=== PATIENT | male | born 1955 | race Caucasian/White ===

== ENCOUNTER → 2016-12-04 | Outpatient (REF) | payer MEDICARE, OTHER ==
[~2016-12-04] MED LIST: ABIL5TAB5 PO; ABILIFY PO; ALBU17IN INH; ALPR0.25 PO; CARV12.5 PO; CARV6.25 PO; CHLO1.4S2 MT; CIAL5TAB PO; CLEO300C2 PO; CLIN1CAP5 PO; DOXY10CA PO; FLUC10TA PO; FLUTICASONE NASAL; GABA300C3 PO; GABAPOW41 PO; HUMA100I SC; IBUP800T23 PO; IBUPPOW25 PO; INSUH10VL SC; INSULADS SC; INSULANT SQ; LISI25TA PO; LISI5TAB PO; METF1000 PO; METF500T PO; OMEP20CA3 PO; OMEP40CA2 PO; PRED20TAB PO; PROZ20CA11 PO; PROZAC PO; SILV50CR TOP; TRAM50TA2 PO; ULTR50TA PO; ZITH250T PO; ZYVO100T PO
== END ==
LOC: M LAB REF 14:37
PROVIDERS: ATTEND Podiatrist
DX: E11.51 Type 2 diabetes mellitus with diabetic peripheral angiopathy without gangrene (principal); E11.621 Type 2 diabetes mellitus with foot ulcer; L97.522 Non-pressure chronic ulcer of other part of left foot with fat layer exposed

== ENCOUNTER → 2017-01-16 | Outpatient (REF) | payer MEDICARE, OTHER ==
[~2017-01-16] MED LIST changes: +GABA-282 PO; -GABA300C3 PO; +LISI2.5T76 PO; -LISI25TA PO
== END ==
LOC: M LAB REF 11:13
PROVIDERS: ATTEND Podiatrist
DX: E11.51 Type 2 diabetes mellitus with diabetic peripheral angiopathy without gangrene (principal); E11.621 Type 2 diabetes mellitus with foot ulcer; L97.522 Non-pressure chronic ulcer of other part of left foot with fat layer exposed

== ENCOUNTER → 2017-06-28 | Outpatient (REF) | payer MEDICARE, OTHER ==
[~2017-06-28] MED LIST changes: +ABIL1TAB11 PO; -ABIL5TAB5 PO; +ASPI1TAB PO; +CLIN150C14 PO; -CLIN1CAP5 PO; +FLON1SPR; +IBUP1TAB7 PO; -IBUP800T23 PO; +MAGN250T14 PO; +METF10004 PO; -METF500T PO; +METF500T13 PO; +VITA1CAP40 PO
== END ==
LOC: M LAB REF 18:38
PROVIDERS: ATTEND Podiatrist
DX: L97.522 Non-pressure chronic ulcer of other part of left foot with fat layer exposed (principal)

== ENCOUNTER → 2017-07-18 | Outpatient (REF) | payer MEDICARE, OTHER | LOC: M LAB REF 11:38 | PROVIDERS: ATTEND Podiatrist | DX: E11.51 Type 2 diabetes mellitus with diabetic peripheral angiopathy without gangrene (principal); E11.621 Type 2 diabetes mellitus with foot ulcer ==

== ENCOUNTER → 2017-08-21 | Outpatient (CLI) | payer MEDICARE, BC, OTHER ==
[2017-08-21 10:36] LABS: BASO # 0.1 10^3/uL (0.0-0.2); BASO % 0.8 % (0.0-1.0); EOS # 0.2 10^3/uL (0.0-0.50); EOS % 2.2 % (0.0-3.0); IMMATURE GRANULOCYTE % 0.9 % (0-0); LYMPH # 1.7 10^3/uL (1.5-4.5); LYMPH % 19.4 % (24.0-44.0); MEAN CORPUSCULAR HEMOGLOBIN 31.4 pg (27.0-33.0); MEAN CORPUSCULAR HGB CONC 33.7 g/dl (32.0-36.5); MEAN CORPUSCULAR VOLUME 93.3 fl (80.0-96.0); MONO % 11.3 % (0.0-5.0); NEUTROPHILS # 5.7 10^3/uL (1.8-7.7); NEUTROPHILS % 65.4 % (36.0-66.0); PLATELET COUNT, AUTOMATED 187 10^3/uL (150-450); WHITE BLOOD COUNT 8.8 10^3/uL (4.0-10.0)
[2017-08-21 10:53] LABS: ALBUMIN 3.7 GM/DL (3.2-5.2); ALBUMIN/GLOBULIN RATIO 1.03 (1.00-1.93); BILIRUBIN,TOTAL 1.1 MG/DL (0.2-1.0); CALCIUM LEVEL 8.8 MG/DL (8.8-10.2); CREATININE FOR GFR 1.52 MG/DL (0.70-1.30); GLOMERULAR FILTRATION RATE 49.9 (>49); TOTAL PROTEIN 7.3 GM/DL (6.4-8.2)
--- NOTE | 2017-08-21 11:26 | REP ---
PA and lateral chest: Comparisons 01/25/2016. Lung hankins are clear. Cardiac size is normal. The yoseph, mediastinum, and bony thorax are unremarkable. The previous left upper lobe and left lower lobe infiltrates have resolved. Impression: Negative PA and lateral chest. Signed by Hector Kim MD 08/21/2017 11:17 A
--- NOTE | 2017-08-22 20:40 | ECGEPIP ---
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
== END ==
LOC: M RAD 09:19
PROVIDERS: ATTEND Podiatrist
DX: Z01.818 Encounter for other preprocedural examination (principal); M79.9 Soft tissue disorder, unspecified; I44.1 Atrioventricular block, second degree

== ENCOUNTER 2017-09-05 08:45 | Day surgery (SDC) | payer MEDICARE, BC, OTHER ==
[~2017-09-05] VITALS: Ht 171.4 cm; Wt 102.4 kg
[~2017-09-05 08:45] MED LIST changes: -ASPI1TAB PO
[2017-09-05] MEDS ORDERED: VANCOMYCIN HCL 1,000 MG, VIAL MATE ADAPTER 1 EACH in D5W 250 ML IV ONE (09:00)
[2017-09-05] MEDS ORDERED: LR 1,000 ML IV ONE (09:00)
[2017-09-05] MEDS ORDERED: HumaLOG INSULIN (NovoLOG) PER UNIT As Ordered ONE (09:30)
[2017-09-05] MEDS ORDERED: ASPI1TAB PO (09:47)
[2017-09-05] MEDS ORDERED: BUPIVACAINE HCL 0.5% 30 ML VIAL As Ordered ONE (09:50)
[2017-09-05] MEDS ORDERED: BACITRACIN PWD 50,000 UNITS VIAL As Ordered ONE (09:50)
[2017-09-05] MEDS ORDERED: LIDOCAINE 2% MDV 20 ML VIAL As Ordered ONE (09:50)
[2017-09-05] MEDS ORDERED: dexameTHASONE 4 MG/ML 1ML VIAL (J1100) As Ordered ONE (09:50)
[2017-09-05] MEDS ORDERED: NEOSPORIN GU IRRIG 20 ML VIAL As Ordered ONE (09:51)
[2017-09-05] MEDS ORDERED: LEVEMIR (INSULIN DETEMIR) 1 UNITS/0.01ML SC ONE (10:00)
[2017-09-05] MEDS ORDERED: HumaLOG INSULIN (NovoLOG) PER UNIT SC ONE (10:00)
[2017-09-05] MEDS ORDERED: LIDOCAINE 2% INJ 100 MG/5 ML SDV (FOR ANES.) As Ordered ONE (11:25)
[2017-09-05] MEDS ORDERED: fentaNYL 100 MCG/2 ML INJECTION (J3010) As Ordered ONE (11:25)
[2017-09-05] MEDS ORDERED: MIDAZOLAM INJ 2 MG/2 ML VIAL (J2250) As Ordered ONE (11:25)
[2017-09-05] MEDS ORDERED: PROPOFOL 500 MG/50 ML VIAL As Ordered ONE (11:25)
[2017-09-05] MEDS ORDERED: ONDANSETRON 4MG/2ML VIAL (J2405) As Ordered ONE (11:26)
[2017-09-05 13:00] VITALS: BP 140/66
--- NOTE | 2017-09-06 17:24 | RO ---
DATE OF PROCEDURE: 09/05/2017 PREPROCEDURE DIAGNOSIS: Soft tissue mass plantar surface left foot. POSTPROCEDURE DIAGNOSIS: Soft tissue mass plantar surface left foot. PROCEDURE: Excision of soft tissue mass plantar surface left foot. SURGEON: Dr. Sumeet Dhaliwal DPM PSYCHIATRIC NURSE: None. ANESTHESIA: Local MAC. IRRIGATION: Dilute bacitracin, neomycin and polymyxin B solution. DESCRIPTION OF PROCEDURE: On 09/05/2017, this 62-year-old white male was taken from his hospital room to the operating room and placed on the operating table in the supine position. Following the induction of intravenous (IV) sedation and local and regional anesthesia, left lower extremity was prepped and draped in the usual aseptic manner. Attention was directed to the plantar surface of the left foot and the following procedure was performed: EXCISION OF SOFT TISSUE MASS PLANTAR SURFACE LEFT FOOT: Attention was directed to the patient's left foot where two semi-elliptical incisions were placed around the soft tissue mass on the plantar surface of the left foot, encompassing an ulceration on the plantar surface. This was carried down through the subcutaneous tissues and a well-capsulated mass was noted and appearance of an adventitious bursa. This was dissected from the surrounding soft tissue, preserving the subcutaneous fat. Soft tissue mass was excised. The flexor tendon was visible and not affected. The wound was flushed with copious amounts of dilute bacitracin, neomycin and polymyxin B solution. The soft tissue mass measured approximately 3 cm x 1 cm. After the wound was fully irrigated with dilute bacitracin, neomycin and polymyxin B solution, closure was obtained subcutaneously with #4-0 Monocryl in a simple interrupted type fashion. Skin incision was coapted and maintained with #3-0 nylon in a simple interrupted and horizontal mattress type fashion. Attention was directed towards bandaging where a sterile compressive bandage was applied consisting of Adaptic, 4 x 4's, 4 x 4 splints, Maurice, Kerlix and Coban. Ankle pneumatic tourniquet was rapidly deflated and instantaneous capillary filling time was noted in digits 1-5 of the patient's left foot. Patient having apparently tolerated the surgical procedure well was taken from the operating room to the recovery room, vital signs stable, patient afebrile, further monitoring by the anesthesia department. All surgical specimens removed during the operative procedure were sent to Pathology for gross and microscopic examination. Postoperative instructions given upon discharge.
== END 2017-09-05 13:35 | disposition home or self-care (01) ==
LOC: M SDC 08:45
PROVIDERS: ATTEND Podiatrist
DX: D48.1 Neoplasm of uncertain behavior of connective and other soft tissue (principal); E11.51 Type 2 diabetes mellitus with diabetic peripheral angiopathy without gangrene; E11.621 Type 2 diabetes mellitus with foot ulcer; B35.1 Tinea unguium; L97.522 Non-pressure chronic ulcer of other part of left foot with fat layer exposed; R94.31 Abnormal electrocardiogram [ECG] [EKG]; I10 Essential (primary) hypertension; E78.00 Pure hypercholesterolemia, unspecified; K21.9 Gastro-esophageal reflux disease without esophagitis; M12.9 Arthropathy, unspecified; F32.9 Major depressive disorder, single episode, unspecified; Z88.0 Allergy status to penicillin; Z88.5 Allergy status to narcotic agent; Z79.899 Other long term (current) drug therapy; Z79.84 Long term (current) use of oral hypoglycemic drugs; Z79.4 Long term (current) use of insulin; Z72.0 Tobacco use
CPT/HCPCS: 28039; 88307; 96374; 97116; G8978; G8979; G8980; J2250; J2405; J3010; J3370

== ENCOUNTER → 2017-09-18 | Outpatient (REF) | payer MEDICARE, OTHER ==
[~2017-09-18] MED LIST changes: +ASPI1TAB PO
== END ==
LOC: M LAB REF 14:40
PROVIDERS: ATTEND Podiatrist
DX: L97.522 Non-pressure chronic ulcer of other part of left foot with fat layer exposed (principal)

== ENCOUNTER 2017-10-13 18:22 | Emergency (ER) | payer MEDICARE, OTHER ==
[~2017-10-13] VITALS: Ht 170.2 cm; Wt 93.2 kg
[2017-10-13 19:07] LABS: BASO # 0.1 10^3/uL (0.0-0.2); BASO % 0.6 % (0.0-1.0); EOS # 0.2 10^3/uL (0.0-0.50); EOS % 2.1 % (0.0-3.0); IMMATURE GRANULOCYTE % 1.1 % (0-0); LYMPH # 1.2 10^3/uL (1.5-4.5); LYMPH % 13.2 % (24.0-44.0); MEAN CORPUSCULAR HEMOGLOBIN 31.5 pg (27.0-33.0); MEAN CORPUSCULAR HGB CONC 33.4 g/dl (32.0-36.5); MEAN CORPUSCULAR VOLUME 94.3 fl (80.0-96.0); MONO # 0.9 10^3/uL (0.0-0.8); MONO % 9.2 % (0.0-5.0); NEUTROPHILS # 6.9 10^3/uL (1.8-7.7); NEUTROPHILS % 73.8 % (36.0-66.0); PLATELET COUNT, AUTOMATED 171 10^3/uL (150-450); RED CELL DISTRIBUTION WIDTH 13.7 % (11.5-14.5); WHITE BLOOD COUNT 9.4 10^3/uL (4.0-10.0)
--- NOTE | 2017-10-13 19:30 | REPUSA ---
CT of the head Clinical history: Head injury. Technique: Multiple axial CT images were obtained through the head without administration of contrast . Findings: The ventricles and sulci are symmetric bilaterally. There is no evidence of acute hemorrhag e or infarct. There is no midline shift, mass effect, or extra-axial fluid collection. The osseous st ructures are unremarkable. The visualized paranasal sinuses and mastoid air cells are clear. Impression: Negative study.
--- NOTE | 2017-10-13 19:30 | REPUSA ---
CT of the cervical spine Clinical history: Pain. Technique: Multiple axial CT images were obtained through the cervical spine without administration o f contrast. Coronal and sagittal 3-D reconstructed images were also obtained. Comparison: None. Findings: The cervical vertebral bodies are in satisfactory positioning and alignment. No fractures or dislocat ions are demonstrated. The odontoid process is intact. Intervertebral disc spaces are well-maintained . There is no evidence of facet subluxation. The neural foramen appear grossly patent. The cervical c ranial junction is intact. There are moderate disc bulge is noted at C3/C4, C4/C5, C5/C6 and C6/C7. T he surrounding soft tissues are within normal limits. Impression: 1. No acute fracture or traumatic injury. 2. Multilevel disc bulging at C3/C4, C4/C5, C5/C6 and C6/C7. No evidence of central canal stenosis.
[2017-10-13 19:50] LABS: CALCIUM LEVEL 8.5 MG/DL (8.8-10.2); CREATININE FOR GFR 2.13 MG/DL (0.70-1.30); GLOMERULAR FILTRATION RATE 33.7 (>49); POTASSIUM SERUM 4.9 MEQ/L (3.5-5.1)
[2017-10-13 20:33] VITALS: BP 119/60
== END 2017-10-13 21:12 | disposition home or self-care (01) ==
LOC: EDBD 18:22 → M ED 18:22
DX: R55 Syncope and collapse (principal); E11.649 Type 2 diabetes mellitus with hypoglycemia without coma; N17.9 Acute kidney failure, unspecified; M50.30 Other cervical disc degeneration, unspecified cervical region; N18.3 Chronic kidney disease, stage 3 (moderate); F41.9 Anxiety disorder, unspecified; F33.9 Major depressive disorder, recurrent, unspecified; G62.9 Polyneuropathy, unspecified; Z79.899 Other long term (current) drug therapy; Z79.4 Long term (current) use of insulin; F17.210 Nicotine dependence, cigarettes, uncomplicated

== ENCOUNTER → 2017-10-18 | Outpatient (REF) | payer MEDICARE, OTHER ==
[~2017-10-18] MED LIST changes: +DOXY100C PO; +IBUPOTC PO
== END ==
LOC: M LAB REF 13:02
PROVIDERS: ATTEND Podiatrist
DX: L03.116 Cellulitis of left lower limb (principal)

== ENCOUNTER 2017-10-24 12:47 | Inpatient (IN) | payer MEDICARE, BC, OTHER ==
[2017-10-24 15:02] LABS: HEMATOCRIT 36.5 % (42.0-52.0); HEMOGLOBIN 12.5 g/dl (14.0-18.0); MEAN CORPUSCULAR HEMOGLOBIN 30.9 pg (27.0-33.0); MEAN CORPUSCULAR HGB CONC 34.2 g/dl (32.0-36.5); MEAN CORPUSCULAR VOLUME 90.3 fl (80.0-96.0); PLATELET COUNT, AUTOMATED 256 10^3/uL (150-450); RED BLOOD COUNT 4.04 10^6/uL (4.30-6.10); RED CELL DISTRIBUTION WIDTH 13.4 % (11.5-14.5); WHITE BLOOD COUNT 10.7 10^3/uL (4.0-10.0)
[2017-10-24 15:27] LABS: ANION GAP 9 MEQ/L (8-16); BLOOD UREA NITROGEN 24 MG/DL (7-18); CALCIUM LEVEL 9.4 MG/DL (8.8-10.2); CARBON DIOXIDE LEVEL 28 MEQ/L (21-32); CHLORIDE LEVEL 97 MEQ/L (98-107); CREATININE FOR GFR 2.07 MG/DL (0.70-1.30); GLOMERULAR FILTRATION RATE 34.8 (>49); GLUCOSE, FASTING 334 MG/DL (80-110); POTASSIUM SERUM 4.9 MEQ/L (3.5-5.1); SODIUM LEVEL 134 MEQ/L (136-145)
[2017-10-24] MEDS ORDERED: PERCOCET 5MG/325MG TAB PO ×3 (16:00→19:15)
[2017-10-24] MEDS ORDERED: DEXTROSE 50% 50 ML SYRINGE IV (16:00)
[2017-10-24] MEDS ORDERED: ONDANSETRON 4MG/2ML VIAL (J2405) IV ×2 (16:00→19:15)
[2017-10-24] MEDS ORDERED: GLUCAGON FOR INJ 1 MG VIAL (J1610) SC (16:00)
[2017-10-24] MEDS ORDERED: GLUCOSE 4 GM CHEW TABLET PO (16:00)
[2017-10-24 16:20] LABS: C REACTIVE PROTEIN QUANTITATIV 8.02 MG/DL (0.00-0.30)
[2017-10-24] MEDS ORDERED: LIDOCAINE 2% INJ 100 MG/5 ML SDV (FOR ANES.) As Ordered (17:00)
[2017-10-24] MEDS ORDERED: PROPOFOL 200 MG/20 ML VIAL As Ordered ×2 (17:00→18:13)
[2017-10-24] MEDS ORDERED: MIDAZOLAM INJ 2 MG/2 ML VIAL (J2250) As Ordered (17:00)
[2017-10-24] MEDS: VANCOMYCIN HCL 1,000 MG, VIAL MATE ADAPTER 1 EACH in D5W 250 ML IV (17:00)
[2017-10-24] MEDS ORDERED: fentaNYL 100 MCG/2 ML INJECTION (J3010) As Ordered (17:01)
[2017-10-24 17:26] LABS: BEDSIDE GLUCOSE 339 MG/DL (80-115)
[2017-10-24] MEDS ORDERED: HumaLOG INSULIN (NovoLOG) PER UNIT As Ordered (17:28)
[2017-10-24] MEDS: HumaLOG INSULIN (NovoLOG) PER UNIT SC (17:36)
[2017-10-24] MEDS: BUPIVACAINE HCL 0.5% 30 ML VIAL As Ordered (17:52)
[2017-10-24] MEDS ORDERED: ePHEDrine SULFATE 25 MG/5 ML(5MG/ML) SYRINGE As Ordered ×2 (17:52→18:16)
[2017-10-24] MEDS: LIDOCAINE 2% MDV 20 ML VIAL As Ordered (17:52)
[2017-10-24] MEDS ORDERED: PHENYLephrine HCL 500 MCG/5 ML (100MCG/ML) SYRINGE (J2370) As Ordered ×2 (18:00→18:33)
[2017-10-24] MEDS: VANCOMYCIN 1000 MG/20 ML VIAL (J3370) As Ordered ×2 (18:23→18:26)
[2017-10-24] MEDS: NEOSPORIN GU IRRIG 20 ML VIAL As Ordered (18:24)
[2017-10-24] MEDS: BACITRACIN PWD 50,000 UNITS VIAL As Ordered ×2 (18:24→18:30)
[2017-10-24] MEDS: LR 1,000 ML IV (19:00)
[2017-10-24] MEDS ORDERED: fentaNYL 100 MCG/2 ML INJECTION (J3010) IV (19:15)
[2017-10-24] MEDS ORDERED: HYDROmorphone HCL 1 MG/ML SYRINGE (J1170) IV (19:15)
[2017-10-24 19:33] LABS: BEDSIDE GLUCOSE 260 MG/DL (80-115)
[2017-10-24 20:57] LABS: BEDSIDE GLUCOSE 207 MG/DL (80-115)
[2017-10-24] MEDS: CARVedilol 6.25 MG TAB PO (21:00)
[2017-10-24] MEDS: DILUENT IV (22:53)
[2017-10-24] MEDS: CEFTAZIDIME IV (22:53)
[2017-10-24] MEDS: NS 1,000 ML IV (22:54)
[2017-10-24] MEDS: GABAPENTIN 300 MG CAP PO (22:54)
[2017-10-24] MEDS: LEVEMIR (INSULIN DETEMIR) 1 UNITS/0.01ML SC (22:54)
[2017-10-25] MEDS ORDERED: INFLUENZA QUADRIVALENT PF VACCINE 0.5ML SYRINGE (90686) IM (00:30)
[2017-10-25 07:03] LABS: HEMATOCRIT 29.1 % (42.0-52.0); MEAN CORPUSCULAR HEMOGLOBIN 30.8 pg (27.0-33.0); MEAN CORPUSCULAR HGB CONC 34.4 g/dl (32.0-36.5); MEAN CORPUSCULAR VOLUME 89.5 fl (80.0-96.0); PLATELET COUNT, AUTOMATED 208 10^3/uL (150-450); RED BLOOD COUNT 3.25 10^6/uL (4.30-6.10); RED CELL DISTRIBUTION WIDTH 13.2 % (11.5-14.5); WHITE BLOOD COUNT 9.2 10^3/uL (4.0-10.0)
[2017-10-25 07:17] LABS: ANION GAP 8 MEQ/L (8-16); BLOOD UREA NITROGEN 30 MG/DL (7-18); C REACTIVE PROTEIN QUANTITATIV 5.11 MG/DL (0.00-0.30); CALCIUM LEVEL 8.3 MG/DL (8.8-10.2); CARBON DIOXIDE LEVEL 26 MEQ/L (21-32); CHLORIDE LEVEL 99 MEQ/L (98-107); CREATININE FOR GFR 2.03 MG/DL (0.70-1.30); GLOMERULAR FILTRATION RATE 35.6 (>49); GLUCOSE, FASTING 348 MG/DL (80-110); MAGNESIUM LEVEL 1.5 MG/DL (1.8-2.4); POTASSIUM SERUM 4.8 MEQ/L (3.5-5.1); SODIUM LEVEL 133 MEQ/L (136-145)
[2017-10-25] MEDS: VANCOMYCIN HCL 1,000 MG, VIAL MATE ADAPTER 1 EACH in D5W 250 ML IV ×2 (08:44→20:38)
[2017-10-25] MEDS: HumaLOG INSULIN (NovoLOG) PER UNIT SC ×4 (08:44→20:37)
[2017-10-25] MEDS: FLUoxetine 20 MG CAP PO (09:51)
[2017-10-25] MEDS: MAGNESIUM OXIDE 400 MG TAB (MAG-OX) PO ×2 (09:51→20:38)
[2017-10-25] MEDS: GABAPENTIN 300 MG CAP PO ×3 (09:51→20:39)
[2017-10-25] MEDS: CARVedilol 6.25 MG TAB PO ×2 (09:51→20:39)
[2017-10-25] MEDS: OMEPRAZOLE 20 MG CAP PO (09:51)
[2017-10-25] MEDS: DILUENT IV ×2 (09:52→20:40)
[2017-10-25] MEDS: CEFTAZIDIME IV ×2 (09:52→20:40)
[2017-10-25] MEDS: LEVEMIR (INSULIN DETEMIR) 1 UNITS/0.01ML SC ×2 (09:52→20:40)
[2017-10-25] MEDS: FLUTICASONE PROP 0.05% NASAL SPRAY 16 GM (FLONASE) (09:52)
[2017-10-25 12:20] LABS: BEDSIDE GLUCOSE 328 MG/DL (80-115)
[2017-10-25 17:18] LABS: BEDSIDE GLUCOSE 244 MG/DL (80-115)
[2017-10-25] MEDS: HEPARIN SOD (PORCINE) 5000 UNITS/ML VIAL SQ (20:40)
[2017-10-25 21:03] LABS: BEDSIDE GLUCOSE 189 MG/DL (80-115)
[2017-10-25] MEDS: traMADol 50 MG TAB PO (23:21)
[2017-10-26] MEDS: HEPARIN SOD (PORCINE) 5000 UNITS/ML VIAL SQ ×3 (05:35→21:06)
[2017-10-26 07:27] LABS: HEMATOCRIT 28.8 % (42.0-52.0); MEAN CORPUSCULAR HGB CONC 34.7 g/dl (32.0-36.5); MEAN CORPUSCULAR VOLUME 89.2 fl (80.0-96.0); PLATELET COUNT, AUTOMATED 218 10^3/uL (150-450); RED BLOOD COUNT 3.23 10^6/uL (4.30-6.10); RED CELL DISTRIBUTION WIDTH 13.3 % (11.5-14.5)
[2017-10-26 07:43] LABS: ANION GAP 6 MEQ/L (8-16); BLOOD UREA NITROGEN 19 MG/DL (7-18); CALCIUM LEVEL 8.8 MG/DL (8.8-10.2); CARBON DIOXIDE LEVEL 30 MEQ/L (21-32); CHLORIDE LEVEL 101 MEQ/L (98-107); CREATININE FOR GFR 1.11 MG/DL (0.70-1.30); GLOMERULAR FILTRATION RATE > 60.0 (>49); GLUCOSE, FASTING 80 MG/DL (80-110); MAGNESIUM LEVEL 1.6 MG/DL (1.8-2.4); POTASSIUM SERUM 3.7 MEQ/L (3.5-5.1); SODIUM LEVEL 137 MEQ/L (136-145); VANCOMYCIN LEVEL TROUGH 22.2 UG/ML (10.0-20.0)
[2017-10-26] MEDS: VANCOMYCIN HCL 1,000 MG, VIAL MATE ADAPTER 1 EACH in D5W 250 ML IV (08:20)
[2017-10-26] MEDS: ACETAMINOPHEN TAB 650MG DOSE (2X325MG) PO (08:21)
[2017-10-26] MEDS: MAGNESIUM OXIDE 400 MG TAB (MAG-OX) PO ×2 (08:22→21:05)
[2017-10-26] MEDS: FLUoxetine 20 MG CAP PO (08:22)
[2017-10-26] MEDS: GABAPENTIN 300 MG CAP PO ×3 (08:22→21:04)
[2017-10-26] MEDS: CARVedilol 6.25 MG TAB PO ×2 (08:23→21:05)
[2017-10-26] MEDS: OMEPRAZOLE 20 MG CAP PO (08:23)
[2017-10-26] MEDS: FLUTICASONE PROP 0.05% NASAL SPRAY 16 GM (FLONASE) (08:24)
[2017-10-26] MEDS: LEVEMIR (INSULIN DETEMIR) 1 UNITS/0.01ML SC ×2 (09:00→21:23)
[2017-10-26 09:01] LABS: BEDSIDE GLUCOSE 117 MG/DL (80-115)
[2017-10-26] MEDS: HumaLOG INSULIN (NovoLOG) PER UNIT SC ×4 (09:12→21:00)
[2017-10-26] MEDS: CEFTAZIDIME IV ×2 (09:51→21:06)
[2017-10-26] MEDS: DILUENT IV ×2 (09:51→21:06)
[2017-10-26 13:01] LABS: BEDSIDE GLUCOSE 220 MG/DL (80-115)
[2017-10-26 17:10] LABS: BEDSIDE GLUCOSE 239 MG/DL (80-115)
[2017-10-26] MEDS: traMADol 50 MG TAB PO (21:05)
[2017-10-26 21:33] LABS: BEDSIDE GLUCOSE 328 MG/DL (80-115)
[2017-10-26 23:29] LABS: BEDSIDE GLUCOSE 275 MG/DL (80-115)
[2017-10-27 02:19] LABS: BEDSIDE GLUCOSE 226 MG/DL (80-115)
[2017-10-27] MEDS: HEPARIN SOD (PORCINE) 5000 UNITS/ML VIAL SQ (04:58)
[2017-10-27 06:38] LABS: HEMATOCRIT 28.7 % (42.0-52.0); HEMOGLOBIN 9.9 g/dl (14.0-18.0); MEAN CORPUSCULAR HEMOGLOBIN 31.3 pg (27.0-33.0); MEAN CORPUSCULAR HGB CONC 34.5 g/dl (32.0-36.5); MEAN CORPUSCULAR VOLUME 90.8 fl (80.0-96.0); PLATELET COUNT, AUTOMATED 177 10^3/uL (150-450); RED BLOOD COUNT 3.16 10^6/uL (4.30-6.10); RED CELL DISTRIBUTION WIDTH 13.4 % (11.5-14.5); WHITE BLOOD COUNT 5.8 10^3/uL (4.0-10.0)
[2017-10-27 07:03] LABS: ANION GAP 7 MEQ/L (8-16); BLOOD UREA NITROGEN 14 MG/DL (7-18); C REACTIVE PROTEIN QUANTITATIV 4.98 MG/DL (0.00-0.30); CALCIUM LEVEL 8.4 MG/DL (8.8-10.2); CARBON DIOXIDE LEVEL 28 MEQ/L (21-32); CHLORIDE LEVEL 104 MEQ/L (98-107); CREATININE FOR GFR 1.05 MG/DL (0.70-1.30); GLOMERULAR FILTRATION RATE > 60.0 (>49); GLUCOSE, FASTING 179 MG/DL (80-110); MAGNESIUM LEVEL 1.8 MG/DL (1.8-2.4); POTASSIUM SERUM 4.1 MEQ/L (3.5-5.1); SODIUM LEVEL 139 MEQ/L (136-145)
[2017-10-27] MEDS: VANCOMYCIN HCL 1,000 MG, VIAL MATE ADAPTER 1 EACH in D5W 250 ML IV ×2 (08:20→20:57)
[2017-10-27] MEDS: FLUoxetine 20 MG CAP PO (08:20)
[2017-10-27] MEDS: OMEPRAZOLE 20 MG CAP PO (08:20)
[2017-10-27] MEDS: GABAPENTIN 300 MG CAP PO ×3 (08:21→20:57)
[2017-10-27] MEDS: FLUTICASONE PROP 0.05% NASAL SPRAY 16 GM (FLONASE) (08:21)
[2017-10-27] MEDS: CARVedilol 6.25 MG TAB PO ×2 (08:25→20:59)
[2017-10-27] MEDS: CEFTAZIDIME IV (10:04)
[2017-10-27] MEDS: DILUENT IV (10:04)
[2017-10-27] MEDS: HumaLOG INSULIN (NovoLOG) PER UNIT SC ×4 (12:00→21:00)
[2017-10-27 12:36] LABS: BEDSIDE GLUCOSE 290 MG/DL (80-115)
[2017-10-27] MEDS: LIDOCAINE 2% MDV 20 ML VIAL As Ordered (15:01)
[2017-10-27] MEDS: BUPIVACAINE HCL 0.5% 10 ML VIAL As Ordered (15:01)
[2017-10-27] MEDS ORDERED: fentaNYL 100 MCG/2 ML INJECTION (J3010) As Ordered (15:16)
[2017-10-27] MEDS ORDERED: MIDAZOLAM INJ 2 MG/2 ML VIAL (J2250) As Ordered (15:16)
[2017-10-27] MEDS ORDERED: LIDOCAINE 2% INJ 100 MG/5 ML SDV (FOR ANES.) As Ordered (15:16)
[2017-10-27] MEDS ORDERED: ONDANSETRON 4MG/2ML VIAL (J2405) As Ordered (15:16)
[2017-10-27] MEDS: VANCOMYCIN HCL 500 MG/10 ML VIAL (J3370) As Ordered (15:18)
[2017-10-27] MEDS ORDERED: fentaNYL 100 MCG/2 ML INJECTION (J3010) IV (16:00)
[2017-10-27] MEDS ORDERED: NORCO, ANEXSIA 5/325MG TABLET (HYDROcodone/ACETAMINOPHEN) PO (16:00)
[2017-10-27] MEDS ORDERED: ONDANSETRON 4MG/2ML VIAL (J2405) IV (16:00)
[2017-10-27] MEDS ORDERED: HumaLOG INSULIN (NovoLOG) PER UNIT As Ordered (16:03)
[2017-10-27 16:04] LABS: BEDSIDE GLUCOSE 291 MG/DL (80-115)
[2017-10-27] MEDS: LR 1,000 ML IV (16:15)
[2017-10-27 17:52] LABS: BEDSIDE GLUCOSE 222 MG/DL (80-115)
[2017-10-27] MEDS ORDERED: SLF 3 ML SYR IV (18:30)
[2017-10-27] MEDS: SLF 3 ML SYR IV (21:01)
[2017-10-27] MEDS: LEVEMIR (INSULIN DETEMIR) 1 UNITS/0.01ML SC (21:01)
[2017-10-27] MEDS: traMADol 50 MG TAB PO (21:11)
[2017-10-27 21:13] LABS: BEDSIDE GLUCOSE 278 MG/DL (80-115)
[2017-10-28] MEDS: SLF 3 ML SYR IV ×3 (06:00→20:42)
[2017-10-28 07:01] LABS: HEMATOCRIT 27.7 % (42.0-52.0); HEMOGLOBIN 9.3 g/dl (14.0-18.0); MEAN CORPUSCULAR HEMOGLOBIN 30.8 pg (27.0-33.0); MEAN CORPUSCULAR HGB CONC 33.6 g/dl (32.0-36.5); MEAN CORPUSCULAR VOLUME 91.7 fl (80.0-96.0); PLATELET COUNT, AUTOMATED 192 10^3/uL (150-450); RED BLOOD COUNT 3.02 10^6/uL (4.30-6.10); RED CELL DISTRIBUTION WIDTH 13.4 % (11.5-14.5); WHITE BLOOD COUNT 6.1 10^3/uL (4.0-10.0)
[2017-10-28 07:23] LABS: VANCOMYCIN LEVEL TROUGH 22.6 UG/ML (10.0-20.0)
[2017-10-28 07:24] LABS: ANION GAP 7 MEQ/L (8-16); BLOOD UREA NITROGEN 14 MG/DL (7-18); C REACTIVE PROTEIN QUANTITATIV 2.85 MG/DL (0.00-0.30); CALCIUM LEVEL 8.5 MG/DL (8.8-10.2); CARBON DIOXIDE LEVEL 30 MEQ/L (21-32); CHLORIDE LEVEL 102 MEQ/L (98-107); GLOMERULAR FILTRATION RATE > 60.0 (>49); GLUCOSE, FASTING 181 MG/DL (80-110); MAGNESIUM LEVEL 1.8 MG/DL (1.8-2.4); POTASSIUM SERUM 4.4 MEQ/L (3.5-5.1); SODIUM LEVEL 139 MEQ/L (136-145)
[2017-10-28] MEDS: VANCOMYCIN HCL 1,000 MG, VIAL MATE ADAPTER 1 EACH in D5W 250 ML IV ×3 (07:55→23:44)
[2017-10-28] MEDS: HumaLOG INSULIN (NovoLOG) PER UNIT SC ×4 (07:55→20:41)
[2017-10-28] MEDS: LEVEMIR (INSULIN DETEMIR) 1 UNITS/0.01ML SC ×2 (08:03→20:42)
[2017-10-28] MEDS: INFLUENZA QUADRIVALENT PF VACCINE 0.5ML SYRINGE (90686) IM (08:04)
[2017-10-28] MEDS: FLUTICASONE PROP 0.05% NASAL SPRAY 16 GM (FLONASE) (08:05)
[2017-10-28] MEDS: OMEPRAZOLE 20 MG CAP PO (08:06)
[2017-10-28] MEDS: GABAPENTIN 300 MG CAP PO ×3 (08:06→20:42)
[2017-10-28] MEDS: CARVedilol 6.25 MG TAB PO ×2 (08:07→20:42)
[2017-10-28] MEDS: FLUoxetine 20 MG CAP PO (08:09)
[2017-10-28 11:45] LABS: BEDSIDE GLUCOSE 208 MG/DL (80-115)
[2017-10-28] MEDS: traMADol 50 MG TAB PO (14:56)
[2017-10-28 16:55] LABS: BEDSIDE GLUCOSE 184 MG/DL (80-115)
[2017-10-28 20:43] LABS: BEDSIDE GLUCOSE 197 MG/DL (80-115)
[2017-10-28] MEDS: ALPRAZolam 0.25 MG TAB PO (23:49)
[2017-10-29] MEDS: SLF 3 ML SYR IV (05:31)
[2017-10-29 07:14] LABS: HEMATOCRIT 29.5 % (42.0-52.0); HEMOGLOBIN 9.9 g/dl (14.0-18.0); MEAN CORPUSCULAR HGB CONC 33.6 g/dl (32.0-36.5); MEAN CORPUSCULAR VOLUME 92.5 fl (80.0-96.0); PLATELET COUNT, AUTOMATED 196 10^3/uL (150-450); RED BLOOD COUNT 3.19 10^6/uL (4.30-6.10); RED CELL DISTRIBUTION WIDTH 13.2 % (11.5-14.5); WHITE BLOOD COUNT 5.8 10^3/uL (4.0-10.0)
[2017-10-29] MEDS: HumaLOG INSULIN (NovoLOG) PER UNIT SC (07:30)
[2017-10-29 07:37] LABS: ANION GAP 6 MEQ/L (8-16); BLOOD UREA NITROGEN 14 MG/DL (7-18); C REACTIVE PROTEIN QUANTITATIV 1.86 MG/DL (0.00-0.30); CARBON DIOXIDE LEVEL 29 MEQ/L (21-32); CHLORIDE LEVEL 105 MEQ/L (98-107); GLOMERULAR FILTRATION RATE > 60.0 (>49); GLUCOSE, FASTING 96 MG/DL (80-110); MAGNESIUM LEVEL 1.5 MG/DL (1.8-2.4); POTASSIUM SERUM 4.2 MEQ/L (3.5-5.1); SODIUM LEVEL 140 MEQ/L (136-145)
[2017-10-29] MEDS: FLUTICASONE PROP 0.05% NASAL SPRAY 16 GM (FLONASE) (08:36)
[2017-10-29] MEDS: OMEPRAZOLE 20 MG CAP PO (08:36)
[2017-10-29] MEDS: GABAPENTIN 300 MG CAP PO (08:36)
[2017-10-29] MEDS: FLUoxetine 20 MG CAP PO (08:37)
[2017-10-29] MEDS: MAGNESIUM OXIDE 400 MG TAB (MAG-OX) PO (08:37)
[2017-10-29] MEDS: CARVedilol 6.25 MG TAB PO (08:38)
[2017-10-29] MEDS: LEVEMIR (INSULIN DETEMIR) 1 UNITS/0.01ML SC (08:38)
[2017-10-29] MEDS: ACETAMINOPHEN TAB 650MG DOSE (2X325MG) PO (10:50)
[2017-10-29] MEDS: traMADol 50 MG TAB PO (10:53)
== END 2017-10-29 12:30 | disposition home or self-care (01) | DRG 617 ==
LOC: M PED 10-25 14:00 → M ED 12:47 → M ED INP 15:54 → M PED 20:22
PROC: 0Y6Q0Z2 Detachment at Left 1st Toe, Mid, Open Approach (ICD-10-PCS; principal; 2017-10-24 13:13)
PROC: 0QBP0ZZ Excision of Left Metatarsal, Open Approach (ICD-10-PCS; 2017-10-24 17:40)
DX: E11.621 Type 2 diabetes mellitus with foot ulcer (principal); M86.9 Osteomyelitis, unspecified; I12.9 Hypertensive chronic kidney disease with stage 1 through stage 4 chronic kidney disease, or unspecified chronic kidney disease; E11.40 Type 2 diabetes mellitus with diabetic neuropathy, unspecified; K21.9 Gastro-esophageal reflux disease without esophagitis; L97.529 Non-pressure chronic ulcer of other part of left foot with unspecified severity; N18.9 Chronic kidney disease, unspecified; F17.210 Nicotine dependence, cigarettes, uncomplicated; Z79.82 Long term (current) use of aspirin; Z79.4 Long term (current) use of insulin; Z79.899 Other long term (current) drug therapy; Z88.0 Allergy status to penicillin; Z88.8 Allergy status to other drugs, medicaments and biological substances; Z90.49 Acquired absence of other specified parts of digestive tract

== ENCOUNTER → 2017-11-15 | Outpatient (CLI) | payer MEDICARE, BC, OTHER ==
[2017-11-15 14:50] LABS: ANION GAP 7 MEQ/L (8-16); BLOOD UREA NITROGEN 20 MG/DL (7-18); CARBON DIOXIDE LEVEL 23 MEQ/L (21-32); CHLORIDE LEVEL 104 MEQ/L (98-107); CREATININE FOR GFR 1.51 MG/DL (0.70-1.30); GLOMERULAR FILTRATION RATE 50.1 (>49); GLUCOSE, FASTING 348 MG/DL (80-110); POTASSIUM SERUM 4.9 MEQ/L (3.5-5.1); SODIUM LEVEL 134 MEQ/L (136-145)
== END ==
LOC: M LAB 14:10
DX: E87.5 Hyperkalemia (principal)
CPT/HCPCS: 80048

== ENCOUNTER → 2017-12-24 | Outpatient (REF) | payer MEDICARE, BC, OTHER | LOC: M LAB REF 17:29 | DX: L03.032 Cellulitis of left toe (principal) | CPT/HCPCS: 87186 ==

== ENCOUNTER 2017-12-31 10:56 | Inpatient (IN) | payer MEDICARE, BC, OTHER ==
[2017-12-31] MEDS: UNRESOLVED CLARIFICATION ENTRY XX (00:01)
[~2017-12-31 10:56] MED LIST changes: -ABIL1TAB11 PO; -ABILIFY PO; -ALBU17IN INH; -ALPR0.25 PO; -ASPI1TAB PO; -CARV12.5 PO; -CARV6.25 PO; -CHLO1.4S2 MT; -CIAL5TAB PO; -CLEO300C2 PO; -CLIN150C14 PO; -DOXY100C PO; -DOXY10CA PO; -FLON1SPR; -FLUC10TA PO; -FLUTICASONE NASAL; -GABA-282 PO; -GABAPOW41 PO; -HUMA100I SC; -IBUP1TAB7 PO; -IBUPOTC PO; -IBUPPOW25 PO; -INSUH10VL SC; -INSULADS SC; -INSULANT SQ; -LISI2.5T76 PO; -LISI5TAB PO; -MAGN250T14 PO; -METF1000 PO; -METF10004 PO; -METF500T13 PO; -OMEP20CA3 PO; -OMEP40CA2 PO; +ONDANSETRON 4MG/2ML VIAL (J2405) IV; -PRED20TAB PO; -PROZ20CA11 PO; -PROZAC PO; -SILV50CR TOP; -TRAM50TA2 PO; -ULTR50TA PO; -VITA1CAP40 PO; -ZITH250T PO; -ZYVO100T PO
[2017-12-31] MEDS: NS 1,000 ML IV (11:00)
[2017-12-31 11:29] LABS: BASO # 0.1 10^3/uL (0.0-0.2); BASO % 0.5 % (0.0-1.0); EOS # 0.2 10^3/uL (0.0-0.50); EOS % 1.4 % (0.0-3.0); HEMOGLOBIN 11.4 g/dl (14.0-18.0); LYMPH # 1.6 10^3/uL (1.5-4.5); LYMPH % 11.9 % (24.0-44.0); MEAN CORPUSCULAR HEMOGLOBIN 29.6 pg (27.0-33.0); MEAN CORPUSCULAR HGB CONC 32.6 g/dl (32.0-36.5); MEAN CORPUSCULAR VOLUME 90.9 fl (80.0-96.0); MONO # 1.2 10^3/uL (0.0-0.8); MONO % 8.9 % (0.0-5.0); NEUTROPHILS # 10.1 10^3/uL (1.8-7.7); NEUTROPHILS % 76.3 % (36.0-66.0); PLATELET COUNT, AUTOMATED 222 10^3/uL (150-450); RED BLOOD COUNT 3.85 10^6/uL (4.30-6.10); RED CELL DISTRIBUTION WIDTH 14.1 % (11.5-14.5); WHITE BLOOD COUNT 13.2 10^3/uL (4.0-10.0)
[2017-12-31 11:42] LABS: INR 1.15; PROTHROMBIN TIME 14.9 SECONDS (12.4-14.5)
[2017-12-31 12:27] LABS: ALBUMIN 3.6 GM/DL (3.2-5.2); ALBUMIN/GLOBULIN RATIO 0.84 (1.00-1.93); ALKALINE PHOSPHATASE 161 U/L (45-117); ALT/SGPT 22 U/L (12-78); ANION GAP 7 MEQ/L (8-16); AST/SGOT 25 U/L (7-37); BILIRUBIN,TOTAL 0.8 MG/DL (0.2-1.0); BLOOD UREA NITROGEN 18 MG/DL (7-18); CALCIUM LEVEL 8.9 MG/DL (8.8-10.2); CARBON DIOXIDE LEVEL 27 MEQ/L (21-32); CHLORIDE LEVEL 103 MEQ/L (98-107); CREATININE FOR GFR 1.34 MG/DL (0.70-1.30); FREE THYROXINE INDEX 3.3 % (1.4-3.8); GLOMERULAR FILTRATION RATE 57.5 (>49); GLUCOSE, FASTING 122 MG/DL (70-100); MAGNESIUM LEVEL 1.8 MG/DL (1.8-2.4); POTASSIUM SERUM 4.3 MEQ/L (3.5-5.1); SODIUM LEVEL 137 MEQ/L (136-145); T UPTAKE 36 % (33-40); THYROXINE (T4) 9.2 UG/DL (4.5-12.0); TOTAL PROTEIN 7.9 GM/DL (6.4-8.2)
[2017-12-31] MEDS: VANCOMYCIN HCL 1,000 MG, VIAL MATE ADAPTER 1 EACH in D5W 250 ML IV (13:10)
[2017-12-31] MEDS ORDERED: ALPRAZolam 0.25 MG TAB PO (14:00)
[2017-12-31] MEDS: AZTREONAM 1 GM in D5W MINI-BAG PLUS 50 ML IV ×2 (14:15→21:30)
[2017-12-31] MEDS ORDERED: ALBUTEROL 90 MCG/ACT 8GM HFA INHALER INH (14:15)
[2017-12-31] MEDS ORDERED: GLUCOSE 4 GM CHEW TABLET PO (14:30)
[2017-12-31] MEDS ORDERED: GLUCAGON FOR INJ 1 MG VIAL (J1610) SC (14:30)
[2017-12-31] MEDS ORDERED: DEXTROSE 50% 50 ML SYRINGE IV (14:30)
[2017-12-31] MEDS: GABAPENTIN 300 MG CAP PO ×2 (14:54→20:32)
[2017-12-31] MEDS: VANCOMYCIN HCL 500 MG in D5W MINI-BAG PLUS 100 ML IV (14:54)
[2017-12-31] MEDS: HumaLOG INSULIN (NovoLOG) PER UNIT SC ×2 (16:40→20:06)
[2017-12-31 16:48] LABS: BEDSIDE GLUCOSE 202 MG/DL (80-115)
[2017-12-31] MEDS ORDERED: PROPOFOL 200 MG/20 ML VIAL As Ordered (17:17)
[2017-12-31] MEDS ORDERED: LIDOCAINE 2% INJ 100 MG/5 ML SDV (FOR ANES.) As Ordered (17:17)
[2017-12-31] MEDS ORDERED: MIDAZOLAM INJ 2 MG/2 ML VIAL (J2250) As Ordered (17:18)
[2017-12-31] MEDS ORDERED: fentaNYL 100 MCG/2 ML INJECTION (J3010) As Ordered (17:18)
[2017-12-31] MEDS: BUPIVACAINE HCL 0.5% 10 ML VIAL As Ordered (18:08)
[2017-12-31] MEDS ORDERED: ONDANSETRON 4MG/2ML VIAL (J2405) As Ordered (18:17)
[2017-12-31] MEDS: VANCOMYCIN 1000 MG/20 ML VIAL (J3370) As Ordered (18:18)
[2017-12-31] MEDS: LIDOCAINE 2% MDV 20 ML VIAL As Ordered (18:19)
[2017-12-31 18:48] LABS: BEDSIDE GLUCOSE 196 MG/DL (80-115)
[2017-12-31] MEDS ORDERED: ONDANSETRON 4MG/2ML VIAL (J2405) IV (19:00)
[2017-12-31] MEDS ORDERED: HYDROmorphone HCL 1 MG/ML SYRINGE (J1170) IV (19:00)
[2017-12-31] MEDS ORDERED: fentaNYL 100 MCG/2 ML INJECTION (J3010) IV (19:00)
[2017-12-31] MEDS ORDERED: PERCOCET 5MG/325MG TAB PO (19:00)
[2017-12-31] MEDS: LR 1,000 ML IV (20:06)
[2017-12-31 20:10] LABS: BEDSIDE GLUCOSE 188 MG/DL (80-115)
[2017-12-31] MEDS: LEVEMIR (INSULIN DETEMIR) 1 UNITS/0.01ML SC (20:33)
[2017-12-31] MEDS: CARVedilol 6.25 MG TAB PO (20:33)
[2018-01-01] MEDS: VANCOMYCIN HCL 1,000 MG, VIAL MATE ADAPTER 1 EACH in D5W 250 ML IV ×2 (01:29→13:31)
[2018-01-01] MEDS: NS 1,000 ML IV (03:11)
[2018-01-01] MEDS: AZTREONAM 1 GM in D5W MINI-BAG PLUS 50 ML IV ×3 (05:05→21:34)
[2018-01-01 06:54] LABS: HEMATOCRIT 30.4 % (42.0-52.0); HEMOGLOBIN 9.8 g/dl (14.0-18.0); MEAN CORPUSCULAR HGB CONC 32.2 g/dl (32.0-36.5); MEAN CORPUSCULAR VOLUME 89.9 fl (80.0-96.0); PLATELET COUNT, AUTOMATED 154 10^3/uL (150-450); RED BLOOD COUNT 3.38 10^6/uL (4.30-6.10); WHITE BLOOD COUNT 7.3 10^3/uL (4.0-10.0)
[2018-01-01 07:12] LABS: ANION GAP 5 MEQ/L (8-16); BLOOD UREA NITROGEN 15 MG/DL (7-18); CALCIUM LEVEL 8.3 MG/DL (8.8-10.2); CARBON DIOXIDE LEVEL 25 MEQ/L (21-32); CHLORIDE LEVEL 109 MEQ/L (98-107); CREATININE FOR GFR 1.07 MG/DL (0.70-1.30); GLOMERULAR FILTRATION RATE > 60.0 (>49); GLUCOSE, FASTING 191 MG/DL (70-100); POTASSIUM SERUM 4.5 MEQ/L (3.5-5.1); SODIUM LEVEL 139 MEQ/L (136-145)
[2018-01-01] MEDS: FLUTICASONE PROP 0.05% NASAL SPRAY 16 GM (FLONASE) (08:45)
[2018-01-01] MEDS: FLUoxetine 20 MG CAP PO (08:45)
[2018-01-01] MEDS: LISINOPRIL *2.5 MG* TAB PO (08:45)
[2018-01-01] MEDS: CARVedilol 6.25 MG TAB PO ×2 (08:45→21:33)
[2018-01-01] MEDS: OMEPRAZOLE 20 MG CAP PO (08:45)
[2018-01-01] MEDS: GABAPENTIN 300 MG CAP PO ×3 (08:45→21:34)
[2018-01-01] MEDS: ASPIRIN 81 MG ENTERIC TAB PO (08:45)
[2018-01-01] MEDS: ENOXAPARIN 40 MG/0.4 ML SYRINGE (J1650) SC ×2 (08:46→08:48)
[2018-01-01] MEDS: LEVEMIR (INSULIN DETEMIR) 1 UNITS/0.01ML SC ×2 (08:46→21:34)
[2018-01-01] MEDS: HumaLOG INSULIN (NovoLOG) PER UNIT SC ×4 (08:46→21:00)
[2018-01-01 11:58] LABS: BEDSIDE GLUCOSE 149 MG/DL (80-115)
[2018-01-01] MEDS ORDERED: PILL CUTTER/CRUSHER XX (15:45)
[2018-01-01] MEDS: traMADol 50 MG TAB PO (15:51)
[2018-01-01 16:46] LABS: BEDSIDE GLUCOSE 205 MG/DL (80-115)
[2018-01-01 20:57] LABS: BEDSIDE GLUCOSE 188 MG/DL (80-115)
[2018-01-02] MEDS: VANCOMYCIN HCL 1,000 MG, VIAL MATE ADAPTER 1 EACH in D5W 250 ML IV ×2 (02:15→13:56)
[2018-01-02] MEDS: AZTREONAM 1 GM in D5W MINI-BAG PLUS 50 ML IV ×3 (04:25→21:19)
[2018-01-02 05:54] LABS: HEMATOCRIT 28.4 % (42.0-52.0); HEMOGLOBIN 9.1 g/dl (14.0-18.0); MEAN CORPUSCULAR HEMOGLOBIN 29.2 pg (27.0-33.0); PLATELET COUNT, AUTOMATED 163 10^3/uL (150-450); RED BLOOD COUNT 3.12 10^6/uL (4.30-6.10); RED CELL DISTRIBUTION WIDTH 13.7 % (11.5-14.5); WHITE BLOOD COUNT 6.3 10^3/uL (4.0-10.0)
[2018-01-02 06:13] LABS: ANION GAP 6 MEQ/L (8-16); BLOOD UREA NITROGEN 16 MG/DL (7-18); CALCIUM LEVEL 8.1 MG/DL (8.8-10.2); CARBON DIOXIDE LEVEL 24 MEQ/L (21-32); CHLORIDE LEVEL 110 MEQ/L (98-107); CREATININE FOR GFR 1.09 MG/DL (0.70-1.30); GLOMERULAR FILTRATION RATE > 60.0 (>49); GLUCOSE, FASTING 173 MG/DL (70-100); POTASSIUM SERUM 4.2 MEQ/L (3.5-5.1); SODIUM LEVEL 140 MEQ/L (136-145)
[2018-01-02] MEDS: NS 1,000 ML IV ×2 (08:27→12:03)
[2018-01-02] MEDS: HumaLOG INSULIN (NovoLOG) PER UNIT SC ×4 (08:28→21:00)
[2018-01-02] MEDS: LEVEMIR (INSULIN DETEMIR) 1 UNITS/0.01ML SC ×2 (08:28→21:20)
[2018-01-02] MEDS: ENOXAPARIN 40 MG/0.4 ML SYRINGE (J1650) SC (08:28)
[2018-01-02] MEDS: GENTAMICIN SULFATE 0.1% OINT 15 GM TOP ×2 (08:29→12:25)
[2018-01-02] MEDS: OMEPRAZOLE 20 MG CAP PO (08:30)
[2018-01-02] MEDS: ASPIRIN 81 MG ENTERIC TAB PO (08:30)
[2018-01-02] MEDS: LISINOPRIL *2.5 MG* TAB PO (08:30)
[2018-01-02] MEDS: FLUoxetine 20 MG CAP PO (08:30)
[2018-01-02] MEDS: GABAPENTIN 300 MG CAP PO ×3 (08:30→21:19)
[2018-01-02] MEDS: CARVedilol 6.25 MG TAB PO ×2 (08:30→21:19)
[2018-01-02] MEDS: traMADol 50 MG TAB PO (08:31)
[2018-01-02] MEDS: FLUTICASONE PROP 0.05% NASAL SPRAY 16 GM (FLONASE) (08:31)
[2018-01-02] MEDS: NICOTINE 14 MG/24 HR TRANSDERMAL TD (15:02)
[2018-01-02 19:59] LABS: BEDSIDE GLUCOSE 228 MG/DL (80-115)
[2018-01-02 19:59] LABS: BEDSIDE GLUCOSE 96 MG/DL (80-115)
[2018-01-02 19:59] LABS: BEDSIDE GLUCOSE 233 MG/DL (80-115)
[2018-01-02 21:13] LABS: BEDSIDE GLUCOSE 190 MG/DL (80-115)
[2018-01-03] MEDS: NS 1,000 ML IV ×2 (02:35→09:15)
[2018-01-03] MEDS: VANCOMYCIN HCL 1,000 MG, VIAL MATE ADAPTER 1 EACH in D5W 250 ML IV ×2 (02:35→14:46)
[2018-01-03] MEDS: AZTREONAM 1 GM in D5W MINI-BAG PLUS 50 ML IV ×3 (05:46→20:16)
[2018-01-03 06:28] LABS: ANION GAP 6 MEQ/L (8-16); BLOOD UREA NITROGEN 14 MG/DL (7-18); CALCIUM LEVEL 8.5 MG/DL (8.8-10.2); CARBON DIOXIDE LEVEL 25 MEQ/L (21-32); CHLORIDE LEVEL 109 MEQ/L (98-107); CREATININE FOR GFR 0.99 MG/DL (0.70-1.30); GLOMERULAR FILTRATION RATE > 60.0 (>49); GLUCOSE, FASTING 206 MG/DL (70-100); POTASSIUM SERUM 4.3 MEQ/L (3.5-5.1); SODIUM LEVEL 140 MEQ/L (136-145)
[2018-01-03 06:56] LABS: HEMATOCRIT 28.7 % (42.0-52.0); HEMOGLOBIN 9.2 g/dl (14.0-18.0); MEAN CORPUSCULAR HEMOGLOBIN 28.8 pg (27.0-33.0); MEAN CORPUSCULAR HGB CONC 32.1 g/dl (32.0-36.5); MEAN CORPUSCULAR VOLUME 89.7 fl (80.0-96.0); PLATELET COUNT, AUTOMATED 169 10^3/uL (150-450); RED CELL DISTRIBUTION WIDTH 13.8 % (11.5-14.5); WHITE BLOOD COUNT 5.4 10^3/uL (4.0-10.0)
[2018-01-03] MEDS: FLUoxetine 20 MG CAP PO (08:28)
[2018-01-03] MEDS: ASPIRIN 81 MG ENTERIC TAB PO (08:28)
[2018-01-03] MEDS: LISINOPRIL *2.5 MG* TAB PO (08:28)
[2018-01-03] MEDS: OMEPRAZOLE 20 MG CAP PO (08:28)
[2018-01-03] MEDS: GABAPENTIN 300 MG CAP PO ×3 (08:28→20:16)
[2018-01-03] MEDS: HumaLOG INSULIN (NovoLOG) PER UNIT SC ×4 (08:29→20:16)
[2018-01-03] MEDS: LEVEMIR (INSULIN DETEMIR) 1 UNITS/0.01ML SC ×2 (08:29→20:16)
[2018-01-03] MEDS: ENOXAPARIN 40 MG/0.4 ML SYRINGE (J1650) SC (08:29)
[2018-01-03] MEDS: CARVedilol 6.25 MG TAB PO ×2 (08:29→20:16)
[2018-01-03] MEDS: FLUTICASONE PROP 0.05% NASAL SPRAY 16 GM (FLONASE) (08:30)
[2018-01-03] MEDS: GENTAMICIN SULFATE 0.1% OINT 15 GM TOP (08:30)
[2018-01-03 12:04] LABS: BEDSIDE GLUCOSE 207 MG/DL (80-115)
[2018-01-03] MEDS: traMADol 50 MG TAB PO ×2 (12:13→20:15)
[2018-01-03 17:08] LABS: BEDSIDE GLUCOSE 320 MG/DL (80-115)
[2018-01-03 20:16] LABS: BEDSIDE GLUCOSE 217 MG/DL (80-115)
[2018-01-04] MEDS: VANCOMYCIN HCL 1,000 MG, VIAL MATE ADAPTER 1 EACH in D5W 250 ML IV (01:41)
[2018-01-04] MEDS: AZTREONAM 1 GM in D5W MINI-BAG PLUS 50 ML IV (05:41)
[2018-01-04 06:24] LABS: HEMATOCRIT 28.7 % (42.0-52.0); HEMOGLOBIN 9.3 g/dl (14.0-18.0); MEAN CORPUSCULAR HEMOGLOBIN 28.6 pg (27.0-33.0); MEAN CORPUSCULAR HGB CONC 32.4 g/dl (32.0-36.5); MEAN CORPUSCULAR VOLUME 88.3 fl (80.0-96.0); PLATELET COUNT, AUTOMATED 163 10^3/uL (150-450); RED BLOOD COUNT 3.25 10^6/uL (4.30-6.10); RED CELL DISTRIBUTION WIDTH 13.6 % (11.5-14.5); WHITE BLOOD COUNT 5.6 10^3/uL (4.0-10.0)
[2018-01-04 06:45] LABS: ANION GAP 9 MEQ/L (8-16); BLOOD UREA NITROGEN 16 MG/DL (7-18); CALCIUM LEVEL 8.6 MG/DL (8.8-10.2); CARBON DIOXIDE LEVEL 23 MEQ/L (21-32); CHLORIDE LEVEL 107 MEQ/L (98-107); GLOMERULAR FILTRATION RATE > 60.0 (>49); GLUCOSE, FASTING 254 MG/DL (70-100); POTASSIUM SERUM 4.2 MEQ/L (3.5-5.1); SODIUM LEVEL 139 MEQ/L (136-145)
[2018-01-04] MEDS: HumaLOG INSULIN (NovoLOG) PER UNIT SC ×2 (08:30→12:00)
[2018-01-04] MEDS: LISINOPRIL *2.5 MG* TAB PO (08:31)
[2018-01-04] MEDS: LEVEMIR (INSULIN DETEMIR) 1 UNITS/0.01ML SC (08:31)
[2018-01-04] MEDS: ASPIRIN 81 MG ENTERIC TAB PO (08:31)
[2018-01-04] MEDS: FLUoxetine 20 MG CAP PO (08:32)
[2018-01-04] MEDS: CARVedilol 6.25 MG TAB PO (08:32)
[2018-01-04] MEDS: FLUTICASONE PROP 0.05% NASAL SPRAY 16 GM (FLONASE) (08:32)
[2018-01-04] MEDS: OMEPRAZOLE 20 MG CAP PO (08:32)
[2018-01-04] MEDS: GABAPENTIN 300 MG CAP PO ×2 (08:32→16:54)
[2018-01-04] MEDS: ENOXAPARIN 40 MG/0.4 ML SYRINGE (J1650) SC (08:36)
[2018-01-04] MEDS: GENTAMICIN SULFATE 0.1% OINT 15 GM TOP (10:20)
[2018-01-04 12:14] LABS: BEDSIDE GLUCOSE 177 MG/DL (80-115)
[2018-01-04] MEDS: traMADol 50 MG TAB PO (12:28)
[2018-01-04] MEDS: dexameTHASONE 4 MG/ML 1ML VIAL (J1100) As Ordered (13:07)
[2018-01-04] MEDS ORDERED: LIDOCAINE 2% INJ 100 MG/5 ML SDV (FOR ANES.) As Ordered (14:50)
[2018-01-04] MEDS ORDERED: fentaNYL 100 MCG/2 ML INJECTION (J3010) As Ordered (14:50)
[2018-01-04] MEDS ORDERED: ONDANSETRON 4MG/2ML VIAL (J2405) As Ordered (14:50)
[2018-01-04] MEDS ORDERED: MIDAZOLAM INJ 2 MG/2 ML VIAL (J2250) As Ordered (14:50)
[2018-01-04] MEDS: LIDOCAINE 2% MDV 20 ML VIAL As Ordered (14:54)
[2018-01-04] MEDS: VANCOMYCIN HCL 500 MG/10 ML VIAL (J3370) As Ordered (14:54)
[2018-01-04] MEDS: VANCOMYCIN 1000 MG/20 ML VIAL (J3370) As Ordered (14:54)
[2018-01-04] MEDS: BUPIVACAINE HCL 0.5% 30 ML VIAL As Ordered (14:55)
[2018-01-04 15:27] LABS: BEDSIDE GLUCOSE 153 MG/DL (80-115)
[2018-01-04] MEDS ORDERED: fentaNYL 100 MCG/2 ML INJECTION (J3010) IV (15:30)
[2018-01-04] MEDS ORDERED: PERCOCET 5MG/325MG TAB PO (15:30)
[2018-01-04] MEDS ORDERED: LR 1,000 ML IV (15:30)
[2018-01-04] MEDS ORDERED: ONDANSETRON 4MG/2ML VIAL (J2405) IV (15:30)
== END 2018-01-04 17:15 | disposition home or self-care (01) | DRG 617 ==
LOC: M MS4PR 10:56 → M MSPAV 01-01 18:38
PROC: 0Y6U0Z0 Detachment at Left 3rd Toe, Complete, Open Approach (ICD-10-PCS; principal; 2017-12-31 12:20)
DX: E11.69 Type 2 diabetes mellitus with other specified complication (principal); M86.172 Other acute osteomyelitis, left ankle and foot; E11.40 Type 2 diabetes mellitus with diabetic neuropathy, unspecified; I12.9 Hypertensive chronic kidney disease with stage 1 through stage 4 chronic kidney disease, or unspecified chronic kidney disease; F41.9 Anxiety disorder, unspecified; E11.621 Type 2 diabetes mellitus with foot ulcer; F32.9 Major depressive disorder, single episode, unspecified; L97.524 Non-pressure chronic ulcer of other part of left foot with necrosis of bone; D64.9 Anemia, unspecified; K21.9 Gastro-esophageal reflux disease without esophagitis; E11.22 Type 2 diabetes mellitus with diabetic chronic kidney disease; N18.9 Chronic kidney disease, unspecified; Z79.82 Long term (current) use of aspirin; Z79.4 Long term (current) use of insulin; Z79.899 Other long term (current) drug therapy; Z88.0 Allergy status to penicillin; Z88.8 Allergy status to other drugs, medicaments and biological substances

== ENCOUNTER 2019-04-28 17:43 | Emergency (ER) | payer MEDICARE, BC, OTHER ==
[~2019-04-28] VITALS: Ht 170.2 cm; Wt 95.8 kg
[~2019-04-28 17:43] MED LIST changes: +ABIL1TAB11 PO; +ABILIFY PO; +ALBU17IN INH; +ALPR0.25 PO; +ASPI81TA26 PO; +CARV12.5 PO; +CARV6.25 PO; +CHLO1.4S2 MT; +CIAL5TAB PO; +CLEO300C2 PO; +CLIN150C14 PO; +DOXY100C PO; +DOXY10CA PO; +FLON1SPR; +FLUC10TA PO; +FLUTICASONE NASAL; +GABA-843 PO; +GABAPOW41 PO; +GENT0.1C2 TOP; +HUMA100I SC; +IBUP1TAB7 PO; +IBUPOTC PO; +IBUPPOW25 PO; +INSUH10VL SC; +INSULADS SC; +INSULANT SQ; +LISI2.5T76 PO; +LISI5TAB PO; +MAGN250T14 PO; +METF1000 PO; +METF10004 PO; +METF500T13 PO; +OMEP20CA4 PO; +OMEP40CA2 PO; -ONDANSETRON 4MG/2ML VIAL (J2405) IV; +PRED20TAB PO; +PROZ20CA11 PO; +PROZAC PO; +SILV50CR TOP; +THER1CRE16 TOP; +TORS10TA3 PO; +TRAM50TA2 PO; +ULTR50TA PO; +VITA50005 PO; +ZITH250T PO; +ZYVO1TAB PO
[2019-04-28 18:25] LABS: BASO # 0.1 10^3/uL (0.0-0.2); BASO % 0.5 % (0.0-1.0); EOS # 0.1 10^3/uL (0.0-0.50); EOS % 0.5 % (0.0-3.0); HEMATOCRIT 37.8 % (42.0-52.0); LYMPH # 1.5 10^3/uL (1.5-4.5); LYMPH % 11.8 % (24.0-44.0); MEAN CORPUSCULAR HEMOGLOBIN 31.2 pg (27.0-33.0); MEAN CORPUSCULAR HGB CONC 34.4 g/dl (32.0-36.5); MEAN CORPUSCULAR VOLUME 90.6 fl (80.0-96.0); MONO # 1.1 10^3/uL (0.0-0.8); MONO % 8.4 % (0.0-5.0); NEUTROPHILS # 10.2 10^3/uL (1.8-7.7); NEUTROPHILS % 77.9 % (36.0-66.0); PLATELET COUNT, AUTOMATED 121 10^3/uL (150-450); RED BLOOD COUNT 4.17 10^6/uL (4.30-6.10); WHITE BLOOD COUNT 13.1 10^3/uL (4.0-10.0)
--- NOTE | 2019-04-28 18:36 | REP ---
Clinical: Acute chest pain . Comparison: 12/31/2017. Findings: The mediastinum and cardiac silhouette are stable and within normal limits for portable technique. The lung hankins demonstrate chronic interstitial changes without acute consolidation, effusion, or pneumothorax. Skeletal structures are intact. Impression: No acute cardiopulmonary process appreciated. Electronically Signed by Lc Simmons MD 04/28/2019 06:27 P
[2019-04-28 18:51] LABS: BLOOD UREA NITROGEN 22 MG/DL (7-18); CALCIUM LEVEL 8.9 MG/DL (8.8-10.2); CARBON DIOXIDE LEVEL 27 MEQ/L (21-32); CHLORIDE LEVEL 104 MEQ/L (98-107); CPK CREATINE PHOSPHOKINASE 378 U/L (39-308); CREATININE FOR GFR 1.48 MG/DL (0.70-1.30); GLOMERULAR FILTRATION RATE 51.1 (>49); GLUCOSE, FASTING 144 MG/DL (70-100); MB/CK RELATIVE INDEX 1.32 (< OR =4); POTASSIUM SERUM 4.4 MEQ/L (3.5-5.1); SODIUM LEVEL 136 MEQ/L (136-145); TROPONIN I < 0.02 NG/ML (< 0.10)
--- NOTE | 2019-04-28 21:22 | REPVR ---
EXAM: CT Chest Without Contrast EXAM DATE/TIME: 04/28/2019 7:32 PM CLINICAL HISTORY: 63 years old, male; Fever; Additional info: Elevated temperature, wbc TECHNIQUE: Imaging protocol: Axial computed tomography images of the chest without intravenous contrast. Coronal and sagittal reformatted images were created and reviewed. 3D rendering: MIP reconstructed images were created and reviewed. Radiation optimization: All CT scans at this facility use at least one of these dose optimization techniques: automated exposure control; mA and/or kV adjustment per patient size (includes targeted exams where dose is matched to clinical indication); or iterative reconstruction. COMPARISON: CT Chest without contrast 03/23/2016 9:28 AM FINDINGS: Lungs: No confluent infiltrate within the lungs. No lung mass. Mild paraseptal emphysematous changes are identified. The lateral right lung base, there is a stable 2 mm nodule. An additional 2 mm stable nodule is visualized in the right lower lobe on series 202 image 56. On series 202 image 28 within the left upper lobe, there is a 3-4 mm nodule which has mildly increased in size. Pleural space: No pneumothorax. No pleural effusion. Heart: There is coronary artery calcification. No cardiomegaly. Aorta: No aortic aneurysm. Mild atherosclerosis. Lymph nodes: Small mediastinal lymph nodes are visualized, without significant lymphadenopathy. Nonspecific stable axillary lymph nodes are visualized bilaterally. Bones/joints: Hypertrophic degenerative changes are noted within the spine. Mild increased kyphosis of the thoracic spine. Several old left rib fractures are visualized. Soft tissues: Retroareolar density is visualized bilaterally, which is stable and suggestive of gynecomastia. Liver: A calcified nodule is visualized within the right hepatic lobe posteriorly, which is stable. This measures 8 mm. There is slight nodularity of hepatic contour, and cirrhosis is suggested. Gallbladder and bile ducts: Surgical clips are identified within the gallbladder fossa, compatible with cholecystectomy. Upper abdomen: Venous varicosities are identified within the upper abdomen. Evaluation of the abdomen is limited on this study. IMPRESSION: 1. No confluent infiltrate within the lungs. 2. Mild paraseptal emphysematous changes are identified. 3. Within the left upper lobe, there is a 3-4 mm lung nodule which has mildly increased in size. A few additional stable tiny nodules are visualized. A follow-up chest CT is recommended in 6 months. 4. There is slight nodularity of hepatic contour, and cirrhosis is suggested. 5. Venous varicosities are identified within the upper abdomen. Evaluation of the abdomen is limited on this study. 6. Additional findings described above. Electronically signed by: Sam Comer On 04/28/2019 21:21:57 PM
[2019-04-28] MEDS ORDERED: ACETAMINOPHEN TAB 650MG DOSE (2X325MG) PO ONE (21:45)
[2019-04-28 22:05] LABS: CK-MB VALUE MASS 4.8 NG/ML (<3.6); CPK CREATINE PHOSPHOKINASE 372 U/L (39-308); MB/CK RELATIVE INDEX 1.29 (< OR =4); TROPONIN I < 0.02 NG/ML (< 0.10)
[2019-04-28] MEDS ORDERED: NS 1,000 ML IV ONE (22:15)
[2019-04-28] MEDS ORDERED: AZITHROMYCIN 250 MG TAB PO ONE (22:15)
--- NOTE | 2019-04-28 22:16 | ECGEPIP ---
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
--- NOTE | 2019-04-28 22:27 | ECGEPIP ---
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
[2019-04-28] MEDS ORDERED: CEFDINIR 300 MG CAP (OMNICEF) PO ONE (23:15)
[2019-04-28] MEDS ORDERED: AZIT-12 PO (23:20)
[2019-04-28] MEDS ORDERED: CEFD300CAP PO (23:20)
[2019-04-29 00:30] VITALS: BP 130/55
--- NOTE | 2019-04-30 13:20 | ED PDOC ---
Post-Departure Follow-Up dr smith faxed formal report of ct chest for fu Effie Solano MD Apr 30, 2019 13:20
== END 2019-04-29 00:44 | disposition home or self-care (01) ==
LOC: M ED 17:43
DX: R07.89 Other chest pain (principal); R91.8 Other nonspecific abnormal finding of lung field; N39.0 Urinary tract infection, site not specified; I45.10 Unspecified right bundle-branch block; J44.9 Chronic obstructive pulmonary disease, unspecified; K21.9 Gastro-esophageal reflux disease without esophagitis; F17.210 Nicotine dependence, cigarettes, uncomplicated; Z79.4 Long term (current) use of insulin; Z79.51 Long term (current) use of inhaled steroids; Z79.82 Long term (current) use of aspirin; Z88.0 Allergy status to penicillin; Z88.5 Allergy status to narcotic agent

== ENCOUNTER 2019-12-11 09:42 | Inpatient (IN) | payer MEDICARE, BC, OTHER ==
[~2019-12-11] VITALS: Ht 170.2 cm; Wt 91.0 kg
[~2019-12-11 09:42] MED LIST changes: +AZIT-12 PO; +CEFD300CAP PO; +OMEP1CAP73 PO; -OMEP20CA4 PO
[2019-12-11] MEDS: HumaLOG INSULIN (NovoLOG) PER UNIT SC SCH ×2 (12:00→17:52)
[2019-12-11 12:13] LABS: HEMATOCRIT 43.2 % (42.0-52.0); HEMOGLOBIN 13.9 g/dl (13.5-17.5); MEAN CORPUSCULAR HEMOGLOBIN 30.3 pg (27.0-33.0); MEAN CORPUSCULAR HGB CONC 32.2 g/dl (32.0-36.5); MEAN CORPUSCULAR VOLUME 94.3 fl (80.0-96.0); PLATELET COUNT, AUTOMATED 207 10^3/uL (150-450); RED BLOOD COUNT 4.58 10^6/uL (4.30-6.10)
[2019-12-11 12:23] LABS: INR 1.2; PROTHROMBIN TIME 14.9 SECONDS (11.8-14.0)
[2019-12-11] MEDS ORDERED: VENTAER INH (12:53)
[2019-12-11] MEDS ORDERED: LANTINJ4 SC (12:53)
[2019-12-11] MEDS ORDERED: DEXTROSE 50% 50 ML SYRINGE IV STA (12:53)
[2019-12-11 12:56] LABS: ALBUMIN 3.3 GM/DL (3.2-5.2); ALT/SGPT 41 U/L (12-78); BILIRUBIN,TOTAL 0.9 MG/DL (0.2-1.0); BLOOD UREA NITROGEN 21 MG/DL (7-18); CALCIUM LEVEL 9.4 MG/DL (8.8-10.2); CARBON DIOXIDE LEVEL 29 MEQ/L (21-32); CHLORIDE LEVEL 101 MEQ/L (98-107); CREATININE FOR GFR 1.23 MG/DL (0.70-1.30); GLOMERULAR FILTRATION RATE > 60.0 (>49); GLUCOSE, FASTING 62 MG/DL (70-100); POTASSIUM SERUM 4.1 MEQ/L (3.5-5.1); SODIUM LEVEL 137 MEQ/L (136-145); TOTAL PROTEIN 7.6 GM/DL (6.4-8.2)
[2019-12-11] MEDS ORDERED: ALBUTEROL 90 MCG/ACT 8GM HFA INHALER INH PRN (13:45)
[2019-12-11] MEDS ORDERED: DEXTROSE 50% 50 ML SYRINGE IV PRN (13:45)
[2019-12-11] MEDS ORDERED: GLUCAGON FOR INJ 1 MG VIAL (J1610) SC PRN (13:45)
[2019-12-11] MEDS ORDERED: GLUCOSE 4 GM CHEW TABLET PO PRN (13:45)
[2019-12-11 14:00] VITALS: BP 168/81
[2019-12-11] MEDS ORDERED: CLINDAMYCIN 600 MG in IV 1 EA IV SCH (14:00)
[2019-12-11] MEDS ORDERED: ceFAZolin SOD 1 GM in D5W MINI-BAG PLUS 50 ML IV SCH (14:00)
--- NOTE | 2019-12-11 14:00 | HPEPDOC ---
General Date of Admission Dec 11, 2019 at 11:14 Date of Service: Dec 11, 2019 Chief Complaint The patient is a 64-year-old male admitted with a reason for visit of Left Foot Osteomyeltis. Source: Patient Exam Limitations: No limitations Timing/Duration: Other (unknown) Severity: Other (, not applicable) Associated Symptoms: Other (deficit swelling) History of Present Illness This is 64 years old white male with past medical history of hypertension, diabetes mellitus, diabetic nephropathy, anxiety, depression, GERD, chronic kidney disease was referred from Dr. Dhaliwal's office for direct admission secondary to left foot cellulitis/osteomyelitis, and patient is scheduled good or for possible debridement/amputation. Patient offers no other complaint except left foot pain and swelling. No shortness of breath, no chest pain, nausea, vomiting, diarrhea Home Medications Scheduled Aripiprazole (Abilify) 5 Mg Tab, 5 MG PO DAILY, (Reported) Aspirin (Aspirin EC) 81 Mg Tab, 81 MG PO DAILY, (Reported) Carvedilol (Carvedilol) 6.25 Mg Tab, 6.25 MG PO DAILY, (Reported) NO RECORD OF THIS MEDICATION AT PHARMACY, HAS NOT BEEN REFILLED BY PATIENT MD SINCE 2018 Fluoxetine HCl (Prozac) 20 Mg Cap, 60 MG PO DAILY, (Reported) Fluticasone Propionate (Flonase Allergy Relief) 50 Mcg/Act Spr, 2 SPRAY NA DAILY, (Reported) Gabapentin (Gabapentin) 300 Mg Cap, 600 MG PO TID, (Reported) Insulin Glargine,Hum.rec.anlog (Lantus Solostar) 100 Unit/1 Ml Insuln.pen, 60 UNITS SC BID, (Reported) Insulin Human Lispro (Novolog) 100 U/Ml Inj, 1 DOSE SC AC, (Reported) PER SLIDING SCALE Omeprazole (Omeprazole) 20 Mg Cap, 20 MG PO DAILY, (Reported) Torsemide (Torsemide) 10 Mg Tab, 10 MG PO Q2D, (Reported) Scheduled PRN Albuterol Sulfate (Ventolin Hfa) 18 Gm Hfa.aer.ad, 2 PUFF INH Q6H PRN for SHORTNESS OF BREATH, (Reported) Alprazolam (Alprazolam) 0.25 Mg Tab, 0.25 MG PO TID PRN for ANXIETY, (Reported) Ibuprofen (Ibuprofen) 200 Mg Tab, 400 MG PO Q6H PRN for PAIN, (Reported) Tramadol HCl (Tramadol HCl) 50 Mg Tab, 50 MG PO BID PRN for PAIN, (Reported) Allergies Coded Allergies: Penicillins (Verified Allergy, Mild, rash, 04/28/19) meperidine (Verified Adverse Reaction, Mild, trouble waking up, 04/28/19) Past Medical History Medical History Hypertension, diabetes mellitus, diabetic neuropathy, anxiety, depression, GERD Surgical History , Multiple left foot surgeries Social History * Smoker: current smoker Alcohol: Denies Drugs: denies A-FIB/CHADSVASC A-FIB History Current/History of A-Fib/PAF?: No Review of Systems Constitutional: Denies: Chills, Fever, Malaise, Night Sweats, Weakness, Fatigue, Weight Loss, Lethargy, Other Eyes: Denies: Pain, Vision change, Conjunctivae inflammation, Eyelid inflammation, Redness, Other Pulmonary: Denies: Dyspnea, Cough, Pleuritic Chest Pain, Other Symptoms Cardiovascular: Denies: Chest Pain, Palpitations, Orthopnea, Paroxysmal Noc. Dyspnea, Edema, Lt Headedness, Other Symptoms Gastrointestinal: Denies: Nausea, Vomiting, Abdominal Pain, Diarrhea, Constipation, Melena, Hematochezia, Other Symptoms Genitourinary: Denies: Dysuria, Frequency, Incontinence, Hematuria, Retention, Other Symptoms Hematologic: Denies: Bruising, Bleeding Excessively, Petecchia, Purpura, Enla rged Lymph Nodes, Other Hematologic Endocrine: Denies: Polydipsia, Polyphagia, Polyuria, Heat Intolerance, Cold Intolerance, Other Endocrine Sx Musculoskeletal: Reports: Foot Pain, Other Symptoms (left foot pain and swelling) Neurological: Denies: Weakness, Numbness, Incoordination, Change in speech, Confusion, Seizures, Other Symptoms Psych: Denies: Mood Normal, Anxiety, Depression, Memory Issues, Thoughts of Self Harm, Anger, Thoughts of Harming Other, Other Psych Physical Examination General Exam: Positive: Alert, Cooperative Eye Exam: Positive: PERRLA, Conjunctiva & lids normal ENT Exam: Positive: Atraumatic, Mucous membr. moist/pink Neck Exam: Positive: Supple Chest Exam: Positive: Clear to auscultation, Normal air movement Heart Exam: Positive: Rate Normal, Normal S1, Normal S2 Abdomen Exam: Positive: Normal bowel sounds, Soft Extremity Exam: Positive: Other (dressing at the left foot) Skin Exam: Positive: Nl turgor and temperature Neuro Exam: Positive: Strength at 5/5 X4 ext, Cranial Nerves 3-12 NL Psych Exam: Positive: Mood NL, Oriented x 3 Vital Signs as per nursing records Laboratory Data Labs 24H Laboratory Tests 2 12/11/19 11:54: Prothrombin Time 14.9H, Prothromb Time International Ratio 1.20, Anion Gap 7L, Glomerular Filtration Rate > 60.0, Calcium Level 9.4, Total Bilirubin 0.9, Aspartate Amino Transf (AST/SGOT) 38H, Alanine Aminotransferase (ALT/SGPT) 41, Alkaline Phosphatase 205H, Total Protein 7.6, Albumin 3.3, Albumin/Globulin Ratio 0.77L 12/11/19 11:55: Nucleated Red Blood Cells % (auto) 0.0 12/11/19 12:50: Bedside Glucose (Misc Panel) 50L CBC/BMP Laboratory Tests 12/11/19 11:54 12/11/19 11:55 Problems (1) Foot osteomyelitis, left Status: Acute Problem Text: Left foot cellulitis/osteomyelitis Level work has been ordered including CBC, CMP, The up EKG was done and is normal sinus rhythm, no acute ST-T changes Keep patient nothing by mouth for possible surgery tonight IV fluids normal. D5 normal saline at 70 mL per hour start Azactam and vancomycin IV as patient is allergic to penicillin Further, as per podiatry DVT prophylaxis with bilateral SCDs Diet nothing by mouth Activity as tolerated (2) Hypoglycemia Status: Acute Problem Text: Elvi, was found to have a blood sugar of 60 on admission to the floor , Most likely secondary to his regular insulin dosage Patient was given D50 1 amp IV and will restart D5 normal saline at 70 mL per hour Fingerstick blood sugar every 6 hours with coverage Hold basal insulins (3) CKD (chronic kidney disease), stage III Status: Chronic Problem Text: Stable, CMP pending (4) Hypertension Status: Chronic (5) GERD (gastroesophageal reflux disease) Status: Chronic Problem Text: Continue home meds (6) Depression Status: Chronic Problem Text: Continue home meds (7) Anxiety Status: Chronic Problem Text: Continue home meds (8) Diabetes mellitus Status: Chronic Problem Text: Fingerstick blood sugar every 6 hours with coverage hold basal insulin Plan / VTE VTE Prophylaxis Ordered?: Yes GALEN MATTHEWS MD Dec 11, 2019 14:00
--- NOTE | 2019-12-11 14:15 | PHACANCOPD ---
PHARMACY VANCOMYCIN DOSING Pt Demographics Demographics Patient Age:64 , Weight:91.000 , Gender: male Adjusted Body Weight Date: 12/11/19, Adjusted Body Weight: [76] Kg Events Past 24 Hours Events Past 24 Hours: NO: Dialysis, Diuretic Therapy, Change in CrCl, Fever, Elevation in WBC, Pending Diagnostics, Pending Procedures, Other Vancomycin Vancomycin indication: LEFT FOOT CELLULITIS Vancomycin Target Ranges: 15-20 mcg/ml Vancomycin Load Y/N: Yes Load Dose Date Time Vancomycin Load Dose: 2g Date:12/11/19 Time: 1600 Vancomycin Dose Date: 12/11/19. Current Vancomycin Dose: [1g iv q12h] Intermittent Dosing?: No Labs Labs Item Value Date Time White Blood Count 10.0 10^3/uL 12/11/19 1155 Creatinine 1.23 MG/DL 12/11/19 1154 Creatinine Clearance Date:12/11/19. Creatinine Clearance: [65ml/min adj.]. Assessment and Plan Maintaining Current Dose?: Yes Reason for dose change: No Dose Change Pharmacist Note Pharmacist Note Date: 12/11/19. Pharmacist note:Pt is a 64 year old male being treated for left foot cellulitis goal trough 15-20mcg/ml. He was last treated with vancomycin here at [facility] in december 2017. To achieve goal the pt will receive a 2g loading dose starting 12/11/19 @ 16:00. Maintenance therapy will consist of 1g IV every 12 hours starting 12/12/19 @ 04:00. A trough is scheduled for @15:00 to monitor for accumulation. We will continue to monitor and adjust the dose as needed. [facility] Dec 11, 2019 14:15
[2019-12-11] MEDS: D5W/0.9% SODIUM CHLORIDE 1,000 ML IV SCH (14:33)
--- NOTE | 2019-12-11 14:37 | ECGEPIP ---
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
[2019-12-11] MEDS: TORSEMIDE 10 MG TABLET PO SCH (14:38)
[2019-12-11] MEDS: FLUTICASONE PROP 0.05% NASAL SPRAY 16 GM (FLONASE) SCH (14:38)
[2019-12-11] MEDS: FLUoxetine 20 MG CAP PO SCH (14:38)
[2019-12-11] MEDS: OMEPRAZOLE 20 MG CAP PO SCH (14:38)
[2019-12-11] MEDS: AZTREONAM 1 GM in D5W MINI-BAG PLUS 50 ML IV SCH (15:29)
[2019-12-11] MEDS: GABAPENTIN 300 MG CAP PO SCH ×2 (15:29→21:10)
[2019-12-11] MEDS: VANCOMYCIN HCL 1,000 MG, VIAL MATE ADAPTER 1 EACH in D5W 250 ML IV SCH (16:39)
[2019-12-11] MEDS ORDERED: VANCOMYCIN HCL 1,000 MG, VIAL MATE ADAPTER 1 EACH in D5W 250 ML IV ONE (17:00)
[2019-12-11 22:00] VITALS: BP 133/73
[2019-12-12] MEDS: HumaLOG INSULIN (NovoLOG) PER UNIT SC SCH ×5 (00:03→20:05)
[2019-12-12] MEDS: AZTREONAM 1 GM in D5W MINI-BAG PLUS 50 ML IV SCH ×4 (00:03→23:20)
[2019-12-12] MEDS: VANCOMYCIN HCL 1,000 MG, VIAL MATE ADAPTER 1 EACH in D5W 250 ML IV SCH ×2 (04:38→16:39)
[2019-12-12] MEDS: D5W/0.9% SODIUM CHLORIDE 1,000 ML IV SCH (04:39)
[2019-12-12 05:45] VITALS: BP 126/72
[2019-12-12] MEDS: NS 1,000 ML IV SCH ×2 (05:59→20:03)
[2019-12-12] MEDS: OMEPRAZOLE 20 MG CAP PO SCH (09:10)
[2019-12-12] MEDS: FLUTICASONE PROP 0.05% NASAL SPRAY 16 GM (FLONASE) SCH (09:10)
[2019-12-12] MEDS: GABAPENTIN 300 MG CAP PO SCH ×3 (09:10→19:53)
[2019-12-12] MEDS: FLUoxetine 20 MG CAP PO SCH (09:10)
[2019-12-12] MEDS ORDERED: TOBRAMYCIN SULF 1.2 GM VIAL As Ordered ONE ×2 (10:33→11:09)
[2019-12-12] MEDS ORDERED: LIDOCAINE 2% MDV 20 ML VIAL As Ordered ONE (10:33)
[2019-12-12] MEDS ORDERED: GENTAMICIN SULF INJ 80MG/2ML VIAL (J1580) As Ordered ONE (10:33)
[2019-12-12] MEDS ORDERED: BUPIVACAINE HCL 0.5% 30 ML VIAL As Ordered ONE (10:33)
[2019-12-12] MEDS ORDERED: HumaLOG INSULIN (NovoLOG) PER UNIT As Ordered ONE (10:54)
[2019-12-12] MEDS ORDERED: propofoL 200 MG/20 ML VIAL As Ordered ONE ×3 (11:11→12:12)
[2019-12-12] MEDS ORDERED: MIDAZOLAM INJ 2 MG/2 ML VIAL (J2250) As Ordered ONE (11:11)
[2019-12-12] MEDS ORDERED: fentaNYL 100 MCG/2 ML INJECTION (J3010) As Ordered ONE (11:11)
--- NOTE | 2019-12-12 11:36 | IPNPDOC ---
Subjective Date Seen The patient was seen on 12/12/19. Subjective Chief Complaint/HPI Patient is scheduled for debridement and I&D possible amputation by podiatry today, she does not offer any new complaints at the present time. is at the bedside General: Denies: ROS Unobtainable, Chills, Night Sweats, Fatigue, Malaise, Normal Appetite, Other Symptoms Constitutional: Denies: Chills, Fever, Malaise, Night Sweats, Weakness, Fatigue, Weight Loss, Lethargy, Other Skin: Denies: Rash, Lesions, Jaundice, Bruising, Itching, Dry, Breakdown, Nail Changes, Other Pulmonary: Denies: Dyspnea, Cough, Pleuritic Chest Pain, Other Symptoms Cardiovascular: Denies: Chest Pain, Palpitations, Orthopnea, Paroxysmal Noc. Dyspnea, Edema, Lt Headedness, Other Symptoms Gastrointestinal: Denies: Nausea, Vomiting, Abdominal Pain, Diarrhea, Constipation, Melena, Hematochezia, Other Symptoms Hematologic: Denies: Bruising, Bleeding Excessively, Petecchia, Purpura, Enlarged Lymph Nodes, Other Hematologic Musculoskeletal: Reports: Foot Pain Neurological: Denies: Weakness, Numbness, Incoordination, Change in speech, Confusion, Seizures, Other Symptoms Objective Physical Examination ENT Exam: Positive: Atraumatic, Mucous membr. moist/pink Neck Exam: Positive: Supple Chest Exam: Positive: Clear to auscultation, Normal air movement Heart Exam: Positive: Rate Normal, Normal S1, Normal S2 Abdomen Exam: Positive: Normal bowel sounds, Soft Extremity Exam: Positive: Other (dressing at the left foot) Skin Exam: Positive: Nl turgor and temperature Neuro Exam: Positive: Strength at 5/5 X4 ext, Cranial Nerves 3-12 NL Assessment /Plan Problems (1) Foot osteomyelitis, left Status: Acute Problem Text: Left foot cellulitis/osteomyelitis Level work has been ordered including CBC, CMP, The up EKG was done and is normal sinus rhythm, no acute ST-T changes Keep patient nothing by mouth for possible surgery tonight IV fluids normal. D5 normal saline at 70 mL per hour Patient was started on IV Azactam and vancomycin Patient is a scheduled for possible incision and drainage/debridement or amputation by podiatry Further recommendation as per podiatry (2) CKD (chronic kidney disease), stage III Status: Chronic Problem Text: Renal functions are stable Attending home meds (3) Hypertension Status: Chronic Problem Text: Continue home meds (4) GERD (gastroesophageal reflux disease) Status: Chronic Problem Text: Continue home meds (5) Depression Status: Chronic Problem Text: Continue home meds (6) Anxiety Status: Chronic Problem Text: Continue home meds (7) Diabetes mellitus Status: Chronic Problem Text: Fingerstick blood sugar every before meals and at bedtime with coverage Hold all other antidiabetic meds till patient is taking food orally of the surgery (8) Hypoglycemia Status: Resolved Plan/VTE VTE Prophylaxis Ordered?: Yes VS, I&O, 24H, Fishbone Vital Signs/I&O Vital Signs Date Time Temp Pulse Resp B/P (MAP) Pulse Ox O2 Delivery O2 Flow Rate FiO2 12/12/19 05:45 97.7 75 16 126/72 (90) 95 Room Air I&O- Last 24 Hours up to 6 AM 12/12/19 05:59 Intake Total 750 ml Output Total 0 ml Balance 750 ml Laboratory Data 24H LABS Laboratory Tests 2 12/11/19 11:54: Prothrombin Time 14.9H, Prothromb Time International Ratio 1.20, Anion Gap 7L, Glomerular Filtration Rate > 60.0, Calcium Level 9.4, Total Bilirubin 0.9, Aspartate Amino Transf (AST/SGOT) 38H, Alanine Aminotransferase (ALT/SGPT) 41, Alkaline Phosphatase 205H, Total Protein 7.6, Albumin 3.3, Albumin/Globulin Ratio 0.77L 12/11/19 11:55: Nucleated Red Blood Cells % (auto) 0.0 12/11/19 12:50: Bedside Glucose (Misc Panel) 50L 12/11/19 17:26: Bedside Glucose (Misc Panel) 144H 12/11/19 23:58: Bedside Glucose (Misc Panel) 348H 12/12/19 05:40: Bedside Glucose (Misc Panel) 368H CBC/BMP Laboratory Tests 12/11/19 11:54 12/11/19 11:55 GALEN MATTHEWS MD Dec 12, 2019 11:36
[2019-12-12] MEDS ORDERED: HumaLOG INSULIN (NovoLOG) PER UNIT SC ONE (12:00)
[2019-12-12] MEDS ORDERED: fentaNYL 100 MCG/2 ML INJECTION (J3010) IV PRN (13:15)
[2019-12-12] MEDS ORDERED: ONDANSETRON 4MG/2ML VIAL (J2405) IV PRN (13:15)
[2019-12-12] MEDS ORDERED: METOCLOPRAMIDE INJ 10MG/2ML VIAL (J2765) IV PRN (13:15)
[2019-12-12] MEDS ORDERED: LR 1,000 ML IV SCH (13:15)
[2019-12-12] MEDS ORDERED: PERCOCET 5MG/325MG TAB PO PRN (13:15)
--- NOTE | 2019-12-12 13:54 | REP ---
Left foot: Three views obtained portably. History: Postop evaluation. Comparison left foot radiographs are from December 31, 2017. Findings: A previous amputation to the proximal first metatarsal was visible on the December 31, 2017 prior study. Today's radiographs demonstrate transmetatarsal amputation of the remaining four digits with antibiotic infused pellets in the adjacent soft tissues along with a surgical drain. Old post-traumatic deformity of the distal fibula is seen as before. Impression: Transmetatarsal amputation. Electronically Signed by Ken Lowery MD 12/12/2019 02:18 P
[2019-12-12] MEDS ORDERED: HumaLOG INSULIN (NovoLOG) PER UNIT SC SCH (17:30)
[2019-12-12 18:00] VITALS: BP 174/74
[2019-12-12] MEDS: traMADol 50 MG TAB PO PRN (19:54)
[2019-12-12 21:55] VITALS: BP 153/66
[2019-12-13] MEDS: VANCOMYCIN HCL 1,000 MG, VIAL MATE ADAPTER 1 EACH in D5W 250 ML IV SCH ×2 (04:33→16:25)
[2019-12-13 05:47] VITALS: BP 133/54
[2019-12-13] MEDS: AZTREONAM 1 GM in D5W MINI-BAG PLUS 50 ML IV SCH ×3 (06:20→23:08)
[2019-12-13 07:14] LABS: BASO # 0.1 10^3/uL (0.0-0.2); BASO % 0.6 % (0.0-1.0); EOS # 0.2 10^3/uL (0.0-0.5); EOS % 2.1 % (0.0-3.0); HEMATOCRIT 29.7 % (42.0-52.0); LYMPH # 1.5 10^3/uL (1.5-5.0); LYMPH % 17.2 % (24.0-44.0); MEAN CORPUSCULAR HEMOGLOBIN 31.2 pg (27.0-33.0); MEAN CORPUSCULAR HGB CONC 33.3 g/dl (32.0-36.5); MEAN CORPUSCULAR VOLUME 93.7 fl (80.0-96.0); MONO # 0.8 10^3/uL (0.0-0.8); MONO % 9.8 % (0.0-5.0); NEUTROPHILS # 5.9 10^3/uL (1.5-8.5); NEUTROPHILS % 68.6 % (36.0-66.0); PLATELET COUNT, AUTOMATED 151 10^3/uL (150-450); RED BLOOD COUNT 3.17 10^6/uL (4.30-6.10); WHITE BLOOD COUNT 8.6 10^3/uL (4.0-10.0)
[2019-12-13 07:22] LABS: HEMOGLOBIN 9.9 g/dl (13.5-17.5)
[2019-12-13 08:04] LABS: ALBUMIN 2.3 GM/DL (3.2-5.2); ALT/SGPT 24 U/L (12-78); BILIRUBIN,TOTAL 0.7 MG/DL (0.2-1.0); BLOOD UREA NITROGEN 15 MG/DL (7-18); CALCIUM LEVEL 8.1 MG/DL (8.8-10.2); CARBON DIOXIDE LEVEL 26 MEQ/L (21-32); CHLORIDE LEVEL 101 MEQ/L (98-107); CREATININE FOR GFR 1.08 MG/DL (0.70-1.30); GLOMERULAR FILTRATION RATE > 60.0 (>49); GLUCOSE, FASTING 370 MG/DL (70-100); POTASSIUM SERUM 4.7 MEQ/L (3.5-5.1); SODIUM LEVEL 132 MEQ/L (136-145); TOTAL PROTEIN 6.1 GM/DL (6.4-8.2)
[2019-12-13] MEDS: FLUTICASONE PROP 0.05% NASAL SPRAY 16 GM (FLONASE) SCH (08:50)
[2019-12-13] MEDS: OMEPRAZOLE 20 MG CAP PO SCH (08:50)
[2019-12-13] MEDS: FLUoxetine 20 MG CAP PO SCH (08:51)
[2019-12-13] MEDS: traMADol 50 MG TAB PO PRN ×2 (08:51→21:06)
[2019-12-13] MEDS: TORSEMIDE 10 MG TABLET PO SCH (08:51)
[2019-12-13] MEDS: HumaLOG INSULIN (NovoLOG) PER UNIT SC SCH ×4 (08:52→21:05)
[2019-12-13] MEDS: GABAPENTIN 300 MG CAP PO SCH ×3 (08:52→21:05)
--- NOTE | 2019-12-13 11:14 | IPNPDOC ---
Subjective Date Seen The patient was seen on 12/13/19. Subjective Chief Complaint/HPI Patient is status post surgery on his left foot by Dr. Dhaliwal offers no new complaints General: Denies: ROS Unobtainable, Chills, Night Sweats, Fatigue, Malaise, Normal Appetite, Other Symptoms Constitutional: Denies: Chills, Fever, Malaise, Night Sweats, Weakness, Fatigue, Weight Loss, Lethargy, Other Pulmonary: Denies: Dyspnea, Cough, Pleuritic Chest Pain, Other Symptoms Cardiovascular: Denies: Chest Pain, Palpitations, Orthopnea, Paroxysmal Noc. D yspnea, Edema, Lt Headedness, Other Symptoms Gastrointestinal: Denies: Nausea, Vomiting, Abdominal Pain, Diarrhea, Constipation, Melena, Hematochezia, Other Symptoms Musculoskeletal: Denies: Neck Pain, Back Pain, Shoulder Pain, Arm Pain, Hand Pain, Leg Pain, Foot Pain, Joint Pain, Muscle Pain, Spasms Objective Physical Examination ENT Exam: Positive: Atraumatic, Mucous membr. moist/pink Neck Exam: Positive: Supple Chest Exam: Positive: Clear to auscultation, Normal air movement Heart Exam: Positive: Rate Normal, Normal S1, Normal S2 Abdomen Exam: Positive: Normal bowel sounds, Soft Extremity Exam: Positive: Other (dressing and left foot) Skin Exam: Positive: Nl turgor and temperature Neuro Exam: Positive: Strength at 5/5 X4 ext, Cranial Nerves 3-12 NL Assessment /Plan Problems (1) Foot osteomyelitis, left Status: Acute Problem Text: Left foot cellulitis/osteomyelitis Level work has been ordered including CBC, CMP, The up EKG was done and is normal sinus rhythm, no acute ST-T changes Patient had a podiatry surgery done yesterday. The official Doppler is pending Patient was started on IV Azactam and vancomycin Patient is status post surgical procedures on his left foot yesterday foot is dressed and cleaned Further recommendation as per podiatry (2) CKD (chronic kidney disease), stage III Status: Chronic Problem Text: Renal functions are stable Attending home meds (3) Hypertension Status: Chronic Problem Text: Continue home meds (4) GERD (gastroesophageal reflux disease) Status: Chronic Problem Text: Continue home meds (5) Depression Status: Chronic Problem Text: Continue home meds (6) Anxiety Status: Chronic Problem Text: Continue home meds (7) Diabetes mellitus Status: Chronic Problem Text: Fingerstick blood sugar every before meals and at bedtime with coverage Hold all other antidiabetic meds till patient is taking food orally of the surgery (8) Hypoglycemia Status: Resolved Plan/VTE VTE Prophylaxis Ordered?: Yes VS, I&O, 24H, Fishbone Vital Signs/I&O Vital Signs Date Time Temp Pulse Resp B/P (MAP) Pulse Ox O2 Delivery O2 Flow Rate FiO2 12/13/19 09:21 22 12/13/19 05:47 98.5 78 133/54 (80) 94 Room Air I&O- Last 24 Hours up to 6 AM 12/13/19 06:00 Intake Total 3890 ml Output Total 300 ml Balance 3590 ml Laboratory Data 24H LABS Laboratory Tests 2 12/12/19 15:15: Vancomycin Level Trough 13.4 12/12/19 17:29: Bedside Glucose (Misc Panel) 357H 12/12/19 19:42: Bedside Glucose (Misc Panel) 334H 12/13/19 06:54: Immature Granulocyte % (Auto) 1.7, Neutrophils (%) (Auto) 68.6H, Lymphocytes (%) (Auto) 17.2L, Monocytes (%) (Auto) 9.8H, Eosinophils (%) (Auto) 2.1, Basophils (%) (Auto) 0.6, Neutrophils # (Auto) 5.9, Lymphocytes # (Auto) 1.5, Monocytes # (Auto) 0.8, Eosinophils # (Auto) 0.2, Basophils # (Auto) 0.1, Nucleated Red Blood Cells % (auto) 0.0, Anion Gap 5L, Glomerular Filtration Rate > 60.0, Calcium Level 8.1L, Total Bilirubin 0.7, Aspartate Amino Transf (AST/SGOT) 18, Alanine Aminotransferase (ALT/SGPT) 24, Alkaline Phosphatase 129H, Total Protein 6.1L, Albumin 2.3#L, Albumin/Globulin Ratio 0.61L CBC/BMP Laboratory Tests 12/13/19 06:54 Microbiology Microbiology 12/12/19 Gram Stain - Final, Resulted 12/12/19 Wound Culture, Resulted Pending 12/12/19 Anaerobic Culture, Resulted Pending GALEN MATTHEWS MD Dec 13, 2019 11:14
[2019-12-13 14:00] VITALS: BP 144/70
[2019-12-13] MEDS: ACETAMINOPHEN TAB 650MG DOSE (2X325MG) PO PRN (17:15)
[2019-12-13 20:24] VITALS: BP 129/60
[2019-12-13] MEDS: ALPRAZolam 0.25 MG TAB PO PRN (21:05)
[2019-12-14] MEDS: VANCOMYCIN HCL 1,000 MG, VIAL MATE ADAPTER 1 EACH in D5W 250 ML IV SCH (04:05)
[2019-12-14 05:12] VITALS: BP 158/85
[2019-12-14] MEDS: AZTREONAM 1 GM in D5W MINI-BAG PLUS 50 ML IV SCH (06:56)
[2019-12-14] MEDS: HumaLOG INSULIN (NovoLOG) PER UNIT SC SCH ×4 (07:59→21:12)
[2019-12-14] MEDS: FLUoxetine 20 MG CAP PO SCH (08:00)
[2019-12-14] MEDS: OMEPRAZOLE 20 MG CAP PO SCH (08:00)
[2019-12-14] MEDS: GABAPENTIN 300 MG CAP PO SCH ×3 (08:00→21:11)
[2019-12-14] MEDS: FLUTICASONE PROP 0.05% NASAL SPRAY 16 GM (FLONASE) SCH (08:00)
--- NOTE | 2019-12-14 11:03 | IPNPDOC ---
Subjective Date Seen The patient was seen on 12/14/19. Subjective Chief Complaint/HPI Patient comfortable in no distress. He is waiting for podiatry to come clear him for discharge General: Denies: ROS Unobtainable, Chills, Night Sweats, Fatigue, Malaise, Normal Appetite, Other Symptoms Skin: Denies: Rash, Lesions, Jaundice, Bruising, Itching, Dry, Breakdown, Nail Changes, Other Pulmonary: Denies: Dyspnea, Cough, Pleuritic Chest Pain, Other Symptoms Cardiovascular: Denies: Chest Pain, Palpitations, Orthopnea, Paroxysmal Noc. Dyspnea, Edema, Lt Headedness, Other Symptoms Gastrointestinal: Denies: Nausea, Vomiting, Abdominal Pain, Diarrhea, Constipation, Melena, Hematochezia, Other Symptoms Musculoskeletal: Denies: Neck Pain, Back Pain, Shoulder Pain, Arm Pain, Hand Pain, Leg Pain, Foot Pain, Joint Pain, Muscle Pain, Spasms, Other Symptoms Neurological: Denies: Weakness, Numbness, Incoordination, Change in speech, Con fusion, Seizures, Other Symptoms Objective Physical Examination ENT Exam: Positive: Atraumatic, Mucous membr. moist/pink Neck Exam: Positive: Supple Chest Exam: Positive: Clear to auscultation, Normal air movement Heart Exam: Positive: Rate Normal, Normal S1, Normal S2 Abdomen Exam: Positive: Normal bowel sounds, Soft Extremity Exam: Positive: Other (dressing and left foot) Skin Exam: Positive: Nl turgor and temperature Neuro Exam: Positive: Strength at 5/5 X4 ext, Cranial Nerves 3-12 NL Assessment /Plan Problems (1) Foot osteomyelitis, left Status: Acute Problem Text: Left foot cellulitis/osteomyelitis Level work is essentially within normal limits The up EKG was done and is normal sinus rhythm, no acute ST-T changes Patient had a podiatry surgery done, official postoperative report is pending MRSA screen is negative Would cultures show MSSA sensitive to multiple antibiotics DC Vanco and Azactam and started Bactrim double strength 1 tablet by mouth twice a day Patient is status post surgical procedures on his left foot yesterday foot is dressed and cleaned Further recommendation as per podiatry including discharge (2) CKD (chronic kidney disease), stage III Status: Chronic Problem Text: Renal functions are stable Continue home meds (3) Hypertension Status: Chronic Problem Text: Continue home meds (4) GERD (gastroesophageal reflux disease) Status: Chronic Problem Text: Continue home meds (5) Depression Status: Chronic Problem Text: Continue home meds (6) Anxiety Status: Chronic Problem Text: Continue home meds (7) Diabetes mellitus Status: Chronic Problem Text: Fingerstick blood sugar every before meals and at bedtime with coverage Hold all other antidiabetic meds till patient is taking food orally of the surgery (8) Hypoglycemia Status: Resolved Plan/VTE VTE Prophylaxis Ordered?: Yes VS, I&O, 24H, Fishbone Vital Signs/I&O Vital Signs Date Time Temp Pulse Resp B/P (MAP) Pulse Ox O2 Delivery O2 Flow Rate FiO2 12/14/19 05:12 97.8 70 17 158/85 (109) 99 Room Air I&O- Last 24 Hours up to 6 AM 12/14/19 06:00 Intake Total 2710 ml Output Total 10 ml Balance 2700 ml Laboratory Data 24H LABS Laboratory Tests 2 12/13/19 12:12: Bedside Glucose (Misc Panel) 270H 12/13/19 16:53: Bedside Glucose (Misc Panel) 269H 12/13/19 20:22: Bedside Glucose (Misc Panel) 273H 12/14/19 07:39: Bedside Glucose (Misc Panel) 363H Microbiology Microbiology 12/12/19 Gram Stain - Final, Resulted 12/12/19 Wound Culture - Preliminary, Resulted Staphylococcus Aureus 12/12/19 Anaerobic Culture, Resulted Pending GALEN MATTHEWS MD Dec 14, 2019 11:03
[2019-12-14] MEDS: BACTRIM 160MG/800MG DS TAB PO SCH ×2 (12:24→21:11)
[2019-12-14 14:00] VITALS: BP 155/76
[2019-12-14] MEDS: traMADol 50 MG TAB PO PRN (15:20)
[2019-12-14] MEDS: ACETAMINOPHEN TAB 650MG DOSE (2X325MG) PO PRN (18:37)
[2019-12-14 21:07] VITALS: BP 146/69
[2019-12-14] MEDS: ALPRAZolam 0.25 MG TAB PO PRN (21:12)
[2019-12-15 05:45] VITALS: BP 145/67
[2019-12-15] MEDS: TORSEMIDE 10 MG TABLET PO SCH (08:26)
[2019-12-15] MEDS: BACTRIM 160MG/800MG DS TAB PO SCH (08:26)
[2019-12-15] MEDS: OMEPRAZOLE 20 MG CAP PO SCH (08:26)
[2019-12-15] MEDS: GABAPENTIN 300 MG CAP PO SCH (08:26)
[2019-12-15] MEDS: FLUoxetine 20 MG CAP PO SCH (08:26)
[2019-12-15] MEDS: FLUTICASONE PROP 0.05% NASAL SPRAY 16 GM (FLONASE) SCH (08:27)
[2019-12-15] MEDS: HumaLOG INSULIN (NovoLOG) PER UNIT SC SCH ×2 (08:27→11:56)
--- NOTE | 2019-12-15 09:26 | RO ---
DATE OF SURGERY: 12/12/2019 PREPROCEDURE DIAGNOSIS: Osteomyelitis with stage 4 ulcerations, left foot. POSTPROCEDURE DIAGNOSIS: Osteomyelitis with stage 4 ulcerations, left foot. PROCEDURE: Transmetatarsal amputation left foot SURGEON: Sumeet Dhaliwal DPM PACKAGING ENGINEER: None. ANESTHESIA: Local monitored anesthesia care (MAC). HEMOSTASIS: Thigh pneumatic tourniquet for approximately 10 minutes. ESTIMATED BLOOD LOSS: 250 mL. DRAINS UTILIZED: TLS drain. IMPLANT UTILIZED: 5 mm tobramycin impregnated beads, 12 in number. IRRIGATION: Dilute gentamicin solution, 3 liters, low pressure pulse lavage. DESCRIPTION OF PROCEDURE: On 12/12/2019, this 64-year-old white male was taken from his hospital room to the operating room and placed on the operating room table in a supine position. Following the induction of IV sedation, local and regional anesthesia, the left lower extremity was prepped and draped in the usual aseptic manner. Attention was directed to the dorsal surface of the foot where two elliptical incisions were placed over the dorsal aspect of the foot and the plantar aspect of the foot inferior to the ulcer sites. Incision was made straight to bone. All bleeders as encountered were electrocoagulated. Hemostasis was brought up for approximately 10 minutes to clamp and tie bleeders utilizing #2-0 Monocryl. The tourniquet was then released and the remaining bleeders were electrocoagulated. The wound was flushed with 3 liters of dilute vancomycin solution with the low pressure pulse lavage system. Twelve 5 mm tobramycin beads were then placed in the wound with a TLS drain and the wound was closed with #2- 0 nylon suture in a simple interrupted fashion. A sterile compressive dressing was applied to the patient's left foot. The patient, having apparently tolerated the surgical procedure, was taken from the OR to the recovery room for further monitoring by the anesthesia department. The patient's antibiotics will be tailored according to his culture and sensitivity. BLANCA
[2019-12-15] MEDS ORDERED: SULF1TAB93 PO (09:46)
[2019-12-15] MEDS: traMADol 50 MG TAB PO PRN (10:43)
--- NOTE | 2019-12-15 11:34 | DS.PDOC ---
Discharge Summary General Date of Admission Dec 11, 2019 at 11:14 Date of Discharge 12/15/19 Discharge Summary PROCEDURES PERFORMED DURING STAY: None. ADMITTING DIAGNOSES: 1. Left foot cellulitis/osteomyelitis. DISCHARGE DIAGNOSES: 1. Left foot cellulitis. COMPLICATIONS/CHIEF COMPLAINT: Left Foot Osteomyeltis. HISTORY OF PRESENT ILLNESS: This is 64 years old white male with past medical history of hypertension, diabetes mellitus, diabetic nephropathy, anxiety, depression, GERD, chronic kidney disease was referred from Dr. Dhaliwal's off [facility] for direct admission secondary to left foot cellulitis/osteomyelitis, and patient is scheduled good or for possible debridement/amputation. Patient offers no other complaint except left foot pain and swelling. No shortness of breath, no chest pain, nausea, vomiting, diarrhea. HOSPITAL COURSE: 64 years old male was admitted with possible osteomyelitis/cellulitis of left foot, he wasn't direct admission by All his lab workup was essentially within normal limits The up EKG was done and is normal sinus rhythm, no acute ST-T changes Patient osteomyelitis was ruled out and was treated for cellulitis of left foot MRSA screen is negative. On admission Would cultures show MSSA sensitive to multiple antibiotics Patient initially was started on is active and the vancomycin, which was later changed to Bactrim double strength by mouth twice a day, as would cultures showed MSSA infection . She was taken the OR by podiatry had I&D performed and dressing done on left foot Today. Patient will be discharged home once the dressing. A change by podiatry on by mouth antibiotics and follow with podiatry in one week Further recommendation as per podiatry on discharge . DISCHARGE MEDICATIONS: Please see below. ALLERGIES: Please see below. PHYSICAL EXAMINATION ON DISCHARGE: VITAL SIGNS: Please see below. GENERAL: Within normal limits HEENT: PERRLA. Extraocular muscles intact NECK: Supple CARDIOVASCULAR EXAMINATION: S1, S2, regular RESPIRATORY EXAMINATION: Clear to A&P ABDOMINAL EXAMINATION: Benign EXTREMITIES: Dressing and left foot SKIN: Normal NEUROLOGICAL EXAMINATION: . No focal motor sensory deficit PSYCHIATRIC EXAMINATION: Normal LABORATORY DATA: Please see below. IMAGING: Not applicable PROGNOSIS: Good ACTIVITY: As tolerated. DIET: As tolerated DISCHARGE PLAN: Charge. Home DISPOSITION: . Home DISCHARGE INSTRUCTIONS: 1. As per discharge instructions. ITEMS TO FOLLOWUP ON ON OUTPATIENT: 1. Follow with podiatry in one week. DISCHARGE CONDITION: Stable. TIME SPENT ON DISCHARGE: 38 minutes. Vital Signs/I&Os Vital Signs Date Time Temp Pulse Resp B/P (MAP) Pulse Ox O2 Delivery O2 Flow Rate FiO2 12/15/19 11:31 18 12/15/19 05:45 97.4 72 145/67 (93) 96 Room Air I&O- Last 24 Hours up to 6 AM 12/15/19 06:00 Intake Total 2160 ml Output Total 4 ml Balance 2156 ml Laboratory Data Labs 24H Laboratory Tests 2 12/14/19 11:44: Bedside Glucose (Misc Panel) 299H 12/14/19 16:21: Bedside Glucose (Misc Panel) 271H 12/14/19 21:05: Bedside Glucose (Misc Panel) 259H 12/15/19 05:42: Bedside Glucose (Misc Panel) 348H FSBS Laboratory Tests Test 12/14/19 11:44 12/14/19 16:21 12/14/19 21:05 12/15/19 05:42 Range/Units Bedside Glucose (Misc Panel) 299 271 259 348 80-115 MG/DL Microbiology Microbiology 12/12/19 Gram Stain - Final, Resulted 12/12/19 Wound Culture - Preliminary, Resulted Staphylococcus Aureus 12/12/19 Anaerobic Culture, Resulted Pending Discharge Medications Scheduled Aripiprazole (Abilify) 5 Mg Tab, 5 MG PO DAILY, (Reported) Aspirin (Aspirin EC) 81 Mg Tab, 81 MG PO DAILY, (Reported) Carvedilol (Carvedilol) 6.25 Mg Tab, 6.25 MG PO DAILY, (Reported) NO RECORD OF THIS MEDICATION AT PHARMACY, HAS NOT BEEN REFILLED BY PATIENT MD SINCE 2018 Fluoxetine HCl (Prozac) 20 Mg Cap, 60 MG PO DAILY, (Reported) Fluticasone Propionate (Flonase Allergy Relief) 50 Mcg/Act Spr, 2 SPRAY NA DAILY, (Reported) Gabapentin (Gabapentin) 300 Mg Cap, 600 MG PO TID, (Reported) Insulin Glargine,Hum.rec.anlog (Lantus Solostar) 100 Unit/1 Ml Insuln.pen, 60 UNITS SC BID, (Reported) Insulin Human Lispro (Novolog) 100 U/Ml Inj, 1 DOSE SC AC, (Reported) PER SLIDING SCALE Omeprazole (Omeprazole) 20 Mg Cap, 20 MG PO DAILY, (Reported) Sulfamethoxazole/Trimethoprim (Sulfamethoxazole-Tmp Ds Tablet) 1 Each Tablet, 1 TAB PO BID Torsemide (Torsemide) 10 Mg Tab, 10 MG PO Q2D, (Reported) Scheduled PRN Albuterol Sulfate (Ventolin Hfa) 18 Gm Hfa.aer.ad, 2 PUFF INH Q6H PRN for SHORTNESS OF BREATH, (Reported) Alprazolam (Alprazolam) 0.25 Mg Tab, 0.25 MG PO TID PRN for ANXIETY, (Reported) Ibuprofen (Ibuprofen) 200 Mg Tab, 400 MG PO Q6H PRN for PAIN, (Reported) Tramadol HCl (Tramadol HCl) 50 Mg Tab, 50 MG PO BID PRN for PAIN, (Reported) Allergies Coded Allergies: Penicillins (Verified Allergy, Mild, rash, 04/28/19) meperidine (Verified Adverse Reaction, Mild, trouble waking up, 04/28/19) GALEN MATTHEWS MD Dec 15, 2019 11:34
--- NOTE | 2019-12-15 20:22 | IPN ---
DATE: 12/15/2019 Time: Approximately 12 noon. CHIEF COMPLAINT: Patient seen at bedside for evaluation status post transmetatarsal amputation of the left foot. Minimal drainage is noted in the TLS drain. The bandage was removed today. The drain was removed. No surrounding edema or erythema around the surgical site. The transmetatarsal amputation site on the left foot is well coapted and maintained. A dry sterile dressing was applied to the patient's left foot. Culture was reviewed revealing growth of Staphylococcus (staph) aureus that is sensitive to clindamycin. The patient is allergic to PENICILLIN. He does tolerate clindamycin. Recommend patient on discharge start clindamycin 300 mg one by mouth every 6 hours, recommend 10 days of therapy. The patient will be seen in my office on for followup exam. His questions were answered.
== END 2019-12-15 13:25 | disposition home or self-care (01) | DRG 617 ==
LOC: M MS5PR 11:14
PROVIDERS: ADMIT Family Medicine; ATTEND Internal Medicine
PROC: 0Y6N0Z0 Detachment at Left Foot, Complete, Open Approach (ICD-10-PCS; principal; 2019-12-12 10:45)
DX: E11.69 Type 2 diabetes mellitus with other specified complication (principal); M86.172 Other acute osteomyelitis, left ankle and foot; I12.9 Hypertensive chronic kidney disease with stage 1 through stage 4 chronic kidney disease, or unspecified chronic kidney disease; E11.22 Type 2 diabetes mellitus with diabetic chronic kidney disease; E11.40 Type 2 diabetes mellitus with diabetic neuropathy, unspecified; N18.3 Chronic kidney disease, stage 3 (moderate); E11.621 Type 2 diabetes mellitus with foot ulcer; L97.524 Non-pressure chronic ulcer of other part of left foot with necrosis of bone; E11.649 Type 2 diabetes mellitus with hypoglycemia without coma; F17.200 Nicotine dependence, unspecified, uncomplicated; F41.9 Anxiety disorder, unspecified; F32.9 Major depressive disorder, single episode, unspecified; K21.9 Gastro-esophageal reflux disease without esophagitis; Z79.4 Long term (current) use of insulin; Z79.82 Long term (current) use of aspirin; Z79.899 Other long term (current) drug therapy; Z88.0 Allergy status to penicillin; Z88.8 Allergy status to other drugs, medicaments and biological substances

== ENCOUNTER 2019-12-29 14:49 | Emergency (ER) | payer MEDICARE, BC, OTHER ==
[~2019-12-29] VITALS: Ht 170.2 cm; Wt 90.9 kg
[~2019-12-29 14:49] MED LIST changes: +LANTINJ4 SC; +SULF1TAB93 PO; +VENTAER INH
[2019-12-29] MEDS ORDERED: NS 1,000 ML IV SCH (15:20)
[2019-12-29] MEDS ORDERED: ONDANSETRON 4MG/2ML VIAL (J2405) IV ONE (15:30)
[2019-12-29 16:13] LABS: BASO # 0.1 10^3/uL (0.0-0.2); BASO % 0.9 % (0.0-1.0); EOS # 0.2 10^3/uL (0.0-0.5); HEMATOCRIT 38.2 % (42.0-52.0); HEMOGLOBIN 12.8 g/dl (13.5-17.5); LYMPH # 2.5 10^3/uL (1.5-5.0); LYMPH % 21.4 % (24.0-44.0); MEAN CORPUSCULAR HGB CONC 33.5 g/dl (32.0-36.5); MEAN CORPUSCULAR VOLUME 89.5 fl (80.0-96.0); MONO # 1.3 10^3/uL (0.0-0.8); MONO % 11.1 % (0.0-5.0); NEUTROPHILS # 7.3 10^3/uL (1.5-8.5); NEUTROPHILS % 62.5 % (36.0-66.0); PLATELET COUNT, AUTOMATED 259 10^3/uL (150-450); RED BLOOD COUNT 4.27 10^6/uL (4.30-6.10); WHITE BLOOD COUNT 11.7 10^3/uL (4.0-10.0)
[2019-12-29 16:17] LABS: INR 1.16; PROTHROMBIN TIME 14.5 SECONDS (11.8-14.0)
[2019-12-29 16:18] LABS: PARTIAL THROMBOPLASTIN TIME 28.6 SECONDS (25.0-38.4)
[2019-12-29 16:31] LABS: ALBUMIN 3.1 GM/DL (3.2-5.2); ALT/SGPT 27 U/L (12-78); BILIRUBIN,DIRECT 0.3 MG/DL (0.0-0.2); BILIRUBIN,TOTAL 0.5 MG/DL (0.2-1.0); BLOOD UREA NITROGEN 30 MG/DL (7-18); CALCIUM LEVEL 9.3 MG/DL (8.8-10.2); CARBON DIOXIDE LEVEL 25 MEQ/L (21-32); CHLORIDE LEVEL 100 MEQ/L (98-107); CK-MB VALUE MASS 3.9 NG/ML (<3.6); CPK CREATINE PHOSPHOKINASE 225 U/L (39-308); CREATININE FOR GFR 1.48 MG/DL (0.70-1.30); GLOMERULAR FILTRATION RATE 50.9 (>49); GLUCOSE, FASTING 219 MG/DL (70-100); LIPASE 78 U/L (73-393); MB/CK RELATIVE INDEX 1.73 (< OR =4); POTASSIUM SERUM 3.8 MEQ/L (3.5-5.1); SODIUM LEVEL 134 MEQ/L (136-145); TOTAL PROTEIN 7.8 GM/DL (6.4-8.2); TROPONIN I < 0.02 NG/ML (< 0.10)
[2019-12-29 18:40] VITALS: BP 171/81
--- NOTE | 2020-01-01 06:05 | ECGEPIP ---
[facility] - ED Test Date: 2019-12-29 Pat Name: ANA ALEMAN Department: Room: - Gender: Male Ultrasound Spec: shaneka : 1955 Requested By: TRICE Suero Order Number: [id number] Reading MD: Luke Gomez Measurements Intervals [place] Rate: 92 P: 9 NM: 164 QRS: -36 QRSD: 134 T: 18 QT: 373 QTc: 464 Interpretive Statements SINUS RHYTHM MARKED LEFT AXIS DEVIATION RIGHT BUNDLE BRANCH BLOCK MINIMAL VOLTAGE CRITERIA FOR LVH, CONSIDER NORMAL VARIANT SIMILAR TO 12/11/19 Electronically Signed on 01-01-2020 6:05:37 EST by Luke Gomez
== END 2019-12-29 18:44 | disposition home or self-care (01) ==
LOC: M ED 14:49 → EDBD 14:49 → M ED 18:44
DX: I10 Essential (primary) hypertension (principal); T81.30XA Disruption of wound, unspecified, initial encounter; X58.XXXA Exposure to other specified factors, initial encounter; Y92.89 Other specified places as the place of occurrence of the external cause; I45.10 Unspecified right bundle-branch block; E11.42 Type 2 diabetes mellitus with diabetic polyneuropathy; F33.9 Major depressive disorder, recurrent, unspecified; F41.9 Anxiety disorder, unspecified; K21.9 Gastro-esophageal reflux disease without esophagitis; Z79.899 Other long term (current) drug therapy; Z79.82 Long term (current) use of aspirin; Z79.4 Long term (current) use of insulin; Z88.0 Allergy status to penicillin; Z88.8 Allergy status to other drugs, medicaments and biological substances
CPT/HCPCS: 80048; 80076; 82550; 82553; 83690; 84484; 85025; 85610; 85730; 93005; 93041; 96361; 96374; 99285; J2405

== ENCOUNTER 2020-01-12 12:46 | Day surgery (SDC) | payer MEDICARE, BC, OTHER ==
[~2020-01-12] VITALS: Ht 170.2 cm; Wt 87.1 kg
[~2020-01-12 12:46] MED LIST changes: +LR 1,000 ML IV ONE
[2020-01-12] MEDS ORDERED: propofoL 200 MG/20 ML VIAL As Ordered ONE ×2 (14:46→15:21)
[2020-01-12] MEDS ORDERED: LIDOCAINE 2% INJ 100 MG/5 ML SDV (FOR ANES.) As Ordered ONE (14:46)
[2020-01-12] MEDS ORDERED: PHENYLephrine HCL 500 MCG/5 ML (100MCG/ML) SYRINGE (J2370) As Ordered ONE (14:56)
[2020-01-12] MEDS ORDERED: METOPROLOL 5 MG/5 ML VIAL As Ordered ONE (15:04)
--- NOTE | 2020-01-12 15:32 | ROOR ---
Patient Name: Donald Fay Procedure Date: 01/12/2020 2:45 PM Date of : 1955 Age: 64 Room: [facility] Gender: Male Note Status: Finalized Procedure: Upper GI endoscopy Indications: Dysphagia, Weight loss Providers: Be Evans MD Referring MD: HOSSEIN HORTON DO Requesting Provider: Medicines: Monitored Anesthesia Care Complications: No immediate complications. Procedure: Pre-Anesthesia Assessment: - Prior to the procedure, a History and Physical was performed, and patient medications and allergies were reviewed. The patient is competent. The risks and benefits of the procedure and the sedation options and risks were discussed with the patient. All questions were answered and informed consent was obtained. Patient identification and proposed procedure were verified by the physician, the nurse and the anesthesiologist in the procedure room. Mental Status Examination: normal. Airway Examination: normal oropharyngeal airway and neck mobility. Respiratory Examination: clear to auscultation. CV Examination: normal. Prophylactic Antibiotics: The patient does not require prophylactic antibiotics. Prior Anticoagulants: The patient has taken no previous anticoagulant or antiplatelet agents. ASA Grade Assessment: II - A patient with mild systemic disease. After reviewing the risks and benefits, the patient was deemed in satisfactory condition to undergo the procedure. The anesthesia plan was to use monitored anesthesia care (MAC). Immediately prior to administration of medications, the patient was re-assessed for adequacy to receive sedatives. The heart rate, respiratory rate, oxygen saturations, blood pressure, adequacy of pulmonary ventilation, and response to care were monitored throughout the procedure. The physical status of the patient was re-assessed after the procedure. The Endoscope was introduced through the mouth, and advanced to the second part of duodenum. The upper GI endoscopy was accomplished without difficulty. The patient tolerated the procedure well. Findings: LA Grade C (one or more mucosal breaks continuous between tops of 2 or more mucosal folds, less than 75% circumference) esophagitis with no bleeding was found in the distal esophagus. Biopsies were taken with a cold forceps for histology. Verification of patient identification for the specimen was done by the physician and nurse using the patient's name, date and medical record number. Estimated blood loss was minimal. Scattered moderate inflammation characterized by erosions, friability and granularity was found in the gastric body. Biopsies were taken with a cold forceps for Helicobacter pylori testing. The duodenal bulb and second portion of the duodenum were normal. Biopsies for histology were taken with a cold forceps for evaluation of celiac disease. Impression: - LA Grade C reflux esophagitis. Rule out Cm's esophagus. Biopsied. - Gastritis. Biopsied. - Normal duodenal bulb and second portion of the duodenum. Biopsied. Recommendation: - Patient has a contact number available for emergencies. The signs and symptoms of potential delayed complications were discussed with the patient. Return to normal activities tomorrow. Written discharge instructions were provided to the patient. - High fiber diet. - Continue present medications. - Use Protonix (pantoprazole) 40 mg PO twice daily - to be taken in morning (1/2 hour before breakfast) and at bedtime ( atleast 3 hours after last meal) for 3 months. - Follow an antireflux regimen for 3 months. - Await pathology results. - Repeat upper endoscopy in 3 months to check healing and to evaluate the response to therapy. - Telephone GI clinic for pathology results in 2 weeks. - Return to primary care physician. - Return to GI clinic in [facility] (address [address], [facility] [address] [address]) in 4 -- 6 weeks. Please call GI clinic @ [phone] for apppointment date and time. Be Evans MD Be Evans MD 01/12/2020 3:31:42 PM Electronically signed by Be Evans MD Number of Addenda: 0 Note Initiated On: 01/12/2020 2:45 PM Estimated Blood Loss: Estimated blood loss was minimal.
--- NOTE | 2020-01-12 15:37 | ROOR ---
Patient Name: Donald Fay Procedure Date: 01/12/2020 2:45 PM Date of : 1955 Age: 64 Room: [facility] Gender: Male Note Status: Finalized Procedure: Colonoscopy Indications: Screening for colorectal malignant neoplasm Providers: Be Evans MD Referring MD: HOSSEIN HORTON DO Requesting Provider: Medicines: Monitored Anesthesia Care Complications: No immediate complications. Procedure: Pre-Anesthesia Assessment: - Prior to the procedure, a History and Physical was performed, and patient medications and allergies were reviewed. The patient is competent. The risks and benefits of the procedure and the sedation options and risks were discussed with the patient. All questions were answered and informed consent was obtained. Patient identification and proposed procedure were verified by the physician, the nurse and the anesthesiologist in the procedure room. Mental Status Examination: alert and oriented. Airway Examination: normal oropharyngeal airway and neck mobility. Respiratory Examination: clear to auscultation. CV Examination: normal. Prophylactic Antibiotics: The patient does not require prophylactic antibiotics. Prior Anticoagulants: The patient has taken no previous anticoagulant or antiplatelet agents. ASA Grade Assessment: II - A patient with mild systemic disease. After reviewing the risks and benefits, the patient was deemed in satisfactory condition to undergo the procedure. The anesthesia plan was to use monitored anesthesia care (MAC). Immediately prior to administration of medications, the patient was re-assessed for adequacy to receive sedatives. The heart rate, respiratory rate, oxygen saturations, blood pressure, adequacy of pulmonary ventilation, and response to care were monitored throughout the procedure. The physical status of the patient was re-assessed after the procedure. The Colonoscope was introduced through the anus and advanced to the terminal ileum, with identification of the appendiceal orifice and IC valve. The colonoscopy was performed without difficulty. The patient tolerated the procedure well. The quality of the bowel preparation was good. The terminal ileum, ileocecal valve, appendiceal orifice, and rectum were photographed. Scope insertion time was 3 minutes. Scope withdrawal time was 9 minutes. The total duration of the procedure was 12 minutes. Findings: The perianal and digital rectal examinations were normal. The terminal ileum appeared normal. A 10 mm polyp was found in the sigmoid colon. The polyp was sessile. The polyp was removed with a cold snare. Resection and retrieval were complete. For hemostasis, one hemostatic clip was successfully placed. There was no bleeding at the end of the procedure. Verification of patient identification for the specimen was done by the physician and nurse using the patient's name, date and medical record number. Estimated blood loss was minimal. Multiple small and large-mouthed diverticula were found from sigmoid to descending colon. There was narrowing of the colon in association with the diverticular opening. There was evidence of diverticular spasm. There was no evidence of diverticular bleeding. Non-bleeding external and internal hemorrhoids were found during retroflexion. The hemorrhoids were medium-sized. Impression: - The examined portion of the ileum was normal. - One 10 mm polyp in the sigmoid colon, removed with a cold snare. Resected and retrieved. Clip was placed. - Severe diverticulosis from sigmoid to descending colon. There was narrowing of the colon in association with the diverticular opening. There was evidence of diverticular spasm. There was no evidence of diverticular bleeding. - Non-bleeding external and internal hemorrhoids. Recommendation: - Patient has a contact number available for emergencies. The signs and symptoms of potential delayed complications were discussed with the patient. Return to normal activities tomorrow. Written discharge instructions were provided to the patient. - High fiber diet. - Continue present medications. - Colace capsule(s) orally 100 mg BID for 3 months. - Senokot-S 2 tablets PO q HS for 3 months. - Await pathology results. - Repeat colonoscopy in 3 - 5 years for surveillance based on pathology results. - Telephone GI clinic for pathology results in 2 weeks. - Return to GI clinic in [facility] (address [address], [address], [place], [facility]) in 4 -- 6 weeks. Please call GI clinic @ [phone] for apppointment date and time. - Return to primary care physician. Be Evans MD Be Evans MD 01/12/2020 3:37:03 PM Electronically signed by Be Evans MD Number of Addenda: 0 Note Initiated On: 01/12/2020 2:45 PM Estimated Blood Loss: Estimated blood loss was minimal.
[2020-01-12 15:46] VITALS: BP 140/63
== END 2020-01-12 15:47 | disposition home or self-care (01) ==
LOC: M SDC 12:46
PROVIDERS: ATTEND Internal Medicine Gastroenterology
DX: Z12.11 Encounter for screening for malignant neoplasm of colon (principal); K64.8 Other hemorrhoids; D12.5 Benign neoplasm of sigmoid colon; K57.30 Diverticulosis of large intestine without perforation or abscess without bleeding; K21.0 Gastro-esophageal reflux disease with esophagitis; K29.70 Gastritis, unspecified, without bleeding; R13.10 Dysphagia, unspecified; R63.4 Abnormal weight loss; Z88.0 Allergy status to penicillin; Z88.8 Allergy status to other drugs, medicaments and biological substances
CPT/HCPCS: 43239; 45385; 88305; J2370

== ENCOUNTER → 2020-03-15 | Outpatient (CLI) | payer MEDICARE, BC, OTHER ==
[~2020-03-15] MED LIST changes: -LR 1,000 ML IV ONE
[2020-03-15 14:58] LABS: BASO % 0.6 % (0.0-1.0); EOS # 0.2 10^3/uL (0.0-0.5); EOS % 2.8 % (0.0-3.0); HEMATOCRIT 34.4 % (42.0-52.0); HEMOGLOBIN 11.1 g/dl (13.5-17.5); LYMPH # 1.4 10^3/uL (1.5-5.0); LYMPH % 21.6 % (24.0-44.0); MEAN CORPUSCULAR HEMOGLOBIN 29.8 pg (27.0-33.0); MEAN CORPUSCULAR HGB CONC 32.3 g/dl (32.0-36.5); MEAN CORPUSCULAR VOLUME 92.2 fl (80.0-96.0); MONO # 0.7 10^3/uL (0.0-0.8); NEUTROPHILS # 4.1 10^3/uL (1.5-8.5); NEUTROPHILS % 63.8 % (36.0-66.0); PLATELET COUNT, AUTOMATED 166 10^3/uL (150-450); RED BLOOD COUNT 3.73 10^6/uL (4.30-6.10); WHITE BLOOD COUNT 6.5 10^3/uL (4.0-10.0)
[2020-03-15 15:12] LABS: ALBUMIN 3.1 GM/DL (3.2-5.2); ALT/SGPT 31 U/L (12-78); BILIRUBIN,TOTAL 0.5 MG/DL (0.2-1.0); BLOOD UREA NITROGEN 30 MG/DL (7-18); CALCIUM LEVEL 8.4 MG/DL (8.8-10.2); CARBON DIOXIDE LEVEL 22 MEQ/L (21-32); CHLORIDE LEVEL 108 MEQ/L (98-107); GLOMERULAR FILTRATION RATE 46.6 (>49); GLUCOSE, FASTING 141 MG/DL (70-100); POTASSIUM SERUM 4.8 MEQ/L (3.5-5.1); RHEUMATOID FACTOR QUANT < 10.0 IU/ML (<15.0); SODIUM LEVEL 139 MEQ/L (136-145); TOTAL PROTEIN 7.2 GM/DL (6.4-8.2)
[2020-03-15 15:13] LABS: VITAMIN B12 LEVEL 389 PG/ML
[2020-03-15 15:14] LABS: FOLATE 10.9 NG/ML
[2020-03-15 15:24] LABS: HEMOGLOBIN A1c 8.1 %
[2020-03-15 16:20] LABS: ERYTHROCYTE SEDIMENTATION RATE 67 mm/hr (0-20)
[2020-03-16 11:46] LABS: ALBUMIN 3.74 GM/DL (3.29-5.55); ALBUMIN % 51.9 % (55.8-66.1); ALPHA-1-GLOBULIN % 4.4 % (2.9-4.9); BETA-1-GLOBULINS % 7.5 % (4.7-7.2); BETA-2-GLOBULINS % 6.3 % (3.2-6.5); GAMMA GLOBULIN % 18.9 % (11.1-18.8)
[2020-03-16 11:47] LABS: ALPHA-1-GLOBULINS 0.32 GM/DL (0.17-0.41); ALPHA-2-GLOBULINS 0.79 GM/DL (0.42-0.99); BETA-1-GLOBULINS 0.54 GM/DL (0.28-0.60); BETA-2-GLOBULINS 0.45 GM/DL (0.19-0.55); GAMMA GLOBULINS 1.36 GM/DL (0.65-1.58)
[2020-03-21 00:06] LABS: ANCA-ATYPICAL <1:20 titer (Neg:<1:20); ANTI DS-DNA AB Negative (Negative); ANTINUCLEAR ANTIBODIES DIRECT Negative (Negative); CYTOPLASMIC NEUTROP AB ANCA-C <1:20 titer (Neg:<1:20); PERINUCLEAR AB ANCA-P <1:20 titer (Neg:<1:20); SJOGREN'S ANTI SS-A <0.2 AI (0.0-0.9); SJOGREN'S ANTI SS-B <0.2 AI (0.0-0.9); VITAMIN B1 LEVEL WHOLE BLOOD 103.9 nmol/L (66.5-200.0); VITAMIN B6,PYRIDOXAL PHOSPHATE 7.5 ug/L (5.3-46.7); VITAMIN E(ALPHA TOCOPHEROL) 10.5 mg/L (9.0-29.0); VITAMIN E(GAMMA TOCOPHEROL) 3.5 mg/L (0.5-4.9)
== END ==
LOC: M LAB 13:46
PROVIDERS: ATTEND Psychiatry & Neurology Neurology
DX: G62.9 Polyneuropathy, unspecified (principal)

== ENCOUNTER → 2020-07-30 | Outpatient (CLI) | payer MEDICARE ==
--- NOTE | 2020-08-02 09:14 | ECWPNPC ---
PATIENT NAME: ANA ALEMAN : 1955 GENDER: MALE VISIT DATE: 07/30/2020 DISCHARGE DATE: 07/30/20925 VISIT LOCKED DATE TIME: PHYSICIAN: GIOVANI MARION RESOURCE: GIOVANI MARION REASON FOR APPOINTMENT 1. CERVICAL SPONDYLOSIS HISTORY OF PRESENT ILLNESS DEPRESSION SCREENING: PHQ-2 (2015 EDITION) LITTLE INTEREST OR PLEASURE IN DOING THINGS?NOT AT ALL FEELING DOWN, DEPRESSED, OR HOPELESS?NOT AT ALL TOTAL SCORE0 64-YEAR-OLD MALE IN FOR INITIAL PAIN CONSULT. HE RATES HIS PAIN CURRENTLY AT A 2 OUT OF 10 AND DESCRIBES IT ACHING, INTERMITTENT, STABBING, AND THROBBING. PATIENT ADMITS TO BACK INJECTIONS IN THE PAST. HE IS CURRENTLY TAKING TRAMADOL WHICH SHE FEELS IS HELPFUL IN REDUCING HIS PAIN SYMPTOMS AND DENIES MED SIDE EFFECTS FROM THIS MEDICATION. GENERAL: - - -. FALL RISK SCREENING: SCREENING :NO FALLS REPORTED IN THE LAST YEAR PAIN SCREENING: PATIENT HAS A COMPLAINT OF ACUTE OR CHRONIC PAIN :YES LOCATION OF PAIN:NECK, LEFT SHOULDER, RIGHT SHOULDER INTENSITY OF PAIN (SCALE OF 1 TO 10):2 WHAT DOES YOUR PAIN FEEL LIKE:ACHING, INTERMITTENT, STABBING, THROBBING DURATION:ALL DAY, INTERMITTENT, AWAKENS FROM SLEEP PAIN IS INCREASED BY:ACTIVITIES PAIN IS DECREASED BY:USE OF PAIN MEDICATIONS IBUPROFIN AND TRAMADOL HELPS TO REDUCE PAIN NURSING NOTE: - - -. PAIN CENTER INTAKE QUESTIONS: DO YOU HAVE A HISTORY OF MRSA? :NO DO YOU TAKE A BLOOD THINNERS? :NO DO YOU HAVE ANY BLEEDING DISORDERS? :NO ANY NEW NUMBNESS OR WEAKNESS IN YOUR LEGS OR ARMS? :YES BILATERAL ARMS ANY PACEMAKER,DEFIBRILLATOR, OR DORSAL COLUMN STIMULATOR? :NO DO YOU HAVE ANY RASHES OR OPEN SORES? :YES ULCER - LEFT FOOT ARE YOU ALLERGIC TO IV DYE? :NO ARE YOU DIABETIC? :YES ANY NEW PROBLEMS WITH YOUR MEDICATIONS? :NO HAVE YOU RECEIVED A VACCINE IN THE PAST 30 DAYS? :NO DO YOU PLAN TO RECEIVE A VACCINE IN THE NEXT 21 DAYS? :YES FLU SHOT DO YOU NEED ANY PRESCRIPTION? :NO DO YOU TAKE ANY IMMUNOSUPPRESSIVE MEDICATIONS? :NO CURRENT MEDICATIONS TAKING ASPIR-81 TAKING PROZAC 20 MG CAPSULE 1 CAPSULE ORALLY ONCE A DAY TAKING TRAMADOL HCL 50 MG TABLET 1 TABLET NEEDED ORALLY ONCE A DAY TAKING GABAPENTIN 300 MG CAPSULE 1 CAPSULE ORALLY TID TAKING LISINOPRIL 5 MG TABLET 1 TABLET ORALLY ONCE A DAY TAKING OMEPRAZOLE 20 MG CAPSULE DELAYED RELEASE 1 CAPSULE 30 MINUTES BEFORE MORNING MEAL ORALLY ONCE A DAY TAKING ABILIFY 5 MG TABLET 1 TABLET ORALLY ONCE A DAY TAKING CARVEDILOL 12.5 MG TABLET 1 TABLET WITH FOOD ORALLY TWICE A DAY NOT-TAKING TIZANIDINE HCL 4 MG TABLET 1 TABLET NEEDED ORALLY THREE TIMES A DAY MEDICATION LIST REVIEWED AND RECONCILED WITH THE PATIENT PAST MEDICAL HISTORY MEDICAL HISTORY VERIFIED. ALLERGIES PENICILLIN (FOR ALLERGIES USE ONLY) DEMEROL SURGICAL HISTORY TRANSMETATARSAL REMOVAL LEFT FOOT 10/2019 GALLBLADDER REMOVAL FAMILY HISTORY NO FAMILY HISTORY DOCUMENTED. SOCIAL HISTORY GENERAL: TOBACCO USE ARE YOU A:CURRENT SMOKER HOW MANY CIGARETTES A DAY DO YOU SMOKE?11-20 PATIENT COUNSELED ON THE DANGERS OF TOBACCO USE AND URGED TO QUIT:07/30/2020 SMOKING CESSATION INFORMATION GIVEN07/30/2020 ALCOHOL SCREENING DID YOU HAVE A DRINK CONTAINING ALCOHOL IN THE PAST YEAR?NO POINTS0 INTERPRETATIONNEGATIVE RECREATIONAL DRUG USE DRUG USE?NO DOMESTIC VIOLENCE DO YOU FEEL SAFE IN YOUR ENVIRONMENT?YES PAIN CLINIC PFS, CLERGY, PUBLIC HEALTH REFERRALS HAS THE PATIENT BEEN EDUCATED REGARDING HIS/HER PLAN OF CARE?YES HAS THE PATIENT BEEN EDUCATED REGARDING PAIN, THE RISK FOR PAIN, THE IMPORTANCE OF EFFECTIVE PAIN MANAGEMENT, AND THE PAIN ASSESSMENT PROCESS?YES ADVANCE DIRECTIVE ADVANCE DIRECTIVE DISCUSSED WITH PATIENT:YES LETITIA ALEMAN HOSPITALIZATION/MAJOR DIAGNOSTIC PROCEDURE NO HOSPITALIZATION HISTORY. REVIEW OF SYSTEMS CONSTITUTIONAL: ANY RECENT FEVER NO . CHILLS NO . WEIGHT CHANGE OF UNKNOWN REASONS NO . MUSCULOSKELETAL: ANY UNUSUAL JOINT PAIN OR SWELLING NOT MENTIONED NO . SYSTEMIC LUPUS NO . ANY NEUROMUSCULAR DISORDER NOT MENTIONED NO . LYME DISEASE NO . GASTROENTEROLOGY: ANY NEW CHANGE IN BOWEL CONTROL? NO . HISTORY OF LIVER DISORDER NOT MENTIONED NO . HISTORY OF UNUSUAL ABDOMINAL PAIN OR CRAMPING NOT MENTIONED NO . NO CONSTIPATION. GENITOURINARY: ANY NEW CHANGE IN BLADDER CONTROL? NO . ANY RENAL/KIDNEY CONDITON NOT MENTIONED NO . NEUROLOGY: HISTORY OF TBI NOT MENTIONED NO . OTHER NEW NUMBNESS OR PAIN PATTERNS NOT MENTIONED NO . NEW ONSET DIZZINESS OR NEUROLOGICAL CHANGES NOT MENTIONED NO . HISTORY OF SEVERE HEADACHES NOT MENTIONED NO . HISTORY OF STROKE OR NEUROLOGICAL DISORDER NOT MENTIONED NO . CARDIOLOGY: HEART SURGERY NO . CONGESTIVE HEART FAILURE/FLUID OVERLOAD NOT MENTIONED NO . HISTORY OF CHEST PAIN,IRREGULAR HEART BEAT NOT MENTIONED NO . RESPIRATORY: SHORTNESS OF BREATH ON EXERTION, WHEEZES, UNUSUAL COUGH NOT MENTIONED NO . ENDOCRINOLOGY: ADRENAL GLAND OR THYROID DISORDERS NOT MENTIONED NO . UNUSUAL URINATION, DIZZINESS OR LETHARGY NOT MENTIONED NO . VITAL SIGNS WT 225.0 LBS, HT 60 IN, BMI 43.94 INDEX, BP 166/72 MM HG, HR 96 /MIN, RR 18 /MIN, TEMP 97.1 F, OXYGEN SAT % 97%, NA INITIALS AW 0830, REVIEWED BY: DM. EXAMINATION GENERAL EXAMINATION: GENERALNO ACUTE DISTRESS, WELL NOURISHED AND HYDRATED. PSYCHAPPROPRIATE MOOD AND AFFECT . HEENT:POINT TENDER ALONG CERVICAL SPINE, SURROUNDING SKIN SHOWS NO ERYTHEMA, ECCHYMOSIS, INCREASED WARMTH, AND/OR SKIN ERUPTIONS NOTED. NEGATIVE SPURLING'S TEST. PATIENT DENIES INCREASED PAIN IN THE CERVICAL SPINE WHEN ASKED TO LIFT ARMS AGAINST RESISTANCE. PATIENT DOES ENDORSE INCREASED PAIN WITH FACET LOADING. . LUNGS:CLEAR TO AUSCULTATION BILATERALLY, NO WHEEZES, RHONCHI, RALES. HEART:NO MURMURS, REGULAR RATE AND RHYTHM. ASSESSMENTS SPONDYLOSIS WITHOUT MYELOPATHY OR RADICULOPATHY, CERVICAL REGION - M47.812 (PRIMARY) TREATMENT SPONDYLOSIS WITHOUT MYELOPATHY OR RADICULOPATHY, CERVICAL REGION NOTES: BILATERAL THERAPEUTIC CERVICAL FACET BLOCK C4-C5 C5-C6. CLINICAL NOTES: 64-YEAR-OLD MALE IN FOR INITIAL PAIN CONSULT. GIVEN PRESENTING SYMPTOMS AND RESULTS OF PHYSICAL EXAMINATION RECOMMENDED BILATERAL THERAPEUTIC CERVICAL FACET BLOCK C4-C5 C5-C6 WITH POSTPROCEDURAL FOLLOW-UP. PATIENT HAS EXPRESSED UNDERSTANDING OF AND WAS IN AGREEMENT WITH TREATMENT PLAN. GIVEN TIME TO ASK QUESTIONS AND EXPRESS CONCERNS. PREVENTIVE MEDICINE PAIN CLINIC TEACHING: THE PATIENT HAS BEEN EDUCATED REGARDING PAIN, THE RISK FOR PAIN, THE IMPORTANCE OF EFFECTIVE PAIN MANAGEMENT, AND THE PAIN ASSESSMENT PROCESS. : REVIEWED PRE-PROCEDURE INSTRUCTIONS FOR BILATERAL THERAPEUTIC CERVICAL FACET BLOCK C4-C5 C5-C6. PT ACKNOWLEDGES [facility] FOR PLAN OF CARE. HIRAM GABRIEL [facility] PROCEDURE CODES FA211 ESTABILISHED PATIENT [facility] F[facility] CHARGE DISPOSITION & COMMUNICATION FOLLOW UP POSTPROCEDURE (REASON: BILATERAL CERVICAL THERAPEUTIC FACET BLOCK C4-C5 C5-C6) ELECTRONICALLY SIGNED BY ROBIN BOWIE ON 08/02/2020 AT 09:06 AM EDT DISCLAIMER : THIS IS A VISIT SUMMARY EXTRACTED FROM THE [employer] CHART. IT IS NOT A COPY OF THE [employer] PROGRESS NOTE. BLANCA
== END ==
LOC: M PAIN 08:30
PROVIDERS: ATTEND Family Medicine
DX: M47.812 Spondylosis without myelopathy or radiculopathy, cervical region (principal); E11.9 Type 2 diabetes mellitus without complications; F17.210 Nicotine dependence, cigarettes, uncomplicated; Z88.0 Allergy status to penicillin; Z88.5 Allergy status to narcotic agent; E66.01 Morbid (severe) obesity due to excess calories; Z68.41 Body mass index [BMI] 40.0-44.9, adult; Z79.82 Long term (current) use of aspirin; Z79.899 Other long term (current) drug therapy

== ENCOUNTER → 2021-05-12 | Outpatient (CLI) | payer MEDICARE, BC, OTHER ==
[~2021-05-12] MED LIST changes: +BACTDSTA PO; -CLIN150C14 PO; +CLIN150C15 PO; +GABA-282 PO; -GABA-843 PO; -SULF1TAB93 PO
--- NOTE | 2021-05-12 15:14 | REP ---
INDICATION: ABNORMAL ELECTROCARDIOGRAM ECG EKG. COMPARISON: Comparison chest radiograph April 28, 2019. TECHNIQUE: Two views.. FINDINGS: The lungs are well inflated and free of infiltrate. The pleural angles are sharp. The heart size is normal. Pulmonary vasculature is not increased. No significant bony abnormality is seen. There are mild degenerative changes in the thoracic spine. There are surgical clips in the upper abdomen. IMPRESSION: No active disease.. <Electronically signed by Chicho Lowery > 05/12/21 [id number]
--- NOTE | 2021-05-12 15:56 | REP ---
INDICATION: ABNORMAL ELECTROCARDIOGRAM ECG EKG. Thoracic spine area pain. COMPARISON: Comparison is made with radiographs of the chest from August 21, 2017.. TECHNIQUE: Four views of the thoracic spine are obtained in the AP and lateral projection. A swimmer's lateral views included. FINDINGS: Thoracic vertebral body heights are preserved alignment is normal. There is a mild to moderate degenerative discogenic spurring at multiple mid and lower thoracic levels. To a lesser extent, there is discogenic spurring in the upper thoracic spine. Disc spaces are maintained. Pedicles and posterior elements are intact. No paravertebral soft tissue mass is appreciated. Swimmer's lateral view shows discogenic spurring at the cervicothoracic junction. There appears to be advanced degenerative disc narrowing with sclerosis and osteophyte formation at L1-2 in the upper lumbar spine. IMPRESSION: Degenerative disc disease most pronounced at what appears to be the L1-2 level. No bony destructive lesion. <Electronically signed by Chicho Lowery > 05/12/21 [id number]
== END ==
LOC: M RAD 14:02
PROVIDERS: ATTEND Physician Assistant
DX: R94.31 Abnormal electrocardiogram [ECG] [EKG] (principal); M51.36 Other intervertebral disc degeneration, lumbar region

== ENCOUNTER → 2021-08-16 | Outpatient (CLI) | payer MEDICARE, BC, OTHER ==
[~2021-08-16] MED LIST changes: -CLIN150C15 PO; +CLIN150C17 PO; -DOXY100C PO; +DOXY100C3 PO
[2021-08-16 15:12] LABS: INR 0.99; PROTHROMBIN TIME 13.5 SECONDS (12.7-14.5)
[2021-08-16 15:13] LABS: PARTIAL THROMBOPLASTIN TIME 32.1 SECONDS (25.9-37.0)
[2021-08-16 15:14] LABS: ALT/SGPT 58 U/L (12-78); BILIRUBIN,DIRECT 0.2 MG/DL (0.0-0.2); BILIRUBIN,TOTAL 0.5 MG/DL (0.2-1.0); FERRITIN 58 NG/ML (26-388); IRON (FE) 73 UG/DL (65-175); PERCENT SATURATION 22.5 % (19.7-50.0); TOTAL IRON BINDING CAPACITY 325 UG/DL (250-450); TOTAL PROTEIN 6.9 GM/DL (6.4-8.2)
[2021-08-16 15:15] LABS: HEPATITIS B SURFACE ANTIBODY NEGATIVE (POSITIVE)
[2021-08-16 15:25] LABS: HEPATITIS B SURFACE ANTIGEN NEGATIVE (NEGATIVE)
[2021-08-16 15:53] LABS: HEPATITIS C VIRUS ABY INDEX < 0.0 INDEX (<0.8)
[2021-08-17 14:20] LABS: BLOOD UREA NITROGEN 22 MG/DL (7-18)
[2021-08-17 16:38] LABS: HEPATITIS A IgG TOTAL Positive (Negative); LIVER-KIDNEY MICROSOMAL ABY <20.1 Units (0.0-20.0); TISSUE TRANSGLUTAMINASE IgA <2 U/mL (0-3)
[2021-08-18 11:12] LABS: ALBUMIN 3.61 GM/DL (3.29-5.55); ALBUMIN % 52.3 % (55.8-66.1); ALPHA-1-GLOBULIN % 5.3 % (2.9-4.9); ALPHA-1-GLOBULINS 0.37 GM/DL (0.17-0.41); ALPHA-2-GLOBULINS % 11.7 % (7.1-11.8); BETA-1-GLOBULINS % 7.5 % (4.7-7.2); BETA-2-GLOBULINS % 7.3 % (3.2-6.5); GAMMA GLOBULIN % 15.9 % (11.1-18.8)
[2021-08-18 11:13] LABS: ALPHA-2-GLOBULINS 0.81 GM/DL (0.42-0.99); BETA-1-GLOBULINS 0.52 GM/DL (0.28-0.60)
== END ==
LOC: M LAB 13:48
PROVIDERS: ATTEND Internal Medicine Gastroenterology
DX: R94.5 Abnormal results of liver function studies (principal); R63.4 Abnormal weight loss; R74.8 Abnormal levels of other serum enzymes; R19.7 Diarrhea, unspecified; R14.0 Abdominal distension (gaseous); R11.2 Nausea with vomiting, unspecified; Z79.82 Long term (current) use of aspirin; Z79.899 Other long term (current) drug therapy

== ENCOUNTER → 2021-08-19 | Outpatient (CLI) | payer MEDICARE, BC, OTHER ==
[~2021-08-19] MED LIST changes: +ISOVUE-370 76% 100ML VIAL ONE
--- NOTE | 2021-08-19 11:30 | REP ---
INDICATION: ABNORMAL LEVELS OF OTHER SERUM ENZYMES. COMPARISON: 07/27/2015 the latest prior noncontrast enhanced exam TECHNIQUE: Standard helical technique after the intravenous administration of 100 cc Isovue 370 FINDINGS: There is no significant change in appearance of the lung bases. The spleen is full sized but unchanged. A slight nodular hepatic surface has developed since the last exam. There are no enhancing hepatic lesions. There are spleno renal varices. There is pancreatic atrophy which has increased slightly from the prior exam. There are no enhancing renal lesions, however, there does appear to be a cortical irregularity involving the superior pole of the right kidney representing a change from the prior exam. There is a 5 mm sized simple cyst in the right kidney. The adrenal glands are within normal limits. The abdominal aorta and para-aortic regions are within normal limits. There is no significant change in appearance of the bowel loops or the mesenteries. There is no evidence of free fluid or free air. Evaluation of the osseous structures shows advanced spinal degenerative changes increased from the prior exam. Significant discogenic changes have developed at the L1-2 level and there is endplate sclerosis along with air density in the disc space consistent with vacuum phenomena from degenerative disc disease. Air densities are also seen in the L4-5 and L5-S1 disc spaces representing a change from the prior exam and again consistent with vacuum phenomena from degenerative disc disease. IMPRESSION: 1. Findings suggestive of cirrhosis as described above. 2. Likely old right renal scarring but with no prior contrast enhanced examinations for comparison. Consider follow-up. 3. Osseous changes as described above. Consider follow-up with MRI. 4. Other findings as described above. <Electronically signed by Catarino Mina > 08/19/21 [id number]
== END ==
LOC: M PLAIMG 08:44
PROVIDERS: ATTEND Internal Medicine Gastroenterology
DX: R94.5 Abnormal results of liver function studies (principal); R63.4 Abnormal weight loss
CPT/HCPCS: 74160; Q9967

== ENCOUNTER → 2021-08-24 | Outpatient (CLI) | payer MEDICARE, BC, OTHER ==
[~2021-08-24] MED LIST changes: -ISOVUE-370 76% 100ML VIAL ONE
--- NOTE | 2021-08-24 15:07 | REP ---
INDICATION: SYNCOPE AND COLLAPSE COMPARISON: None. TECHNIQUE: Real-time ultrasound evaluation and duplex Doppler interrogation of the extracranial carotid vasculature is performed. FINDINGS: There is mild plaquing and narrowing in both carotid bulbs extending into the internal and external carotid arteries. Luminal narrowing is less than 50%. There is no evidence of hemodynamically significant stenosis of either internal carotid artery. Normal flow velocities are seen. There is normal direction of flow in the right vertebral artery, the left vertebral artery is not visualized. RIGHT LEFT Peak systolic velocity ICA 63.5 cm/s 69.4 cm/s End diastolic velocity ICA for 17.7 cm/s 21.6 cm/s Peak systolic velocity CCA 97.8 cm/s 80.7cm/s Peak systolic velocity ECA 177.2 cm/s 114.9 cm/s ICA/CCA ratio 0.65 0.86 IMPRESSION: Bilateral luminal narrowing of the internal carotid arteries less than 50%. No evidence of hemodynamically significant stenosis. <Electronically signed by Hector Valle > 08/24/21 [id number]
== END ==
LOC: M RAD 14:03
PROVIDERS: ATTEND Physician Assistant
DX: R55 Syncope and collapse (principal)

== ENCOUNTER 2021-09-21 11:09 | Inpatient (IN) | payer MEDICARE, BC, OTHER ==
[~2021-09-21] VITALS: Ht 170.2 cm; Wt 87.4 kg
[~2021-09-21 11:09] MED LIST changes: -FLON1SPR; +FLON1SPR NARES
--- OUTSIDE RECORDS SUMMARY | 2021-09-21 11:15 | CCD | Continuity of Care Document ---
Author Author Cardiac PETDonald Organization Unknown Address [address] [place] [address], [place] [address] Phone [phone] Care Team Providers Care Drier Tender Naphthalene Name Role Phone Wisam Veloz DO AUTM [phone] Sumeet Dhaliwal DPM AUTM [phone] Cardiac Imaging In - Cardiac PET AUTM [phone] Problems Active Problems Provider Date Syncope and collapse MARILYN Isabel Onset: Chronic obstructive lung disease Sumeet Warner MD Onset: 07/27/2021 Body mass index 30+ - obesity Sumeet Warner MD Onset: Pulmonary hypertension Sumeet Warner MD Onset: 07/27/2021 Essential hypertension Sumeet Warner MD Onset: 07/27/2021 Electrocardiogram abnormal Sumeet Warner MD Onset: 2020 Trifascicular block Sumeet Warner MD Onset: 07/27/2021 Paroxysmal tachycardia Sumeet Warner MD Onset: 07/27/2021 Social History Type Date Description Comments Sex Unknown ETOH Use Does not consume 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, 1998 Tobacco Use Start: Unknown Patient is a current smoker, smo kes every day up to 1/2 ppd, prior up to 1 ppd since mid 20s Recreational Drug Use Sporadically uses Marijuan a Smoking Status Reviewed: 07/27/21 Patient is a current smoker, smokes every day up to 1/2 ppd, prior up to 1 ppd since mid 20s Exercise Type/Frequency Walks daily Exercise Limitations Joint Pain knees, ankl es Exercise Limitations Back Pain Exercise Limitations Fatigue Allergies and adverse reactions Active Allergies Criticality Reaction | Severity Comments Date Penicillin V Unable to assess criticality 07/20/2021 Statins Unable to assess criticality 07/20/2021 NSAIDS Unable to assess criticality Renal DM 07/20/2021 Lisinopril Unable to assess criticality sev ere lightheadedness and dizziness, passing out 08/14/2021 Medications Active Medications SIG Qnty Indications Ordering Provide r Date Blood Pressure Monitor Deluxe/Automati c Device measure bp 1 time daily 1units I10 Krystin Mendoza 08/15/2021 Atorvastatin Calcium 40mg Tablets 1 by mouth Mondays and only 15tabs R94.31 Sumeet Warner MD 07/27/2021 Chlorthalidone 25mg Tablets 1/2 by mouth every day 15tabs I10 Sumeet Warner MD 07/27/2021 Ibuprofen 200 200mg Tablets 1-2 by mouth as needed Unknown 07/26/2021 Aripiprazole 5mg Tablets take one tablet by mouth every day 30tabs [facility] Wisam, DO 07/31/2019 Fluticasone Propionate 50mcg/Act Suspension spray 2 sprays in each nostril [facility], 08/03/2017 Gabapentin 300mg Capsules Take 2 Caps By Mouth Every A.M. 2 Caps AT Noon & 2 Caps In P.M. Max Daily Dose = 6 540cap Magdiel Wisam, 01/06/2017 Fluoxetine HCL 20mg Capsules Take Three Capsules By Mouth Every Day [facility]am 50mg Tablets 1 tab by mouth three times a day as needed for pain 90tabs M54.5 [facility] Wisam, 02/08/[address] Take One Capsule By Mouth Every Day [facility] Wisam, DO Lantus Solostar 100U nit/ML Solution Pen-Inject inject 80 units under the skin every 12 [facility], 07/16/2014 Dulera 100-5mcg/Act Aerosol 2 puff twice a day 13units [facility] Wisam, 04/10/2013 Ventolin HFA 108(90Base) mcg/Act A erosol 2 puffs by mouth every 4 to 6 hours as needed for shortness of breath or wheezing 8.5units Wisam Veloz DO 02/27/2013 Xanax 0.25mg Tablets 1 by mouth three times a day as needed for anxiety 90tabs Wisam Veloz, DO 01/23/2013 History Medications Lisinopril 10mg Tablets Take One Tablet By Mouth Every Day 30tabs I10 Sumeet Warner MD 07/27/2021 - 08/14/2021 Ondansetron HCL 4mg Tablets take one tablet by mouth every 4-6 hours as needed for nausea 12tabs Wisam Veloz, DO 04/06/2021 - 07/26/2021 Covid-19 vaccine, Unspecified Inj ection Unknown Covid-19 vaccine, Unspecified Inj ection Unknown Immunizations Description No Information Available Vital Signs Date Vital Result Comment 08/15/2021 7:51am Weight 211.00 lb Home Weight 213lb yesterday Height 67 inches 5'7" BMI (Body Mass Index) 33.0 kg/m2 BP Systolic Sitting 132 mmHg Ra, large cuff BP Diastolic Sitting 70 mmHg Ra, large cuff 07/27/2021 1:23pm Weight 205.00 lb Home Weight 200lb Height 67 inches 5'7" BMI (Body Mass Index) 32.1 kg/m2 Heart Rate 72 /min regular Respiratory Rate 16 /min BP Systolic Sitting 150 mmHg Medium cuff, Ra; 150 /76 LA BP Diastolic Sitting 80 mmHg Medium cuff, Ra; 15 0/76 LA BP Systolic Lying Down 148 mmHg Ra BP Diastolic Lying Down 78 mmHg Ra O2 % BldC Oximetry 90 % O2 Saturation Level with Exercise 95 % Results Test Acquired Date Facility Test Result H/L Range Note Laboratory test finding 06/16/2021 N2N/[facility] Hemoglobin A1c 7.5 % High 4.50-6.20 CBC 05/11/2021 N2N/[facility] t WBC 6.1 10E3/uL 4.1-10.9 1 RBC 4.25 10E6/uL 4.20-6.30 HGB 14.0 g/dL 12.0-18.0 HCT 39.5 % 37.0-51.0 MCV 92.9 fL 80.0-97.0 MCH 32.9 pg High 26.0-32.0 MCHC 35.4 g/dL 31.0-36.0 PLT 147 10E3/uL 140-440 RDW-CV 13.9 % 11.5-14.5 Lym% 17.4 % 10.0-58.5 Neut% 72.1 % 37.0-92.0 MXD% 10.5 % 0.1-24.0 Lym# 1.1 10E3/uL 0.6-4.1 Neut# 4.4 % 2.0-7.8 MXD# 0.6 10E3/uL 0.0-1.8 MPV 10.8 fL 9.0-13.0 CMP 05/11/2021 N2N/[facility] Impor t Glu 260 mg/dL High 70-110 BUN 25 mg/dL High 8-23 Creat 1.2 mg/dL 0.7-1.2 BUN/Creatinine Ratio 21.0 Calc Na 132 mmol/L Low 136-145 K 4.6 mmol/L 3.5-5.1 CL 95.0 mmol/L Low 98.0-107.0 Co2 22.7 mmol/L 22.0-29.0 CA 9.4 mg/dL 8.6-10.2 TP 6.8 g/dL 6.6-8.7 Alb 4.0 g/dL 3.5-5.2 A/G Ratio 1.4 Calc Globulin 2.8 Calc Alp 142.8 U/L High 40-129 Alt (SGPT) 34 U/L 0-41 Ast (Sgot) 50 U/L High 0-40 Tbili 0.51 mg/dL 0.0-1.2 Osmolality-Calculated 277.0 Calc Anion Gap 18 mmol/L eGFR 73 # 2 eGFR Non-Afr. Kenyan 63 # 3 Laboratory test finding 05/11/2021 [facility] T4, Free 1.21 ng/dL 0.75-1.54 TSH 2.155 ulU/mL 0.60-4.8 Laboratory test finding 05/11/2021 N2N/[facility] Mononucleosis Test, Qual Negative 4 Magnesium 1.6 mg/dL 1.6-2.3 1 NORMAL RANGES Age WBC RBC HGB HCT MCV PLT Adult M 4.1-10.9 4.20-6.30 12.0-18.0 37.0-51.0 80-97 140-440 Adult F 4.1-10.9 4.04-5.48 12.0-18.0 37.0-51.0 80-97 140-440 0 -1 Yr 5.0-20.0 3.9-5.9 15-18 MV: 44 MV: 91 MV: 277 2-9 Yr. 6.0-17.0 3.8-5.4 11-13 MV: 37 MV: 78 MV: 300 10 Yrs. 5.0-13.0 3.8-5.4 12-15 MV: 39 MV: 80 MV: 250 NOTE: * FOR ADULT BLACK MALES AND FEMALES, NORMAL WBC IS 2.9-7.7 K/ML * FOR ADULT BLACK MALES AND FEMALES, NORMAL RBC,HGB, AND HCT IS 5% LESS SOURCE FOR DATA: [employer] 1800 OPERATION MANUAL( AUTOMATED BLOOD COUNTS AND DIFF.) APPENDIX B-3 CHRONIC KIDNEY DISEASE STAGING PER NKF: MALE GFR INTERPRETATION: 20-49 YRS: >60 mL/min Normal 50-59 YRS: >56 mL/min Normal 60-69 YRS: >49 mL/min Normal 70-79 YRS: >42 mL/min Normal 80 and above >35 mL/min Normal FEMALE GRF INTERPRETATION: 20-39 YRS: >60 mL/min Normal 40-49 YRS: >58 mL/min Normal 50-59 YRS: >51 mL/min Normal 60-69 YRS: >45 mL/min Normal 70-79 YRS: >39 mL/min Normal 80 and above >32 mL/min Normal 2 CKD-EPI 3 CKD-EPI 4 The sensitivity of Heterophi le antibody testing is 80-90%. Mj Cordero IgM testing offers higher sensitivity. Procedures Date Code Description Status 09/08/2021 72502 Multi Event Recorder Interpretat ion Completed 09/08/2021 12870 Multi Event Recorder Hookup Comp leted 08/25/2021 46447 Treadmill/Pharmacological Monito ring Completed 08/15/2021 38084 Office/Outpatient Established Mo d MDM 30-39 Min Completed 07/27/2021 82349 Office/Outpatient New High MDM 6 0-74 Minutes Completed 07/27/2021 57774 ECG 12-Lead Completed Medical Devices Description No Information Available Encounters Type Date Location Provider Dx Diagnosis Office Visit 08/15/2021 8:00a Main Office MARILYN Isabel I10 Essential (primary) hypertension R55 Syncope and collapse Office Visit 07/27/2021 1:00p Main Office Sumeet Warner MD I47.9 Paroxysmal tachycardia, unspecified I45.3 Trifascicular block R94.31 Abnormal electrocardiogram [ ECG] [EKG] I10 Essential (primary) hyperten екатерина I27.20 Pulmonary hypertension, unsp ecified J44.9 Chronic obstructive pulmonar y disease, unspecified Z68.32 Body mass index [BMI] 32.0-3 2.9, adult Assessments Date Code Description Provider 09/08/2021 I47.9 Paroxysmal tachycardia, unspecif ied Holter/Event/Telemetry 09/08/2021 I45.89 Other specified conduction disor ders Holter/Event/Telemetry 09/08/2021 I44.0 Atrioventricular block, first de gree Holter/Event/Telemetry 09/08/2021 I44.4 Left anterior fascicular block H olter/Event/Telemetry 09/08/2021 I45.10 Unspecified right bundle-branch block Holter/Event/Telemetry 08/25/2021 R94.31 Abnormal electrocardiogram [ECG] [EKG] Stress Nuclear/Reg Treadmill 08/25/2021 R06.00 Dyspnea, unspecified Stress Nucl ear/Reg Treadmill 08/15/2021 I10 Essential (primary) hypertension MARILYN Isabel 08/15/2021 R55 Syncope and collapse MARILYN Jin 07/27/2021 I47.9 Paroxysmal tachycardia, unspecif ied Sumeet Warner MD 07/27/2021 I45.3 Trifascicular block Sumeet casarez MD 07/27/2021 R94.31 Abnormal electrocardiogram [ECG] [EKG] Sumeet Warner MD 07/27/2021 I10 Essential (primary) hypertension Sumeet Warner MD 07/27/2021 I27.20 Pulmonary hypertension, unspecif ied Sumeet Warner MD 07/27/2021 J44.9 Chronic obstructive pulmonary di sease, unspecified Sumeet Warner MD 07/27/2021 Z68.32 Body mass index [BMI] 32.0-32.9, adult Sumeet Warner MD Plan of Treatment Future Appointment(s):* 11/15/2021 1:00 pm - MARILYN Isabel at Main Office * 10/19/2021 11:00 am - ECHO at Main Office 08/15/2021 - MARILYN Isabel* I10 Essential (primary) hypertension* New Medication:* Blood Pressure Monitor Deluxe/Automatic - measure bp 1 time daily * Recommendations:* Continue lisinopril 2.5mg for renal protection - take for 1 week to ensure there are no side effects If you feel well, please continue chlorthalidone 12.5mg Sunday, Sunday, and Fridays Home blood pressure cuff has been called into patient's pharmacy, if it is not covered please stop in to the pharmacy 2-3 times a week and check blood pressure * R55 Syncope and collapse* Recommendations:* Carotid ultrasound ordered for further evaluation Proceed with event monitor and echocardiogram as scheduled Advised patient to seek medical attention with the onset of any additional episodes of syncope Please restart blood pressure medications as per assessment #1 * All * Follow up:* FU in Oct (after cardiac testing) Functional Status Functional Condition Comment Date Status Independent with all ADL's Activ e Mental Status Description No Information Available Referrals Description No Information Available
--- OUTSIDE RECORDS SUMMARY | 2021-09-21 11:15 | CCD | Continuity of Care Document ---
Author Author Cardiac PETDonald Organization Unknown Address [address] [place] [address], [place] [address] Phone [phone] Care Team Providers Care Lapel Baster Name Role Phone Wisam Veloz DO AUTM [phone] Sumeet Dhaliwal DPM AUTM [phone] Cardiac Imaging In - Cardiac PET AUTM [phone] Problems Active Problems Provider Date Syncope and collapse MARILYN Isabel Onset: Chronic obstructive lung disease Sumeet Warner MD Onset: 07/27/2021 Body mass index 30+ - obesity uSmeet Warner MD Onset: Pulmonary hypertension Sumeet Warner [...] one tablet by mouth every day 30tabs [facility] Wisam, DO 07/31/2019 Fluticasone Propionate 50mcg/Act Suspension spray 2 sprays in each nostril [facility], 08/03/2017 Gabapentin 300mg Capsules Take 2 Caps By Mouth Every A.M. 2 Caps AT Noon & 2 Caps In P.M. Max Daily Dose = 6 540cap Magdiel Wisam, 01/06/2017 Fluoxetine HCL 20mg Capsules Take Three Capsules By Mouth Every Day [facility] Ultram 50mg Tablets 1 tab by mouth three times a day as needed for pain 90tabs M54.5 [facility] Wisam, 02/08/[address] Take One Capsule By Mouth Every Day [facility] Wisam, DO Lantus Solostar 100U nit/ML Solution Pen-Inject inject 80 units under the skin every 12 hours [facility], 07/16/2014 Dulera 100-5mcg/Act Aerosol 2 puff twice a day 13units [facility] Wisam, 04/10/2013 Ventolin HFA 108(90Base) mcg/Act A [...] mmol/L eGFR 73 # 2 eGFR Non-Afr. Mexican 63 # 3 Laboratory test finding 05/11/2021 [...] HCT IS 5% LESS SOURCE FOR DATA: [facility] 1800 OPERATION MANUAL( AUTOMATED BLOOD COUNTS AND [...] sensitivity. Procedures Date Code Description Status 09/08/2021 10360 Multi Event Recorder Interpretat ion Completed 09/08/2021 47300 Multi Event Recorder Hookup Comp leted 09/05/2021 31173 TM Interpretation & Report Only Completed 09/05/2021 35466 Myocardial Imaging (PET) Multipl e Studies Completed 08/25/2021 23444 Treadmill/Pharmacological Monito ring Completed 08/15/2021 48006 Office/Outpatient Established Mo d MDM 30-39 Min Completed 07/27/2021 33130 Office/Outpatient New High MDM 6 0-74 Minutes Completed 07/27/2021 88482 ECG 12-Lead Completed Medical Devices Description No [...] 09/08/2021 I45.10 Unspecified right bundle-branch block Holter/Event/Telemetry 09/05/2021 R94.31 Abnormal electrocardiogram [ECG] [EKG] Cardiac PET 09/05/2021 R06.00 Dyspnea, unspecified Cardiac PET 08/25/2021 R94.31 Abnormal electrocardiogram [ECG] [EKG] Stress Nuclear/Reg Treadmill 08/25/2021 R06.00 Dyspnea, unspecified Stress Nucl ear/Reg Treadmill 08/15/2021 I10 Essential (primary) hypertension MARILYN Isbael 08/15/2021 R55 Syncope and collapse MARILYN Jin [...]
--- OUTSIDE RECORDS SUMMARY | 2021-09-21 11:15 | CCD | Continuity of Care Document ---
Author Author Donald FRASER Organization Unknown Address [address] [place] [address], [facility] [place] [address] Phone [phone] Care Team Providers Care Occupational Therapy Manager Name Role Phone Wisam Veloz DO AUTM [phone] IsraSumeet DPM AUTM [phone] Problems Active Problems Provider Date Syncope and [...] one tablet by mouth every day [facility] Fluticasone Propionate 50mcg/Act Suspension spray 2 sprays in each nostril once daily 48units Daniel Velozh, 08/03/2017 Gabapentin 300mg Capsules Take 2 Caps By Mouth Every A.M. 2 Caps AT Noon & 2 Caps In P.M. Max Daily Dose = 6 540cap Daniel Velozh, 01/06/2017 Fluoxetine HCL 20mg Capsules Take Three Capsules By Mouth Every Day [facility] Velozh, Ultram 50mg Tablets 1 tab by mouth three times a day as needed for pain 90tabs M54.5 Daniel Velozh 02/08/[address] Take One Capsule By Mouth Every Day [facility] Daniel Velozh, Lantus Solostar 100U nit/ML Solution Pen-Inject inject 80 units under the skin every 12 [facility] Velozh 07/16/2014 Dulera 100-5mcg/Act Aerosol 2 puff twice a day [facility] Veloz[facility], 04/10/2013 Ventolin HFA 108(90Base) mcg/Act A erosol 2 puffs by mouth every 4 to 6 hours as needed for shortness of breath or wheezing [facility] Velozh 02/27/2013 Xanax 0.25mg Tablets 1 by mouth three times a day as needed for anxiety 90tabs Wisam Veloz, 01/23/2013 History Medications Lisinopril 10mg Tablets Take One Tablet By Mouth Every Day 30tabs I10 Sumeet Warner MD 07/27/2021 - 08/14/2021 Ondansetron HCL 4mg Tablets take one tablet by mouth every 4-6 hours as needed for nausea 12tabs Wisam Veloz, 04/06/2021 - 07/26/2021 Covid-19 vaccine, Unspecified Inj [...] mmol/L eGFR 73 # 2 eGFR Non-Afr. Estonian 63 # 3 Laboratory test finding 05/11/2021 N2N/Direct [facility] T4, Free 1.21 ng/dL 0.75-1.54 TSH 2.155 ulU/mL 0.60-4.8 Laboratory test finding 05/11/2021 N2N/Direct [facility] Mononucleosis Test, Qual Negative 4 Magnesium 1.6 mg/dL 1.6-2.3 Lipid Profile/Cardiac Risk Pro 03/10/2021 [facility] Triglycerides 519 Cholesterol 201 HDL 33 LDL Cholesterol -- Chol/HDL Ratio -- 1 NORMAL RANGES Age WBC RBC HGB [...] HCT IS 5% LESS SOURCE FOR DATA: [employer] 1800 OPERATION MANUAL( AUTOMATED BLOOD COUNTS AND [...] higher sensitivity. Procedures Date Code Description Status 08/15/2021 41318 Office/Outpatient Established Mo d MDM 30-39 Min Completed 07/27/2021 94626 Office/Outpatient New High MDM 6 0-74 Minutes Completed 07/27/2021 56833 ECG 12-Lead Completed Medical Devices Description No [...] 2.9, adult Assessments Date Code Description Provider 08/15/2021 I10 Essential (primary) hypertension MARILYN Isabel [...] - MARILYN Isabel at Main Office * 09/08/2021 9:30 am - Holter/Event/Telemetry at Main Office * 10/19/2021 11:00 am - ECHO at Main Office * 08/25/2021 10:00 am - Stress Nuclear/Reg Treadmill at Main Office 08/15/2021 - MARILYN Isabel* [...] blood pressure * R55 Syncope and collapse* New Xrays:* US Duplex Doppler Carotid Arteries Bilateral, Ordered: 08/15/21 * Recommendations:* Carotid ultrasound ordered for further evaluation [...]
--- OUTSIDE RECORDS SUMMARY | 2021-09-21 11:15 | CCD | Continuity of Care Document ---
Author Author Donald WARNER MD Organization Unknown Address [facility] [address] Phone [phone] Care Team Providers Care Manager Client Name Role Phone Wisam Veloz DO AUTM [phone] IsraSumeet DPM AUTM [phone] Problems Active Problems Provider Date Chronic obstructive lung disease Sumeet Warner MD [...] Exercise Limitations Back Pain Exercise Limitations Fatigue Allergies, Adverse Reactions, Alerts Active Allergies Criticality Reaction | Severity Comments Date Penicillin V Unable to assess criticality 07/20/2021 Statins Unable to assess criticality 07/20/2021 NSAIDS Unable to assess criticality Renal DM 07/20/2021 Medications Active Medications SIG Qnty Indications Ordering Provide r Date Atorvastatin Calcium 40mg Tablets 1 by mouth Mondays and only 15tabs R94.31 Sumeet Warner MD 07/27/2021 Lisinopril 10mg Tablets Take One Tablet By Mouth Every Day 30tabs I10 Sumeet Warner MD 07/27/2021 Chlorthalidone 25mg Tablets 1/2 by mouth every day 15tabs I10 Sumeet Warner MD 07/27/2021 Ibuprofen 200 200mg Tablets 1-2 by mouth as needed Unknown 07/26/2021 Aripiprazole 5mg Tablets take one tablet by mouth every day [facility] 07/31/2019 Fluticasone Propionate 50mcg/Act Suspension spray 2 sprays in each nostril once daily [facility] 08/03/2017 Gabapentin 300mg Capsules Take 2 Caps By Mouth Every A.M. 2 Caps AT Noon & 2 Caps In P.M. Max Daily Dose = 6 540[facility] 01/06/2017 Fluoxetine HCL 20mg Capsules Take Three Capsules By Mouth Every Day 90[facility] Ultram 50mg Tablets 1 tab by mouth three times a day as needed for pain 90tabs M54.5 [facility] 02/08/[address] Take One Capsule By Mouth Every Day 90[facility] Lantus Solostar 100U nit/ML Solution Pen-Inject inject 80 units under the skin every 12 hours [facility] 07/16/2014 Dulera 100-5mcg/Act Aerosol 2 puff twice a day 13[facility] 04/10/2013 Ventolin HFA 108(90Base) mcg/Act A erosol 2 puffs by mouth every 4 to 6 hours as needed for shortness of breath or wheezing 8.5un[facility] 02/27/2013 Xanax 0.25mg Tablets 1 by mouth three times a day as needed for anxiety 90tabs [facility] 01/23/2013 History Medications Ondansetron HCL 4mg Tablets take one tablet by mouth every 4-6 hours as needed for nausea 12tabs Wisam Veloz, DO 04/06/2021 - 07/26/2021 Insulin Aspart Flexpen 100Unit/ML Solution Pen-Inject Inject 30Units Under Skin After Breakfast Lunch And Dinner 4 5units E13.9 Wisam Veloz, DO 02/13/2021 - 07/26/2021 Covid-19 vaccine, Unspecified Inj ection Unknown Covid-19 vaccine, Unspecified Inj ection Unknown Immunizations Description No Information Available Vital Signs Date Vital Result Comment 07/27/2021 1:23pm Weight 205.00 lb Home Weight [...] mmol/L eGFR 73 # 2 eGFR Non-Afr. Yemeni 63 # 3 Laboratory test finding 05/11/2021 [...] HCT IS 5% LESS SOURCE FOR DATA: [employer] 1800 OPERATION MANUAL( AUTOMATED BLOOD COUNTS AND [...] higher sensitivity. Procedures Date Code Description Status 07/27/2021 15209 Office/Outpatient New High MDM 6 0-74 Minutes Completed 07/27/2021 85963 ECG 12-Lead Completed Medical Devices Description No Information Available Encounters Type Date Location Provider Dx Diagnosis Office Visit 07/27/2021 1:00p Main Office Sumeet Warner MD I47.9 Paroxysmal tachycardia, unspecified I45.3 Trifascicular block R94.31 Abnormal electrocardiogram [ ECG] [EKG] I10 Essential (primary) hyperten екатерина I27.20 Pulmonary hypertension, unsp ecified J44.9 Chronic obstructive pulmonar y disease, unspecified Z68.32 Body mass index [BMI] 32.0-3 2.9, adult Assessments Date Code Description Provider 07/27/2021 I47.9 Paroxysmal tachycardia, unspecif ied Sumeet [...] Warner MD Plan of Treatment Future Appointment(s):* 08/15/2021 8:00 am - MARILYN Isabel at Main Office * 10/19/2021 11:00 am - ECHO at Main Office * 08/25/2021 10:00 am - Stress Nuclear/Reg Treadmill at Main Office 07/27/2021 - Sumeet Warner MD* I47.9 Paroxysmal tachycardia, unspecified* New Orders:* Event Monitor, Ordered: 07/27/21 * Recommendations:* With his weight problem and chronic hypertension, I suspect he does have LV diastolic dysfunction and left atrial enlargement that would predispose to atrial tachyarrhythmias. His history is certainly suggestive. Have requested a 30 day event monitor and encouraged continued avoiding of caffeinated beverages, alcohol, nicotine, wkiw-qkx-wobxyod decongestants etc. * I45.3 Trifascicular block* Recommendations:* Has had long-standing conduction tissue disease likely related to his weight problem, hypertension and possibly sleep disturbance. Current evidence of extensive cardiac nerve involvement. He certainly is at increased risk for high-grade AV block and need for permanent pacemaker implant. His event monitor will help us assess for intermittent high-grade AV block or significant bradyarrhythmia. We will also request a treadmill stress test to assess the functional integrity of antegrade AV conduction. In light of the marked first-degree AV block, have discontinued his carvedilol at this time. * R94.31 Abnormal electrocardiogram [ECG] [EKG]* New Medication:* Atorvastatin Calcium 40 mg - 1 by mouth Mondays and only * New Orders:* Treadmill, Scheduled: 08/25/21 * Recommendations:* Remote cardiac catheterization showed no significant obstructive coronary artery disease. However, he has a host of coronary risk factors and would recommend a follow-up evaluation of his coronary prognosis. In the absence of primary ST/T wave abnormalities, we will try a regular treadmill study (which will also allow us to assess his electrical system as mentioned above). Had been on carvedilol which we have discontinued. We will be adjusting his lisinopril dosage. In light of his multiple coronary risk factors, his 10 year risk for heart attack or stroke is 43%. Based on the [place] [employer]/[place] [employer] cardi[employer] guidelines 2013, at least medium strength statin therapy would be advised. In light of his prior difficulties have recommended a trial of atorvastatin 40 mg Mondays and only to start with. We have not started aspirin antiplatelet therapy in light of his GI problems. * I10 Essential (primary) hypertension* New Medication:* Lisinopril 10 mg - Take One Tablet By Mouth Every Day * Chlorthalidone 25 mg - 1/2 by mouth every day * New Labs:* Renal Profile, Scheduled: 08/04/21 * NT Probnp QN Ser/Plas, Scheduled: 08/04/21 * Recommendations:* Some effort dyspnea but no other symptoms or signs of congestion. Lower leg swelling is likely related to his medication and venous insufficiency with his weight problem. Current neck veins were not elevated. Suboptimal blood pressure control. Have emphasized the importance of salt and caloric restriction along with regular aerobic exercise i.e. walking at his own pace for at least 30 minutes daily. Should avoid cooking with salt, adding salt to food at the table, or eating foods that taste salty. His lisinopril dosage has been increased to 10 mg daily and we have also introduced low-dose chlorthalidone 25 mg tablets one half tablet daily. Follow-up chemistry will be obtained after 1 week. With this medication change have requested he obtain a series of resting sitting blood pressures for us over the course of the next 2 weeks. * I27.20 Pulmonary hypertension, unspecified* New Xrays:* US Echocardiogram Transthoracic W Doppler And Color Flow, Scheduled: 10/19/21 * Recommendations:* Accentuated pulmonary closure sound and is prominent right precordial R waves on his EKGs are in keeping with pulmonary hypertension. Likely related to his weight problem and probable sleep disturbance. An echocardiogram/Doppler study has been requested to objectively define right heart chamber sizes, pulmonary arterial and central venous pressures. If this is verified we would strongly advise a home sleep study to prevent worsening pulmonary hypertension and heart failure as well as risk for rhythm disturbances such as atrial fibrillation. * J44.9 Chronic obstructive pulmonary disease, unspecified* Recommendations:* In light of his chronic bronchitis, worsening effort dyspnea, and coronary risk factors, we have emphasized crucial importance of smoking cessation. With his hypertension and coronary risk factors as well as concern for rhythm abnormalities would recommend against the use of nicotine substitutes. Chantix is also unfortunately relatively contraindicated here. * Z68.32 Body mass index [BMI] 32.0-32.9, adult* Recommendations:* A problem of some chronicity, obviously contributing to an excessive cardiac workload and likely structural and functional cardiac abnormalities. Likely also playing a role with respect to his diabetes, hypertension, sleep disturbance and orthopedic problems. Especially with his diabetes mellitus, he should be following a low carbohydrate diet (avoiding bread, potatoes, pasta, rice, fruit, candy, desserts, and beer etc.). Combined with regular exercise, these have been shown to be more effective in leading to weight loss. * All * Comments:* I will ensure that the aforementioned test findings are reported to you along with any further recommendations. Thank you for allowing me to participate in the care of your patient. Best regards. * Follow up:* Blood work in 1 week and clinic visit BP check in 2 weeks. Functional Status Functional Condition Comment Date Status Independent with all ADL's Activ e Mental Status Description No Information Available Referrals Description No Information Available
--- OUTSIDE RECORDS SUMMARY | 2021-09-21 11:15 | CCD | Continuity of Care Document ---
Author Author Donald WARNER MD Organization Unknown Address [place] [address] Phone [phone] Care Team Providers Care Bottoming Room Supervisor Name Role Phone Wisam Veloz DO AUTM [phone] IsraSumeet DPM AUTM [phone] Problems Active Problems Provider Date Chronic obstructive [...] one tablet by mouth every day 30tabs [facility] 07/31/2019 Fluticasone Propionate 50mcg/Act Suspension spray 2 sprays in each nostril once daily [facility] 08/03/2017 Gabapentin 300mg Capsules Take 2 Caps By Mouth Every A.M. 2 Caps AT Noon & 2 Caps In P.M. Max Daily Dose = 6 540[facility] 01/06/2017 Fluoxetine HCL 20mg Capsules Take Three Capsules By Mouth Every Day 90[facility] Ultram 50mg Tablets 1 tab by mouth three times a day as needed for pain 90tabs M54.5 [facility] 02/08/[address] Take One Capsule By Mouth Every Day 90[facility] Lantus Solostar 100U nit/ML Solution Pen-Inject inject 80 units under the skin every 12 hours 45un[facility] 07/16/2014 Dulera 100-5mcg/Act Aerosol 2 puff twice a day 13un[facility]Am[facility]am[facility] 04/10/2013 Ventolin HFA 108(90Base) mcg/Act A erosol 2 puffs by mouth every 4 to 6 hours as needed for shortness of breath or wheezing 8.5un[facility]osaAmolWisam[facility] 02/27/2013 Xanax 0.25mg Tablets 1 by mouth three times a day as needed for anxiety 90tabs [facility] 01/23/2013 History Medications Ondansetron HCL 4mg [...] mmol/L eGFR 73 # 2 eGFR Non-Afr. Nepalese 63 # 3 Laboratory test finding 05/11/2021 [...] HCT IS 5% LESS SOURCE FOR DATA: [place] DYN 1800 OPERATION MANUAL( AUTOMATED BLOOD COUNTS [...] sensitivity. Procedures Date Code Description Status 07/27/2021 52401 Office/Outpatient New High MDM 6 0-74 Minutes Completed 07/27/2021 72931 ECG 12-Lead Completed Medical Devices Description No [...] continued avoiding of caffeinated beverages, alcohol, nicotine, ymty-nxv-hkryubj decongestants etc. * I45.3 Trifascicular block* Recommendations:* [...] or stroke is 43%. Based on the [place] [employer]/[place] [employer] guidelines 2013, at least [...]
--- OUTSIDE RECORDS SUMMARY | 2021-09-21 11:15 | CCD | Continuity of Care Document ---
Author Author Donald FRASER Organization Unknown Address [address] [place] [address], [facility] [place] [address] Phone [phone] Care Team Providers Care Training Professional Name Role Phone Wisam Veloz DO AUTM [phone] IsraSumeet DPM AUTM [phone] Problems Active Problems Provider Date Syncope and [...] tablet by mouth every day 30tabs [facility] 07/31/2019 Fluticasone Propionate 50mcg/Act Suspension spray 2 sprays in each nostril once daily 48units Daniel Velozh, 08/03/2017 Gabapentin 300mg Capsules Take 2 Caps By Mouth Every A.M. 2 Caps AT Noon & 2 Caps In P.M. Max Daily Dose = 6 540cap Daniel Velozh, 01/06/2017 Fluoxetine HCL 20mg Capsules Take Three Capsules By Mouth Every Day 90[facility] Daniel Velozh, Ultram 50mg Tablets 1 tab by mouth three times a day as needed for pain 90tabs M54.5 Daniel Velozh 02/08/[address] Take One Capsule By Mouth Every Day 90[facility] Daniel Velozh, Lantus Solostar 100U nit/ML Solution Pen-Inject inject 80 units under the skin every 12 hours [facility] Daniel Velozh 07/16/2014 Dulera 100-5mcg/Act Aerosol 2 puff twice a day 13[facility] Daniel Velozh, 04/10/2013 Ventolin HFA 108(90Base) mcg/Act A erosol 2 puffs by mouth every 4 to 6 hours as needed for shortness of breath or wheezing 8.5[facility] Daniel Velozh 02/27/2013 Xanax 0.25mg Tablets 1 [...] 5'7" BMI (Body Mass Index) 33.0 kg/m2 07/27/2021 1:23pm Weight 205.00 lb Home Weight [...] mmol/L eGFR 73 # 2 eGFR Non-Afr. Hungarian 63 # 3 Laboratory test finding 05/11/2021 [...] HCT IS 5% LESS SOURCE FOR DATA: [employer] 1800 OPERATION MANUAL( AUTOMATED BLOOD COUNTS AND [...] sensitivity. Procedures Date Code Description Status 08/15/2021 43512 Office/Outpatient Established Mo d MDM 30-39 Min Completed 07/27/2021 43589 Office/Outpatient New High MDM 6 0-74 Minutes Completed 07/27/2021 22038 ECG 12-Lead Completed Medical Devices Description No [...] All * Follow up:* FU in Oct Functional Status Functional Condition Comment Date Status Independent with all ADL's Activ e Mental Status Description No Information Available Referrals Description No Information Available
--- OUTSIDE RECORDS SUMMARY | 2021-09-21 11:15 | CCD | Continuity of Care Document ---
Author Author Holter/Event/TelemetryDonald Organization Unknown Address [address] [place] [address], [place] [address] Phone [phone] Care Team Providers Care Dental Hygiene Teacher Name Role Phone Wisam Veloz DO AUTM [phone] IsraSumeet DPM AUTM [phone] Cardiac Imaging In - Cardiac PET AUTM Problems Active Problems Provider Date Syncope and [...] one tablet by mouth every day 30tabs Wisam Veloz 07/31/2019 Fluticasone Propionate 50mcg/Act Suspension spray 2 sprays in each nostril once daily 48units Wisam Veloz 08/03/2017 Gabapentin 300mg Capsules Take 2 Caps By Mouth Every A.M. 2 Caps AT Noon & 2 Caps In P.M. Max Daily Dose = 6 540[facility] Daniel Velozh, 01/06/2017 Fluoxetine HCL 20mg Capsules Take Three Capsules By Mouth Every Day 90[facility] Daniel Velozh, Ultram 50mg Tablets 1 tab by mouth three times a day as needed for pain 90tabs M54.5 Daniel Velozh 02/08/[address] Take One Capsule By Mouth Every Day 90[facility] Magdiel Wisam, DO Lantus Solostar 100U nit/ML Solution Pen-Inject inject 80 units under the skin every 12 hours 45units Wisam Veloz, 07/16/2014 Dulera 100-5mcg/Act Aerosol 2 puff twice a day 13units Wisam Veloz, 04/10/2013 Ventolin HFA 108(90Base) mcg/Act A erosol 2 puffs by mouth every 4 to 6 hours as needed for shortness of breath or wheezing 8.5units Wisam Veloz, 02/27/2013 Xanax 0.25mg Tablets 1 by mouth three times a day as needed for anxiety 90tabs Wisam Velzo, DO 01/23/2013 History Medications Lisinopril 10mg Tablets [...] mmol/L eGFR 73 # 2 eGFR Non-Afr. Kyrgyz 63 # 3 Laboratory test finding 05/11/2021 [...] HCT IS 5% LESS SOURCE FOR DATA: [employer] 1800 OPERATION MANUAL( AUTOMATED BLOOD COUNTS AND [...] sensitivity. Procedures Date Code Description Status 09/08/2021 93583 Multi Event Recorder Interpretat ion Completed 09/08/2021 71874 Multi Event Recorder Hookup Comp leted 08/25/2021 92723 Treadmill/Pharmacological Monito ring Completed 08/15/2021 33470 Office/Outpatient Established Mo d MDM 30-39 Min Completed 07/27/2021 11327 Office/Outpatient New High MDM 6 0-74 Minutes Completed 07/27/2021 23514 ECG 12-Lead Completed Medical Devices Description No [...]
--- OUTSIDE RECORDS SUMMARY | 2021-09-21 11:16 | CCD | Continuity of Care Document ---
Author Organization Unknown Address Unknown Phone Unavailable Care Team Providers Care Bread Packer Name Role Phone Wisam Veloz DO AUTM [phone] Sumeet Dhaliwal MUKUNDM AUTM [phone] Problems Active Problems Provider Date Chronic obstructive [...] one tablet by mouth every day 30tabs [facility] 07/31/2019 Fluticasone Propionate 50mcg/Act Suspension spray 2 sprays in each nostril once daily [facility] Hospital[facility], 08/03/2017 Gabapentin 300mg Capsules Take 2 Caps By Mouth Every A.M. 2 Caps AT Noon & 2 Caps In P.M. Max Daily Dose = 6 540[facility], 01/06/2017 Fluoxetine HCL 20mg Capsules Take Three Capsules By Mouth Every Day 90[facility], Ultram 50mg Tablets 1 tab by mouth three times a day as needed for pain 90tabs M54.5 [facility] 02/08/[address] Take One Capsule By Mouth Every Day 90[facility], Lantus Solostar 100U nit/ML Solution Pen-Inject inject 80 units under the skin every 12 hours 45un[facility] HospitalAmolWisam, 07/16/2014 Dulera 100-5mcg/Act Aerosol 2 puff twice a day 13un[facility] HospitalAmolWisam, 04/10/2013 Ventolin HFA 108(90Base) mcg/Act A erosol 2 puffs by mouth every 4 to 6 hours as needed for shortness of breath or wheezing 8.5un[facility] HospitalAmolWis[facility], 02/27/2013 Xanax 0.25mg Tablets 1 by mouth three times a day as needed for anxiety 90tabs [facility], 01/23/2013 History Medications Ondansetron HCL 4mg Tablets take one tablet by mouth every 4-6 hours as needed for nausea 12tabs [facility], 04/06/2021 - 07/26/2021 Insulin Aspart Flexpen 100Unit/ML Solution Pen-Inject Inject 30Units Under Skin After Breakfast Lunch And Dinner 4 5units E13.9 Wisam Veloz DO 02/13/2021 - 07/26/2021 Covid-19 vaccine, Unspecified [...] mmol/L eGFR 73 # 2 eGFR Non-Afr. Bahraini 63 # 3 Laboratory test finding 05/11/2021 [...] HCT IS 5% LESS SOURCE FOR DATA: [employer] 1800 OPERATION MANUAL( AUTOMATED BLOOD COUNTS AND [...] sensitivity. Procedures Date Code Description Status 07/27/2021 55095 Office/Outpatient New High [facility] 6 0-74 Minutes Completed Medical Devices Description No Information Available Encounters Description No Information Available Assessments Date Code Description Provider 07/27/2021 I47.9 [...] adult Sumeet Warner MD Plan of Treatment 07/27/2021 - Sumeet Warner MD* I47.9 Paroxysmal tachycardia, unspecified* New Orders:* Event Monitor, Ordered: 07/27/21 * Recommendations:* With his weight problem and chronic hypertension, I suspect he does have LV diastolic dysfunction and left atrial enlargement that would predispose to atrial tachyarrhythmias. His history is certainly suggestive. Have requested a 30 day event monitor and encouraged continued avoiding of caffeinated beverages, alcohol, nicotine, nkaf-uph-yxybyxp decongestants etc. * I45.3 Trifascicular block* Recommendations:* [...] Mondays and only * New Orders:* Treadmill, Ordered: 07/27/21 * Recommendations:* Remote cardiac catheterization showed no [...] or stroke is 43%. Based on the [place] [employer]/[place] [employer] cardi[employer] guidelines 2013, at least [...] Echocardiogram Transthoracic W Doppler And Color Flow, Ordered: 07/27/21 * Recommendations:* Accentuated pulmonary closure sound and [...] fibrillation. * J44.9 Chronic obstructive pulmonary disease, unspecified * Z68.32 Body mass index [BMI] 32.0-32.9, adult * All * Comments:* I will ensure that the aforementioned test findings are reported to you along with any further recommendations. Thank you for allowing me to participate in the care of your patient. Best regards. Functional Status Functional Condition Comment Date Status Independent with all ADL's Activ e Mental Status Description No Information Available Referrals Description No Information Available
--- OUTSIDE RECORDS SUMMARY | 2021-09-21 11:18 | CCD ---
Author Author [facility] Organization [facility] Address Unknown Phone Unavailable Care Team Providers Care Rapier Insertion Loom Fixer Name Role Phone Kylie WHITT MD Unavailable Unavailable Kylie WHITT MD Unavailable Unavailable Kylie WHITT MD Unavailable Unavailable Kylie WHITT MD Unavailable Unavailable Kylie WHITT MD Unavailable Unavailable Kylie WHITT MD Unavailable Unavailable Kylie WHITT MD Unavailable Unavailable Kylie WHITT MD Unavailable Unavailable Kylie WHITT MD Unavailable Unavailable Kylie WHITT MD Unavailable Unavailable Kylie WHITT MD Unavailable Unavailable Kylie WHITT MD Unavailable Unavailable Kylie WHITT MD Unavailable Unavailable Kylie WHITT MD Unavailable Unavailable Kylie WHITT MD Unavailable Unavailable Kylie WHITT MD Unavailable Unavailable Kylie WHITT MD Unavailable Unavailable Kylie WHITT MD Unavailable Unavailable Kylie WHITT MD Unavailable Unavailable Kylie WHITT MD Unavailable Unavailable Kylie WHITT MD Unavailable Unavailable Kylie WHITT MD Unavailable Unavailable Kylie WHITT MD Unavailable Unavailable Kylie WHITT MD Unavailable Unavailable Kylie WHITT MD Unavailable Unavailable WHITTKylie Hernandez MD Unavailable Unavailable WHITTKylie Hernandez MD Unavailable Unavailable WHITTKylie MD Unavailable Unavailable WHITTKylie Hernandez MD Unavailable Unavailable WHITTKylie Hernandez MD Unavailable Unavailable WHITTKylie Hernandez MD Unavailable Unavailable WHITTKylie Hernandez MD Unavailable Unavailable WHITTKylie Hernandez MD Unavailable Unavailable WHITTKylie Hernandez MD Unavailable Unavailable WHITTKylie Hernandez MD Unavailable Unavailable WHITTKylie Hernandez MD Unavailable Unavailable WHITTKylie Hernandez MD Unavailable Unavailable WHITTKylie Hernandez MD Unavailable Unavailable WHITTKylie Hernandez MD Unavailable Unavailable WHITTKylie Hernandez MD Unavailable Unavailable WHITTKylie Hernandez MD Unavailable Unavailable WHITTKylie Hernandez MD Unavailable Unavailable WHITTKylie MD Unavailable Unavailable WHITTKylie Hernandez MD Unavailable Unavailable WHITTKylie Hernandez MD Unavailable Unavailable WHITT, E HARMONY WONG Unavailable Unavailable WHITTKylie Hernandez MD Unavailable Unavailable WHITTKylie Hernandez MD Unavailable Unavailable WHITTKylie Hernandez MD Unavailable Unavailable WHITTKylie Hernandez MD Unavailable Unavailable WHITTKylie Hernandez MD Unavailable Unavailable WHITTKylie Hernandez MD Unavailable Unavailable WHITTKylie Hernandez MD Unavailable Unavailable WHITTKylie Hernandez MD Unavailable Unavailable Juanito Macias Unavailable Unavailable Fish, J Wisam Unavailable Unavailable Fish, J Wisam Unavailable Unavailable Fish, J Wisam Unavailable Unavailable Fish, J Wisam Unavailable Unavailable Fish, J Wisam Unavailable Unavailable Fish, J Wisam Unavailable Unavailable Fish, J Wisam Unavailable Unavailable Fish, J Wisam Unavailable Unavailable Fish, J Wisam Unavailable Unavailable Fish, J Wisam Unavailable Unavailable Fish, J Wisam Unavailable Unavailable Fish, J Wisam Unavailable Unavailable Fish, J Wisam Unavailable Unavailable Fish, J Wisam Unavailable Unavailable Fish, J Wisam Unavailable Unavailable Fish, J Wisam Unavailable Unavailable Fish, J Wisam Unavailable Unavailable Fish, J Wisam Unavailable Unavailable Fish, J Wisam Unavailable Unavailable Fish, J Wisam Unavailable Unavailable Fish, J Wisam Unavailable Unavailable Fish, J Wisam Unavailable Unavailable Fish, J Wisam Unavailable Unavailable Fish, J Wisam Unavailable Unavailable Fish, J Wisam Unavailable Unavailable Fish, J Wisam Unavailable Unavailable Fish, J Wisam Unavailable Unavailable Fish, J Wisam Unavailable Unavailable Fish, J Wisam Unavailable Unavailable Fish, J Wisam Unavailable Unavailable Fish, J Wisam Unavailable Unavailable Fish, J Wisam Unavailable Unavailable Fish, J Wisam Unavailable Unavailable Fish, J Wisam Unavailable Unavailable Fish, J Wisam Unavailable Unavailable Fish, J Wisam Unavailable Unavailable Fish, J Wisam Unavailable Unavailable Fish, J Wisam Unavailable Unavailable Fish, J Wisam Unavailable Unavailable Fish, J Wisam Unavailable Unavailable Fish, J Wisam Unavailable Unavailable Fish, J Wisam Unavailable Unavailable Fish, J Wisam Unavailable Unavailable Fish, J Wisam Unavailable Unavailable Fish, J Wisam Unavailable Unavailable Fish, J Wisam Unavailable Unavailable Fish, J Wisam Unavailable Unavailable Fish, J Wisam Unavailable Unavailable Fish, J Wisam Unavailable Unavailable Fish, J Wisam Unavailable Unavailable Fish, J Wisam Unavailable Unavailable Fish, J Wisam Unavailable Unavailable Fish, J Wisam Unavailable Unavailable Fish, J Wisam Unavailable Unavailable Fish, J Wisam Unavailable Unavailable Fish, J Wisam Unavailable Unavailable Fish, J Wisam Unavailable Unavailable Fish, J Wsiam Unavailable Unavailable Fish, J Wisam Unavailable Unavailable Fish, J Wisam Unavailable Unavailable Fish, J Wisam Unavailable Unavailable Fish, J Wisam Unavailable Unavailable Fish, J Wisam Unavailable Unavailable Fish, J Wisam Unavailable Unavailable Fish, J Wisam Unavailable Unavailable Fish, J Wisam Unavailable Unavailable Fish, J Wisam Unavailable Unavailable Fish, J Wisam Unavailable Unavailable Fish, J Wisam Unavailable Unavailable Fish, J Wisam Unavailable Unavailable Fish, J Wisam Unavailable Unavailable Fish, J Wisam Unavailable Unavailable Fish, J Wisam Unavailable Unavailable Fish, J Wisam Unavailable Unavailable Fish, J Wisam Unavailable Unavailable Fish, J Wisam Unavailable Unavailable Fish, J Wisam Unavailable Unavailable Fish, J Wisam Unavailable Unavailable Fish, J Wisam Unavailable Unavailable Fish, J Wisam Unavailable Unavailable Fish, J Wisam Unavailable Unavailable Fish, J Wisam Unavailable Unavailable Fish, J Wisam Unavailable Unavailable Fish, J Wisam Unavailable Unavailable Fish, J Wisam Unavailable Unavailable BRIA, L ERNESTO PA Unavailable Unavailable BRIA, L ERNESTO PA Unavailable Unavailable BRIA, L ERNESTO PA Unavailable Unavailable BRIA, L ERNESTO PA Unavailable Unavailable BRIA, L ERNESTO PA Unavailable Unavailable BRIA, L ERNESTO PA Unavailable Unavailable BRIA, L ERNESTO PA Unavailable Unavailable BRIA, L ERNESTO PA Unavailable Unavailable BRIA, L ERNESTO PA Unavailable Unavailable BRIA, L ERNESTO PA Unavailable Unavailable BRIA, L ERNESTO PA Unavailable Unavailable BRIA, L ERNESTO PA Unavailable Unavailable BRIA, L ERNESTO PA Unavailable Unavailable BRIA, L ERNESTO PA Unavailable Unavailable BRIA, L ERNESTO PA Unavailable Unavailable BRIA, L ERNESTO PA Unavailable Unavailable Jorge Luis, D Mian PA Unavailable Unavailable Jorge Luis, D Mian PA Unavailable Unavailable Jorge Luis, D Mian PA Unavailable Unavailable Jorge Luis, D Mian PA Unavailable Unavailable Jorge Luis, D Mian PA Unavailable Unavailable Jorge Luis, D Mian PA Unavailable Unavailable Jorge Luis, D Mian PA Unavailable Unavailable Jorge Luis, D Mian PA Unavailable Unavailable Jorge Luis, D Mian PA Unavailable Unavailable Jorge Luis, D Mian PA Unavailable Unavailable Jorge Luis, D Mian PA Unavailable Unavailable Jorge Luis, D Mian PA Unavailable Unavailable Jorge Luis, D Mian PA Unavailable Unavailable Jorge Luis, D Mian PA Unavailable Unavailable Jorge Luis, D Mian PA Unavailable Unavailable Jorge Luis, D Mian PA Unavailable Unavailable Jorge Luis, D Mian PA Unavailable Unavailable Jorge Luis, D Mian PA Unavailable Unavailable Jorge Luis, D Mian PA Unavailable Unavailable Jorge Luis, D Mian PA Unavailable Unavailable Jorge Luis, D Mian PA Unavailable Unavailable Jorge Luis, D Mian PA Unavailable Unavailable Jorge Luis, D Mian PA Unavailable Unavailable Jorge Luis, D Mian PA Unavailable Unavailable Jorge Luis, D Mian PA Unavailable Unavailable Jorge Luis, D Mian PA Unavailable Unavailable Jorge Luis, D Mian PA Unavailable Unavailable Jorge Luis, D Mian PA Unavailable Unavailable Jorge Luis, D Mian PA Unavailable Unavailable Jorge Luis, D Mian PA Unavailable Unavailable Jorge Luis, D Mian PA Unavailable Unavailable Jorge Luis, D Mian PA Unavailable Unavailable Jorge Luis, D Mian PA Unavailable Unavailable Jorge Luis, D Mian PA Unavailable Unavailable Jorge Luis, D Mian PA Unavailable Unavailable Jorge Luis, D Mian PA Unavailable Unavailable Jorge Luis, D Mian PA Unavailable Unavailable Jorge Luis, D Mian PA Unavailable Unavailable Jorge Luis, D Mian PA Unavailable Unavailable Jorge Luis, D Mian PA Unavailable Unavailable Jorge Luis, D Mian PA Unavailable Unavailable Jorge Luis, D Mian PA Unavailable Unavailable Jorge Luis, D Mian PA Unavailable Unavailable Jorge Luis, D Mian PA Unavailable Unavailable Jorge Luis, D Mian PA Unavailable Unavailable Jorge Luis, D Mian PA Unavailable Unavailable Jorge Luis, D Mian PA Unavailable Unavailable Jorge Luis, D Mian PA Unavailable Unavailable Jorge Luis, D Mian PA Unavailable Unavailable Jorge Luis, D Mian PA Unavailable Unavailable Jorge Luis, D Mian PA Unavailable Unavailable Jorge Luis, D Mian PA Unavailable Unavailable Jorge Luis, D Mian PA Unavailable Unavailable Jorge Luis, D Mian PA Unavailable Unavailable Jorge Luis, D Mian PA Unavailable Unavailable Jorge Luis, D Mian PA Unavailable Unavailable Jorge Luis, D Mian PA Unavailable Unavailable Jorge Luis, D Mian PA Unavailable Unavailable Jorge Luis, D Mian PA Unavailable Unavailable Jorge Luis, D Mian PA Unavailable Unavailable Jorge Luis, D Mian PA Unavailable Unavailable Jorge Luis, D Mian PA Unavailable Unavailable Jorge Luis, D Mian PA Unavailable Unavailable Jorge Luis, D Mian PA Unavailable Unavailable Jorge Luis, D Mian PA Unavailable Unavailable Jorge Luis, D Mian PA Unavailable Unavailable Jorge Luis, D Mian PA Unavailable Unavailable Jorge Luis, D Mian PA Unavailable Unavailable Kee MACIAS MD Unavailable Unavailable Kee MACIAS MD Unavailable Unavailable Kee MACIAS MD Unavailable Unavailable Kee MACIAS MD Unavailable Unavailable Kee MACIAS MD Unavailable Unavailable Kee MACIAS MD Unavailable Unavailable Kee MACIAS MD Unavailable Unavailable Kee MACIAS MD Unavailable Unavailable Kee MACIAS MD Unavailable Unavailable Kee MACIAS MD Unavailable Unavailable Kee MACIAS MD Unavailable Unavailable Kee MACIAS MD Unavailable Unavailable Kee MACIAS MD Unavailable Unavailable Kee MACIAS MD Unavailable Unavailable Kee MACIAS MD Unavailable Unavailable Kee MACIAS MD Unavailable Unavailable Kee MACIAS MD Unavailable Unavailable Kee MACIAS MD Unavailable Unavailable Kee MACIAS MD Unavailable Unavailable Kee MACIAS MD Unavailable Unavailable Kee MACIAS MD Unavailable Unavailable Kee MACIAS MD Unavailable Unavailable Kee MACIAS MD Unavailable Unavailable Kee MACIAS MD Unavailable Unavailable Kee MACIAS MD Unavailable Unavailable Kee MACIAS MD Unavailable Unavailable Kee MACIAS MD Unavailable Unavailable Kee MACIAS MD Unavailable Unavailable Kee MACIAS MD Unavailable Unavailable Kee MACIAS MD Unavailable Unavailable Kee MACIAS MD Unavailable Unavailable Kee MACIAS MD Unavailable Unavailable Kee MACIAS MD Unavailable Unavailable Kee MACIAS MD Unavailable Unavailable Kee MACIAS MD Unavailable Unavailable Kee MACIAS MD Unavailable Unavailable Kee MACIAS MD Unavailable Unavailable Kee MACIAS MD Unavailable Unavailable Kee MACIAS MD Unavailable Unavailable Kee MACIAS MD Unavailable Unavailable Kee MACIAS MD Unavailable Unavailable Kee MACIAS MD Unavailable Unavailable eKe MACIAS MD Unavailable Unavailable Kee MACIAS MD Unavailable Unavailable Kee MACIAS MD Unavailable Unavailable Kee MACIAS MD Unavailable Unavailable Kee MACIAS MD Unavailable Unavailable Kee MACIAS MD Unavailable Unavailable Kee MACIAS MD Unavailable Unavailable Kee MACIAS MD Unavailable Unavailable Kee MACIAS MD Unavailable Unavailable Kee MACIAS MD Unavailable Unavailable Kee MACIAS MD Unavailable Unavailable Kee MACIAS MD Unavailable Unavailable Kee MACIAS MD Unavailable Unavailable Kee MACIAS MD Unavailable Unavailable Kee MACIAS MD Unavailable Unavailable Kee MACIAS MD Unavailable Unavailable Kee MACIAS MD Unavailable Unavailable Kee MACIAS MD Unavailable Unavailable Kee MACIAS MD Unavailable Unavailable Kee MACIAS MD Unavailable Unavailable Kee MACIAS MD Unavailable Unavailable Kee MACIAS MD Unavailable Unavailable Kee MACIAS MD Unavailable Unavailable Kee MACIAS MD Unavailable Unavailable Kee MACIAS MD Unavailable Unavailable Kee MCAIAS MD Unavailable Unavailable Kee MACIAS MD Unavailable Unavailable Kee MACIAS MD Unavailable Unavailable Kee MACIAS MD Unavailable Unavailable Kee MACIAS MD Unavailable Unavailable Kee MACIAS MD Unavailable Unavailable Kee MACIAS MD Unavailable Unavailable Kee MACIAS MD Unavailable Unavailable Kee MACIAS MD Unavailable Unavailable Kee MACIAS MD Unavailable Unavailable Kee MACIAS MD Unavailable Unavailable Kee MACIAS MD Unavailable Unavailable Kee MACIAS MD Unavailable Unavailable Kee MACIAS MD Unavailable Unavailable Kee MACIAS MD Unavailable Unavailable Kee MACIAS MD Unavailable Unavailable Kee MACIAS MD Unavailable Unavailable Kee MACIAS MD Unavailable Unavailable Kee MACIAS MD Unavailable Unavailable Kee MACIAS MD Unavailable Unavailable Kee MACIAS MD Unavailable Unavailable Kee MACIAS MD Unavailable Unavailable Kee MACIAS MD Unavailable Unavailable Kee MACIAS MD Unavailable Unavailable Kee MACIAS MD Unavailable Unavailable Kee MACIAS MD Unavailable Unavailable Kee MACIAS MD Unavailable Unavailable Kee MACIAS MD Unavailable Unavailable eKe MACIAS MD Unavailable Unavailable Kee MACIAS MD Unavailable Unavailable Fish, J Wisam Unavailable Unavailable Fish, J Wisam Unavailable Unavailable Fish, J Wisam Unavailable Unavailable Fish, J Wisam Unavailable Unavailable Fish, J Wisam Unavailable Unavailable Fish, J Wisam Unavailable Unavailable Fish, J Wisam Unavailable Unavailable Fish, J Wisam Unavailable Unavailable Fish, J Wisam Unavailable Unavailable Fish, J Wisam Unavailable Unavailable Fish, J Wisam Unavailable Unavailable Fish, J Wisam Unavailable Unavailable Fish, J Wisam Unavailable Unavailable Fish, J Wisam Unavailable Unavailable Fish, J Wisam Unavailable Unavailable Fish, J Wisam Unavailable Unavailable Fish, J Wisam Unavailable Unavailable Fish, J Wisam Unavailable Unavailable Fish, J Wisam Unavailable Unavailable Fish, J Wisam Unavailable Unavailable Fish, J Wisam Unavailable Unavailable Fish, J Wisam Unavailable Unavailable Fish, J Wisam Unavailable Unavailable Fish, J Wisam Unavailable Unavailable Fish, J Wisam Unavailable Unavailable Fish, J Wisam Unavailable Unavailable Fish, J Wisam Unavailable Unavailable Fish, J Wisam Unavailable Unavailable Fish, J Wisam Unavailable Unavailable Fish, J Wisam Unavailable Unavailable Fish, J Wisam Unavailable Unavailable Fish, J Wisam Unavailable Unavailable Fish, J Wisam Unavailable Unavailable Fish, J Wisam Unavailable Unavailable Fish, J Wisam Unavailable Unavailable Fish, J Wisam Unavailable Unavailable Fish, J Wisam Unavailable Unavailable Fish, J Wisam Unavailable Unavailable Fish, J Wisam Unavailable Unavailable Fish, J Wisam Unavailable Unavailable Fish, J Wisam Unavailable Unavailable Fish, J Wisam Unavailable Unavailable Fish, J Wisam Unavailable Unavailable Fish, J Wisam Unavailable Unavailable Fish, J Wisam Unavailable Unavailable Fish, J Wisam Unavailable Unavailable Fish, J Wisam Unavailable Unavailable Fish, J Wisam Unavailable Unavailable Fish, J Wisam Unavailable Unavailable Fish, J Wisam Unavailable Unavailable Fish, J Wisam Unavailable Unavailable Fish, J Wisam Unavailable Unavailable Fish, J Wisam Unavailable Unavailable Fish, J Wisam Unavailable Unavailable Fish, J Wisam Unavailable Unavailable Fish, J Wisam Unavailable Unavailable Fish, J Wisam Unavailable Unavailable Fish, J Wisam Unavailable Unavailable Fish, J Wisam Unavailable Unavailable Fish, J Wisam Unavailable Unavailable Fish, J Wisam Unavailable Unavailable Fish, J Wisam Unavailable Unavailable Fish, J Wisam Unavailable Unavailable Fish, J Wisam Unavailable Unavailable Fish, J Wisam Unavailable Unavailable Fish, J Wisam Unavailable Unavailable Fish, J Wisam Unavailable Unavailable Fish, J Wisam Unavailable Unavailable Fish, J Wisam Unavailable Unavailable Fish, J Wisam Unavailable Unavailable Fish, J Wisam Unavailable Unavailable Fish, J Wisam Unavailable Unavailable Fish, J Wisam Unavailable Unavailable Fish, J Wisam Unavailable Unavailable Fish, J Wisam Unavailable Unavailable Fish, J Wisam Unavailable Unavailable Fish, J Wisam Unavailable Unavailable Fish, J Wisam Unavailable Unavailable Fish, J Wisam Unavailable Unavailable Fish, J Wisam Unavailable Unavailable Fish, J Wisam Unavailable Unavailable Fish, J Wisam Unavailable Unavailable Fish, J Wisam Unavailable Unavailable Fish, J Wisam Unavailable Unavailable Fish, J Wisam Unavailable Unavailable Re-disclosure Warning The records that you are about to access may contain information from federally-assisted alcohol or drug abuse programs. If such information is present, then the following federally mandated warning applies: This information has been disclosed to you from records protected by federal confidentiality rules (42 CFR part 2). The federal rules prohibit you from making any further disclosure of this information unless further disclosure is expressly permitted by the written consent of the person to whom it pertains or as otherwise permitted by 42 CFR part 2. A general authorization for the release of medical or other information is NOT sufficient for this purpose. The Federal rules restrict any use of the information to criminally investigate or prosecute any alcohol or drug abuse patient.The records that you are about to access may contain highly sensitive health information, the redisclosure of which is protected by Article 27-F of the [facility] Public Health law. If you continue you may have access to information: Regarding HIV / AIDS; Provided by facilities licensed or operated by the [facility] Office of Mental Health; or Provided by the [facility] Office for People With Developmental Disabilities. If such information is present, then the following [facility] mandated warning applies: This information has been disclosed to you from confidential records which are protected by state law. State law prohibits you from making any further disclosure of this information without the specific written consent of the person to whom it pertains, or as otherwise permitted by law. Any unauthorized further disclosure in violation of state law may result in a fine or residential sentence or both. A general authorization for the release of medical or other information is NOT sufficient authorization for further disc losure. Family History Family Member Name Family Member Gender Family Member Status Date o f Status Description Data Source(s) Unknown Male Problem [facility] ([facility]) Unknown Male Problem [facility] ([facility] Encounters Encounter Providers Location Date Indications Data Source(s ) Attender: JUANITO ADRIANeferrer: Wisam Veloz 09/05/2021 08:21:11 PM EST [facility] Outpatient Attender: ERNESTO SANDERS Main Office 08/15/2021 0 8:00:00 AM EDT [facility] ([facility]) Attender: Juanito Moiser: Wisam Veloz 1 08:21:10 PM EDT [facility] OFFICE OUTPATIENT NEW 60 MINUTES Attender: HARMONY WHITT MD Main Office 07/27/2021 01:00:00 PM EDT [facility] ([facility]) Outpatient Attender: Wisam Veloz [place] [facility] 06/16/2021 01:30:0 0 PM EDT [facility] ([facility] Outpatient Attender: Mian SANDERS [place] [facility] 11:30:00 AM EDT [facility] ([facility] Outpatient Attender: Wisam Magdiel [place] [facility] 03/10/2021 01:30:0 0 PM EDT [facility] ([facility] Outpatient Attender: Wisam Veloz [place] [facility] 12/09/2020 12:15:0 0 PM EST [facility] ([facility] 12:[facility]0 0 PM EST [facility] ([facility] [place] [id number] [facility] [id number] 07/30/2020 12:00:00 AM EDT eCW1 ([facility]) Immunizations Vaccine Date Status Description Data Source(s) COVID-19 VACC, MRNA(PFIZER)/PF 09/19/2021 12:00:00 AM EST completed [facility] COVID-19 VACCINE Pfizer 01/01/2021 12:00:00 AM EST completed [facility] Vaccine Series Complete: YESThis Data wa s Submitted to [facility] Via [employer]. COVID-19 VACCINE Pfizer 12/11/2020 12:00:00 AM EST completed [facility] Vaccine Series Complete: NOThis Data was Submitted to [facility] Via [employer]. New in 2012. IIV4 09/02/2020 12:34:00 PM EST completed [facility] ([facility] Medications Medication Brand Name Start Date Product Form Dose Route Admi nistrative Instructions Pharmacy Instructions Status Indications Reaction Description Data Source(s) 50 mg 08/30/2021 12:00:00 AM EDT tablet 90 TAKE ONE TABLET BY MOUTH THREE TIMES A DAY NEEDED FOR PAIN , MAXIMUM DAILY DOSE = 3 TAKE ONE TABLET BY MOUTH THREE TIMES A DAY NEEDED FOR PAIN , MAXIMUM DAILY DOSE = 3 SOLD: 08/31/2021 [facility] Blood Pressure Monitor Deluxe/Automatic 08/15/2021 12:00:00 AM EDT active [facility] ([facility]) 50 mg 07/29/2021 12:00:00 AM EDT tablet 90 TAKE 1TABLET BY MOUTH 3 TIMES A DAY NEEDED FOR PAIN MAX=3TABLETS/DAY TAKE 1TABLET BY MOUTH 3 TIMES A DAY NEEDED FOR PAIN MAX=3TABLETS/DAY SOLD: 07/29/2021 [facility] 10 mg 07/28/2021 12:00:00 AM EDT tablet 30 TAKE ONE TABLET BY MOUTH EVERY DAY TAKE ONE TABLET BY MOUTH EVERY DAY SOLD: 07/29/2021 [facility] 25 mg 07/28/2021 12:00:00 AM EDT tablet 15 TAKE 1/2 TABLET BY MOUTH ONCE DAILY TAKE 1/2 TABLET BY MOUTH ONCE DAILY SOLD: 07/29/2021 [facility] 25 mg 07/28/2021 12:00:00 AM EDT tablet 15 TAKE 1/2 TABLET BY MOUTH ONCE DAILY TAKE 1/2 TABLET BY MOUTH ONCE DAILY SOLD: 08/31/2021 [facility] atorvastatin 40 MG Oral Tablet ATORVASTATIN CALCIUM 07/28/2021 1 2:00:00 AM EDT tablet 15 TAKE 1 TABLET BY MOUTH ON SUNDAY S AND THURSDAYS ONLY TAKE 1 TABLET BY MOUTH ON MONDAYS AND THURSDAYS ONLY SOLD: 07/29/2021 [facility] 10 mg 07/28/2021 12:00:00 AM EDT tablet 30 TAKE ONE TABLET BY MOUTH EVERY DAY TAKE ONE TABLET BY MOUTH EVERY DAY SOLD: 08/31/2021 [facility] Lisinopril 10 MG Oral Tablet Lisinopril 07/27/2021 12:00:00 AM EDT completed [facility] ([facility] Chlorthalidone 25 MG Oral Tablet Chlorthalidone 07/27/2021 12:00:00 A M EDT ORAL active [facility] ([facility] atorvastatin 40 MG Oral Tablet Atorvastatin Calcium 07/27/2021 1 2:00:00 AM EDT ORAL active [facility] ( [facility]) Ibuprofen 200 MG Oral Tablet Ibuprofen 200 07/26/2021 12:00:00 AM EDT ORAL active [facility] ([facility] 50 mg 06/29/2021 12:00:00 AM EDT tablet 90 TAKE 1 TABLET BY MOUTH 3 TIMES A DAY NEEDED FOR PAIN MAX DAILY DOSE = 3 TABLETS TAKE 1 TABLET BY MOUTH 3 TIMES A DAY NEEDED FOR PAIN MAX DAILY DOSE = 3 TABLETS SOLD: 07/01/2021 [facility] 50 mg 05/31/2021 12:00:00 AM EDT tablet 90 TAKE ONE TABLET BY MOUTH THREE TIMES A DAY NEEDED FOR PAIN MAXIMUM DAILY DOSE = 3 TABLETS TAKE ONE TABLET BY MOUTH THREE TIMES A DAY NEEDED FOR PAIN MAXIMUM DAILY DOSE = 3 TABLETS SOLD: 05/31/2021 [facility] BLOOD SUGAR DIAGNOSTIC 05/12/2021 12:00:00 AM EDT strip 400 USE TO TEST BLOOD SUGAR UP TO 8 TIMES EVERY DAY DIRECTED USE TO TEST BLOOD SUGAR UP TO 8 TIMES EVERY DAY DIRECTED SOLD: 05/12/2021 [facility] BLOOD SUGAR DIAGNOSTIC 05/12/2021 12:00:00 AM EDT strip 400 USE TO TEST BLOOD SUGAR UP TO 8 TIMES EVERY DAY DIRECTED USE TO TEST BLOOD SUGAR UP TO 8 TIMES EVERY DAY DIRECTED SOLD: 07/01/2021 [facility] 50 mg 04/28/2021 12:00:00 AM EDT tablet 90 TAKE ONE TABLET BY MOUTH THREE TIMES A DAY NEEDED FOR PAIN MAXIMUM DAILY DOSE = 3 TABLETS TAKE ONE TABLET BY MOUTH THREE TIMES A DAY NEEDED FOR PAIN MAXIMUM DAILY DOSE = 3 TABLETS SOLD: 04/28/2021 [facility] Ondansetron 4 MG Oral Tablet Ondansetron HCL 04/06/2021 12:00:00 AM E DT ORAL completed [facility] ([facility] [facility]) 4 mg 04/06/2021 12:00:00 AM EDT tablet 12 TAKE ONE TABLET BY MOUTH EVERY 4 TO 6 HOURS NEEDED FOR NAUSEA TAKE ONE TABLET BY MOUTH EVERY 4 TO 6 HO URS NEEDED FOR NAUSEA SOLD: 04/06/2021 [facility] Ondansetron 4 MG Oral Tablet Ondansetron HCL 04/06/2021 12:00:00 AM E DT ORAL active MED[facility] ([facility] 50 mg 03/26/2021 12:00:00 AM EDT tablet 90 TAKE ONE TABLET BY MOUTH THREE TIMES A DAY NEEDED FOR PAIN MAXIMUM DAILY DOSE = 3 TABLETS TAKE ONE TABLET BY MOUTH THREE TIMES A DAY NEEDED FOR PAIN MAXIMUM DAILY DOSE = 3 TABLETS SOLD: 03/27/2021 [facility] 20 mg 03/26/2021 12:00:00 AM EDT capsule 90 TAKE THREE CAPSULES BY MOUTH EVERY DAY TAKE THREE CAPSULES BY MOUTH EVERY DAY SOLD: 04/28/2021 [facility] 20 mg 03/26/2021 12:00:00 AM EDT capsule 90 TAKE THREE CAPSULES BY MOUTH EVERY DAY TAKE THREE CAPSULES BY MOUTH EVERY DAY SOLD: 03/27/2021 [facility] 100 unit/mL (3 mL) 03/20/2021 12:00:00 AM EDT insulin pen 45 INJECT 30UNITS UNDER SKIN AFTER BREAKFAST LUNCH AND DINNER INJECT 30UNITS UNDER SKIN AFTER BREAKFAST LUNCH AND DINNER SOLD: 03/27/2021 [facility] 3 ML Insulin Glargine 100 UNT/ML Pen Injector [Lantus] 100 unit/mL (3 mL) INSULIN GLARGINE,HUM.REC.ANLOG 03/17/2021 12:00:00 AM EDT insulin pen 45 INJECT 80 UNITS UNDER THE SKIN EVERY 12 HOURS INJECT 80 UNITS UNDER THE SKIN EVERY 12 HOURS SOLD: 03/19/2021 [facility] 3 ML Insulin Glargine 100 UNT/ML Pen Injector [Lantus] 100 unit/mL (3 mL) INSULIN GLARGINE,HUM.REC.ANLOG 03/17/2021 12:00:00 AM EDT insulin pen 45 INJECT 80 UNITS UNDER THE SKIN EVERY 12 HOURS INJECT 80 UNITS UNDER THE SKIN EVERY 12 HOURS SOLD: 04/28/2021 [facility] 5 mg 03/11/2021 12:00:00 AM EDT tablet 30 TAKE ONE TABLET BY MOUTH EVERY DAY TAKE ONE TABLET BY MOUTH EVERY DAY SOLD: 04/28/2021 [facility] 5 mg 03/11/2021 12:00:00 AM EDT tablet 30 TAKE ONE TABLET BY MOUTH EVERY DAY TAKE ONE TABLET BY MOUTH EVERY DAY SOLD: 03/19/2021 [facility] 50 mg 02/26/2021 12:00:00 AM EDT tablet 90 TAKE 1 TABLET BY MOUTH 3 TIMES A DAY NEEDED FOR PAIN MAX DAILY DOSE = 3 TABLETS TAKE 1 TABLET BY MOUTH 3 TIMES A DAY NEEDED FOR PAIN MAX DAILY DOSE = 3 TABLETS SOLD: 02/26/2021 [facility] 300 mg 02/21/2021 12:00:00 AM EDT capsule 540 TAKE 2CAPS.BY MOUTH EVERY A.M.,NOON AND P.M. MAXIMUM DAILY DOSE = 6 CAPSULES TAKE 2CAPS.BY MOUTH EVERY A.M.,NOON AND P.M. MAXIMUM DAILY DOSE = 6 CAPSULES SOLD: 02/26/2021 [facility] 3 ML Insulin, Aspart, Human 100 UNT/ML Pen Injector Insulin Aspart Flexpen 02/13/2021 12:00:00 AM EDT completed [facility] ([facility]) 3 ML Insulin, Aspart, Human 100 UNT/ML Pen Injector Insulin Aspart Flexpen 02/13/2021 12:00:00 AM EDT active [facility] ([facility] 50 mg 01/25/2021 12:00:00 AM EDT tablet 90 TAKE 1 TABLET BY MOUTH 3 TIMES A DAY NEEDED FOR PAIN MAX DAILY DOSE = 3 TABLETS TAKE 1 TABLET BY MOUTH 3 TIMES A DAY NEEDED FOR PAIN MAX DAILY DOSE = 3 TABLETS SOLD: 01/27/2021 [facility] 20 mg 01/11/2021 12:00:00 AM EDT capsule 90 TAKE THREE CAPSULES BY MOUTH EVERY DAY TAKE THREE CAPSULES BY MOUTH EVERY DAY SOLD: 01/14/2021 [facility] 20 mg 01/11/2021 12:00:00 AM EDT capsule 90 TAKE THREE CAPSULES BY MOUTH EVERY DAY TAKE THREE CAPSULES BY MOUTH EVERY DAY SOLD: 02/26/2021 [facility] 50 mg 12/28/2020 12:00:00 AM EST tablet 90 TAKE 1 TABLET BY MOUTH 3 TIMES A DAY NEEDED FOR PAIN MAX=3TABS/DAY TAKE 1 TABLET BY MOUTH 3 TIMES A DAY NEEDED FOR PAIN MAX=3TABS/DAY SOLD: 12/28/2020 [facility] Virgilio Poole 12/10/2020 12:00:00 AM EST ORAL active [facility] ([facility] 2.5 mg 11/30/2020 12:00:00 AM EST tablet 90 TAKE ONE TABLET BY MOUTH EVERY DAY TAKE ONE TABLET BY MOUTH EVERY DAY SOLD: 11/30/2020 [facility] 2.5 mg 11/30/2020 12:00:00 AM EST tablet 90 TAKE ONE TABLET BY MOUTH EVERY DAY TAKE ONE TABLET BY MOUTH EVERY DAY SOLD: 02/26/2021 [facility] carvedilol 6.25 MG Oral Tablet CARVEDILOL 11/30/2020 12:00:00 AM EST tablet 180 TAKE ONE TABLET BY MOUTH TWICE A DAY TAKE ONE TABLET BY MOUT H TWICE A DAY SOLD: 02/26/2021 [facility] carvedilol 6.25 MG Oral Tablet CARVEDILOL 11/30/2020 12:00:00 AM EST tablet 180 TAKE ONE TABLET BY MOUTH TWICE A DAY TAKE ONE TABLET BY MOUT H TWICE A DAY SOLD: 11/30/2020 [facility] 50 mg 11/30/2020 12:00:00 AM EST tablet 90 TAKE 1 TABLET BY MOUTH 3 TIMES A DAY NEEDED FOR PAIN MAX=3TABS/DAY TAKE 1 TABLET BY MOUTH 3 TIMES A DAY NEEDED FOR PAIN MAX=3TABS/DAY SOLD: 11/30/2020 [facility] BLOOD SUGAR DIAGNOSTIC 11/24/2020 12:00:00 AM EST strip 200 USE TO TEST BLOOD SUGAR FOUR TIMES A DAY DIRECTED USE TO TEST BLOOD SUGAR FOUR TIMES A DAY DIRECTED SOLD: 11/26/2020 [facility] BLOOD SUGAR DIAGNOSTIC 11/24/2020 12:00:00 AM EST strip 200 USE TO TEST BLOOD SUGAR FOUR TIMES A DAY DIRECTED USE TO TEST BLOOD SUGAR FOUR TIMES A DAY DIRECTED SOLD: 03/19/2021 [facility] BLOOD SUGAR DIAGNOSTIC 11/24/2020 12:00:00 AM EST strip 200 USE TO TEST BLOOD SUGAR FOUR TIMES A DAY DIRECTED USE TO TEST BLOOD SUGAR FOUR TIMES A DAY DIRECTED SOLD: 01/14/2021 [facility] 50 mg 11/03/2020 12:00:00 AM EST tablet 90 TAKE 1 TABLET BY MOUTH 3 TIMES A DAY NEEDED FOR PAIN MAX DAILY DOSE = 3 TABLETS TAKE 1 TABLET BY MOUTH 3 TIMES A DAY NEEDED FOR PAIN MAX DAILY DOSE = 3 TABLETS SOLD: 11/04/2020 [facility] Alprazolam 0.25 MG Oral Tablet ALPRAZOLAM 11/01/2020 12:00:00 AM EST tablet 90 TAKE 1 TAB` BY MOUTH 3 TIMES A DAY NE EDED FOR ANXIETY MAX DAILY DOSE = 3 TABS` TAKE 1 TAB` BY MOUTH 3 TIMES A DAY NE EDED FOR ANXIETY MAX DAILY DOSE = 3 TABS` SOLD: 11/04/2020 [facility] 100 unit/mL (3 mL) 10/03/2020 12:00:00 AM EST insulin pen 45 INJECT 60 UNITS UNDER THE SKIN EVERY 12 HOURS INJECT 60 UNITS UNDER THE SKIN EVERY 12 HOURS SOLD: 11/30/2020 [facility] 100 unit/mL (3 mL) 10/03/2020 12:00:00 AM EST insulin pen 45 INJECT 60 UNITS UNDER THE SKIN EVERY 12 HOURS INJECT 60 UNITS UNDER THE SKIN EVERY 12 HOURS SOLD: 10/25/2020 [facility] 50 mg 09/28/2020 12:00:00 AM EST tablet 90 TAKE 1 TABLET BY MOUTH THREE TIMES A DAY NEEDED FOR PAIN MAX=3TABS/DAY TAKE 1 TABLET BY MOUTH THREE TIMES A DAY NEEDED FOR PAIN MAX=3TABS/DAY SOLD: 09/30/2020 [facility] 50 mcg/actuation 09/02/2020 12:00:00 AM EST spray,suspension 48 SPRAY TWO SPRAYS IN EACH NOSTRIL ONCE A DAY SPRAY TWO SPRAYS IN EACH NOSTRIL ONCE A DAY SOLD: 11/30/2020 [facility] 50 mcg/actuation 09/02/2020 12:00:00 AM EST spray,suspension 48 SPRAY TWO SPRAYS IN EACH NOSTRIL ONCE A DAY SPRAY TWO SPRAYS IN EACH NOSTRIL ONCE A DAY SOLD: 02/26/2021 [facility] Clarithromycin 500 MG Oral Tablet Clarithromycin 09/02/2020 12:00:00 AM EST ORAL completed [facility] ([facility] 100 unit/mL (3 mL) 08/30/2020 12:00:00 AM EST insulin pen 45 INJECT 30UNITS UNDER SKIN AFTER BREAKFAST LUNCH AND DINNER INJECT 30UNITS UNDER SKIN AFTER BREAKFAST LUNCH AND DINNER SOLD: 12/28/2020 [facility] 100 unit/mL (3 mL) 08/30/2020 12:00:00 AM EST insulin pen 45 INJECT 30UNITS UNDER SKIN AFTER BREAKFAST LUNCH AND DINNER INJECT 30UNITS UNDER SKIN AFTER BREAKFAST LUNCH AND DINNER SOLD: 08/30/2020 [facility] 100 unit/mL (3 mL) 08/30/2020 12:00:00 AM EST insulin pen 45 INJECT 30UNITS UNDER SKIN AFTER BREAKFAST LUNCH AND DINNER INJECT 30UNITS UNDER SKIN AFTER BREAKFAST LUNCH AND DINNER SOLD: 10/25/2020 [facility] 50 mg 08/27/2020 12:00:00 AM EDT tablet 90 TAKE 1 TABLET BY MOUTH 3 TIMES A DAY NEEDED FOR PAIN MAX DAILY DOSE = 3TABLETS TAKE 1 TABLET BY MOUTH 3 TIMES A DAY NEEDED FOR PAIN MAX DAILY DOSE = 3TABLETS SOLD: 08/29/2020 [facility] 300 mg 08/27/2020 12:00:00 AM EDT capsule 540 TAKE 2 CAPS BY MOUTH EVERY A.M. 2 CAPS AT NOON & 2 CAPS IN P.M. MAX DAILY DOSE = 6 TAKE 2 CAPS BY MOUTH EVERY A.M. 2 CAPS AT NOON & 2 CAPS IN P.M. MAX DAILY DOSE = 6 SOLD: 08/29/2020 [facility] 300 mg 08/27/2020 12:00:00 AM EDT capsule 540 TAKE 2 CAPS BY MOUTH EVERY A.M. 2 CAPS AT NOON & 2 CAPS IN P.M. MAX DAILY DOSE = 6 TAKE 2 CAPS BY MOUTH EVERY A.M. 2 CAPS AT NOON & 2 CAPS IN P.M. MAX DAILY DOSE = 6 SOLD: 11/26/2020 [facility] Alprazolam 0.25 MG Oral Tablet ALPRAZOLAM 08/27/2020 12:00:00 AM EDT tablet 90 TAKE 1 TABLET BY MOUTH 3 TIMES A DAY NEEDED ANXIETY MAXIMUM DAILY DOSE = 3 TAKE 1 TABLET BY MOUTH 3 TIMES A DAY NEEDED ANXIETY MAXIMUM DAILY DOSE = 3 SOLD: 08/29/2020 [facility] tramadol hydrochloride 50 MG Oral Tablet TRAMADOL HCL 07/31/2020 12:00:00 AM EDT tablet 90 TAKE ONE TABLET BY MOUTH THREE TIMES A DAY NEEDED FOR PAIN MAXIMUM DAILY DOSE = 3 TABLETS TAKE ONE TABLET BY MOUTH THREE TIMES A D AY NEEDED FOR PAIN MAXIMUM DAILY DOSE = 3 TABLETS SOLD: 07/31/2020 [facility] 5 mg 07/29/2020 12:00:00 AM EDT tablet 30 TAKE ONE TABLET BY MOUTH EVERY DAY TAKE ONE TABLET BY MOUTH EVERY DAY SOLD: 09/30/2020 [facility] 5 mg 07/29/2020 12:00:00 AM EDT tablet 30 TAKE ONE TABLET BY MOUTH EVERY DAY TAKE ONE TABLET BY MOUTH EVERY DAY SOLD: 08/29/2020 [facility] 5 mg 07/29/2020 12:00:00 AM EDT tablet 30 TAKE ONE TABLET BY MOUTH EVERY DAY TAKE ONE TABLET BY MOUTH EVERY DAY SOLD: 07/31/2020 [facility] 100 unit/mL (3 mL) 07/14/2020 12:00:00 AM EDT insulin pen 45 INJECT 60 UNITS UNDER THE SKIN EVERY 12 HOURS INJECT 60 UNITS UNDER THE SKIN EVERY 12 HOURS SOLD: 07/25/2020 [facility] 100 unit/mL (3 mL) 07/14/2020 12:00:00 AM EDT insulin pen 45 INJECT 60 UNITS UNDER THE SKIN EVERY 12 HOURS INJECT 60 UNITS UNDER THE SKIN EVERY 12 HOURS SOLD: 08/29/2020 [facility] tizanidine 4 MG Oral Tablet Tizanidine HCL 04/09/2020 12:00:00 AM EDT ORAL completed MED[facility] ([facility]) Insurance Providers Payer name Policy type / Coverage type Policy ID Covered alliance party ID Covered alliance party's relationship to jarrett Policy Jarrett Plan Information [employer]) Workers Compensation [id number] Self [id number] [facility] () Workers Compensation [id number] Self [id number] [facility] () Workers Compensation [id number] Self [id number] [employer]) Workers Compensation [id number] Self [id number] [facility] Workers Compensation [id number] Self [id number] [facility] Workers Compensation [id number] Self [id number] [facility] Workers Compensation [id number] Self [id number] [facility] Workers Compensation [id number] Self [id number] [facility] Workers Compensation [id number] Self [id number] [facility] Workers Compensation [id number] Self [id number] [employer]) Workers Compensation [id number] Self [id number] [employer]) Workers Compensation [id number] Self [id number] [facility] Part B [id number] Self [id number] [facility] Part B [id number] Self [id number] [facility] Part B [id number] Self [id number] MEDICARE [id number] SP [id number] A Medicare Medicare Primary [id number] Self [id number] Medicare Medicare Primary [id number] Self [id number] Medicare Medicare Primary [id number] Self [id number] Medicare Medicare Primary [id number] Self [id number] BCBS EMPIRE NATALY DIV [id number] SP [id number] UNITED HEALTHCARE [id number] SP [id number] MEDICARE C [id number] S [id number] A BCBS EMPIRE NATALY DIV UNAVAILABLE UNAVAILABLE MEDICARE PART A -O/P [id number] 18 [id number] UNITED HEALTHCARE-O/P [id number] 18 [id number] MEDICARE -O/P [id number] 18 [id number] VALUE OPTIONS OUTPATIENT CLAIM [id number] SP [id number] [facility] [id number] SP [id number] UNITED HEALTHCARE [id number] SP [id number] SELF PAY 2 UNAVAILABLE 1 UNAVAILA BLE UHC 2 [id number] 1 [id number] BC BLUE CARD 1 [id number] MEDICARE [id number] SP [id number] EMPIRE ([facility]) P [id number] S [id number] UNITED HEALTHCARE [id number] SP [id number] BCBS EMPIRE NATALY DIV [id number] SP [id number] [place] [facility] [id number] 0 [id number] Medicare Part B [facility] [id number] EXCELLUS [place] Unknown MEDICARE [id number] Unknown [id number] MEDICARE C [id number] S [id number] UNITED HEALTHCARE O [id number] S [id number] MEDICARE [id number] SP [id number] A EMPIRE BLUE CROSS BLUE SHIELD -O/P [id number] MEDICARE PART A -O/P [id number] 18 [id number] [facility] ([place] Other 0 [id number] Self [id number] Medicare Part B [facility] Other 0 [id number] Self 0 EMPIRE BLUE CROSS BLUE SHIELD -O/P [id number] 18 [id number] [place] [facility] Medigap Part B [id number] Self [id number] [place] Primary [id number] Self [id number] [place] Medicare Primary [id number] Self [id number] [place] Primary [id number] Self [id number] [place] Primary [id number] Self [id number] [place] Primary [id number] Self [id number] [place] Primary [id number] Self [id number] Problems, Conditions, and Diagnoses Code Display Name Description Problem Type Effective Dates Data Source(s) R55 Syncope and collapse Syncope and collapse Problem 08/15/2021 12:00:00 AM EDT [facility] ([facility]) I47.9 Paroxysmal tachycardia Paroxysmal tachycardia Problem 07/27/2021 12:00:00 AM EDT [facility] ([facility]) I45.3 Trifascicular block Trifascicular block Problem 0 07/27/2021 12:00:00 AM EDT [facility] ([facility]) R94.31 Electrocardiogram abnormal Electrocardiogram abnormal Problem 07/27/2021 12:00:00 AM EDT [facility] ([facility]) I10 Essential hypertension Essential hypertension Problem 07/27/2021 12:00:00 AM EDT [facility] ([facility]) I27.20 Pulmonary hypertension Pulmonary hypertension Problem 07/27/2021 12:00:00 AM EDT [facility] ([facility]) Z68.32 Body mass index 30+ - obesity Body mass index 30+ - ob esity Problem 07/27/2021 12:00:00 AM EDT [facility] ([facility]) J44.9 Chronic obstructive lung disease Chronic obstructive l karina disease Problem 07/27/2021 12:00:00 AM EDT [facility] ([facility]) R94.31 Electrocardiogram abnormal Electrocardiogram abnormal Problem 05/11/2021 12:00:00 AM EDT [facility] ([facility] M47.812 Cervical spondylosis without myelopathy Spondylosis without myelopathy or radiculopathy, cervical region Problem 07/30/2020 12:00:00 AM EDT eCW1 ([facility]) Surgeries/Procedures Procedure Description Date Indications Data Source(s) XTRNL PT ACTIVATED ECG RECORD MONITOR 30 DAYS 09/08/20 12:00:00 AM EST [facility] ([facility]) XTRNL PT ACTIVTD ECG DWNLD 30 DAYS PHYS R&I 09/08/2021 12:00:00 AM EST [facility] ([facility]) MYOCRD IMAGE PET PERFUS MULTPL STUDY REST/STRESS 09/05 12:00:00 AM EST [facility] ([facility]) CV STRS TST XERS&/OR RX CONT ECG I&R ONLY 09/05/2021 1 2:00:00 AM EST [facility] ([facility]) CV STRS TST XERS&/OR RX CONT ECG PHYS SI&R 08/25/2021 12:00:00 AM EDT [facility] ([facility]) OFFICE OUTPATIENT VISIT 25 MINUTES 08/15/2021 12:00:00 AM EDT [facility] ([facility]) ECG ROUTINE ECG W/LEAST 12 LDS W/I&R 07/27/2021 12:00: 00 AM EDT [facility] ([facility]) OFFICE OUTPATIENT NEW 60 MINUTES 07/27/2021 12:00:00 A M EDT [facility] ([facility]) OFFICE OUTPATIENT VISIT 25 MINUTES 06/16/2021 12:00:00 AM EDT MED[facility] ([facility] Electrocardiogram Complete 05/11/2021 12:00:00 AM EDT [facility] ([facility] OFFICE OUTPATIENT VISIT 25 MINUTES 05/11/2021 12:00:00 AM EDT [facility] ([facility] OFFICE OUTPATIENT VISIT 25 MINUTES 03/10/2021 12:00:00 AM EDT [facility] ([facility] OFFICE OUTPATIENT VISIT 25 MINUTES 12/09/2020 12:00:00 AM EST [facility] ([facility] Magnetic Resonance Angiography Neck With Contrast Materials 09/30/2020 12:00:00 AM EST [facility] ([facility] Magnetic Resonance Angiography Neck With Contrast Materials 09/30/2020 12:00:00 AM EST [facility] ([facility]) TSTG ANS FUNCJ CARDIOVAGAL INNERVAJ PARASYMP 0 12:00:00 AM EDT [facility] ([facility]) TSTG ANS FUNCJ CARDIOVAGAL INNERVAJ PARASYMP 0 12:00:00 AM EDT [facility] ([facility] TESTING AUTONOMIC NERVOUS SYSTEM FUNCTION 08/13/2020 1 2:00:00 AM EDT [facility] ([facility] TESTING AUTONOMIC NERVOUS SYSTEM FUNCTION 08/13/2020 1 2:00:00 AM EDT [facility] ([facility]) Magnetic Resonance Angiogtaphy Head W/O Contrast Material(S) 07/27/2020 12:00:00 AM EDT [facility] ([facility]) Magnetic Resonance Angiogtaphy Head W/O Contrast Material(S) 07/27/2020 12:00:00 AM EDT [facility] ([facility]) Magnetic Resonance Angiography Neck W/O Contrast Materials 07/27/2020 12:00:00 AM EDT [facility] ([facility]) Magnetic Resonance Angiography Neck W/O Contrast Materials 07/27/2020 12:00:00 AM EDT [facility] ([facility]) MRI Upper Extremity Joint 07/27/2020 12:00:00 AM EDT [facility] ([facility]) MRI Upper Extremity Joint 07/27/2020 12:00:00 AM EDT [facility] ([facility]) Results ID Date Data Source [id number] 09/05/2021 02:45:00 PM EST [facility] Name Value Range Interpretation Code Description Data Tatiana rce(s) Supporting Document(s) Follow Up [facility] TTBOFf0sSeFMZlExEIVvNtaIMTklWBinQISnK4M9RRcfUh1MVQqzrsIsBSQyAf8+RKWzYA9tkc3dETUk gMy [file] DEL RIO/JNfAPGq4kGtrfkl8w7kI4MSr3NcNalnOWV6uUbeqofHs1EsBzX6ShrWltYVfzg/0a9fFEXD5TWIfZ [file] 8Q9YlCFuV2dLwxaDPb8isGhXC5Vf/DEL RIO/FogCpbKeEp [file] del rio+T94v1at+qovVaCbzgoVKKYXh5bitnJeRllNWzHa [file] 8GcoipKTIa62OHrXB/FYAljWvvZG/DRUf6lqI6/commissioning specialist [file] V7XxouqaQH4gd/60U6H6H6tjNtQsbqEU4bb675c40SL/IBXJjHGcIcmDj70xuHJSslSyEhF74yGL/software configuration specialist [file] pV44hfw9qc5ADWESmMQRBQUo+bTdEDXX72ICz6IGI8nGGwLJix2qnIzz/3p8EQtY4/6JHMbBYcOto/[place] [file] 0FNz5aXeaXSDrbbCrM1WiKfbw8zMDTaCdJgmTllXdV1RhRHbqs+NaLRlwEsNj9Y55+Cat Wagon Operator/boHBRw54uOq [file] [place]/UwVOnLZObYEIzG21ecg5jpo5oQuiTOiqSSC32mW+mDHbYLJ3aiiU2Brj65Fn0L9THdBe0ydNBKgzV [file] [place]/nXfbn9m3aSKByKQbrsvQDKLQ3e7X+C/1LEQxcomOium46YQUDbA9xqgeD3RMBp+RNcdvfU5pzQqtI [file] K7JlF47UgySNF+bottle capper/GUg/uNQmBxO0FhjBDqUSOu89S [file] [place]/l9Bm6slmcyfGMdPbBb7iJJ8W+Mkns/toDd84RsIynUUQ6ZDZiSGRHoR+9oGt/isGVgQrAr4A4giPI [file] Abf4axc0QL3KG9/kIG+beck operator+IlTaOtzymky9rlsOVnV+ [file] srlY/beck operator+rTeV0U/5IcOimdhSHr+3bW5JGJ2PEwI5aw/ZvKm7LQ/Send04vqhxSd+tn7IF+cvWs8Mp9IN [file] RvBtvDkC6IJrP2U34L3eZxcGEEOfa3ZnoaRo5Gn4V/nqpXiuz3WyBEFOC6qfllMqVzcd+[place]/ayl/Txlw 59kITNqbBlpO0nW+XO2Rr9o+yNr4UIkr5FrQGmkNXPEtB9z5lByomun3qxzLaD45yqdrCwVfVGgPCF7P 0ye02Vj27lari2AzFPfxTabxnabwGAtpaQOlbjM+Z/ jnxeAq2WEN7r7smJk0+nS+RvnbB2EJjNSxiTGj/RcbJm7C5hjhy6Hl+wEfyDsFu1ZDaxDmvFoe00/Tiffanie [file] guh0X3Om2OwqwwWIVUOrsWbcnYA+Cat Wagon Operator//xWOLSs/UN5vDYA7lq0fYFDym7nkiYZ11CcNwH0gpdVYK2szx [file] GYbGIAAAUbC+iVQfDcMBE1mlNooY9XRQ6ld8VhHS7Ul2KdilY5rhGcXGhzARU0HmB7KIkkDORUFn== ID Date Data Source [id number] 07/28/2021 01:45:00 PM EDT [facility] Name Value Range Interpretation Code Description Data Tatiana rce(s) Supporting Document(s) First Visit [facility] QRZTWi6lVrTKSbYlUEWfOrcCAAcwGCqzMYNlZ6I3WIlcXn0LKYiuyoMwWYHlQt4+XZQiBM7rue5rLHLb gMy [file] X3KOU77RrSTEQUQuREnOakRbTmoHug7+twPkKyqb27byZfgujwczwZ3cmW5C1ZwqBaqnGepD/chloé+Qut yJizvc0gUb71WtSO0oKRuzN7esjsrFFAeQt9bg60LGc4xsGwfqM14WC73EsU9juRiq65Xa12seVMwnpZ i19qMEzl0/H6gSq3GBLeWhxilDhlpMg9aE862hX4Af Pn/NavPDcSPqYIM92mqGGP0t037gPTn4zg1D5j1a1OnZfxk2f9UPovewTTOMg5A9JG2eNZz+3kuOuLAw O7/gCJ96Mvsk2QwhEfBWdmudg7jnQPYHyxm6qfdov3uI5noVw3L1270b2BPaktIl+cRHbWebzHaofA7Y Tkbe8pIo3oGO5r6MLBzVhOROTlQBZ8+EIn9f6x1Grd sWzfpN2uytAipuPHelIRQDcmWNYTkU70ESnRLxMvcLzMTbTVDLXFHELTATU8sRwmkw6mO9oE9vhgS4ZJ eLaIKvFhziyWPelIQ9PDT8mNG82DoSK9Sf2/W9aYrtByNiB6bmYDIaLMmYdsEqP0gSgxpacDwuSvcTJ5 TeSaFsiVY4+a2+D4Nov5PC26zBuwVkv1kF+HMXpP56 XAb/rF7tNZlKFKNDsOuSljYj/mhKcJ185+mcgee/OgSg+JYD1cS48SxkylHsyTTwpDr6Kdcbp+TjUATh1kk [file] Cn499lpveTWBfRugbFzttfjS7IYLUkqZNPiyWYGqUyEieJG24UGx5zO7z4Zm41zCXFwixp++bottle capper+V/0V4 [file] ftkynVpe1MyFPdM87M6c/DEL RIO+tWw3L2rGfoB7CWAlwsVtnzpGL4j8okklaFw1TRziVv7QkN/RHfeyr/V5 [file] TIZ439CmryZKz9fs/0zaELUdAW/del rio+1lLQRtkNsX+WDaQwTlteBAJpmitzN3+mcrS1+pgFTxa2KXClb+ [file] OL+1P2CnQ5J2VOg8135h1n+W455H3WvgFW/4nC2kms SHfNKvoJ7cCJk7x2sCVRP0AQzlwfRbLjVMHf0XK4NZPvh+hvs6MiGeug8K/Z1m2Lrw6R5Dt6d7YIBTBY RNiRILIeBvg/i2GkNaZwULdk+Z7Gf8ijLf+eQDimQJD7LsfD5MkElwOSAuRixKMqidxSSPkhopjx6pYb F95MOBJmxIqpq+uZ7ubQ4tJ8Kq+7WzOY77+6pc/eOm zi1rpuHx3ZfB2ckwzrQsXmiYLrr8Ep+I/qttDG/gzTdiu+qVty6Kt0XeqzTmzWIzRkz5pq1CrtIcaJI8 QvausdnGcyN5LNXs9JYroLGQui0KBFq/o63OsQAmdJPDBoDZndX5BWsyRsCQaRoBNGwu7ovvdK9iD0da ywvXxSIGztJzxBQuY6U/3BSXei0hso4oZ3i7uLNYP2 cNNSp0qfqrHkcelH/MjFTe7ZIc18Q0R2Q8JSYyXjDP/kABHvqIa8o4pQhtXP2TKjts38xRH+8AAt/l17 6x3bBiTh1obSIts12stkrALYL+tvwUbpzwLC0iCsM+wSZf8aW6Cbv/GtcN6tF8p75br3+rVINAxVJMri C1K0AXLfVoe8U+m7p8jem8hDy9zyRXzhvCCDYuDc+F uQonCvnvPVWEQNYnU4Mb8kej0H8Ifud8YswBukS4Wy02Ddv6v2ppoYJvpFcgAnRLEnhH5xGM06ul7z1E Wv0Jmp2KcQnYpyncZHTDdEfUYh3c802YUlBHOrK9/pcNQSZfZOGYJn55uHAznMfZAfjC3Q7pVNRsmraO form maker+KSYbMm0q74aVdYDBJ+eoONl8ABuV6+D8s2LsmN gIr/gMc9OYa/SJ7CgheCsguC/ooXKLKvDx2lL90+sBD9ETFpXTJ+qgHD2ioJDnNRefih1wTXTLqHlhzE BIUJigZIP4OHmg+WeeVbuN3uy+jwz3Ltr6rZNtIXlWvxXHaNPV1IfO8OySxye+PkN2nNxO3+9x1uOCd3 GVWq6UwXdKPS+QGJNbVCpk5CMkksV6lg22PHzU1KXK LwpSDRIwnzsAeuC11HXESdVDdFUL9Uuqlx94PcX8YIZ8qDfLBhFu2XZFqyaHmnz2prAUKJeqvfmvuLtF bi8yv1S8TyVt8Us3UGJuwoHL84RLOd4ojdz0TUZ99B2WJEEmKpKd/DB8q061YXToZ/XH5wZe5shdHpRr cfpkuKy27m+FfYg/OVe0MNj9ScLpQ/UXxLNKLrqsYO MG8yI2NHinRy4WyxefOLApx/vQJ4Q+Q3M4QTAE/te6w5NxVX+ekLAdw+fNfUfVXOHXJ5TjAK3mLf38lW bPQV9jMVadvdH3gvvGJI56c1b7lOa4LIjLDl5BzunKbpRLgptJYoSw95PSCRAdVyDbtvO+mmuFvpH8Zn sOUgCBJnCeY19njOLHy2mPLAg29y9fC/p1zvFI/asc E5nFUIuAzRwI6VmoVMugy+0rXM4nqlrostZsar1+lfabAHvxrY+aB68VsjI3DbFhXXOA8xBhQf44mGm7 lf3TIzOwzcbw+fxAB4WtWh4uZEwChESlHeuigWAfhNGDwwu1A6wvm88jP639sdmsHwEnUaIvc/VOc+vx /nTGi1jWxlMXJfJugZnvb65koe76yF1l1mFk4Fqeyh tFLBBcHPq/Bq0BW7xKzZhQ4SN7jIwAcE1uooYk1Xzx/sIqqprJ/0H0ZhKMQjvHO2cz4pxLmKR/gaNGsO qI2WJWTK1NW00NUjL1SI9+xz/q/npC3UtR0Y2cRBbxQ/ZKjwBoUoD5pBzRxJ7Qea/HVl9t79T1Nr+Clarence [file] Jacx7kELgyeVkUFaiQiKPInjW6bq3pr6y6DqXP+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/UMYoP7VarEB74+La3D3o/DmwzKedLI6f7bd7oe [file] eJWo/YIN+r+5OCKhpOz0wRTJMLnU6Znwu8NDaR+7AQa 3v5wBfQn1ADNsLlCZq9at8jejPz5jSKuBlcl2cVeIK/u+YxFLUdFjiZuYoX7G3fg/QzLjF2Gwb2wR2I8 fTZKztxCWWi/rzztctHB+4mpt39UaxwhkXO5O+wo3UV5bbzslH/Tge/+lxavEJukw7NtqtMELkoDS56d j9Vy5yC+JD311wMa4AWb5rTZwTCjfYB7gyfMhMtOF1 OAM3DQZBHbkreR0EINs5fkP3jmcDUcEjupOR7T80uVoJLKd0eKOvNCkxuQi3NZMZmM0lBXqKYc1W/wyL Rg3lHptnopOKSngTyz7FWHR5b0wvw/2c1oPsfP6K4oKNdLCjAMY2S5H5b1C3Cei8NhfnUUMXgEoivVNt u9aBnG//V+wucV1iwlnK0Rk/Adny4rCJNjIkMw2uow /Nt9xDL5eGCHE87GjCInL9QoS6qpZgJ75fDq1IqRt2H5B4qpyLCEJQJiFM6I5F2xKfpdg81joE24xuIv VZZmZvkWfxi3CLeKXU8tBiTQgMr589uGGYRf3L7G1a91VZHEMyETR1V2h5lMw2QcPLvXa5LW8+Zv3ry5 dU3Xn8P+VbzvHhoMTXIMPLuS0SBSvc0ECkcK3fw1Nr +35aeYWukHt/Xh0wGQf/Wv84lLZ7FvtyW3B6UJN8Yyf/WukDWyuajxNVyJIoYasNq4WFheruuJBqP0EO SuUNx2BIPBN3b+rd6/KEkWf1mVUyoYU/0bMMz4J+8cTqmcm8Stwwg21ZVbZoGMkXJEVq9FeeN3yb9ixM d2gw3NT8Xfrgs/vGh2+jF8M2aD3S91ZVkf46MaYlS5 3rXh4kDC1VKEzPKHAS5pCqFmKqov0AsAJLm/f+IVgq839DUkGQklLMH/ZPqJUnXtOtHKMB3+4fG3KrmJ +B7QQdz+avHROxI3aHvktXvONpOuJTvvWWq4pjC3/+tT709yZm20rqmcIqYbCSXhY+V4lKYaAFCFnwIF Production Assembly Operator+3CRUIcJ3YxLzvW0bE5P5FXAaFEjS+uYC5pas9R [file] [place]+fWf3NCul9Az2/ykVP4QQZmOvgSYwTACLS7JkQfg5gv+E0DnQ9rlK7p13dyfT2idsqT7zTDtvmyRsc [file] I+6ugd+MVP928VRvdliDrBcnZo/T5weEw8/oA [file] 7qttS1rvh8sNQHAfcnxjWqbn5k4I/3bVZGG/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 [file] j4UXHQTZnBibJgfjeL+cOECTB3QpbTo9y8lNNVOIYi z8mbNe6jS9QUphE+DGjBLZQoQ37/fsNeYhwslcH1+2pHoPzrVPL3Dap3XBjEra9FlXO36Wn/tEL1LzFq KmZPgWADj01Gu39keiWQ+x+f7zRa0Uv/RHI+Hgxq020I/IOMb/SD1pMEcdrjLTFfwHZ8jRrfsGslxv2S XZJsScE5rL34X0qHEr8h5JM5IpBuAIWcJSjH9lKCcw /oe/dUBXgzqUFy9i7BVsKiJxoAVAH8+SwvI8oZThsP0RFxe+ps+fpIfpbS5Bscp5aYKCw2775e7fz3Wu gZfNdTuVQ0n8svoHwCw91Xrsc/QugkP+AyL22zPJyQK50dZ4+yNgo0XGg+DXOlrINn0DtIG3WYMeoy5G cDD3XFly9ngCN+8vtJNB1D3PJG5ZOcuXF+KXcay1o/ Q/lxdGPi+wEJU+lEbWZLAeYtnNyRzlVMHSvqogXK7e4ozH6f96TP4qSyekgsVaQzgdVDG+zvYMC24cM5 kde4tqnYo9/3HAL98s7S6YVU0i00krE7SlY2TlaAs5PusT9ZZeaivAqde0oPXyDx3jVoEFIuSjp0H9Fz 0rmJMc4Czrk3GP4JpTCo9evfmTXStFdY6MhoMsbOyo 3b4wQJX3ui6V5JE7Rl1EpgALm9/orPpdp2mLjJ4v4sILLkj4mMG8dp1gEtPUvfAI38WGbSPJTf9IfCCx qAFP+beck operator/8eAqwdJ9nkyYOc7o8peFY+VGG4jq8T16ZAq8L7RamIz/NcpKrPut/7H42I2Wb+c4yfF+/7Ha [file] JUAN DAVID+V+5AqUJcl8LZ6flCdkFhVuraLgDi1bOsgsFx6Z77YgM1QUd6kRV88qM/3D/LHLpUTRGzu6wcUWvL e891P4VUz/R/P4HPtA8Y2flCQO6uQc3cjNRBa4Ns5e4HA3T6X8AbfOT93gUnnMrNysBOI0QZSRfBBJzy 2AU3ftoor+9zCbC31qLm+WrXQbtb4FkBnCir9FFlt7 Sp/HAg4FreImb6wqyj91dDjIimBnK4q/Lexis/i4yj5vBMpjfTMKnmacmkmE0jFYcVKGtNUYndIjrkwPyLh [file] 1/jCb4CSHLw4ZVV0CJHNG/TAruz+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) Name Value Range Interpretation Code Description Data Tatiana rce(s) Supporting Document(s) Hemoglobin A1c/Hemoglobin.total in Blood 7.5 % 4.50-6.20 [facility]) ID Date Data Source [id number] 06/16/2021 02:02:00 PM EDT [facility] ([facility] Name Value Range Interpretation Code Description Data Tatiana rce(s) Supporting Document(s) Hemoglobin A1c/Hemoglobin.total in Blood 7.5 % 4.50-6.20 Above high normal [facility] ([facility] ID Date Data Source [id number] 05/30/2021 10:56:00 AM EDT [facility] ([facility] Name Value Range Interpretation Code Description Data Tatiana rce(s) Supporting Document(s) Gamma glutamyl transferase [Enzymatic activity/volume] in Serum or Plasma 67 IU/L 0-65 Above high normal [facility] ([facility] Mitochondrial (M2) Antibody Laboratory test result 0.0-20.0 [facility] ([facility] Negative 0.0 - 20.0 Equivocal 20.1 - 24.9 Positive >24.9 Mitochondrial (M2) Antibodies are found in 90-96% of patients with primary biliary cirrhosis. Ceruloplasmin [Mass/volume] in Serum or Plasma 28.4 mg/dL 16.0-31.0 [facility] ([facility] Ferritin [Mass/volume] in Serum or Plasma 87 ng/mL 30-400 [facility] ([facility] Amylase [Enzymatic activity/volume] in Serum or Plasma 199 U/L 31-110 Above high normal [facility] ([facility] ) Lipoprotein lipase [Enzymatic activity/volume] in Serum or Plasm a 350 U/L 13-78 Above high normal [facility] ([facility] ) Results confirmed on dilution. ID Date Data Source [id number] 05/11/2021 12:54:00 PM EDT [facility] ([facility]) Name Value Range Interpretation Code Description Data Tatiana rce(s) Supporting Document(s) Thyroxine (T4) free [Mass/volume] in Serum or Plasma 1.21 ng/dL 0.75- 1.54 [facility] ([facility]) NORMAL RANGES Age WBC RBC HGB HCT [...] HCT IS 5% LESS SOURCE FOR DATA: [employer] 1800 OPERATION MANUAL( AUTOMATED BLOOD COUNTS AND [...] Normal 80 and above >32 mL/min Normal Thyrotropin [Units/volume] in Serum or Plasma 2.155 ulU/mL 0.60-4.8 [facility]) NORMAL RANGES Age WBC RBC HGB HCT [...] HCT IS 5% LESS SOURCE FOR DATA: [employer] 1800 OPERATION MANUAL( AUTOMATED BLOOD COUNTS AND [...] Normal 80 and above >32 mL/min Normal ID Date Data Source [id number] 05/11/2021 12:54:00 PM EDT [facility] ([facility]) Name Value Range Interpretation Code Description Data Tatiana rce(s) Supporting Document(s) BUN 25 mg/dL 8-23 [facility] ([facility]) NORMAL RANGES Age WBC RBC HGB HCT [...] HCT IS 5% LESS SOURCE FOR DATA: [employer] 1800 OPERATION MANUAL( AUTOMATED BLOOD COUNTS AND [...] Normal 80 and above >32 mL/min Normal Glu 260 mg/dL 70-110 [facility]) NORMAL RANGES Age WBC RBC HGB HCT [...] HCT IS 5% LESS SOURCE FOR DATA: [employer] 1800 OPERATION MANUAL( AUTOMATED BLOOD COUNTS [...] Normal 80 and above >32 mL/min Normal Urea nitrogen/Creatinine [Mass Ratio] in Serum or Plasma 21.0 Calc [employer] ([facility]) NORMAL RANGES Age WBC RBC HGB HCT [...] HCT IS 5% LESS SOURCE FOR DATA: [employer] 1800 OPERATION MANUAL( AUTOMATED BLOOD COUNTS AND [...] Normal 80 and above >32 mL/min Normal Creat 1.2 mg/dL 0.7-1.2 [facility]) NORMAL RANGES Age WBC RBC HGB HCT [...] HCT IS 5% LESS SOURCE FOR DATA: [employer] 1800 OPERATION MANUAL( AUTOMATED BLOOD COUNTS AND [...] Normal 80 and above >32 mL/min Normal Na 132 mmol/L 136-145 [facility] ([facility]) NORMAL RANGES Age WBC RBC HGB HCT [...] HCT IS 5% LESS SOURCE FOR DATA: [employer] 1800 OPERATION MANUAL( AUTOMATED BLOOD COUNTS AND [...] Normal 80 and above >32 mL/min Normal CL 95.0 mmol/L 98.0-107.0 [facility] ([facility]) NORMAL RANGES Age WBC RBC HGB HCT [...] HCT IS 5% LESS SOURCE FOR DATA: [employer] 1800 OPERATION MANUAL( AUTOMATED BLOOD COUNTS AND [...] Normal 80 and above >32 mL/min Normal K 4.6 mmol/L 3.5-5.1 [facility] ([facility]) NORMAL RANGES Age WBC RBC HGB HCT [...] HCT IS 5% LESS SOURCE FOR DATA: [employer] 1800 OPERATION MANUAL( AUTOMATED BLOOD COUNTS AND [...] Normal 80 and above >32 mL/min Normal Co2 22.7 mmol/L 22.0-29.0 [facility] ([facility]) NORMAL RANGES Age WBC RBC HGB HCT [...] HCT IS 5% LESS SOURCE FOR DATA: [employer] 1800 OPERATION MANUAL( AUTOMATED BLOOD COUNTS AND [...] Normal 80 and above >32 mL/min Normal CA 9.4 mg/dL 8.6-10.2 [facility]) NORMAL RANGES Age WBC RBC HGB HCT [...] HCT IS 5% LESS SOURCE FOR DATA: [employer] 1800 OPERATION MANUAL( AUTOMATED BLOOD COUNTS AND [...] Normal 80 and above >32 mL/min Normal TP 6.8 g/dL 6.6-8.7 [facility] ([facility]) NORMAL RANGES Age WBC RBC HGB HCT [...] HCT IS 5% LESS SOURCE FOR DATA: [employer] 1800 OPERATION MANUAL( AUTOMATED BLOOD COUNTS AND [...] Normal 80 and above >32 mL/min Normal A/G Ratio 1.4 Calc [facility] ([facility]) NORMAL RANGES Age WBC RBC HGB HCT [...] HCT IS 5% LESS SOURCE FOR DATA: [employer] 1800 OPERATION MANUAL( AUTOMATED BLOOD COUNTS AND [...] Normal 80 and above >32 mL/min Normal Alb 4.0 g/dL 3.5-5.2 [facility] ([facility]) NORMAL RANGES Age WBC RBC HGB HCT [...] HCT IS 5% LESS SOURCE FOR DATA: [employer] 1800 OPERATION MANUAL( AUTOMATED BLOOD COUNTS [...] Normal 80 and above >32 mL/min Normal Globulin [Mass/volume] in Serum by calculation 2.8 Calc [facility] ([facility]) NORMAL RANGES Age WBC RBC HGB HCT [...] HCT IS 5% LESS SOURCE FOR DATA: [employer] 1800 OPERATION MANUAL( AUTOMATED BLOOD COUNTS [...] Normal 80 and above >32 mL/min Normal Alanine aminotransferase [Enzymatic activity/volume] in Seru m or Plasma 34 U/L 0-41 [facility] ([facility]) NORMAL RANGES Age WBC RBC HGB HCT [...] HCT IS 5% LESS SOURCE FOR DATA: [employer] 1800 OPERATION MANUAL( AUTOMATED BLOOD COUNTS AND [...] Normal 80 and above >32 mL/min Normal Alp 142.8 U/L 40-129 [facility] ([facility]) NORMAL RANGES Age WBC RBC HGB HCT [...] HCT IS 5% LESS SOURCE FOR DATA: [employer] 1800 OPERATION MANUAL( AUTOMATED BLOOD COUNTS AND [...] Normal 80 and above >32 mL/min Normal Tbili 0.51 mg/dL 0.0-1.2 [facility] ([facility]) NORMAL RANGES Age WBC RBC HGB HCT [...] HCT IS 5% LESS SOURCE FOR DATA: [employer] 1800 OPERATION MANUAL( AUTOMATED BLOOD COUNTS AND [...] Normal 80 and above >32 mL/min Normal Aspartate aminotransferase [Enzymatic activity/volume] in Serum or Plasma 50 U/L 0-40 [facility] ([facility] [employer] [facility]) NORMAL RANGES Age WBC RBC HGB HCT [...] HCT IS 5% LESS SOURCE FOR DATA: [employer] 1800 OPERATION MANUAL( AUTOMATED BLOOD COUNTS AND [...] Normal 80 and above >32 mL/min Normal Osmolality-Calculated 277.0 Calc [facility] ([facility]) NORMAL RANGES Age WBC RBC HGB HCT [...] HCT IS 5% LESS SOURCE FOR DATA: [employer] 1800 OPERATION MANUAL( AUTOMATED BLOOD COUNTS AND [...] Normal 80 and above >32 mL/min Normal Anion gap in Serum or Plasma 18 mmol/L [facility] ([facility]) NORMAL RANGES Age WBC RBC HGB HCT [...] HCT IS 5% LESS SOURCE FOR DATA: [employer] 1800 OPERATION MANUAL( AUTOMATED BLOOD COUNTS AND [...] Normal 80 and above >32 mL/min Normal eGFR 73 # [facility] ( [facility]) NORMAL RANGES Age WBC RBC HGB HCT [...] HCT IS 5% LESS SOURCE FOR DATA: [employer] 1800 OPERATION MANUAL( AUTOMATED BLOOD COUNTS AND [...] Normal 80 and above >32 mL/min Normal eGFR Non-Afr. Kenyan 63 # [facility] ([facility]) NORMAL RANGES Age WBC RBC HGB HCT [...] HCT IS 5% LESS SOURCE FOR DATA: [employer] 1800 OPERATION MANUAL( AUTOMATED BLOOD COUNTS AND [...] Normal 80 and above >32 mL/min Normal ID Date Data Source [id number] 05/11/2021 12:54:00 PM EDT [facility] ([facility]) Name Value Range Interpretation Code Description Data Tatiana rce(s) Supporting Document(s) RBC 4.25 10E6/uL 4.20-6.30 [facility]) NORMAL RANGES Age WBC RBC HGB HCT [...] HCT IS 5% LESS SOURCE FOR DATA: [employer] 1800 OPERATION MANUAL( AUTOMATED BLOOD COUNTS [...] Normal 80 and above >32 mL/min Normal WBC 6.1 10E3/uL 4.1-10.9 [facility] ([facility]) NORMAL RANGES Age WBC RBC HGB HCT [...] HCT IS 5% LESS SOURCE FOR DATA: [employer] 1800 OPERATION MANUAL( AUTOMATED BLOOD COUNTS AND [...] Normal 80 and above >32 mL/min Normal HGB 14.0 g/dL 12.0-18.0 [facility] ([facility]) NORMAL RANGES Age WBC RBC HGB HCT [...] HCT IS 5% LESS SOURCE FOR DATA: [employer] 1800 OPERATION MANUAL( AUTOMATED BLOOD COUNTS AND [...] Normal 80 and above >32 mL/min Normal MCV 92.9 fL 80.0-97.0 [facility]) NORMAL RANGES Age WBC RBC HGB HCT [...] HCT IS 5% LESS SOURCE FOR DATA: [employer] 1800 OPERATION MANUAL( AUTOMATED BLOOD COUNTS AND [...] Normal 80 and above >32 mL/min Normal HCT 39.5 % 37.0-51.0 [facility] ([facility]) NORMAL RANGES Age WBC RBC HGB HCT [...] HCT IS 5% LESS SOURCE FOR DATA: [employer] 1800 OPERATION MANUAL( AUTOMATED BLOOD COUNTS AND [...] Normal 80 and above >32 mL/min Normal MCH 32.9 pg 26.0-32.0 [facility] ([facility]) NORMAL RANGES Age WBC RBC HGB HCT [...] HCT IS 5% LESS SOURCE FOR DATA: [employer] 1800 OPERATION MANUAL( AUTOMATED BLOOD COUNTS AND [...] Normal 80 and above >32 mL/min Normal MCHC 35.4 g/dL 31.0-36.0 [facility] ([facility]) NORMAL RANGES Age WBC RBC HGB HCT [...] HCT IS 5% LESS SOURCE FOR DATA: [employer] 1800 OPERATION MANUAL( AUTOMATED BLOOD COUNTS AND [...] Normal 80 and above >32 mL/min Normal PLT 147 10E3/uL 140-440 [facility] ([facility]) NORMAL RANGES Age WBC RBC HGB HCT [...] HCT IS 5% LESS SOURCE FOR DATA: [employer] 1800 OPERATION MANUAL( AUTOMATED BLOOD COUNTS AND [...] Normal 80 and above >32 mL/min Normal RDW-CV 13.9 % 11.5-14.5 [facility] ([facility]iology [facility]) NORMAL RANGES Age WBC RBC HGB HCT [...] HCT IS 5% LESS SOURCE FOR DATA: [employer] 1800 OPERATION MANUAL( AUTOMATED BLOOD COUNTS AND [...] Normal 80 and above >32 mL/min Normal Lym% 17.4 % 10.0-58.5 [facility] (Cardiology A ss[facility]) NORMAL RANGES Age WBC RBC HGB HCT [...] HCT IS 5% LESS SOURCE FOR DATA: [employer] 1800 OPERATION MANUAL( AUTOMATED BLOOD COUNTS AND [...] Normal 80 and above >32 mL/min Normal Neut% 72.1 % 37.0-92.0 [facility] ([facility]) NORMAL RANGES Age WBC RBC HGB HCT [...] HCT IS 5% LESS SOURCE FOR DATA: [employer] DYN 1800 OPERATION MANUAL( AUTOMATED BLOOD COUNTS [...] Normal 80 and above >32 mL/min Normal MXD% 10.5 % 0.1-24.0 [facility] ([facility]) NORMAL RANGES Age WBC RBC HGB HCT [...] HCT IS 5% LESS SOURCE FOR DATA: [employer] 1800 OPERATION MANUAL( AUTOMATED BLOOD COUNTS AND [...] Normal 80 and above >32 mL/min Normal Lym# 1.1 10E3/uL 0.6-4.1 [facility] ([facility]) NORMAL RANGES Age WBC RBC HGB HCT [...] HCT IS 5% LESS SOURCE FOR DATA: [employer] 1800 OPERATION MANUAL( AUTOMATED BLOOD COUNTS AND [...] Normal 80 and above >32 mL/min Normal Neutrophils [#/volume] in Semen by Manual count 4.4 % 2.0-7.8 [facility] ([facility]) NORMAL RANGES Age WBC RBC HGB HCT [...] HCT IS 5% LESS SOURCE FOR DATA: [employer] 1800 OPERATION MANUAL( AUTOMATED BLOOD COUNTS AND [...] Normal 80 and above >32 mL/min Normal MXD# 0.6 10E3/uL 0.0-1.8 [facility] ([facility]) NORMAL RANGES Age WBC RBC HGB HCT [...] HCT IS 5% LESS SOURCE FOR DATA: [employer] 1800 OPERATION MANUAL( AUTOMATED BLOOD COUNTS AND [...] Normal 80 and above >32 mL/min Normal Platelet mean volume [Entitic volume] in Blood by Cesar 10.8 f L 9.0-13.0 [facility] ([facility]) NORMAL RANGES Age WBC RBC HGB HCT [...] HCT IS 5% LESS SOURCE FOR DATA: [employer] 1800 OPERATION MANUAL( AUTOMATED BLOOD COUNTS AND [...] Normal 80 and above >32 mL/min Normal ID Date Data Source [id number] 05/11/2021 12:54:00 PM EDT [facility] [employer] [facility] Name Value Range Interpretation Code Description Data Tatiana rce(s) Supporting Document(s) Thyroxine (T4) free [Mass/volume] in Serum or Plasma 1.21 ng/dL 0.75- 1.54 [facility] ([facility] Thyrotropin [Units/volume] in Serum or Plasma 2.155 ulU/mL 0.60-4.8 [facility] ([facility] ID Date Data Source [id number] 05/11/2021 12:54:00 PM EDT [facility] ([facility] Name Value Range Interpretation Code Description Data Tatiana rce(s) Supporting Document(s) Glu 260 mg/dL 70-110 Above high normal [facility] NORMAL RANGES Age WBC RBC HGB HCT [...] HCT IS 5% LESS SOURCE FOR DATA: [employer] 1800 OPERATION MANUAL( AUTOMATED BLOOD COUNTS [...] Normal 80 and above >32 mL/min Normal BUN 25 mg/dL 8-23 Above high normal [facility] ([facility] NORMAL RANGES Age WBC RBC HGB HCT [...] HCT IS 5% LESS SOURCE FOR DATA: [employer] 1800 OPERATION MANUAL( AUTOMATED BLOOD COUNTS AND [...] Normal 80 and above >32 mL/min Normal Creat 1.2 mg/dL 0.7-1.2 [facility] NORMAL RANGES Age WBC RBC HGB HCT [...] HCT IS 5% LESS SOURCE FOR DATA: [employer] 1800 OPERATION MANUAL( AUTOMATED BLOOD COUNTS AND [...] Normal 80 and above >32 mL/min Normal BUN/Creatinine Ratio 21.0 Calc [facility] ([facility] NORMAL RANGES Age WBC RBC HGB HCT [...] HCT IS 5% LESS SOURCE FOR DATA: [employer] 1800 OPERATION MANUAL( AUTOMATED BLOOD COUNTS AND [...] Normal 80 and above >32 mL/min Normal Na 132 mmol/L 136-145 Below low normal [facility] ( [facility] NORMAL RANGES Age WBC RBC HGB HCT [...] HCT IS 5% LESS SOURCE FOR DATA: [employer] 1800 OPERATION MANUAL( AUTOMATED BLOOD COUNTS AND [...] Normal 80 and above >32 mL/min Normal CL 95.0 mmol/L 98.0-107.0 Below low normal [facility] ([facility] NORMAL RANGES Age WBC RBC HGB HCT [...] HCT IS 5% LESS SOURCE FOR DATA: [employer] 1800 OPERATION MANUAL( AUTOMATED BLOOD COUNTS AND [...] Normal 80 and above >32 mL/min Normal K 4.6 mmol/L 3.5-5.1 [facility] NORMAL RANGES Age WBC RBC HGB HCT [...] HCT IS 5% LESS SOURCE FOR DATA: [employer] 1800 OPERATION MANUAL( AUTOMATED BLOOD COUNTS AND [...] Normal 80 and above >32 mL/min Normal TP 6.8 g/dL 6.6-8.7 [facility] ([facility] NORMAL RANGES Age WBC RBC HGB HCT [...] HCT IS 5% LESS SOURCE FOR DATA: [employer] 1800 OPERATION MANUAL( AUTOMATED BLOOD COUNTS AND [...] Normal 80 and above >32 mL/min Normal CA 9.4 mg/dL 8.6-10.2 [facility] ([facility] NORMAL RANGES Age WBC RBC HGB HCT [...] HCT IS 5% LESS SOURCE FOR DATA: [employer] 1800 OPERATION MANUAL( AUTOMATED BLOOD COUNTS AND [...] Normal 80 and above >32 mL/min Normal Co2 22.7 mmol/L 22.0-29.0 [facility] ([facility] NORMAL RANGES Age WBC RBC HGB HCT [...] HCT IS 5% LESS SOURCE FOR DATA: [employer] DYN 1800 OPERATION MANUAL( AUTOMATED BLOOD COUNTS [...] Normal 80 and above >32 mL/min Normal A/G Ratio 1.4 Calc [employer] [facility] NORMAL RANGES Age WBC RBC HGB HCT [...] HCT IS 5% LESS SOURCE FOR DATA: [employer] 1800 OPERATION MANUAL( AUTOMATED BLOOD COUNTS AND [...] Normal 80 and above >32 mL/min Normal Alb 4.0 g/dL 3.5-5.2 [facility] ([facility] NORMAL RANGES Age WBC RBC HGB HCT [...] HCT IS 5% LESS SOURCE FOR DATA: [employer] 1800 OPERATION MANUAL( AUTOMATED BLOOD COUNTS AND [...] Normal 80 and above >32 mL/min Normal Globulin 2.8 Calc [facility] ([facility] NORMAL RANGES Age WBC RBC HGB HCT [...] HCT IS 5% LESS SOURCE FOR DATA: [employer] 1800 OPERATION MANUAL( AUTOMATED BLOOD COUNTS AND [...] Normal 80 and above >32 mL/min Normal Alp 142.8 U/L 40-129 Above high normal [facility] ([facility] NORMAL RANGES Age WBC RBC HGB HCT [...] HCT IS 5% LESS SOURCE FOR DATA: [employer] 1800 OPERATION MANUAL( AUTOMATED BLOOD COUNTS AND [...] Normal 80 and above >32 mL/min Normal Ast (Sgot) 50 U/L 0-40 Above high normal [facility] ([facility] NORMAL RANGES Age WBC RBC HGB HCT [...] HCT IS 5% LESS SOURCE FOR DATA: [employer] 1800 OPERATION MANUAL( AUTOMATED BLOOD COUNTS AND [...] Normal 80 and above >32 mL/min Normal Alt (SGPT) 34 U/L 0-41 [facility] ([facility] NORMAL RANGES Age WBC RBC HGB HCT [...] HCT IS 5% LESS SOURCE FOR DATA: [employer] 1800 OPERATION MANUAL( AUTOMATED BLOOD COUNTS AND [...] Normal 80 and above >32 mL/min Normal Tbili 0.51 mg/dL 0.0-1.2 [facility] ([facility] NORMAL RANGES Age WBC RBC HGB HCT [...] HCT IS 5% LESS SOURCE FOR DATA: [employer] DYN 1800 OPERATION MANUAL( AUTOMATED BLOOD COUNTS [...] Normal 80 and above >32 mL/min Normal Osmolality-Calculated 277.0 Calc [facility] ([facility] NORMAL RANGES Age WBC RBC HGB HCT [...] HCT IS 5% LESS SOURCE FOR DATA: [employer] 1800 OPERATION MANUAL( AUTOMATED BLOOD COUNTS AND [...] Normal 80 and above >32 mL/min Normal Anion Gap 18 mmol/L [facility] ([facility] NORMAL RANGES Age WBC RBC HGB HCT [...] HCT IS 5% LESS SOURCE FOR DATA: [employer] 1800 OPERATION MANUAL( AUTOMATED BLOOD COUNTS AND [...] Normal 80 and above >32 mL/min Normal eGFR 73 # MEDENT ( [facility] NORMAL RANGES Age WBC RBC HGB HCT [...] HCT IS 5% LESS SOURCE FOR DATA: VARUN DYN 1800 OPERATION MANUAL( AUTOMATED BLOOD COUNTS [...] Normal 80 and above >32 mL/min Normal eGFR Non-Afr. Kenyan 63 # MEDENT ([facility] NORMAL RANGES Age WBC RBC HGB HCT [...] HCT IS 5% LESS SOURCE FOR DATA: [employer] 1800 OPERATION MANUAL( AUTOMATED BLOOD COUNTS AND [...] Normal 80 and above >32 mL/min Normal ID Date Data Source [id number] 05/11/2021 12:54:00 PM EDT MEDJAY JAY ([facility] Name Value Range Interpretation Code Description Data Tatiana rce(s) Supporting Document(s) RBC 4.25 10E6/uL MEDJAY JAY ([facility] NORMAL RANGES Age WBC RBC HGB HCT [...] HCT IS 5% LESS SOURCE FOR DATA: [employer] 1800 OPERATION MANUAL( AUTOMATED BLOOD COUNTS AND [...] Normal 80 and above >32 mL/min Normal WBC 6.1 10E3/uL 4.1-10.9 [facility] ([facility] NORMAL RANGES Age WBC RBC HGB HCT [...] HCT IS 5% LESS SOURCE FOR DATA: [employer] 1800 OPERATION MANUAL( AUTOMATED BLOOD COUNTS AND [...] Normal 80 and above >32 mL/min Normal HGB 14.0 g/dL 12.0-18.0 MED[facility] ([facility] NORMAL RANGES Age WBC RBC HGB HCT [...] HCT IS 5% LESS SOURCE FOR DATA: [employer] 1800 OPERATION MANUAL( AUTOMATED BLOOD COUNTS AND [...] Normal 80 and above >32 mL/min Normal HCT 39.5 % 37.0-51.0 [place]UYITA ([facility] NORMAL RANGES Age WBC RBC HGB HCT [...] HCT IS 5% LESS SOURCE FOR DATA: [employer] 1800 OPERATION MANUAL( AUTOMATED BLOOD COUNTS AND [...] Normal 80 and above >32 mL/min Normal MCH 32.9 pg 26.0-32.0 Above high normal [facility] ([facility] NORMAL RANGES Age WBC RBC HGB HCT [...] HCT IS 5% LESS SOURCE FOR DATA: [employer] 1800 OPERATION MANUAL( AUTOMATED BLOOD COUNTS AND [...] Normal 80 and above >32 mL/min Normal MCV 92.9 fL 80.0-97.0 [facility] ([facility] NORMAL RANGES Age WBC RBC HGB HCT [...] HCT IS 5% LESS SOURCE FOR DATA: [employer] 1800 OPERATION MANUAL( AUTOMATED BLOOD COUNTS AND [...] Normal 80 and above >32 mL/min Normal MCHC 35.4 g/dL 31.0-36.0 [facility] ([facility] NORMAL RANGES Age WBC RBC HGB HCT [...] HCT IS 5% LESS SOURCE FOR DATA: [employer] 1800 OPERATION MANUAL( AUTOMATED BLOOD COUNTS AND [...] Normal 80 and above >32 mL/min Normal RDW-CV 13.9 % 11.5-14.5 [facility] ([facility] NORMAL RANGES Age WBC RBC HGB HCT [...] HCT IS 5% LESS SOURCE FOR DATA: VARUN DYN 1800 OPERATION MANUAL( AUTOMATED BLOOD COUNTS [...] Normal 80 and above >32 mL/min Normal PLT 147 10E3/uL 140-440 [employer] ([facility] NORMAL RANGES Age WBC RBC HGB HCT [...] HCT IS 5% LESS SOURCE FOR DATA: [employer] 1800 OPERATION MANUAL( AUTOMATED BLOOD COUNTS AND [...] Normal 80 and above >32 mL/min Normal Lym% 17.4 % 10.0-58.5 [facility] ([facility] NORMAL RANGES Age WBC RBC HGB HCT [...] HCT IS 5% LESS SOURCE FOR DATA: [employer] 1800 OPERATION MANUAL( AUTOMATED BLOOD COUNTS AND [...] Normal 80 and above >32 mL/min Normal Neut% 72.1 % 37.0-92.0 [facility] ([facility] NORMAL RANGES Age WBC RBC HGB HCT [...] HCT IS 5% LESS SOURCE FOR DATA: [employer] 1800 OPERATION MANUAL( AUTOMATED BLOOD COUNTS AND [...] Normal 80 and above >32 mL/min Normal Lym# 1.1 10E3/uL 0.6-4.1 [facility] ([facility] NORMAL RANGES Age WBC RBC HGB HCT [...] HCT IS 5% LESS SOURCE FOR DATA: [employer] 1800 OPERATION MANUAL( AUTOMATED BLOOD COUNTS AND [...] Normal 80 and above >32 mL/min Normal MXD% 10.5 % 0.1-24.0 [place] ([facility] NORMAL RANGES Age WBC RBC HGB HCT [...] HCT IS 5% LESS SOURCE FOR DATA: [employer] 1800 OPERATION MANUAL( AUTOMATED BLOOD COUNTS AND [...] Normal 80 and above >32 mL/min Normal MXD# 0.6 10E3/uL 0.0-1.8 [facility] NORMAL RANGES Age WBC RBC HGB HCT [...] HCT IS 5% LESS SOURCE FOR DATA: [employer] 1800 OPERATION MANUAL( AUTOMATED BLOOD COUNTS AND [...] Normal 80 and above >32 mL/min Normal Neut# 4.4 % 2.0-7.8 [facility] ([facility] NORMAL RANGES Age WBC RBC HGB HCT [...] HCT IS 5% LESS SOURCE FOR DATA: [employer] 1800 OPERATION MANUAL( AUTOMATED BLOOD COUNTS AND [...] Normal 80 and above >32 mL/min Normal MPV 10.8 fL 9.0-13.0 [facility] ([facility] NORMAL RANGES Age WBC RBC HGB HCT [...] HCT IS 5% LESS SOURCE FOR DATA: [employer] 1800 OPERATION MANUAL( AUTOMATED BLOOD COUNTS AND [...] Normal 80 and above >32 mL/min Normal ID Date Data Source [id number] 05/11/2021 12:52:00 PM EDT MEDENT ([facility]) Name Value Range Interpretation Code Description Data Tatiana rce(s) Supporting Document(s) Heterophile Ab [Presence] in Serum by Latex agglutinat ion Laboratory test result MEDENT ([facility]) The sensitivity of Heterophile antibody testing is 80-90%. Mj Cordero IgM testing offers higher sensitivity. Magnesium [Mass/volume] in Serum or Plasma 1.6 mg/dL 1.6-2.3 MED[facility] ([facility]) ID Date Data Source [id number] 05/11/2021 12:52:00 PM EDT MEDENT ([facility] Name Value Range Interpretation Code Description Data Tatiana rce(s) Supporting Document(s) Magnesium [Mass/volume] in Serum or Plasma 1.6 mg/dL 1.6-2.3 [facility] ([facility] Heterophile Ab [Presence] in Serum by Latex agglutinat ion Laboratory test result MEDENT ([facility] The sensitivity of Heterophile antibody testing is 80-90%. Mj Cordero IgM testing offers higher sensitivity. ID Date Data Source [id number] 03/22/2021 10:13:00 AM EDT MEDENT ([facility] Name Value Range Interpretation Code Description Data Tatiana rce(s) Supporting Document(s) Glu 148 mg/dL 70-110 Above high normal [facility] ([facility] CHRONIC KIDNEY DISEASE STAGING PER NKF: MALE [...] Normal 80 and above >32 mL/min Normal BUN 18 mg/dL 8-23 [facility] ([facility] CHRONIC KIDNEY DISEASE STAGING PER NKF: MALE [...] Normal 80 and above >32 mL/min Normal Creat 1.3 mg/dL 0.7-1.2 Above high normal [facility] ([facility] CHRONIC KIDNEY DISEASE STAGING PER NKF: MALE [...] Normal 80 and above >32 mL/min Normal Na 134 mmol/L 136-145 Below low normal [facility] ( [facility] CHRONIC KIDNEY DISEASE STAGING PER NKF: MALE [...] Normal 80 and above >32 mL/min Normal K 4.9 mmol/L 3.5-5.1 MED[facility] ([facility] CHRONIC KIDNEY DISEASE STAGING PER NKF: MALE [...] Normal 80 and above >32 mL/min Normal BUN/Creatinine Ratio 14.2 CALC MEDENT ([facility] CHRONIC KIDNEY DISEASE STAGING PER NKF: MALE [...] Normal 80 and above >32 mL/min Normal Co2 20.4 mmol/L 22.0-29.0 Below low normal MEDENT ([facility] CHRONIC KIDNEY DISEASE STAGING PER NKF: MALE [...] Normal 80 and above >32 mL/min Normal CL 102.5 mmol/L 98.0-107.0 MEDENT ([facility] CHRONIC KIDNEY DISEASE STAGING PER NKF: MALE [...] Normal 80 and above >32 mL/min Normal CA 8.7 mg/dL 8.6-10.2 MEDENT ([facility] CHRONIC KIDNEY DISEASE STAGING PER NKF: MALE [...] Normal 80 and above >32 mL/min Normal TP 6.5 g/dL 6.6-8.7 Below low normal MEDENT ( [facility] CHRONIC KIDNEY DISEASE STAGING PER NKF: MALE [...] Normal 80 and above >32 mL/min Normal A/G Ratio 1.4 CALC MEDENT ([facility] CHRONIC KIDNEY DISEASE STAGING PER NKF: MALE [...] Normal 80 and above >32 mL/min Normal Alb 3.8 g/dL 3.5-5.2 [facility] ([facility] CHRONIC KIDNEY DISEASE STAGING PER NKF: MALE [...] Normal 80 and above >32 mL/min Normal Alp 137.2 U/L 40-129 Above high normal MEDENT ([facility] CHRONIC KIDNEY DISEASE STAGING PER NKF: MALE [...] Normal 80 and above >32 mL/min Normal Globulin 2.7 CALC MEDENT ([facility] CHRONIC KIDNEY DISEASE STAGING PER NKF: MALE [...] Normal 80 and above >32 mL/min Normal Ast (Sgot) 42 U/L 0-40 Above high normal MEDENT ([facility] CHRONIC KIDNEY DISEASE STAGING PER NKF: MALE [...] Normal 80 and above >32 mL/min Normal Alt (SGPT) 29 U/L 0-41 MED[facility] ([facility] CHRONIC KIDNEY DISEASE STAGING PER NKF: MALE [...] Normal 80 and above >32 mL/min Normal Tbili 0.70 mg/dL 0.0-1.2 [facility] ([facility] CHRONIC KIDNEY DISEASE STAGING PER NKF: MALE [...] Normal 80 and above >32 mL/min Normal Osmolality-Calculated 272.9 CALC MED ENT ([facility] CHRONIC KIDNEY DISEASE STAGING PER NKF: MALE [...] Normal 80 and above >32 mL/min Normal Anion Gap 16 mmol/L [facility] ([facility] CHRONIC KIDNEY DISEASE STAGING PER NKF: MALE [...] Normal 80 and above >32 mL/min Normal eGFR 66 # MEDENT ( [facility] CHRONIC KIDNEY DISEASE STAGING PER NKF: MALE [...] Normal 80 and above >32 mL/min Normal eGFR Non-Afr. Kenyan 57 # MEDENT ([facility] CHRONIC KIDNEY DISEASE STAGING PER NKF: MALE [...] Normal 80 and above >32 mL/min Normal ID Date Data Source [id number] 03/10/2021 03:22:00 PM EDT MEDENT ([facility]) Name Value Range Interpretation Code Description Data Tatiana rce(s) Supporting Document(s) Triglycerides 519 MED[facility] ([facility]) Cholesterol 201 MED[facility] ([facility]) Cholesterol in LDL [Mass/volume] in Serum or Plasma by calculation Laboratory test result MEDENT ([facility]) Chol/HDL Ratio Laboratory test result MEDENT ([facility]) HDL 33 MEDENT ([facility]) ID Date Data Source [id number] 03/10/2021 02:52:00 PM EDT MEDENT ([facility] Name Value Range Interpretation Code Description Data Tatiana rce(s) Supporting Document(s) Creatinine, Urine 100 mg/dL 10-300 MED[facility] ([facility] Alb 150 mg/L [facility] ([facility] A/C Ratio Laboratory test result Abnormal (applies to non -numeric results) MEDENT ([facility] ID Date Data Source [id number] 03/10/2021 02:06:00 PM EDT MED[facility] ([facility] Name Value Range Interpretation Code Description Data Tatiana rce(s) Supporting Document(s) Specific [place] 1.020 1.00-1.03 MEDENT ([facility] Color Urine Laboratory test result M EDENT ([facility] Appearance of Urine Laboratory test result MEDENT ([facility] Glucose Urine Laboratory test result Above high normal MEDENT ([facility] PH Urine 5.5 5.0-8.0 MEDENT ([facility] Bilirubin.total [Presence] in Urine by Test strip Laboratory jose t result Above high normal MEDENT ([facility] ) Ketones Laboratory test result MEDENT ([facility] Blood Urine Laboratory test result Above high normal MEDENT ([facility] Protein Urine Laboratory test result Above high normal MEDENT ([facility] Urobilinogen 1.0 EU/dl 0.2-1.0 MED[facility] ([facility] Leukocytes Laboratory test result ME DENT ([facility] Nitrite Laboratory test result MEDENT ([facility] ID Date Data Source [id number] 03/10/2021 02:06:00 PM EDT MEDENT ([facility] Name Value Range Interpretation Code Description Data Tatiana rce(s) Supporting Document(s) Hemoglobin A1c/Hemoglobin.total in Blood 8.7 % 4.50-6.20 Above high normal MEDENT ([facility] ID Date Data Source [id number] 03/10/2021 02:05:00 PM EDT MEDENT ([facility] Name Value Range Interpretation Code Description Data Tatiana rce(s) Supporting Document(s) Chol 201 mg/dL 0-200 Above high normal [facility] ([facility] NORMAL RANGES Age WBC RBC HGB HCT [...] HCT IS 5% LESS SOURCE FOR DATA: [employer] 1800 OPERATION MANUAL( AUTOMATED BLOOD COUNTS AND [...] mL/min Normal 80 and above >32 mL/min NormalCLASSIFICATION CHOLESTEROL FOR ADULTS CHILDREN/ADOLESCENTS* DESIRABLE: <200 MG/DL <170 MG/DL BORDER-LINE HIGH RISK: 200-239 MG/DL 170-199 MG/DL HIGH RISK: >240 MG/DL >200 MG/DL CLASS. FOR PRIMARY LDL CHOL PREVENTION: LDL CHOL-CHILD/ADOLESCENTS* DESIRABLE: <130 MG/DL <110 MG/DL BORDERLINE-HIGH RISK: 130- 159 MG/DL 110-129 MG/DL HIGH RISK: >160 MG/DL >130 MG/DL *CHILDREN AND ADOLESCENTS REPRESENTS INDIVIDUALA AGED 2-19 YEARS EXCLUSIVE. Cholesterol in HDL [Mass/volume] in Serum or Plasma 33 mg/dL 35-55 Below low normal [facility] ([facility] NORMAL RANGES Age WBC RBC HGB HCT [...] HCT IS 5% LESS SOURCE FOR DATA: [employer] 1800 OPERATION MANUAL( AUTOMATED BLOOD COUNTS AND [...] mL/min Normal 80 and above >32 mL/min NormalCLASSIFICATION CHOLESTEROL FOR ADULTS CHILDREN/ADOLESCENTS* DESIRABLE: <200 MG/DL <170 MG/DL BORDER-LINE HIGH RISK: 200-239 MG/DL 170-199 MG/DL HIGH RISK: >240 MG/DL >200 MG/DL CLASS. FOR PRIMARY LDL CHOL PREVENTION: LDL CHOL-CHILD/ADOLESCENTS* DESIRABLE: <130 MG/DL <110 MG/DL BORDERLINE-HIGH RISK: 130- 159 MG/DL 110-129 MG/DL HIGH RISK: >160 MG/DL >130 MG/DL *CHILDREN AND ADOLESCENTS REPRESENTS INDIVIDUALA AGED 2-19 YEARS EXCLUSIVE. Trig 519 mg/dL 35-200 Above high normal [facility] ([facility] NORMAL RANGES Age WBC RBC HGB HCT [...] HCT IS 5% LESS SOURCE FOR DATA: [employer] 1800 OPERATION MANUAL( AUTOMATED BLOOD COUNTS AND [...] mL/min Normal 80 and above >32 mL/min NormalCLASSIFICATION CHOLESTEROL FOR ADULTS CHILDREN/ADOLESCENTS* DESIRABLE: <200 MG/DL <170 MG/DL BORDER-LINE HIGH RISK: 200-239 MG/DL 170-199 MG/DL HIGH RISK: >240 MG/DL >200 MG/DL CLASS. FOR PRIMARY LDL CHOL PREVENTION: LDL CHOL-CHILD/ADOLESCENTS* DESIRABLE: <130 MG/DL <110 MG/DL BORDERLINE-HIGH RISK: 130- 159 MG/DL 110-129 MG/DL HIGH RISK: >160 MG/DL >130 MG/DL *CHILDREN AND ADOLESCENTS REPRESENTS INDIVIDUALA AGED 2-19 YEARS EXCLUSIVE. Cho/HDL Ratio 6.1 Calc [place]ITA ([facility] NORMAL RANGES Age WBC RBC HGB HCT [...] HCT IS 5% LESS SOURCE FOR DATA: [employer] 1800 OPERATION MANUAL( AUTOMATED BLOOD COUNTS AND [...] mL/min Normal 80 and above >32 mL/min NormalCLASSIFICATION CHOLESTEROL FOR ADULTS CHILDREN/ADOLESCENTS* DESIRABLE: <200 MG/DL <170 MG/DL BORDER-LINE HIGH RISK: 200-239 MG/DL 170-199 MG/DL HIGH RISK: >240 MG/DL >200 MG/DL CLASS. FOR PRIMARY LDL CHOL PREVENTION: LDL CHOL-CHILD/ADOLESCENTS* DESIRABLE: <130 MG/DL <110 MG/DL BORDERLINE-HIGH RISK: 130- 159 MG/DL 110-129 MG/DL HIGH RISK: >160 MG/DL >130 MG/DL *CHILDREN AND ADOLESCENTS REPRESENTS INDIVIDUALA AGED 2-19 YEARS EXCLUSIVE. LDL_C Laboratory test result 75-129 Abnormal (applies to non -numeric results) [facility] ([facility] NORMAL RANGES Age WBC RBC HGB HCT [...] HCT IS 5% LESS SOURCE FOR DATA: [employer] 1800 OPERATION MANUAL( AUTOMATED BLOOD COUNTS AND [...] mL/min Normal 80 and above >32 mL/min NormalCLASSIFICATION CHOLESTEROL FOR ADULTS CHILDREN/ADOLESCENTS* DESIRABLE: <200 MG/DL <170 MG/DL BORDER-LINE HIGH RISK: 200-239 MG/DL 170-199 MG/DL HIGH RISK: >240 MG/DL >200 MG/DL CLASS. FOR PRIMARY LDL CHOL PREVENTION: LDL CHOL-CHILD/ADOLESCENTS* DESIRABLE: <130 MG/DL <110 MG/DL BORDERLINE-HIGH RISK: 130- 159 MG/DL 110-129 MG/DL HIGH RISK: >160 MG/DL >130 MG/DL *CHILDREN AND ADOLESCENTS REPRESENTS INDIVIDUALA AGED 2-19 YEARS EXCLUSIVE. ID Date Data Source [id number] 03/10/2021 02:05:00 PM EDT MEDENT ([facility] Name Value Range Interpretation Code Description Data Tatiana rce(s) Supporting Document(s) Glu 533 mg/dL 70-110 Above high normal [facility] ([facility] NORMAL RANGES Age WBC RBC HGB HCT [...] HCT IS 5% LESS SOURCE FOR DATA: [employer] 1800 OPERATION MANUAL( AUTOMATED BLOOD COUNTS AND [...] mL/min Normal 80 and above >32 mL/min NormalCLASSIFICATION CHOLESTEROL FOR ADULTS CHILDREN/ADOLESCENTS* DESIRABLE: <200 MG/DL <170 MG/DL BORDER-LINE HIGH RISK: 200-239 MG/DL 170-199 MG/DL HIGH RISK: >240 MG/DL >200 MG/DL CLASS. FOR PRIMARY LDL CHOL PREVENTION: LDL CHOL-CHILD/ADOLESCENTS* DESIRABLE: <130 MG/DL <110 MG/DL BORDERLINE-HIGH RISK: 130- 159 MG/DL 110-129 MG/DL HIGH RISK: >160 MG/DL >130 MG/DL *CHILDREN AND ADOLESCENTS REPRESENTS INDIVIDUALA AGED 2-19 YEARS EXCLUSIVE. BUN 26 mg/dL 8-23 Above high normal MEDENT ([facility] NORMAL RANGES Age WBC RBC HGB HCT [...] HCT IS 5% LESS SOURCE FOR DATA: [employer] 1800 OPERATION MANUAL( AUTOMATED BLOOD COUNTS AND [...] mL/min Normal 80 and above >32 mL/min NormalCLASSIFICATION CHOLESTEROL FOR ADULTS CHILDREN/ADOLESCENTS* DESIRABLE: <200 MG/DL <170 MG/DL BORDER-LINE HIGH RISK: 200-239 MG/DL 170-199 MG/DL HIGH RISK: >240 MG/DL >200 MG/DL CLASS. FOR PRIMARY LDL CHOL PREVENTION: LDL CHOL-CHILD/ADOLESCENTS* DESIRABLE: <130 MG/DL <110 MG/DL BORDERLINE-HIGH RISK: 130- 159 MG/DL 110-129 MG/DL HIGH RISK: >160 MG/DL >130 MG/DL *CHILDREN AND ADOLESCENTS REPRESENTS INDIVIDUALA AGED 2-19 YEARS EXCLUSIVE. Creat 1.8 mg/dL 0.7-1.2 Above high normal [facility] ([facility] NORMAL RANGES Age WBC RBC HGB HCT [...] HCT IS 5% LESS SOURCE FOR DATA: [employer] 1800 OPERATION MANUAL( AUTOMATED BLOOD COUNTS AND [...] mL/min Normal 80 and above >32 mL/min NormalCLASSIFICATION CHOLESTEROL FOR ADULTS CHILDREN/ADOLESCENTS* DESIRABLE: <200 MG/DL <170 MG/DL BORDER-LINE HIGH RISK: 200-239 MG/DL 170-199 MG/DL HIGH RISK: >240 MG/DL >200 MG/DL CLASS. FOR PRIMARY LDL CHOL PREVENTION: LDL CHOL-CHILD/ADOLESCENTS* DESIRABLE: <130 MG/DL <110 MG/DL BORDERLINE-HIGH RISK: 130- 159 MG/DL 110-129 MG/DL HIGH RISK: >160 MG/DL >130 MG/DL *CHILDREN AND ADOLESCENTS REPRESENTS INDIVIDUALA AGED 2-19 YEARS EXCLUSIVE. BUN/Creatinine Ratio 14.0 CALC [facility] NORMAL RANGES Age WBC RBC HGB HCT [...] HCT IS 5% LESS SOURCE FOR DATA: [employer] 1800 OPERATION MANUAL( AUTOMATED BLOOD COUNTS AND [...] mL/min Normal 80 and above >32 mL/min NormalCLASSIFICATION CHOLESTEROL FOR ADULTS CHILDREN/ADOLESCENTS* DESIRABLE: <200 MG/DL <170 MG/DL BORDER-LINE HIGH RISK: 200-239 MG/DL 170-199 MG/DL HIGH RISK: >240 MG/DL >200 MG/DL CLASS. FOR PRIMARY LDL CHOL PREVENTION: LDL CHOL-CHILD/ADOLESCENTS* DESIRABLE: <130 MG/DL <110 MG/DL BORDERLINE-HIGH RISK: 130- 159 MG/DL 110-129 MG/DL HIGH RISK: >160 MG/DL >130 MG/DL *CHILDREN AND ADOLESCENTS REPRESENTS INDIVIDUALA AGED 2-19 YEARS EXCLUSIVE. K 4.3 mmol/L 3.5-5.1 [facility] NORMAL RANGES Age WBC RBC HGB HCT [...] HCT IS 5% LESS SOURCE FOR DATA: [employer] DYN 1800 OPERATION MANUAL( AUTOMATED BLOOD COUNTS [...] mL/min Normal 80 and above >32 mL/min NormalCLASSIFICATION CHOLESTEROL FOR ADULTS CHILDREN/ADOLESCENTS* DESIRABLE: <200 MG/DL <170 MG/DL BORDER-LINE HIGH RISK: 200-239 MG/DL 170-199 MG/DL HIGH RISK: >240 MG/DL >200 MG/DL CLASS. FOR PRIMARY LDL CHOL PREVENTION: LDL CHOL-CHILD/ADOLESCENTS* DESIRABLE: <130 MG/DL <110 MG/DL BORDERLINE-HIGH RISK: 130- 159 MG/DL 110-129 MG/DL HIGH RISK: >160 MG/DL >130 MG/DL *CHILDREN AND ADOLESCENTS REPRESENTS INDIVIDUALA AGED 2-19 YEARS EXCLUSIVE. Na 127 mmol/L 136-145 Below low normal [facility] ( [facility] NORMAL RANGES Age WBC RBC HGB HCT [...] HCT IS 5% LESS SOURCE FOR DATA: [employer] 1800 OPERATION MANUAL( AUTOMATED BLOOD COUNTS AND [...] mL/min Normal 80 and above >32 mL/min NormalCLASSIFICATION CHOLESTEROL FOR ADULTS CHILDREN/ADOLESCENTS* DESIRABLE: <200 MG/DL <170 MG/DL BORDER-LINE HIGH RISK: 200-239 MG/DL 170-199 MG/DL HIGH RISK: >240 MG/DL >200 MG/DL CLASS. FOR PRIMARY LDL CHOL PREVENTION: LDL CHOL-CHILD/ADOLESCENTS* DESIRABLE: <130 MG/DL <110 MG/DL BORDERLINE-HIGH RISK: 130- 159 MG/DL 110-129 MG/DL HIGH RISK: >160 MG/DL >130 MG/DL *CHILDREN AND ADOLESCENTS REPRESENTS INDIVIDUALA AGED 2-19 YEARS EXCLUSIVE. CL 92.7 mmol/L 98.0-107.0 Below low normal [facility] ([facility] NORMAL RANGES Age WBC RBC HGB HCT [...] HCT IS 5% LESS SOURCE FOR DATA: [employer] 1800 OPERATION MANUAL( AUTOMATED BLOOD COUNTS AND [...] mL/min Normal 80 and above >32 mL/min NormalCLASSIFICATION CHOLESTEROL FOR ADULTS CHILDREN/ADOLESCENTS* DESIRABLE: <200 MG/DL <170 MG/DL BORDER-LINE HIGH RISK: 200-239 MG/DL 170-199 MG/DL HIGH RISK: >240 MG/DL >200 MG/DL CLASS. FOR PRIMARY LDL CHOL PREVENTION: LDL CHOL-CHILD/ADOLESCENTS* DESIRABLE: <130 MG/DL <110 MG/DL BORDERLINE-HIGH RISK: 130- 159 MG/DL 110-129 MG/DL HIGH RISK: >160 MG/DL >130 MG/DL *CHILDREN AND ADOLESCENTS REPRESENTS INDIVIDUALA AGED 2-19 YEARS EXCLUSIVE. Co2 20.1 mmol/L 22.0-29.0 Below low normal [facility] ([facility] NORMAL RANGES Age WBC RBC HGB HCT [...] HCT IS 5% LESS SOURCE FOR DATA: [employer] 1800 OPERATION MANUAL( AUTOMATED BLOOD COUNTS AND [...] mL/min Normal 80 and above >32 mL/min NormalCLASSIFICATION CHOLESTEROL FOR ADULTS CHILDREN/ADOLESCENTS* DESIRABLE: <200 MG/DL <170 MG/DL BORDER-LINE HIGH RISK: 200-239 MG/DL 170-199 MG/DL HIGH RISK: >240 MG/DL >200 MG/DL CLASS. FOR PRIMARY LDL CHOL PREVENTION: LDL CHOL-CHILD/ADOLESCENTS* DESIRABLE: <130 MG/DL <110 MG/DL BORDERLINE-HIGH RISK: 130- 159 MG/DL 110-129 MG/DL HIGH RISK: >160 MG/DL >130 MG/DL *CHILDREN AND ADOLESCENTS REPRESENTS INDIVIDUALA AGED 2-19 YEARS EXCLUSIVE. CA 9.3 mg/dL 8.6-10.2 [facility] NORMAL RANGES Age WBC RBC HGB HCT [...] HCT IS 5% LESS SOURCE FOR DATA: [employer] 1800 OPERATION MANUAL( AUTOMATED BLOOD COUNTS AND [...] mL/min Normal 80 and above >32 mL/min NormalCLASSIFICATION CHOLESTEROL FOR ADULTS CHILDREN/ADOLESCENTS* DESIRABLE: <200 MG/DL <170 MG/DL BORDER-LINE HIGH RISK: 200-239 MG/DL 170-199 MG/DL HIGH RISK: >240 MG/DL >200 MG/DL CLASS. FOR PRIMARY LDL CHOL PREVENTION: LDL CHOL-CHILD/ADOLESCENTS* DESIRABLE: <130 MG/DL <110 MG/DL BORDERLINE-HIGH RISK: 130- 159 MG/DL 110-129 MG/DL HIGH RISK: >160 MG/DL >130 MG/DL *CHILDREN AND ADOLESCENTS REPRESENTS INDIVIDUALA AGED 2-19 YEARS EXCLUSIVE. TP 6.9 g/dL 6.6-8.7 [facility] NORMAL RANGES Age WBC RBC HGB HCT [...] HCT IS 5% LESS SOURCE FOR DATA: [employer] 1800 OPERATION MANUAL( AUTOMATED BLOOD COUNTS AND [...] mL/min Normal 80 and above >32 mL/min NormalCLASSIFICATION CHOLESTEROL FOR ADULTS CHILDREN/ADOLESCENTS* DESIRABLE: <200 MG/DL <170 MG/DL BORDER-LINE HIGH RISK: 200-239 MG/DL 170-199 MG/DL HIGH RISK: >240 MG/DL >200 MG/DL CLASS. FOR PRIMARY LDL CHOL PREVENTION: LDL CHOL-CHILD/ADOLESCENTS* DESIRABLE: <130 MG/DL <110 MG/DL BORDERLINE-HIGH RISK: 130- 159 MG/DL 110-129 MG/DL HIGH RISK: >160 MG/DL >130 MG/DL *CHILDREN AND ADOLESCENTS REPRESENTS INDIVIDUALA AGED 2-19 YEARS EXCLUSIVE. Alb 4.0 g/dL 3.5-5.2 [facility] NORMAL RANGES Age WBC RBC HGB HCT [...] HCT IS 5% LESS SOURCE FOR DATA: [employer] 1800 OPERATION MANUAL( AUTOMATED BLOOD COUNTS AND [...] mL/min Normal 80 and above >32 mL/min NormalCLASSIFICATION CHOLESTEROL FOR ADULTS CHILDREN/ADOLESCENTS* DESIRABLE: <200 MG/DL <170 MG/DL BORDER-LINE HIGH RISK: 200-239 MG/DL 170-199 MG/DL HIGH RISK: >240 MG/DL >200 MG/DL CLASS. FOR PRIMARY LDL CHOL PREVENTION: LDL CHOL-CHILD/ADOLESCENTS* DESIRABLE: <130 MG/DL <110 MG/DL BORDERLINE-HIGH RISK: 130- 159 MG/DL 110-129 MG/DL HIGH RISK: >160 MG/DL >130 MG/DL *CHILDREN AND ADOLESCENTS REPRESENTS INDIVIDUALA AGED 2-19 YEARS EXCLUSIVE. A/G Ratio 1.4 CALC [facility] ([facility] NORMAL RANGES Age WBC RBC HGB HCT [...] HCT IS 5% LESS SOURCE FOR DATA: [employer] 1800 OPERATION MANUAL( AUTOMATED BLOOD COUNTS AND [...] mL/min Normal 80 and above >32 mL/min NormalCLASSIFICATION CHOLESTEROL FOR ADULTS CHILDREN/ADOLESCENTS* DESIRABLE: <200 MG/DL <170 MG/DL BORDER-LINE HIGH RISK: 200-239 MG/DL 170-199 MG/DL HIGH RISK: >240 MG/DL >200 MG/DL CLASS. FOR PRIMARY LDL CHOL PREVENTION: LDL CHOL-CHILD/ADOLESCENTS* DESIRABLE: <130 MG/DL <110 MG/DL BORDERLINE-HIGH RISK: 130- 159 MG/DL 110-129 MG/DL HIGH RISK: >160 MG/DL >130 MG/DL *CHILDREN AND ADOLESCENTS REPRESENTS INDIVIDUALA AGED 2-19 YEARS EXCLUSIVE. Globulin 2.8 CALC [facility] ([facility] NORMAL RANGES Age WBC RBC HGB HCT [...] HCT IS 5% LESS SOURCE FOR DATA: [employer] 1800 OPERATION MANUAL( AUTOMATED BLOOD COUNTS AND [...] mL/min Normal 80 and above >32 mL/min NormalCLASSIFICATION CHOLESTEROL FOR ADULTS CHILDREN/ADOLESCENTS* DESIRABLE: <200 MG/DL <170 MG/DL BORDER-LINE HIGH RISK: 200-239 MG/DL 170-199 MG/DL HIGH RISK: >240 MG/DL >200 MG/DL CLASS. FOR PRIMARY LDL CHOL PREVENTION: LDL CHOL-CHILD/ADOLESCENTS* DESIRABLE: <130 MG/DL <110 MG/DL BORDERLINE-HIGH RISK: 130- 159 MG/DL 110-129 MG/DL HIGH RISK: >160 MG/DL >130 MG/DL *CHILDREN AND ADOLESCENTS REPRESENTS INDIVIDUALA AGED 2-19 YEARS EXCLUSIVE. Alt (SGPT) 40 U/L 0-41 [facility] NORMAL RANGES Age WBC RBC HGB HCT [...] HCT IS 5% LESS SOURCE FOR DATA: [employer] 1800 OPERATION MANUAL( AUTOMATED BLOOD COUNTS AND [...] mL/min Normal 80 and above >32 mL/min NormalCLASSIFICATION CHOLESTEROL FOR ADULTS CHILDREN/ADOLESCENTS* DESIRABLE: <200 MG/DL <170 MG/DL BORDER-LINE HIGH RISK: 200-239 MG/DL 170-199 MG/DL HIGH RISK: >240 MG/DL >200 MG/DL CLASS. FOR PRIMARY LDL CHOL PREVENTION: LDL CHOL-CHILD/ADOLESCENTS* DESIRABLE: <130 MG/DL <110 MG/DL BORDERLINE-HIGH RISK: 130- 159 MG/DL 110-129 MG/DL HIGH RISK: >160 MG/DL >130 MG/DL *CHILDREN AND ADOLESCENTS REPRESENTS INDIVIDUALA AGED 2-19 YEARS EXCLUSIVE. Alp 169.2 U/L 40-129 Above high normal [facility] ([facility] NORMAL RANGES Age WBC RBC HGB HCT [...] HCT IS 5% LESS SOURCE FOR DATA: [employer] 1800 OPERATION MANUAL( AUTOMATED BLOOD COUNTS AND [...] mL/min Normal 80 and above >32 mL/min NormalCLASSIFICATION CHOLESTEROL FOR ADULTS CHILDREN/ADOLESCENTS* DESIRABLE: <200 MG/DL <170 MG/DL BORDER-LINE HIGH RISK: 200-239 MG/DL 170-199 MG/DL HIGH RISK: >240 MG/DL >200 MG/DL CLASS. FOR PRIMARY LDL CHOL PREVENTION: LDL CHOL-CHILD/ADOLESCENTS* DESIRABLE: <130 MG/DL <110 MG/DL BORDERLINE-HIGH RISK: 130- 159 MG/DL 110-129 MG/DL HIGH RISK: >160 MG/DL >130 MG/DL *CHILDREN AND ADOLESCENTS REPRESENTS INDIVIDUALA AGED 2-19 YEARS EXCLUSIVE. Ast (Sgot) 53 U/L 0-40 Above high normal [facility] ([facility] NORMAL RANGES Age WBC RBC HGB HCT [...] HCT IS 5% LESS SOURCE FOR DATA: [employer] 1800 OPERATION MANUAL( AUTOMATED BLOOD COUNTS AND [...] mL/min Normal 80 and above >32 mL/min NormalCLASSIFICATION CHOLESTEROL FOR ADULTS CHILDREN/ADOLESCENTS* DESIRABLE: <200 MG/DL <170 MG/DL BORDER-LINE HIGH RISK: 200-239 MG/DL 170-199 MG/DL HIGH RISK: >240 MG/DL >200 MG/DL CLASS. FOR PRIMARY LDL CHOL PREVENTION: LDL CHOL-CHILD/ADOLESCENTS* DESIRABLE: <130 MG/DL <110 MG/DL BORDERLINE-HIGH RISK: 130- 159 MG/DL 110-129 MG/DL HIGH RISK: >160 MG/DL >130 MG/DL *CHILDREN AND ADOLESCENTS REPRESENTS INDIVIDUALA AGED 2-19 YEARS EXCLUSIVE. Tbili 0.77 mg/dL 0.0-1.2 [facility] NORMAL RANGES Age WBC RBC HGB HCT [...] HCT IS 5% LESS SOURCE FOR DATA: [employer] 1800 OPERATION MANUAL( AUTOMATED BLOOD COUNTS AND [...] mL/min Normal 80 and above >32 mL/min NormalCLASSIFICATION CHOLESTEROL FOR ADULTS CHILDREN/ADOLESCENTS* DESIRABLE: <200 MG/DL <170 MG/DL BORDER-LINE HIGH RISK: 200-239 MG/DL 170-199 MG/DL HIGH RISK: >240 MG/DL >200 MG/DL CLASS. FOR PRIMARY LDL CHOL PREVENTION: LDL CHOL-CHILD/ADOLESCENTS* DESIRABLE: <130 MG/DL <110 MG/DL BORDERLINE-HIGH RISK: 130- 159 MG/DL 110-129 MG/DL HIGH RISK: >160 MG/DL >130 MG/DL *CHILDREN AND ADOLESCENTS REPRESENTS INDIVIDUALA AGED 2-19 YEARS EXCLUSIVE. eGFR 44 # [facility] ( [facility] NORMAL RANGES Age WBC RBC HGB HCT [...] HCT IS 5% LESS SOURCE FOR DATA: [employer] 1800 OPERATION MANUAL( AUTOMATED BLOOD COUNTS AND [...] mL/min Normal 80 and above >32 mL/min NormalCLASSIFICATION CHOLESTEROL FOR ADULTS CHILDREN/ADOLESCENTS* DESIRABLE: <200 MG/DL <170 MG/DL BORDER-LINE HIGH RISK: 200-239 MG/DL 170-199 MG/DL HIGH RISK: >240 MG/DL >200 MG/DL CLASS. FOR PRIMARY LDL CHOL PREVENTION: LDL CHOL-CHILD/ADOLESCENTS* DESIRABLE: <130 MG/DL <110 MG/DL BORDERLINE-HIGH RISK: 130- 159 MG/DL 110-129 MG/DL HIGH RISK: >160 MG/DL >130 MG/DL *CHILDREN AND ADOLESCENTS REPRESENTS INDIVIDUALA AGED 2-19 YEARS EXCLUSIVE. Osmolality-Calculated 284.6 [facility]C [facility] ([facility] NORMAL RANGES Age WBC RBC HGB HCT [...] HCT IS 5% LESS SOURCE FOR DATA: [employer] 1800 OPERATION MANUAL( AUTOMATED BLOOD COUNTS AND [...] mL/min Normal 80 and above >32 mL/min NormalCLASSIFICATION CHOLESTEROL FOR ADULTS CHILDREN/ADOLESCENTS* DESIRABLE: <200 MG/DL <170 MG/DL BORDER-LINE HIGH RISK: 200-239 MG/DL 170-199 MG/DL HIGH RISK: >240 MG/DL >200 MG/DL CLASS. FOR PRIMARY LDL CHOL PREVENTION: LDL CHOL-CHILD/ADOLESCENTS* DESIRABLE: <130 MG/DL <110 MG/DL BORDERLINE-HIGH RISK: 130- 159 MG/DL 110-129 MG/DL HIGH RISK: >160 MG/DL >130 MG/DL *CHILDREN AND ADOLESCENTS REPRESENTS INDIVIDUALA AGED 2-19 YEARS EXCLUSIVE. Anion Gap 19 mmol/L [facility] NORMAL RANGES Age WBC RBC HGB HCT [...] HCT IS 5% LESS SOURCE FOR DATA: [employer] 1800 OPERATION MANUAL( AUTOMATED BLOOD COUNTS AND [...] mL/min Normal 80 and above >32 mL/min NormalCLASSIFICATION CHOLESTEROL FOR ADULTS CHILDREN/ADOLESCENTS* DESIRABLE: <200 MG/DL <170 MG/DL BORDER-LINE HIGH RISK: 200-239 MG/DL 170-199 MG/DL HIGH RISK: >240 MG/DL >200 MG/DL CLASS. FOR PRIMARY LDL CHOL PREVENTION: LDL CHOL-CHILD/ADOLESCENTS* DESIRABLE: <130 MG/DL <110 MG/DL BORDERLINE-HIGH RISK: 130- 159 MG/DL 110-129 MG/DL HIGH RISK: >160 MG/DL >130 MG/DL *CHILDREN AND ADOLESCENTS REPRESENTS INDIVIDUALA AGED 2-19 YEARS EXCLUSIVE. eGFR Non-Afr. Kenyan 38 # [facility] ([facility] NORMAL RANGES Age WBC RBC HGB HCT [...] HCT IS 5% LESS SOURCE FOR DATA: [employer] 1800 OPERATION MANUAL( AUTOMATED BLOOD COUNTS AND [...] mL/min Normal 80 and above >32 mL/min NormalCLASSIFICATION CHOLESTEROL FOR ADULTS CHILDREN/ADOLESCENTS* DESIRABLE: <200 MG/DL <170 MG/DL BORDER-LINE HIGH RISK: 200-239 MG/DL 170-199 MG/DL HIGH RISK: >240 MG/DL >200 MG/DL CLASS. FOR PRIMARY LDL CHOL PREVENTION: LDL CHOL-CHILD/ADOLESCENTS* DESIRABLE: <130 MG/DL <110 MG/DL BORDERLINE-HIGH RISK: 130- 159 MG/DL 110-129 MG/DL HIGH RISK: >160 MG/DL >130 MG/DL *CHILDREN AND ADOLESCENTS REPRESENTS INDIVIDUALA AGED 2-19 YEARS EXCLUSIVE. ID Date Data Source [id number] 03/10/2021 02:05:00 PM EDT [facility] ([facility] Name Value Range Interpretation Code Description Data Tatiana rce(s) Supporting Document(s) Creatine kinase [Enzymatic activity/volume] in Serum or Plasma 1 124 U/L 39-308 Above high normal [facility] ([facility] NORMAL RANGES Age WBC RBC HGB HCT [...] HCT IS 5% LESS SOURCE FOR DATA: [employer] DYN 1800 OPERATION MANUAL( AUTOMATED BLOOD COUNTS [...] mL/min Normal 80 and above >32 mL/min NormalCLASSIFICATION CHOLESTEROL FOR ADULTS CHILDREN/ADOLESCENTS* DESIRABLE: <200 MG/DL <170 MG/DL BORDER-LINE HIGH RISK: 200-239 MG/DL 170-199 MG/DL HIGH RISK: >240 MG/DL >200 MG/DL CLASS. FOR PRIMARY LDL CHOL PREVENTION: LDL CHOL-CHILD/ADOLESCENTS* DESIRABLE: <130 MG/DL <110 MG/DL BORDERLINE-HIGH RISK: 130-159 MG/DL 110-129 MG/DL HIGH RISK: >160 MG/DL >130 MG/DL *CHILDREN AND ADOLESCENTS REPRESENTS INDIVIDUALA AGED 2-19 YEARS EXCLUSIVE. ID Date Data Source [id number] 03/10/2021 02:05:00 PM EDT [facility] ([facility] Name Value Range Interpretation Code Description Data Ttaiana rce(s) Supporting Document(s) WBC 8.6 10E3/uL 4.1-10.9 [facility] ([facility] NORMAL RANGES Age WBC RBC HGB HCT [...] HCT IS 5% LESS SOURCE FOR DATA: [employer] 1800 OPERATION MANUAL( AUTOMATED BLOOD COUNTS AND [...] mL/min Normal 80 and above >32 mL/min NormalCLASSIFICATION CHOLESTEROL FOR ADULTS CHILDREN/ADOLESCENTS* DESIRABLE: <200 MG/DL <170 MG/DL BORDER-LINE HIGH RISK: 200-239 MG/DL 170-199 MG/DL HIGH RISK: >240 MG/DL >200 MG/DL CLASS. FOR PRIMARY LDL CHOL PREVENTION: LDL CHOL-CHILD/ADOLESCENTS* DESIRABLE: <130 MG/DL <110 MG/DL BORDERLINE-HIGH RISK: 130-159 MG/DL 110-129 MG/DL HIGH RISK: >160 MG/DL >130 MG/DL *CHILDREN AND ADOLESCENTS REPRESENTS INDIVIDUALA AGED 2-19 YEARS EXCLUSIVE. RBC 4.46 10E6/uL 4.20-6.30 [facility] ([facility] NORMAL RANGES Age WBC RBC HGB HCT [...] HCT IS 5% LESS SOURCE FOR DATA: [employer] 1800 OPERATION MANUAL( AUTOMATED BLOOD COUNTS AND [...] mL/min Normal 80 and above >32 mL/min NormalCLASSIFICATION CHOLESTEROL FOR ADULTS CHILDREN/ADOLESCENTS* DESIRABLE: <200 MG/DL <170 MG/DL BORDER-LINE HIGH RISK: 200-239 MG/DL 170-199 MG/DL HIGH RISK: >240 MG/DL >200 MG/DL CLASS. FOR PRIMARY LDL CHOL PREVENTION: LDL CHOL-CHILD/ADOLESCENTS* DESIRABLE: <130 MG/DL <110 MG/DL BORDERLINE-HIGH RISK: 130-159 MG/DL 110-129 MG/DL HIGH RISK: >160 MG/DL >130 MG/DL *CHILDREN AND ADOLESCENTS REPRESENTS INDIVIDUALA AGED 2-19 YEARS EXCLUSIVE. HGB 14.7 g/dL 12.0-18.0 [facility] ([facility] NORMAL RANGES Age WBC RBC HGB HCT [...] HCT IS 5% LESS SOURCE FOR DATA: [employer] 1800 OPERATION MANUAL( AUTOMATED BLOOD COUNTS AND [...] mL/min Normal 80 and above >32 mL/min NormalCLASSIFICATION CHOLESTEROL FOR ADULTS CHILDREN/ADOLESCENTS* DESIRABLE: <200 MG/DL <170 MG/DL BORDER-LINE HIGH RISK: 200-239 MG/DL 170-199 MG/DL HIGH RISK: >240 MG/DL >200 MG/DL CLASS. FOR PRIMARY LDL CHOL PREVENTION: LDL CHOL-CHILD/ADOLESCENTS* DESIRABLE: <130 MG/DL <110 MG/DL BORDERLINE-HIGH RISK: 130-159 MG/DL 110-129 MG/DL HIGH RISK: >160 MG/DL >130 MG/DL *CHILDREN AND ADOLESCENTS REPRESENTS INDIVIDUALA AGED 2-19 YEARS EXCLUSIVE. MCV 91.3 fL 80.0-97.0 [facility] ([facility] NORMAL RANGES Age WBC RBC HGB HCT [...] HCT IS 5% LESS SOURCE FOR DATA: [employer] 1800 OPERATION MANUAL( AUTOMATED BLOOD COUNTS AND [...] mL/min Normal 80 and above >32 mL/min NormalCLASSIFICATION CHOLESTEROL FOR ADULTS CHILDREN/ADOLESCENTS* DESIRABLE: <200 MG/DL <170 MG/DL BORDER-LINE HIGH RISK: 200-239 MG/DL 170-199 MG/DL HIGH RISK: >240 MG/DL >200 MG/DL CLASS. FOR PRIMARY LDL CHOL PREVENTION: LDL CHOL-CHILD/ADOLESCENTS* DESIRABLE: <130 MG/DL <110 MG/DL BORDERLINE-HIGH RISK: 130-159 MG/DL 110-129 MG/DL HIGH RISK: >160 MG/DL >130 MG/DL *CHILDREN AND ADOLESCENTS REPRESENTS INDIVIDUALA AGED 2-19 YEARS EXCLUSIVE. HCT 40.7 % 37.0-51.0 [facility] NORMAL RANGES Age WBC RBC HGB HCT [...] HCT IS 5% LESS SOURCE FOR DATA: [employer] 1800 OPERATION MANUAL( AUTOMATED BLOOD COUNTS AND [...] mL/min Normal 80 and above >32 mL/min NormalCLASSIFICATION CHOLESTEROL FOR ADULTS CHILDREN/ADOLESCENTS* DESIRABLE: <200 MG/DL <170 MG/DL BORDER-LINE HIGH RISK: 200-239 MG/DL 170-199 MG/DL HIGH RISK: >240 MG/DL >200 MG/DL CLASS. FOR PRIMARY LDL CHOL PREVENTION: LDL CHOL-CHILD/ADOLESCENTS* DESIRABLE: <130 MG/DL <110 MG/DL BORDERLINE-HIGH RISK: 130-159 MG/DL 110-129 MG/DL HIGH RISK: >160 MG/DL >130 MG/DL *CHILDREN AND ADOLESCENTS REPRESENTS INDIVIDUALA AGED 2-19 YEARS EXCLUSIVE. MCH 33.0 pg 26.0-32.0 Above high normal [facility] NORMAL RANGES Age WBC RBC HGB HCT [...] HCT IS 5% LESS SOURCE FOR DATA: [employer] 1800 OPERATION MANUAL( AUTOMATED BLOOD COUNTS AND [...] mL/min Normal 80 and above >32 mL/min NormalCLASSIFICATION CHOLESTEROL FOR ADULTS CHILDREN/ADOLESCENTS* DESIRABLE: <200 MG/DL <170 MG/DL BORDER-LINE HIGH RISK: 200-239 MG/DL 170-199 MG/DL HIGH RISK: >240 MG/DL >200 MG/DL CLASS. FOR PRIMARY LDL CHOL PREVENTION: LDL CHOL-CHILD/ADOLESCENTS* DESIRABLE: <130 MG/DL <110 MG/DL BORDERLINE-HIGH RISK: 130-159 MG/DL 110-129 MG/DL HIGH RISK: >160 MG/DL >130 MG/DL *CHILDREN AND ADOLESCENTS REPRESENTS INDIVIDUALA AGED 2-19 YEARS EXCLUSIVE. PLT 178 10E3/uL 140-440 [facility] ([facility] NORMAL RANGES Age WBC RBC HGB HCT [...] HCT IS 5% LESS SOURCE FOR DATA: [employer] 1800 OPERATION MANUAL( AUTOMATED BLOOD COUNTS AND [...] mL/min Normal 80 and above >32 mL/min NormalCLASSIFICATION CHOLESTEROL FOR ADULTS CHILDREN/ADOLESCENTS* DESIRABLE: <200 MG/DL <170 MG/DL BORDER-LINE HIGH RISK: 200-239 MG/DL 170-199 MG/DL HIGH RISK: >240 MG/DL >200 MG/DL CLASS. FOR PRIMARY LDL CHOL PREVENTION: LDL CHOL-CHILD/ADOLESCENTS* DESIRABLE: <130 MG/DL <110 MG/DL BORDERLINE-HIGH RISK: 130-159 MG/DL 110-129 MG/DL HIGH RISK: >160 MG/DL >130 MG/DL *CHILDREN AND ADOLESCENTS REPRESENTS INDIVIDUALA AGED 2-19 YEARS EXCLUSIVE. MCHC 36.1 g/dL 31.0-36.0 Above high normal [facility] ([facility] NORMAL RANGES Age WBC RBC HGB HCT [...] HCT IS 5% LESS SOURCE FOR DATA: [employer] 1800 OPERATION MANUAL( AUTOMATED BLOOD COUNTS AND [...] mL/min Normal 80 and above >32 mL/min NormalCLASSIFICATION CHOLESTEROL FOR ADULTS CHILDREN/ADOLESCENTS* DESIRABLE: <200 MG/DL <170 MG/DL BORDER-LINE HIGH RISK: 200-239 MG/DL 170-199 MG/DL HIGH RISK: >240 MG/DL >200 MG/DL CLASS. FOR PRIMARY LDL CHOL PREVENTION: LDL CHOL-CHILD/ADOLESCENTS* DESIRABLE: <130 MG/DL <110 MG/DL BORDERLINE-HIGH RISK: 130-159 MG/DL 110-129 MG/DL HIGH RISK: >160 MG/DL >130 MG/DL *CHILDREN AND ADOLESCENTS REPRESENTS INDIVIDUALA AGED 2-19 YEARS EXCLUSIVE. Lym% 18.6 % 10.0-58.5 [facility] NORMAL RANGES Age WBC RBC HGB HCT [...] HCT IS 5% LESS SOURCE FOR DATA: [employer] 1800 OPERATION MANUAL( AUTOMATED BLOOD COUNTS AND [...] mL/min Normal 80 and above >32 mL/min NormalCLASSIFICATION CHOLESTEROL FOR ADULTS CHILDREN/ADOLESCENTS* DESIRABLE: <200 MG/DL <170 MG/DL BORDER-LINE HIGH RISK: 200-239 MG/DL 170-199 MG/DL HIGH RISK: >240 MG/DL >200 MG/DL CLASS. FOR PRIMARY LDL CHOL PREVENTION: LDL CHOL-CHILD/ADOLESCENTS* DESIRABLE: <130 MG/DL <110 MG/DL BORDERLINE-HIGH RISK: 130-159 MG/DL 110-129 MG/DL HIGH RISK: >160 MG/DL >130 MG/DL *CHILDREN AND ADOLESCENTS REPRESENTS INDIVIDUALA AGED 2-19 YEARS EXCLUSIVE. RDW-CV 13.2 % 11.5-14.5 [facility] ([facility] NORMAL RANGES Age WBC RBC HGB HCT [...] HCT IS 5% LESS SOURCE FOR DATA: [employer] 1800 OPERATION MANUAL( AUTOMATED BLOOD COUNTS AND [...] mL/min Normal 80 and above >32 mL/min NormalCLASSIFICATION CHOLESTEROL FOR ADULTS CHILDREN/ADOLESCENTS* DESIRABLE: <200 MG/DL <170 MG/DL BORDER-LINE HIGH RISK: 200-239 MG/DL 170-199 MG/DL HIGH RISK: >240 MG/DL >200 MG/DL CLASS. FOR PRIMARY LDL CHOL PREVENTION: LDL CHOL-CHILD/ADOLESCENTS* DESIRABLE: <130 MG/DL <110 MG/DL BORDERLINE-HIGH RISK: 130-159 MG/DL 110-129 MG/DL HIGH RISK: >160 MG/DL >130 MG/DL *CHILDREN AND ADOLESCENTS REPRESENTS INDIVIDUALA AGED 2-19 YEARS EXCLUSIVE. Neut% 63.8 % 37.0-92.0 [facility] ([facility] NORMAL RANGES Age WBC RBC HGB HCT [...] HCT IS 5% LESS SOURCE FOR DATA: [employer] DYN 1800 OPERATION MANUAL( AUTOMATED BLOOD COUNTS [...] mL/min Normal 80 and above >32 mL/min NormalCLASSIFICATION CHOLESTEROL FOR ADULTS CHILDREN/ADOLESCENTS* DESIRABLE: <200 MG/DL <170 MG/DL BORDER-LINE HIGH RISK: 200-239 MG/DL 170-199 MG/DL HIGH RISK: >240 MG/DL >200 MG/DL CLASS. FOR PRIMARY LDL CHOL PREVENTION: LDL CHOL-CHILD/ADOLESCENTS* DESIRABLE: <130 MG/DL <110 MG/DL BORDERLINE-HIGH RISK: 130-159 MG/DL 110-129 MG/DL HIGH RISK: >160 MG/DL >130 MG/DL *CHILDREN AND ADOLESCENTS REPRESENTS INDIVIDUALA AGED 2-19 YEARS EXCLUSIVE. MXD% 17.6 % 0.1-24.0 [facility] ([facility] NORMAL RANGES Age WBC RBC HGB HCT [...] HCT IS 5% LESS SOURCE FOR DATA: [employer] 1800 OPERATION MANUAL( AUTOMATED BLOOD COUNTS AND [...] mL/min Normal 80 and above >32 mL/min NormalCLASSIFICATION CHOLESTEROL FOR ADULTS CHILDREN/ADOLESCENTS* DESIRABLE: <200 MG/DL <170 MG/DL BORDER-LINE HIGH RISK: 200-239 MG/DL 170-199 MG/DL HIGH RISK: >240 MG/DL >200 MG/DL CLASS. FOR PRIMARY LDL CHOL PREVENTION: LDL CHOL-CHILD/ADOLESCENTS* DESIRABLE: <130 MG/DL <110 MG/DL BORDERLINE-HIGH RISK: 130-159 MG/DL 110-129 MG/DL HIGH RISK: >160 MG/DL >130 MG/DL *CHILDREN AND ADOLESCENTS REPRESENTS INDIVIDUALA AGED 2-19 YEARS EXCLUSIVE. Lym# 1.6 10E3/uL 0.6-4.1 [facility] ([facility] NORMAL RANGES Age WBC RBC HGB HCT [...] HCT IS 5% LESS SOURCE FOR DATA: [employer] 1800 OPERATION MANUAL( AUTOMATED BLOOD COUNTS AND [...] mL/min Normal 80 and above >32 mL/min NormalCLASSIFICATION CHOLESTEROL FOR ADULTS CHILDREN/ADOLESCENTS* DESIRABLE: <200 MG/DL <170 MG/DL BORDER-LINE HIGH RISK: 200-239 MG/DL 170-199 MG/DL HIGH RISK: >240 MG/DL >200 MG/DL CLASS. FOR PRIMARY LDL CHOL PREVENTION: LDL CHOL-CHILD/ADOLESCENTS* DESIRABLE: <130 MG/DL <110 MG/DL BORDERLINE-HIGH RISK: 130-159 MG/DL 110-129 MG/DL HIGH RISK: >160 MG/DL >130 MG/DL *CHILDREN AND ADOLESCENTS REPRESENTS INDIVIDUALA AGED 2-19 YEARS EXCLUSIVE. Neut# 5.5 % 2.0-7.8 [facility] ([facility] NORMAL RANGES Age WBC RBC HGB HCT [...] HCT IS 5% LESS SOURCE FOR DATA: [employer] 1800 OPERATION MANUAL( AUTOMATED BLOOD COUNTS AND [...] mL/min Normal 80 and above >32 mL/min NormalCLASSIFICATION CHOLESTEROL FOR ADULTS CHILDREN/ADOLESCENTS* DESIRABLE: <200 MG/DL <170 MG/DL BORDER-LINE HIGH RISK: 200-239 MG/DL 170-199 MG/DL HIGH RISK: >240 MG/DL >200 MG/DL CLASS. FOR PRIMARY LDL CHOL PREVENTION: LDL CHOL-CHILD/ADOLESCENTS* DESIRABLE: <130 MG/DL <110 MG/DL BORDERLINE-HIGH RISK: 130-159 MG/DL 110-129 MG/DL HIGH RISK: >160 MG/DL >130 MG/DL *CHILDREN AND ADOLESCENTS REPRESENTS INDIVIDUALA AGED 2-19 YEARS EXCLUSIVE. MXD# 1.5 10E3/uL 0.0-1.8 [facility] ([facility] NORMAL RANGES Age WBC RBC HGB HCT [...] HCT IS 5% LESS SOURCE FOR DATA: [employer] 1800 OPERATION MANUAL( AUTOMATED BLOOD COUNTS AND [...] mL/min Normal 80 and above >32 mL/min NormalCLASSIFICATION CHOLESTEROL FOR ADULTS CHILDREN/ADOLESCENTS* DESIRABLE: <200 MG/DL <170 MG/DL BORDER-LINE HIGH RISK: 200-239 MG/DL 170-199 MG/DL HIGH RISK: >240 MG/DL >200 MG/DL CLASS. FOR PRIMARY LDL CHOL PREVENTION: LDL CHOL-CHILD/ADOLESCENTS* DESIRABLE: <130 MG/DL <110 MG/DL BORDERLINE-HIGH RISK: 130-159 MG/DL 110-129 MG/DL HIGH RISK: >160 MG/DL >130 MG/DL *CHILDREN AND ADOLESCENTS REPRESENTS INDIVIDUALA AGED 2-19 YEARS EXCLUSIVE. MPV 10.5 fL 9.0-13.0 [facility] ([facility] NORMAL RANGES Age WBC RBC HGB HCT [...] HCT IS 5% LESS SOURCE FOR DATA: [employer] 1800 OPERATION MANUAL( AUTOMATED BLOOD COUNTS AND [...] mL/min Normal 80 and above >32 mL/min NormalCLASSIFICATION CHOLESTEROL FOR ADULTS CHILDREN/ADOLESCENTS* DESIRABLE: <200 MG/DL <170 MG/DL BORDER-LINE HIGH RISK: 200-239 MG/DL 170-199 MG/DL HIGH RISK: >240 MG/DL >200 MG/DL CLASS. FOR PRIMARY LDL CHOL PREVENTION: LDL CHOL-CHILD/ADOLESCENTS* DESIRABLE: <130 MG/DL <110 MG/DL BORDERLINE-HIGH RISK: 130-159 MG/DL 110-129 MG/DL HIGH RISK: >160 MG/DL >130 MG/DL *CHILDREN AND ADOLESCENTS REPRESENTS INDIVIDUALA AGED 2-19 YEARS EXCLUSIVE. ID Date Data Source [id number] 12/09/2020 03:14:00 PM EST [facility] ([facility] Name Value Range Interpretation Code Description Data Tatiana rce(s) Supporting Document(s) Hemoglobin A1c/Hemoglobin.total in Blood 8.4 % 4.50-6.20 Above high normal [facility] ([facility] ID Date Data Source [id number] 12/09/2020 01:56:00 PM EST [facility] ([facility] Name Value Range Interpretation Code Description Data Tatiana rce(s) Supporting Document(s) Chol 243 mg/dL 0-200 Above high normal [facility] ([facility] NORMAL RANGES Age WBC RBC HGB HCT [...] HCT IS 5% LESS SOURCE FOR DATA: [facility] 1800 OPERATION MANUAL( AUTOMATED BLOOD COUNTS AND [...] mL/min Normal 80 and above >32 mL/min NormalCLASSIFICATION CHOLESTEROL FOR ADULTS CHILDREN/ADOLESCENTS* DESIRABLE: <200 MG/DL <170 MG/DL BORDER-LINE HIGH RISK: 200-239 MG/DL 170-199 MG/DL HIGH RISK: >240 MG/DL >200 MG/DL CLASS. FOR PRIMARY LDL CHOL PREVENTION: LDL CHOL-CHILD/ADOLESCENTS* DESIRABLE: <130 MG/DL <110 MG/DL BORDERLINE-HIGH RISK: 130-159 MG/DL 110-129 MG/DL HIGH RISK: >160 MG/DL >130 MG/DL *CHILDREN AND ADOLESCENTS REPRESENTS INDIVIDUALA AGED 2-19 YEARS EXCLUSIVE. Trig 573 mg/dL 35-200 Above high normal [facility] ([facility] NORMAL RANGES Age WBC RBC HGB HCT [...] HCT IS 5% LESS SOURCE FOR DATA: [employer] [facility] 1800 OPERATION MANUAL( AUTOMATED BLOOD COUNTS AND [...] mL/min Normal 80 and above >32 mL/min NormalCLASSIFICATION CHOLESTEROL FOR ADULTS CHILDREN/ADOLESCENTS* DESIRABLE: <200 MG/DL <170 MG/DL BORDER-LINE HIGH RISK: 200-239 MG/DL 170-199 MG/DL HIGH RISK: >240 MG/DL >200 MG/DL CLASS. FOR PRIMARY LDL CHOL PREVENTION: LDL CHOL-CHILD/ADOLESCENTS* DESIRABLE: <130 MG/DL <110 MG/DL BORDERLINE-HIGH RISK: 130-159 MG/DL 110-129 MG/DL HIGH RISK: >160 MG/DL >130 MG/DL *CHILDREN AND ADOLESCENTS REPRESENTS INDIVIDUALA AGED 2-19 YEARS EXCLUSIVE. Cholesterol in HDL [Mass/volume] in Serum or Plasma 35 mg/dL 35-55 [facility] NORMAL RANGES Age WBC RBC HGB HCT [...] HCT IS 5% LESS SOURCE FOR DATA: [employer] 1800 OPERATION MANUAL( AUTOMATED BLOOD COUNTS AND [...] mL/min Normal 80 and above >32 mL/min NormalCLASSIFICATION CHOLESTEROL FOR ADULTS CHILDREN/ADOLESCENTS* DESIRABLE: <200 MG/DL <170 MG/DL BORDER-LINE HIGH RISK: 200-239 MG/DL 170-199 MG/DL HIGH RISK: >240 MG/DL >200 MG/DL CLASS. FOR PRIMARY LDL CHOL PREVENTION: LDL CHOL-CHILD/ADOLESCENTS* DESIRABLE: <130 MG/DL <110 MG/DL BORDERLINE-HIGH RISK: 130- 159 MG/DL 110-129 MG/DL HIGH RISK: >160 MG/DL >130 MG/DL *CHILDREN AND ADOLESCENTS REPRESENTS INDIVIDUALA AGED 2-19 YEARS EXCLUSIVE. LDL_C Laboratory test result 75-129 Abnormal (applies to non -numeric results) [facility] ([facility] NORMAL RANGES Age WBC RBC HGB HCT [...] HCT IS 5% LESS SOURCE FOR DATA: [employer] 1800 OPERATION MANUAL( AUTOMATED BLOOD COUNTS AND [...] mL/min Normal 80 and above >32 mL/min NormalCLASSIFICATION CHOLESTEROL FOR ADULTS CHILDREN/ADOLESCENTS* DESIRABLE: <200 MG/DL <170 MG/DL BORDER-LINE HIGH RISK: 200-239 MG/DL 170-199 MG/DL HIGH RISK: >240 MG/DL >200 MG/DL CLASS. FOR PRIMARY LDL CHOL PREVENTION: LDL CHOL-CHILD/ADOLESCENTS* DESIRABLE: <130 MG/DL <110 MG/DL BORDERLINE-HIGH RISK: 130- 159 MG/DL 110-129 MG/DL HIGH RISK: >160 MG/DL >130 MG/DL *CHILDREN AND ADOLESCENTS REPRESENTS INDIVIDUALA AGED 2-19 YEARS EXCLUSIVE. Cho/HDL Ratio 6.9 Calc [facility] ([facility] NORMAL RANGES Age WBC RBC HGB HCT [...] HCT IS 5% LESS SOURCE FOR DATA: [employer] 1800 OPERATION MANUAL( AUTOMATED BLOOD COUNTS AND [...] mL/min Normal 80 and above >32 mL/min NormalCLASSIFICATION CHOLESTEROL FOR ADULTS CHILDREN/ADOLESCENTS* DESIRABLE: <200 MG/DL <170 MG/DL BORDER-LINE HIGH RISK: 200-239 MG/DL 170-199 MG/DL HIGH RISK: >240 MG/DL >200 MG/DL CLASS. FOR PRIMARY LDL CHOL PREVENTION: LDL CHOL-CHILD/ADOLESCENTS* DESIRABLE: <130 MG/DL <110 MG/DL BORDERLINE-HIGH RISK: 130- 159 MG/DL 110-129 MG/DL HIGH RISK: >160 MG/DL >130 MG/DL *CHILDREN AND ADOLESCENTS REPRESENTS INDIVIDUALA AGED 2-19 YEARS EXCLUSIVE. ID Date Data Source [id number] 12/09/2020 01:56:00 PM EST [facility] ([facility] Name Value Range Interpretation Code Description Data Tatiana rce(s) Supporting Document(s) Glu 337 mg/dL 70-110 Above high normal [facility] ([facility] NORMAL RANGES Age WBC RBC HGB HCT [...] HCT IS 5% LESS SOURCE FOR DATA: [employer] 1800 OPERATION MANUAL( AUTOMATED BLOOD COUNTS AND [...] mL/min Normal 80 and above >32 mL/min NormalCLASSIFICATION CHOLESTEROL FOR ADULTS CHILDREN/ADOLESCENTS* DESIRABLE: <200 MG/DL <170 MG/DL BORDER-LINE HIGH RISK: 200-239 MG/DL 170-199 MG/DL HIGH RISK: >240 MG/DL >200 MG/DL CLASS. FOR PRIMARY LDL CHOL PREVENTION: LDL CHOL-CHILD/ADOLESCENTS* DESIRABLE: <130 MG/DL <110 MG/DL BORDERLINE-HIGH RISK: 130- 159 MG/DL 110-129 MG/DL HIGH RISK: >160 MG/DL >130 MG/DL *CHILDREN AND ADOLESCENTS REPRESENTS INDIVIDUALA AGED 2-19 YEARS EXCLUSIVE. BUN 21 mg/dL 8-23 [facility] ([facility] NORMAL RANGES Age WBC RBC HGB HCT [...] HCT IS 5% LESS SOURCE FOR DATA: [employer] 1800 OPERATION MANUAL( AUTOMATED BLOOD COUNTS AND [...] mL/min Normal 80 and above >32 mL/min NormalCLASSIFICATION CHOLESTEROL FOR ADULTS CHILDREN/ADOLESCENTS* DESIRABLE: <200 MG/DL <170 MG/DL BORDER-LINE HIGH RISK: 200-239 MG/DL 170-199 MG/DL HIGH RISK: >240 MG/DL >200 MG/DL CLASS. FOR PRIMARY LDL CHOL PREVENTION: LDL CHOL-CHILD/ADOLESCENTS* DESIRABLE: <130 MG/DL <110 MG/DL BORDERLINE-HIGH RISK: 130- 159 MG/DL 110-129 MG/DL HIGH RISK: >160 MG/DL >130 MG/DL *CHILDREN AND ADOLESCENTS REPRESENTS INDIVIDUALA AGED 2-19 YEARS EXCLUSIVE. Creat 1.4 mg/dL 0.7-1.2 Above high normal [facility] ([facility] NORMAL RANGES Age WBC RBC HGB HCT [...] HCT IS 5% LESS SOURCE FOR DATA: [employer] 1800 OPERATION MANUAL( AUTOMATED BLOOD COUNTS [...] mL/min Normal 80 and above >32 mL/min NormalCLASSIFICATION CHOLESTEROL FOR ADULTS CHILDREN/ADOLESCENTS* DESIRABLE: <200 MG/DL <170 MG/DL BORDER-LINE HIGH RISK: 200-239 MG/DL 170-199 MG/DL HIGH RISK: >240 MG/DL >200 MG/DL CLASS. FOR PRIMARY LDL CHOL PREVENTION: LDL CHOL-CHILD/ADOLESCENTS* DESIRABLE: <130 MG/DL <110 MG/DL BORDERLINE-HIGH RISK: 130- 159 MG/DL 110-129 MG/DL HIGH RISK: >160 MG/DL >130 MG/DL *CHILDREN AND ADOLESCENTS REPRESENTS INDIVIDUALA AGED 2-19 YEARS EXCLUSIVE. Na 134 mmol/L 136-145 Below low normal [facility] ( [facility] NORMAL RANGES Age WBC RBC HGB HCT [...] HCT IS 5% LESS SOURCE FOR DATA: [employer] 1800 OPERATION MANUAL( AUTOMATED BLOOD COUNTS AND [...] mL/min Normal 80 and above >32 mL/min NormalCLASSIFICATION CHOLESTEROL FOR ADULTS CHILDREN/ADOLESCENTS* DESIRABLE: <200 MG/DL <170 MG/DL BORDER-LINE HIGH RISK: 200-239 MG/DL 170-199 MG/DL HIGH RISK: >240 MG/DL >200 MG/DL CLASS. FOR PRIMARY LDL CHOL PREVENTION: LDL CHOL-CHILD/ADOLESCENTS* DESIRABLE: <130 MG/DL <110 MG/DL BORDERLINE-HIGH RISK: 130- 159 MG/DL 110-129 MG/DL HIGH RISK: >160 MG/DL >130 MG/DL *CHILDREN AND ADOLESCENTS REPRESENTS INDIVIDUALA AGED 2-19 YEARS EXCLUSIVE. BUN/Creatinine Ratio 15.5 CALC [facility] ([facility] NORMAL RANGES Age WBC RBC HGB HCT [...] HCT IS 5% LESS SOURCE FOR DATA: [employer] 1800 OPERATION MANUAL( AUTOMATED BLOOD COUNTS AND [...] mL/min Normal 80 and above >32 mL/min NormalCLASSIFICATION CHOLESTEROL FOR ADULTS CHILDREN/ADOLESCENTS* DESIRABLE: <200 MG/DL <170 MG/DL BORDER-LINE HIGH RISK: 200-239 MG/DL 170-199 MG/DL HIGH RISK: >240 MG/DL >200 MG/DL CLASS. FOR PRIMARY LDL CHOL PREVENTION: LDL CHOL-CHILD/ADOLESCENTS* DESIRABLE: <130 MG/DL <110 MG/DL BORDERLINE-HIGH RISK: 130- 159 MG/DL 110-129 MG/DL HIGH RISK: >160 MG/DL >130 MG/DL *CHILDREN AND ADOLESCENTS REPRESENTS INDIVIDUALA AGED 2-19 YEARS EXCLUSIVE. K 4.4 mmol/L 3.5-5.1 [facility] NORMAL RANGES Age WBC RBC HGB HCT [...] HCT IS 5% LESS SOURCE FOR DATA: [employer] DYN 1800 OPERATION MANUAL( AUTOMATED BLOOD COUNTS [...] mL/min Normal 80 and above >32 mL/min NormalCLASSIFICATION CHOLESTEROL FOR ADULTS CHILDREN/ADOLESCENTS* DESIRABLE: <200 MG/DL <170 MG/DL BORDER-LINE HIGH RISK: 200-239 MG/DL 170-199 MG/DL HIGH RISK: >240 MG/DL >200 MG/DL CLASS. FOR PRIMARY LDL CHOL PREVENTION: LDL CHOL-CHILD/ADOLESCENTS* DESIRABLE: <130 MG/DL <110 MG/DL BORDERLINE-HIGH RISK: 130- 159 MG/DL 110-129 MG/DL HIGH RISK: >160 MG/DL >130 MG/DL *CHILDREN AND ADOLESCENTS REPRESENTS INDIVIDUALA AGED 2-19 YEARS EXCLUSIVE. CL 98.9 mmol/L 98.0-107.0 [facility] ([facility] NORMAL RANGES Age WBC RBC HGB HCT [...] HCT IS 5% LESS SOURCE FOR DATA: [employer] 1800 OPERATION MANUAL( AUTOMATED BLOOD COUNTS AND [...] mL/min Normal 80 and above >32 mL/min NormalCLASSIFICATION CHOLESTEROL FOR ADULTS CHILDREN/ADOLESCENTS* DESIRABLE: <200 MG/DL <170 MG/DL BORDER-LINE HIGH RISK: 200-239 MG/DL 170-199 MG/DL HIGH RISK: >240 MG/DL >200 MG/DL CLASS. FOR PRIMARY LDL CHOL PREVENTION: LDL CHOL-CHILD/ADOLESCENTS* DESIRABLE: <130 MG/DL <110 MG/DL BORDERLINE-HIGH RISK: 130- 159 MG/DL 110-129 MG/DL HIGH RISK: >160 MG/DL >130 MG/DL *CHILDREN AND ADOLESCENTS REPRESENTS INDIVIDUALA AGED 2-19 YEARS EXCLUSIVE. Co2 23.0 mmol/L 22.0-29.0 [facility] ([facility] NORMAL RANGES Age WBC RBC HGB HCT [...] HCT IS 5% LESS SOURCE FOR DATA: [employer] DYN 1800 OPERATION MANUAL( AUTOMATED BLOOD COUNTS [...] mL/min Normal 80 and above >32 mL/min NormalCLASSIFICATION CHOLESTEROL FOR ADULTS CHILDREN/ADOLESCENTS* DESIRABLE: <200 MG/DL <170 MG/DL BORDER-LINE HIGH RISK: 200-239 MG/DL 170-199 MG/DL HIGH RISK: >240 MG/DL >200 MG/DL CLASS. FOR PRIMARY LDL CHOL PREVENTION: LDL CHOL-CHILD/ADOLESCENTS* DESIRABLE: <130 MG/DL <110 MG/DL BORDERLINE-HIGH RISK: 130- 159 MG/DL 110-129 MG/DL HIGH RISK: >160 MG/DL >130 MG/DL *CHILDREN AND ADOLESCENTS REPRESENTS INDIVIDUALA AGED 2-19 YEARS EXCLUSIVE. CA 9.6 mg/dL 8.6-10.2 [facility] NORMAL RANGES Age WBC RBC HGB HCT [...] HCT IS 5% LESS SOURCE FOR DATA: [employer] 1800 OPERATION MANUAL( AUTOMATED BLOOD COUNTS AND [...] mL/min Normal 80 and above >32 mL/min NormalCLASSIFICATION CHOLESTEROL FOR ADULTS CHILDREN/ADOLESCENTS* DESIRABLE: <200 MG/DL <170 MG/DL BORDER-LINE HIGH RISK: 200-239 MG/DL 170-199 MG/DL HIGH RISK: >240 MG/DL >200 MG/DL CLASS. FOR PRIMARY LDL CHOL PREVENTION: LDL CHOL-CHILD/ADOLESCENTS* DESIRABLE: <130 MG/DL <110 MG/DL BORDERLINE-HIGH RISK: 130- 159 MG/DL 110-129 MG/DL HIGH RISK: >160 MG/DL >130 MG/DL *CHILDREN AND ADOLESCENTS REPRESENTS INDIVIDUALA AGED 2-19 YEARS EXCLUSIVE. Alb 4.0 g/dL 3.5-5.2 [facility] ([facility] NORMAL RANGES Age WBC RBC HGB HCT [...] HCT IS 5% LESS SOURCE FOR DATA: [employer] 1800 OPERATION MANUAL( AUTOMATED BLOOD COUNTS AND [...] mL/min Normal 80 and above >32 mL/min NormalCLASSIFICATION CHOLESTEROL FOR ADULTS CHILDREN/ADOLESCENTS* DESIRABLE: <200 MG/DL <170 MG/DL BORDER-LINE HIGH RISK: 200-239 MG/DL 170-199 MG/DL HIGH RISK: >240 MG/DL >200 MG/DL CLASS. FOR PRIMARY LDL CHOL PREVENTION: LDL CHOL-CHILD/ADOLESCENTS* DESIRABLE: <130 MG/DL <110 MG/DL BORDERLINE-HIGH RISK: 130- 159 MG/DL 110-129 MG/DL HIGH RISK: >160 MG/DL >130 MG/DL *CHILDREN AND ADOLESCENTS REPRESENTS INDIVIDUALA AGED 2-19 YEARS EXCLUSIVE. TP 7.0 g/dL 6.6-8.7 [facility] ([facility] NORMAL RANGES Age WBC RBC HGB HCT [...] HCT IS 5% LESS SOURCE FOR DATA: [employer] 1800 OPERATION MANUAL( AUTOMATED BLOOD COUNTS AND [...] mL/min Normal 80 and above >32 mL/min NormalCLASSIFICATION CHOLESTEROL FOR ADULTS CHILDREN/ADOLESCENTS* DESIRABLE: <200 MG/DL <170 MG/DL BORDER-LINE HIGH RISK: 200-239 MG/DL 170-199 MG/DL HIGH RISK: >240 MG/DL >200 MG/DL CLASS. FOR PRIMARY LDL CHOL PREVENTION: LDL CHOL-CHILD/ADOLESCENTS* DESIRABLE: <130 MG/DL <110 MG/DL BORDERLINE-HIGH RISK: 130- 159 MG/DL 110-129 MG/DL HIGH RISK: >160 MG/DL >130 MG/DL *CHILDREN AND ADOLESCENTS REPRESENTS INDIVIDUALA AGED 2-19 YEARS EXCLUSIVE. A/G Ratio 1.3 CALC [facility] ([facility] NORMAL RANGES Age WBC RBC HGB HCT [...] HCT IS 5% LESS SOURCE FOR DATA: [employer] 1800 OPERATION MANUAL( AUTOMATED BLOOD COUNTS AND [...] mL/min Normal 80 and above >32 mL/min NormalCLASSIFICATION CHOLESTEROL FOR ADULTS CHILDREN/ADOLESCENTS* DESIRABLE: <200 MG/DL <170 MG/DL BORDER-LINE HIGH RISK: 200-239 MG/DL 170-199 MG/DL HIGH RISK: >240 MG/DL >200 MG/DL CLASS. FOR PRIMARY LDL CHOL PREVENTION: LDL CHOL-CHILD/ADOLESCENTS* DESIRABLE: <130 MG/DL <110 MG/DL BORDERLINE-HIGH RISK: 130- 159 MG/DL 110-129 MG/DL HIGH RISK: >160 MG/DL >130 MG/DL *CHILDREN AND ADOLESCENTS REPRESENTS INDIVIDUALA AGED 2-19 YEARS EXCLUSIVE. Globulin 3.0 CALC [facility] ([facility] NORMAL RANGES Age WBC RBC HGB HCT [...] HCT IS 5% LESS SOURCE FOR DATA: [employer] 1800 OPERATION MANUAL( AUTOMATED BLOOD COUNTS AND [...] mL/min Normal 80 and above >32 mL/min NormalCLASSIFICATION CHOLESTEROL FOR ADULTS CHILDREN/ADOLESCENTS* DESIRABLE: <200 MG/DL <170 MG/DL BORDER-LINE HIGH RISK: 200-239 MG/DL 170-199 MG/DL HIGH RISK: >240 MG/DL >200 MG/DL CLASS. FOR PRIMARY LDL CHOL PREVENTION: LDL CHOL-CHILD/ADOLESCENTS* DESIRABLE: <130 MG/DL <110 MG/DL BORDERLINE-HIGH RISK: 130- 159 MG/DL 110-129 MG/DL HIGH RISK: >160 MG/DL >130 MG/DL *CHILDREN AND ADOLESCENTS REPRESENTS INDIVIDUALA AGED 2-19 YEARS EXCLUSIVE. Alp 169.3 U/L 40-129 Above high normal [facility] ([facility] NORMAL RANGES Age WBC RBC HGB HCT [...] HCT IS 5% LESS SOURCE FOR DATA: [employer] 1800 OPERATION MANUAL( AUTOMATED BLOOD COUNTS AND [...] mL/min Normal 80 and above >32 mL/min NormalCLASSIFICATION CHOLESTEROL FOR ADULTS CHILDREN/ADOLESCENTS* DESIRABLE: <200 MG/DL <170 MG/DL BORDER-LINE HIGH RISK: 200-239 MG/DL 170-199 MG/DL HIGH RISK: >240 MG/DL >200 MG/DL CLASS. FOR PRIMARY LDL CHOL PREVENTION: LDL CHOL-CHILD/ADOLESCENTS* DESIRABLE: <130 MG/DL <110 MG/DL BORDERLINE-HIGH RISK: 130- 159 MG/DL 110-129 MG/DL HIGH RISK: >160 MG/DL >130 MG/DL *CHILDREN AND ADOLESCENTS REPRESENTS INDIVIDUALA AGED 2-19 YEARS EXCLUSIVE. Alt (SGPT) 29 U/L 0-41 [facility] ([facility] NORMAL RANGES Age WBC RBC HGB HCT [...] HCT IS 5% LESS SOURCE FOR DATA: [employer] DYN 1800 OPERATION MANUAL( AUTOMATED BLOOD COUNTS [...] mL/min Normal 80 and above >32 mL/min NormalCLASSIFICATION CHOLESTEROL FOR ADULTS CHILDREN/ADOLESCENTS* DESIRABLE: <200 MG/DL <170 MG/DL BORDER-LINE HIGH RISK: 200-239 MG/DL 170-199 MG/DL HIGH RISK: >240 MG/DL >200 MG/DL CLASS. FOR PRIMARY LDL CHOL PREVENTION: LDL CHOL-CHILD/ADOLESCENTS* DESIRABLE: <130 MG/DL <110 MG/DL BORDERLINE-HIGH RISK: 130- 159 MG/DL 110-129 MG/DL HIGH RISK: >160 MG/DL >130 MG/DL *CHILDREN AND ADOLESCENTS REPRESENTS INDIVIDUALA AGED 2-19 YEARS EXCLUSIVE. Tbili 0.56 mg/dL 0.0-1.2 [facility] ([facility] NORMAL RANGES Age WBC RBC HGB HCT [...] HCT IS 5% LESS SOURCE FOR DATA: [employer] 1800 OPERATION MANUAL( AUTOMATED BLOOD COUNTS AND [...] mL/min Normal 80 and above >32 mL/min NormalCLASSIFICATION CHOLESTEROL FOR ADULTS CHILDREN/ADOLESCENTS* DESIRABLE: <200 MG/DL <170 MG/DL BORDER-LINE HIGH RISK: 200-239 MG/DL 170-199 MG/DL HIGH RISK: >240 MG/DL >200 MG/DL CLASS. FOR PRIMARY LDL CHOL PREVENTION: LDL CHOL-CHILD/ADOLESCENTS* DESIRABLE: <130 MG/DL <110 MG/DL BORDERLINE-HIGH RISK: 130- 159 MG/DL 110-129 MG/DL HIGH RISK: >160 MG/DL >130 MG/DL *CHILDREN AND ADOLESCENTS REPRESENTS INDIVIDUALA AGED 2-19 YEARS EXCLUSIVE. Ast (Sgot) 36 U/L 0-40 [facility] NORMAL RANGES Age WBC RBC HGB HCT [...] HCT IS 5% LESS SOURCE FOR DATA: [employer] 1800 OPERATION MANUAL( AUTOMATED BLOOD COUNTS AND [...] mL/min Normal 80 and above >32 mL/min NormalCLASSIFICATION CHOLESTEROL FOR ADULTS CHILDREN/ADOLESCENTS* DESIRABLE: <200 MG/DL <170 MG/DL BORDER-LINE HIGH RISK: 200-239 MG/DL 170-199 MG/DL HIGH RISK: >240 MG/DL >200 MG/DL CLASS. FOR PRIMARY LDL CHOL PREVENTION: LDL CHOL-CHILD/ADOLESCENTS* DESIRABLE: <130 MG/DL <110 MG/DL BORDERLINE-HIGH RISK: 130- 159 MG/DL 110-129 MG/DL HIGH RISK: >160 MG/DL >130 MG/DL *CHILDREN AND ADOLESCENTS REPRESENTS INDIVIDUALA AGED 2-19 YEARS EXCLUSIVE. Osmolality-Calculated 284.9 CALC [facility] ([facility] NORMAL RANGES Age WBC RBC HGB HCT [...] HCT IS 5% LESS SOURCE FOR DATA: [employer] 1800 OPERATION MANUAL( AUTOMATED BLOOD COUNTS AND [...] mL/min Normal 80 and above >32 mL/min NormalCLASSIFICATION CHOLESTEROL FOR ADULTS CHILDREN/ADOLESCENTS* DESIRABLE: <200 MG/DL <170 MG/DL BORDER-LINE HIGH RISK: 200-239 MG/DL 170-199 MG/DL HIGH RISK: >240 MG/DL >200 MG/DL CLASS. FOR PRIMARY LDL CHOL PREVENTION: LDL CHOL-CHILD/ADOLESCENTS* DESIRABLE: <130 MG/DL <110 MG/DL BORDERLINE-HIGH RISK: 130- 159 MG/DL 110-129 MG/DL HIGH RISK: >160 MG/DL >130 MG/DL *CHILDREN AND ADOLESCENTS REPRESENTS INDIVIDUALA AGED 2-19 YEARS EXCLUSIVE. Anion Gap 17 mmol/L [facility] ([facility] NORMAL RANGES Age WBC RBC HGB HCT [...] HCT IS 5% LESS SOURCE FOR DATA: [employer] 1800 OPERATION MANUAL( AUTOMATED BLOOD COUNTS AND [...] mL/min Normal 80 and above >32 mL/min NormalCLASSIFICATION CHOLESTEROL FOR ADULTS CHILDREN/ADOLESCENTS* DESIRABLE: <200 MG/DL <170 MG/DL BORDER-LINE HIGH RISK: 200-239 MG/DL 170-199 MG/DL HIGH RISK: >240 MG/DL >200 MG/DL CLASS. FOR PRIMARY LDL CHOL PREVENTION: LDL CHOL-CHILD/ADOLESCENTS* DESIRABLE: <130 MG/DL <110 MG/DL BORDERLINE-HIGH RISK: 130- 159 MG/DL 110-129 MG/DL HIGH RISK: >160 MG/DL >130 MG/DL *CHILDREN AND ADOLESCENTS REPRESENTS INDIVIDUALA AGED 2-19 YEARS EXCLUSIVE. eGFR 60 # [facility] ( [facility] CKD-EPI eGFR Non-Afr. Kenyan 52 # [facility] ([facility] CKD-EPI ID Date Data Source [id number] 12/09/2020 01:56:00 PM EST [facility] ([facility] Name Value Range Interpretation Code Description Data Tatiana rce(s) Supporting Document(s) Creatine kinase [Enzymatic activity/volume] in Serum or Plasma 3 66 U/L 39-308 Above high normal [facility] ([facility] NORMAL RANGES Age WBC RBC HGB HCT [...] HCT IS 5% LESS SOURCE FOR DATA: [employer] DYN 1800 OPERATION MANUAL( AUTOMATED BLOOD COUNTS [...] mL/min Normal 80 and above >32 mL/min NormalCLASSIFICATION CHOLESTEROL FOR ADULTS CHILDREN/ADOLESCENTS* DESIRABLE: <200 MG/DL <170 MG/DL BORDER-LINE HIGH RISK: 200-239 MG/DL 170-199 MG/DL HIGH RISK: >240 MG/DL >200 MG/DL CLASS. FOR PRIMARY LDL CHOL PREVENTION: LDL CHOL-CHILD/ADOLESCENTS* DESIRABLE: <130 MG/DL <110 MG/DL BORDERLINE-HIGH RISK: 130-159 MG/DL 110-129 MG/DL HIGH RISK: >160 MG/DL >130 MG/DL *CHILDREN AND ADOLESCENTS REPRESENTS INDIVIDUALA AGED 2-19 YEARS EXCLUSIVE. ID Date Data Source [id number] 12/09/2020 01:56:00 PM EST [facility] ([facility] Name Value Range Interpretation Code Description Data Tatiana rce(s) Supporting Document(s) WBC 5.5 10E3/uL 4.1-10.9 [facility] ([facility] NORMAL RANGES Age WBC RBC HGB HCT [...] HCT IS 5% LESS SOURCE FOR DATA: [employer] 1800 OPERATION MANUAL( AUTOMATED BLOOD COUNTS AND [...] mL/min Normal 80 and above >32 mL/min NormalCLASSIFICATION CHOLESTEROL FOR ADULTS CHILDREN/ADOLESCENTS* DESIRABLE: <200 MG/DL <170 MG/DL BORDER-LINE HIGH RISK: 200-239 MG/DL 170-199 MG/DL HIGH RISK: >240 MG/DL >200 MG/DL CLASS. FOR PRIMARY LDL CHOL PREVENTION: LDL CHOL-CHILD/ADOLESCENTS* DESIRABLE: <130 MG/DL <110 MG/DL BORDERLINE-HIGH RISK: 130-159 MG/DL 110-129 MG/DL HIGH RISK: >160 MG/DL >130 MG/DL *CHILDREN AND ADOLESCENTS REPRESENTS INDIVIDUALA AGED 2-19 YEARS EXCLUSIVE. RBC 4.44 10E6/uL 4.20-6.30 [facility] ([facility] NORMAL RANGES Age WBC RBC HGB HCT [...] HCT IS 5% LESS SOURCE FOR DATA: [employer] 1800 OPERATION MANUAL( AUTOMATED BLOOD COUNTS AND [...] mL/min Normal 80 and above >32 mL/min NormalCLASSIFICATION CHOLESTEROL FOR ADULTS CHILDREN/ADOLESCENTS* DESIRABLE: <200 MG/DL <170 MG/DL BORDER-LINE HIGH RISK: 200-239 MG/DL 170-199 MG/DL HIGH RISK: >240 MG/DL >200 MG/DL CLASS. FOR PRIMARY LDL CHOL PREVENTION: LDL CHOL-CHILD/ADOLESCENTS* DESIRABLE: <130 MG/DL <110 MG/DL BORDERLINE-HIGH RISK: 130-159 MG/DL 110-129 MG/DL HIGH RISK: >160 MG/DL >130 MG/DL *CHILDREN AND ADOLESCENTS REPRESENTS INDIVIDUALA AGED 2-19 YEARS EXCLUSIVE. HGB 13.9 g/dL 12.0-18.0 [facility] NORMAL RANGES Age WBC RBC HGB HCT [...] HCT IS 5% LESS SOURCE FOR DATA: [employer] 1800 OPERATION MANUAL( AUTOMATED BLOOD COUNTS AND [...] mL/min Normal 80 and above >32 mL/min NormalCLASSIFICATION CHOLESTEROL FOR ADULTS CHILDREN/ADOLESCENTS* DESIRABLE: <200 MG/DL <170 MG/DL BORDER-LINE HIGH RISK: 200-239 MG/DL 170-199 MG/DL HIGH RISK: >240 MG/DL >200 MG/DL CLASS. FOR PRIMARY LDL CHOL PREVENTION: LDL CHOL-CHILD/ADOLESCENTS* DESIRABLE: <130 MG/DL <110 MG/DL BORDERLINE-HIGH RISK: 130-159 MG/DL 110-129 MG/DL HIGH RISK: >160 MG/DL >130 MG/DL *CHILDREN AND ADOLESCENTS REPRESENTS INDIVIDUALA AGED 2-19 YEARS EXCLUSIVE. HCT 40.7 % 37.0-51.0 [facility] ([facility] NORMAL RANGES Age WBC RBC HGB HCT [...] HCT IS 5% LESS SOURCE FOR DATA: [employer] 1800 OPERATION MANUAL( AUTOMATED BLOOD COUNTS AND [...] mL/min Normal 80 and above >32 mL/min NormalCLASSIFICATION CHOLESTEROL FOR ADULTS CHILDREN/ADOLESCENTS* DESIRABLE: <200 MG/DL <170 MG/DL BORDER-LINE HIGH RISK: 200-239 MG/DL 170-199 MG/DL HIGH RISK: >240 MG/DL >200 MG/DL CLASS. FOR PRIMARY LDL CHOL PREVENTION: LDL CHOL-CHILD/ADOLESCENTS* DESIRABLE: <130 MG/DL <110 MG/DL BORDERLINE-HIGH RISK: 130-159 MG/DL 110-129 MG/DL HIGH RISK: >160 MG/DL >130 MG/DL *CHILDREN AND ADOLESCENTS REPRESENTS INDIVIDUALA AGED 2-19 YEARS EXCLUSIVE. MCH 31.3 pg 26.0-32.0 [facility] ([facility] NORMAL RANGES Age WBC RBC HGB HCT [...] HCT IS 5% LESS SOURCE FOR DATA: [employer] DYN 1800 OPERATION MANUAL( AUTOMATED BLOOD COUNTS [...] mL/min Normal 80 and above >32 mL/min NormalCLASSIFICATION CHOLESTEROL FOR ADULTS CHILDREN/ADOLESCENTS* DESIRABLE: <200 MG/DL <170 MG/DL BORDER-LINE HIGH RISK: 200-239 MG/DL 170-199 MG/DL HIGH RISK: >240 MG/DL >200 MG/DL CLASS. FOR PRIMARY LDL CHOL PREVENTION: LDL CHOL-CHILD/ADOLESCENTS* DESIRABLE: <130 MG/DL <110 MG/DL BORDERLINE-HIGH RISK: 130-159 MG/DL 110-129 MG/DL HIGH RISK: >160 MG/DL >130 MG/DL *CHILDREN AND ADOLESCENTS REPRESENTS INDIVIDUALA AGED 2-19 YEARS EXCLUSIVE. MCV 91.7 fL 80.0-97.0 [facility] ([facility] NORMAL RANGES Age WBC RBC HGB HCT [...] HCT IS 5% LESS SOURCE FOR DATA: [employer] 1800 OPERATION MANUAL( AUTOMATED BLOOD COUNTS AND [...] mL/min Normal 80 and above >32 mL/min NormalCLASSIFICATION CHOLESTEROL FOR ADULTS CHILDREN/ADOLESCENTS* DESIRABLE: <200 MG/DL <170 MG/DL BORDER-LINE HIGH RISK: 200-239 MG/DL 170-199 MG/DL HIGH RISK: >240 MG/DL >200 MG/DL CLASS. FOR PRIMARY LDL CHOL PREVENTION: LDL CHOL-CHILD/ADOLESCENTS* DESIRABLE: <130 MG/DL <110 MG/DL BORDERLINE-HIGH RISK: 130-159 MG/DL 110-129 MG/DL HIGH RISK: >160 MG/DL >130 MG/DL *CHILDREN AND ADOLESCENTS REPRESENTS INDIVIDUALA AGED 2-19 YEARS EXCLUSIVE. MCHC 34.2 g/dL 31.0-36.0 [facility] ([facility] NORMAL RANGES Age WBC RBC HGB HCT [...] HCT IS 5% LESS SOURCE FOR DATA: [employer] 1800 OPERATION MANUAL( AUTOMATED BLOOD COUNTS AND [...] mL/min Normal 80 and above >32 mL/min NormalCLASSIFICATION CHOLESTEROL FOR ADULTS CHILDREN/ADOLESCENTS* DESIRABLE: <200 MG/DL <170 MG/DL BORDER-LINE HIGH RISK: 200-239 MG/DL 170-199 MG/DL HIGH RISK: >240 MG/DL >200 MG/DL CLASS. FOR PRIMARY LDL CHOL PREVENTION: LDL CHOL-CHILD/ADOLESCENTS* DESIRABLE: <130 MG/DL <110 MG/DL BORDERLINE-HIGH RISK: 130-159 MG/DL 110-129 MG/DL HIGH RISK: >160 MG/DL >130 MG/DL *CHILDREN AND ADOLESCENTS REPRESENTS INDIVIDUALA AGED 2-19 YEARS EXCLUSIVE. PLT 136 10E3/uL 140-440 Below low normal [facility] ([facility] NORMAL RANGES Age WBC RBC HGB HCT [...] HCT IS 5% LESS SOURCE FOR DATA: [employer] 1800 OPERATION MANUAL( AUTOMATED BLOOD COUNTS AND [...] mL/min Normal 80 and above >32 mL/min NormalCLASSIFICATION CHOLESTEROL FOR ADULTS CHILDREN/ADOLESCENTS* DESIRABLE: <200 MG/DL <170 MG/DL BORDER-LINE HIGH RISK: 200-239 MG/DL 170-199 MG/DL HIGH RISK: >240 MG/DL >200 MG/DL CLASS. FOR PRIMARY LDL CHOL PREVENTION: LDL CHOL-CHILD/ADOLESCENTS* DESIRABLE: <130 MG/DL <110 MG/DL BORDERLINE-HIGH RISK: 130-159 MG/DL 110-129 MG/DL HIGH RISK: >160 MG/DL >130 MG/DL *CHILDREN AND ADOLESCENTS REPRESENTS INDIVIDUALA AGED 2-19 YEARS EXCLUSIVE. RDW-CV 14.2 % 11.5-14.5 [facility] NORMAL RANGES Age WBC RBC HGB HCT [...] HCT IS 5% LESS SOURCE FOR DATA: [employer] 1800 OPERATION MANUAL( AUTOMATED BLOOD COUNTS AND [...] mL/min Normal 80 and above >32 mL/min NormalCLASSIFICATION CHOLESTEROL FOR ADULTS CHILDREN/ADOLESCENTS* DESIRABLE: <200 MG/DL <170 MG/DL BORDER-LINE HIGH RISK: 200-239 MG/DL 170-199 MG/DL HIGH RISK: >240 MG/DL >200 MG/DL CLASS. FOR PRIMARY LDL CHOL PREVENTION: LDL CHOL-CHILD/ADOLESCENTS* DESIRABLE: <130 MG/DL <110 MG/DL BORDERLINE-HIGH RISK: 130-159 MG/DL 110-129 MG/DL HIGH RISK: >160 MG/DL >130 MG/DL *CHILDREN AND ADOLESCENTS REPRESENTS INDIVIDUALA AGED 2-19 YEARS EXCLUSIVE. Lym% 22.5 % 10.0-58.5 [facility] ([facility] NORMAL RANGES Age WBC RBC HGB HCT [...] HCT IS 5% LESS SOURCE FOR DATA: [employer] 1800 OPERATION MANUAL( AUTOMATED BLOOD COUNTS AND [...] mL/min Normal 80 and above >32 mL/min NormalCLASSIFICATION CHOLESTEROL FOR ADULTS CHILDREN/ADOLESCENTS* DESIRABLE: <200 MG/DL <170 MG/DL BORDER-LINE HIGH RISK: 200-239 MG/DL 170-199 MG/DL HIGH RISK: >240 MG/DL >200 MG/DL CLASS. FOR PRIMARY LDL CHOL PREVENTION: LDL CHOL-CHILD/ADOLESCENTS* DESIRABLE: <130 MG/DL <110 MG/DL BORDERLINE-HIGH RISK: 130-159 MG/DL 110-129 MG/DL HIGH RISK: >160 MG/DL >130 MG/DL *CHILDREN AND ADOLESCENTS REPRESENTS INDIVIDUALA AGED 2-19 YEARS EXCLUSIVE. MXD% 6.7 % 0.1-24.0 [facility] ([facility] NORMAL RANGES Age WBC RBC HGB HCT [...] HCT IS 5% LESS SOURCE FOR DATA: [employer] 1800 OPERATION MANUAL( AUTOMATED BLOOD COUNTS AND [...] mL/min Normal 80 and above >32 mL/min NormalCLASSIFICATION CHOLESTEROL FOR ADULTS CHILDREN/ADOLESCENTS* DESIRABLE: <200 MG/DL <170 MG/DL BORDER-LINE HIGH RISK: 200-239 MG/DL 170-199 MG/DL HIGH RISK: >240 MG/DL >200 MG/DL CLASS. FOR PRIMARY LDL CHOL PREVENTION: LDL CHOL-CHILD/ADOLESCENTS* DESIRABLE: <130 MG/DL <110 MG/DL BORDERLINE-HIGH RISK: 130-159 MG/DL 110-129 MG/DL HIGH RISK: >160 MG/DL >130 MG/DL *CHILDREN AND ADOLESCENTS REPRESENTS INDIVIDUALA AGED 2-19 YEARS EXCLUSIVE. Neut% 70.8 % 37.0-92.0 [facility] ([facility] NORMAL RANGES Age WBC RBC HGB HCT [...] HCT IS 5% LESS SOURCE FOR DATA: [employer] 1800 OPERATION MANUAL( AUTOMATED BLOOD COUNTS AND [...] mL/min Normal 80 and above >32 mL/min NormalCLASSIFICATION CHOLESTEROL FOR ADULTS CHILDREN/ADOLESCENTS* DESIRABLE: <200 MG/DL <170 MG/DL BORDER-LINE HIGH RISK: 200-239 MG/DL 170-199 MG/DL HIGH RISK: >240 MG/DL >200 MG/DL CLASS. FOR PRIMARY LDL CHOL PREVENTION: LDL CHOL-CHILD/ADOLESCENTS* DESIRABLE: <130 MG/DL <110 MG/DL BORDERLINE-HIGH RISK: 130-159 MG/DL 110-129 MG/DL HIGH RISK: >160 MG/DL >130 MG/DL *CHILDREN AND ADOLESCENTS REPRESENTS INDIVIDUALA AGED 2-19 YEARS EXCLUSIVE. Lym# 1.2 10E3/uL 0.6-4.1 CHUYITA ([facility] NORMAL RANGES Age WBC RBC HGB HCT [...] HCT IS 5% LESS SOURCE FOR DATA: [employer] 1800 OPERATION MANUAL( AUTOMATED BLOOD COUNTS AND [...] mL/min Normal 80 and above >32 mL/min NormalCLASSIFICATION CHOLESTEROL FOR ADULTS CHILDREN/ADOLESCENTS* DESIRABLE: <200 MG/DL <170 MG/DL BORDER-LINE HIGH RISK: 200-239 MG/DL 170-199 MG/DL HIGH RISK: >240 MG/DL >200 MG/DL CLASS. FOR PRIMARY LDL CHOL PREVENTION: LDL CHOL-CHILD/ADOLESCENTS* DESIRABLE: <130 MG/DL <110 MG/DL BORDERLINE-HIGH RISK: 130-159 MG/DL 110-129 MG/DL HIGH RISK: >160 MG/DL >130 MG/DL *CHILDREN AND ADOLESCENTS REPRESENTS INDIVIDUALA AGED 2-19 YEARS EXCLUSIVE. Neut# 3.9 % 2.0-7.8 [facility] ([facility] NORMAL RANGES Age WBC RBC HGB HCT [...] HCT IS 5% LESS SOURCE FOR DATA: [employer] 1800 OPERATION MANUAL( AUTOMATED BLOOD COUNTS AND [...] mL/min Normal 80 and above >32 mL/min NormalCLASSIFICATION CHOLESTEROL FOR ADULTS CHILDREN/ADOLESCENTS* DESIRABLE: <200 MG/DL <170 MG/DL BORDER-LINE HIGH RISK: 200-239 MG/DL 170-199 MG/DL HIGH RISK: >240 MG/DL >200 MG/DL CLASS. FOR PRIMARY LDL CHOL PREVENTION: LDL CHOL-CHILD/ADOLESCENTS* DESIRABLE: <130 MG/DL <110 MG/DL BORDERLINE-HIGH RISK: 130-159 MG/DL 110-129 MG/DL HIGH RISK: >160 MG/DL >130 MG/DL *CHILDREN AND ADOLESCENTS REPRESENTS INDIVIDUALA AGED 2-19 YEARS EXCLUSIVE. MXD# 0.4 10E3/uL 0.0-1.8 [facility] NORMAL RANGES Age WBC RBC HGB HCT [...] HCT IS 5% LESS SOURCE FOR DATA: [employer] 1800 OPERATION MANUAL( AUTOMATED BLOOD COUNTS AND [...] mL/min Normal 80 and above >32 mL/min NormalCLASSIFICATION CHOLESTEROL FOR ADULTS CHILDREN/ADOLESCENTS* DESIRABLE: <200 MG/DL <170 MG/DL BORDER-LINE HIGH RISK: 200-239 MG/DL 170-199 MG/DL HIGH RISK: >240 MG/DL >200 MG/DL CLASS. FOR PRIMARY LDL CHOL PREVENTION: LDL CHOL-CHILD/ADOLESCENTS* DESIRABLE: <130 MG/DL <110 MG/DL BORDERLINE-HIGH RISK: 130-159 MG/DL 110-129 MG/DL HIGH RISK: >160 MG/DL >130 MG/DL *CHILDREN AND ADOLESCENTS REPRESENTS INDIVIDUALA AGED 2-19 YEARS EXCLUSIVE. MPV 10.7 fL 9.0-13.0 [facility] NORMAL RANGES Age WBC RBC HGB HCT [...] HCT IS 5% LESS SOURCE FOR DATA: [employer] 1800 OPERATION MANUAL( AUTOMATED BLOOD COUNTS AND [...] mL/min Normal 80 and above >32 mL/min NormalCLASSIFICATION CHOLESTEROL FOR ADULTS CHILDREN/ADOLESCENTS* DESIRABLE: <200 MG/DL <170 MG/DL BORDER-LINE HIGH RISK: 200-239 MG/DL 170-199 MG/DL HIGH RISK: >240 MG/DL >200 MG/DL CLASS. FOR PRIMARY LDL CHOL PREVENTION: LDL CHOL-CHILD/ADOLESCENTS* DESIRABLE: <130 MG/DL <110 MG/DL BORDERLINE-HIGH RISK: 130-159 MG/DL 110-129 MG/DL HIGH RISK: >160 MG/DL >130 MG/DL *CHILDREN AND ADOLESCENTS REPRESENTS INDIVIDUALA AGED 2-19 YEARS EXCLUSIVE. ID Date Data Source [id number] 12/09/2020 01:56:00 PM EST [facility] ([facility] Name Value Range Interpretation Code Description Data Tatiana rce(s) Supporting Document(s) Color Urine Laboratory test result M EDJAY JAY ([facility] Specific [place] Laboratory test result 1.00-1.03 [facility] ([facility] Appearance of Urine Laboratory test result [facility] ([facility] Glucose Urine Laboratory test result [facility] ([facility] PH Urine Laboratory test result 5.0-8.0 ME DENT ([facility] Bilirubin.total [Presence] in Urine by Test strip Laboratory test res ult [facility] ([facility] Ketones Laboratory test result [facility] ([facility] Blood Urine Laboratory test result M EDENT ([facility] Protein Urine Laboratory test result [facility] ([facility] Nitrite Laboratory test result [facility] ([facility] Urobilinogen Laboratory test result 0.2-1.0 [facility] ([facility] Leukocytes Laboratory test result ME DENT ([facility] Comment 1 Laboratory test result ME DENT ([facility] ID Date Data Source [id number] 09/02/2020 02:39:00 PM EST [facility] ([facility] Name Value Range Interpretation Code Description Data Tatiana rce(s) Supporting Document(s) Hemoglobin A1c/Hemoglobin.total in Blood 8.3 % 4.50-6.20 Above high normal [facility] ([facility] ID Date Data Source [id number] 09/02/2020 02:10:00 PM EST [facility] ([facility] Name Value Range Interpretation Code Description Data Tatiana rce(s) Supporting Document(s) Chol 206 mg/dL 0-200 Above high normal [facility] ([facility] NORMAL RANGES Age WBC RBC HGB HCT [...] HCT IS 5% LESS SOURCE FOR DATA: [employer] 1800 OPERATION MANUAL( AUTOMATED BLOOD COUNTS AND [...] mL/min Normal 80 and above >32 mL/min NormalCLASSIFICATION CHOLESTEROL FOR ADULTS CHILDREN/ADOLESCENTS* DESIRABLE: <200 MG/DL <170 MG/DL BORDER-LINE HIGH RISK: 200-239 MG/DL 170-199 MG/DL HIGH RISK: >240 MG/DL >200 MG/DL CLASS. FOR PRIMARY LDL CHOL PREVENTION: LDL CHOL-CHILD/ADOLESCENTS* DESIRABLE: <130 MG/DL <110 MG/DL BORDERLINE-HIGH RISK: 130- 159 MG/DL 110-129 MG/DL HIGH RISK: >160 MG/DL >130 MG/DL *CHILDREN AND ADOLESCENTS REPRESENTS INDIVIDUALA AGED 2-19 YEARS EXCLUSIVE. Trig 225 mg/dL 35-200 Above high normal [facility] ([facility] NORMAL RANGES Age WBC RBC HGB HCT [...] HCT IS 5% LESS SOURCE FOR DATA: [employer] 1800 OPERATION MANUAL( AUTOMATED BLOOD COUNTS AND [...] mL/min Normal 80 and above >32 mL/min NormalCLASSIFICATION CHOLESTEROL FOR ADULTS CHILDREN/ADOLESCENTS* DESIRABLE: <200 MG/DL <170 MG/DL BORDER-LINE HIGH RISK: 200-239 MG/DL 170-199 MG/DL HIGH RISK: >240 MG/DL >200 MG/DL CLASS. FOR PRIMARY LDL CHOL PREVENTION: LDL CHOL-CHILD/ADOLESCENTS* DESIRABLE: <130 MG/DL <110 MG/DL BORDERLINE-HIGH RISK: 130- 159 MG/DL 110-129 MG/DL HIGH RISK: >160 MG/DL >130 MG/DL *CHILDREN AND ADOLESCENTS REPRESENTS INDIVIDUALA AGED 2-19 YEARS EXCLUSIVE. Cholesterol in HDL [Mass/volume] in Serum or Plasma 40 mg/dL 35-55 [facility] ([facility] NORMAL RANGES Age WBC RBC HGB HCT [...] HCT IS 5% LESS SOURCE FOR DATA: [employer] 1800 OPERATION MANUAL( AUTOMATED BLOOD COUNTS AND [...] mL/min Normal 80 and above >32 mL/min NormalCLASSIFICATION CHOLESTEROL FOR ADULTS CHILDREN/ADOLESCENTS* DESIRABLE: <200 MG/DL <170 MG/DL BORDER-LINE HIGH RISK: 200-239 MG/DL 170-199 MG/DL HIGH RISK: >240 MG/DL >200 MG/DL CLASS. FOR PRIMARY LDL CHOL PREVENTION: LDL CHOL-CHILD/ADOLESCENTS* DESIRABLE: <130 MG/DL <110 MG/DL BORDERLINE-HIGH RISK: 130- 159 MG/DL 110-129 MG/DL HIGH RISK: >160 MG/DL >130 MG/DL *CHILDREN AND ADOLESCENTS REPRESENTS INDIVIDUALA AGED 2-19 YEARS EXCLUSIVE. LDL_C 121 Calc 75-129 [facility] NORMAL RANGES Age WBC RBC HGB HCT [...] HCT IS 5% LESS SOURCE FOR DATA: [employer] DYN 1800 OPERATION MANUAL( AUTOMATED BLOOD COUNTS [...] mL/min Normal 80 and above >32 mL/min NormalCLASSIFICATION CHOLESTEROL FOR ADULTS CHILDREN/ADOLESCENTS* DESIRABLE: <200 MG/DL <170 MG/DL BORDER-LINE HIGH RISK: 200-239 MG/DL 170-199 MG/DL HIGH RISK: >240 MG/DL >200 MG/DL CLASS. FOR PRIMARY LDL CHOL PREVENTION: LDL CHOL-CHILD/ADOLESCENTS* DESIRABLE: <130 MG/DL <110 MG/DL BORDERLINE-HIGH RISK: 130- 159 MG/DL 110-129 MG/DL HIGH RISK: >160 MG/DL >130 MG/DL *CHILDREN AND ADOLESCENTS REPRESENTS INDIVIDUALA AGED 2-19 YEARS EXCLUSIVE. Cho/HDL Ratio 5.2 Calc [facility] ([facility] NORMAL RANGES Age WBC RBC HGB HCT [...] HCT IS 5% LESS SOURCE FOR DATA: [employer] 1800 OPERATION MANUAL( AUTOMATED BLOOD COUNTS AND [...] mL/min Normal 80 and above >32 mL/min NormalCLASSIFICATION CHOLESTEROL FOR ADULTS CHILDREN/ADOLESCENTS* DESIRABLE: <200 MG/DL <170 MG/DL BORDER-LINE HIGH RISK: 200-239 MG/DL 170-199 MG/DL HIGH RISK: >240 MG/DL >200 MG/DL CLASS. FOR PRIMARY LDL CHOL PREVENTION: LDL CHOL-CHILD/ADOLESCENTS* DESIRABLE: <130 MG/DL <110 MG/DL BORDERLINE-HIGH RISK: 130- 159 MG/DL 110-129 MG/DL HIGH RISK: >160 MG/DL >130 MG/DL *CHILDREN AND ADOLESCENTS REPRESENTS INDIVIDUALA AGED 2-19 YEARS EXCLUSIVE. ID Date Data Source [id number] 09/02/2020 02:10:00 PM EST [facility] ([facility] Name Value Range Interpretation Code Description Data Tatiana rce(s) Supporting Document(s) Creatine kinase [Enzymatic activity/volume] in Serum or Plasma 2 171 U/L 39-308 Above high normal [facility] ([facility] NORMAL RANGES Age WBC RBC HGB HCT [...] HCT IS 5% LESS SOURCE FOR DATA: [employer] DYN 1800 OPERATION MANUAL( AUTOMATED BLOOD COUNTS [...] mL/min Normal 80 and above >32 mL/min NormalCLASSIFICATION CHOLESTEROL FOR ADULTS CHILDREN/ADOLESCENTS* DESIRABLE: <200 MG/DL <170 MG/DL BORDER-LINE HIGH RISK: 200-239 MG/DL 170-199 MG/DL HIGH RISK: >240 MG/DL >200 MG/DL CLASS. FOR PRIMARY LDL CHOL PREVENTION: LDL CHOL-CHILD/ADOLESCENTS* DESIRABLE: <130 MG/DL <110 MG/DL BORDERLINE-HIGH RISK: 130-159 MG/DL 110-129 MG/DL HIGH RISK: >160 MG/DL >130 MG/DL *CHILDREN AND ADOLESCENTS REPRESENTS INDIVIDUALA AGED 2-19 YEARS EXCLUSIVE. ID Date Data Source [id number] 09/02/2020 02:10:00 PM EST [facility] ([facility] Name Value Range Interpretation Code Description Data Tatiana rce(s) Supporting Document(s) Glu 189 mg/dL 70-110 Above high normal [facility] ([facility] NORMAL RANGES Age WBC RBC HGB HCT [...] HCT IS 5% LESS SOURCE FOR DATA: [employer] 1800 OPERATION MANUAL( AUTOMATED BLOOD COUNTS AND [...] mL/min Normal 80 and above >32 mL/min NormalCLASSIFICATION CHOLESTEROL FOR ADULTS CHILDREN/ADOLESCENTS* DESIRABLE: <200 MG/DL <170 MG/DL BORDER-LINE HIGH RISK: 200-239 MG/DL 170-199 MG/DL HIGH RISK: >240 MG/DL >200 MG/DL CLASS. FOR PRIMARY LDL CHOL PREVENTION: LDL CHOL-CHILD/ADOLESCENTS* DESIRABLE: <130 MG/DL <110 MG/DL BORDERLINE-HIGH RISK: 130-159 MG/DL 110-129 MG/DL HIGH RISK: >160 MG/DL >130 MG/DL *CHILDREN AND ADOLESCENTS REPRESENTS INDIVIDUALA AGED 2-19 YEARS EXCLUSIVE. Creat 1.6 mg/dL 0.7-1.2 Above high normal [facility] NORMAL RANGES Age WBC RBC HGB HCT [...] HCT IS 5% LESS SOURCE FOR DATA: [employer] 1800 OPERATION MANUAL( AUTOMATED BLOOD COUNTS AND [...] mL/min Normal 80 and above >32 mL/min NormalCLASSIFICATION CHOLESTEROL FOR ADULTS CHILDREN/ADOLESCENTS* DESIRABLE: <200 MG/DL <170 MG/DL BORDER-LINE HIGH RISK: 200-239 MG/DL 170-199 MG/DL HIGH RISK: >240 MG/DL >200 MG/DL CLASS. FOR PRIMARY LDL CHOL PREVENTION: LDL CHOL-CHILD/ADOLESCENTS* DESIRABLE: <130 MG/DL <110 MG/DL BORDERLINE-HIGH RISK: 130-159 MG/DL 110-129 MG/DL HIGH RISK: >160 MG/DL >130 MG/DL *CHILDREN AND ADOLESCENTS REPRESENTS INDIVIDUALA AGED 2-19 YEARS EXCLUSIVE. BUN 27 mg/dL 8-23 Above high normal [facility] ([facility] NORMAL RANGES Age WBC RBC HGB HCT [...] HCT IS 5% LESS SOURCE FOR DATA: [employer] DYN 1800 OPERATION MANUAL( AUTOMATED BLOOD COUNTS [...] mL/min Normal 80 and above >32 mL/min NormalCLASSIFICATION CHOLESTEROL FOR ADULTS CHILDREN/ADOLESCENTS* DESIRABLE: <200 MG/DL <170 MG/DL BORDER-LINE HIGH RISK: 200-239 MG/DL 170-199 MG/DL HIGH RISK: >240 MG/DL >200 MG/DL CLASS. FOR PRIMARY LDL CHOL PREVENTION: LDL CHOL-CHILD/ADOLESCENTS* DESIRABLE: <130 MG/DL <110 MG/DL BORDERLINE-HIGH RISK: 130-159 MG/DL 110-129 MG/DL HIGH RISK: >160 MG/DL >130 MG/DL *CHILDREN AND ADOLESCENTS REPRESENTS INDIVIDUALA AGED 2-19 YEARS EXCLUSIVE. BUN/Creatinine Ratio 16.6 CALC [facility] ([facility] NORMAL RANGES Age WBC RBC HGB HCT [...] HCT IS 5% LESS SOURCE FOR DATA: [employer] 1800 OPERATION MANUAL( AUTOMATED BLOOD COUNTS AND [...] mL/min Normal 80 and above >32 mL/min NormalCLASSIFICATION CHOLESTEROL FOR ADULTS CHILDREN/ADOLESCENTS* DESIRABLE: <200 MG/DL <170 MG/DL BORDER-LINE HIGH RISK: 200-239 MG/DL 170-199 MG/DL HIGH RISK: >240 MG/DL >200 MG/DL CLASS. FOR PRIMARY LDL CHOL PREVENTION: LDL CHOL-CHILD/ADOLESCENTS* DESIRABLE: <130 MG/DL <110 MG/DL BORDERLINE-HIGH RISK: 130-159 MG/DL 110-129 MG/DL HIGH RISK: >160 MG/DL >130 MG/DL *CHILDREN AND ADOLESCENTS REPRESENTS INDIVIDUALA AGED 2-19 YEARS EXCLUSIVE. Na 133 mmol/L 136-145 Below low normal [facility] ( [facility] NORMAL RANGES Age WBC RBC HGB HCT [...] HCT IS 5% LESS SOURCE FOR DATA: [employer] 1800 OPERATION MANUAL( AUTOMATED BLOOD COUNTS AND [...] mL/min Normal 80 and above >32 mL/min NormalCLASSIFICATION CHOLESTEROL FOR ADULTS CHILDREN/ADOLESCENTS* DESIRABLE: <200 MG/DL <170 MG/DL BORDER-LINE HIGH RISK: 200-239 MG/DL 170-199 MG/DL HIGH RISK: >240 MG/DL >200 MG/DL CLASS. FOR PRIMARY LDL CHOL PREVENTION: LDL CHOL-CHILD/ADOLESCENTS* DESIRABLE: <130 MG/DL <110 MG/DL BORDERLINE-HIGH RISK: 130-159 MG/DL 110-129 MG/DL HIGH RISK: >160 MG/DL >130 MG/DL *CHILDREN AND ADOLESCENTS REPRESENTS INDIVIDUALA AGED 2-19 YEARS EXCLUSIVE. CL 99.0 mmol/L 98.0-107.0 [employer] ([facility] NORMAL RANGES Age WBC RBC HGB HCT [...] HCT IS 5% LESS SOURCE FOR DATA: [employer] 1800 OPERATION MANUAL( AUTOMATED BLOOD COUNTS AND [...] mL/min Normal 80 and above >32 mL/min NormalCLASSIFICATION CHOLESTEROL FOR ADULTS CHILDREN/ADOLESCENTS* DESIRABLE: <200 MG/DL <170 MG/DL BORDER-LINE HIGH RISK: 200-239 MG/DL 170-199 MG/DL HIGH RISK: >240 MG/DL >200 MG/DL CLASS. FOR PRIMARY LDL CHOL PREVENTION: LDL CHOL-CHILD/ADOLESCENTS* DESIRABLE: <130 MG/DL <110 MG/DL BORDERLINE-HIGH RISK: 130-159 MG/DL 110-129 MG/DL HIGH RISK: >160 MG/DL >130 MG/DL *CHILDREN AND ADOLESCENTS REPRESENTS INDIVIDUALA AGED 2-19 YEARS EXCLUSIVE. K 4.9 mmol/L 3.5-5.1 [facility] ([facility] NORMAL RANGES Age WBC RBC HGB HCT [...] HCT IS 5% LESS SOURCE FOR DATA: [employer] 1800 OPERATION MANUAL( AUTOMATED BLOOD COUNTS AND [...] mL/min Normal 80 and above >32 mL/min NormalCLASSIFICATION CHOLESTEROL FOR ADULTS CHILDREN/ADOLESCENTS* DESIRABLE: <200 MG/DL <170 MG/DL BORDER-LINE HIGH RISK: 200-239 MG/DL 170-199 MG/DL HIGH RISK: >240 MG/DL >200 MG/DL CLASS. FOR PRIMARY LDL CHOL PREVENTION: LDL CHOL-CHILD/ADOLESCENTS* DESIRABLE: <130 MG/DL <110 MG/DL BORDERLINE-HIGH RISK: 130-159 MG/DL 110-129 MG/DL HIGH RISK: >160 MG/DL >130 MG/DL *CHILDREN AND ADOLESCENTS REPRESENTS INDIVIDUALA AGED 2-19 YEARS EXCLUSIVE. Co2 22.1 mmol/L 22.0-29.0 [facility] ([facility] NORMAL RANGES Age WBC RBC HGB HCT [...] HCT IS 5% LESS SOURCE FOR DATA: [employer] 1800 OPERATION MANUAL( AUTOMATED BLOOD COUNTS AND [...] mL/min Normal 80 and above >32 mL/min NormalCLASSIFICATION CHOLESTEROL FOR ADULTS CHILDREN/ADOLESCENTS* DESIRABLE: <200 MG/DL <170 MG/DL BORDER-LINE HIGH RISK: 200-239 MG/DL 170-199 MG/DL HIGH RISK: >240 MG/DL >200 MG/DL CLASS. FOR PRIMARY LDL CHOL PREVENTION: LDL CHOL-CHILD/ADOLESCENTS* DESIRABLE: <130 MG/DL <110 MG/DL BORDERLINE-HIGH RISK: 130-159 MG/DL 110-129 MG/DL HIGH RISK: >160 MG/DL >130 MG/DL *CHILDREN AND ADOLESCENTS REPRESENTS INDIVIDUALA AGED 2-19 YEARS EXCLUSIVE. CA 9.5 mg/dL 8.6-10.2 [facility] ([facility] NORMAL RANGES Age WBC RBC HGB HCT [...] HCT IS 5% LESS SOURCE FOR DATA: [employer] 1800 OPERATION MANUAL( AUTOMATED BLOOD COUNTS AND [...] mL/min Normal 80 and above >32 mL/min NormalCLASSIFICATION CHOLESTEROL FOR ADULTS CHILDREN/ADOLESCENTS* DESIRABLE: <200 MG/DL <170 MG/DL BORDER-LINE HIGH RISK: 200-239 MG/DL 170-199 MG/DL HIGH RISK: >240 MG/DL >200 MG/DL CLASS. FOR PRIMARY LDL CHOL PREVENTION: LDL CHOL-CHILD/ADOLESCENTS* DESIRABLE: <130 MG/DL <110 MG/DL BORDERLINE-HIGH RISK: 130-159 MG/DL 110-129 MG/DL HIGH RISK: >160 MG/DL >130 MG/DL *CHILDREN AND ADOLESCENTS REPRESENTS INDIVIDUALA AGED 2-19 YEARS EXCLUSIVE. A/G Ratio 1.4 CALC [facility] ([facility] NORMAL RANGES Age WBC RBC HGB HCT [...] HCT IS 5% LESS SOURCE FOR DATA: [employer] 1800 OPERATION MANUAL( AUTOMATED BLOOD COUNTS AND [...] mL/min Normal 80 and above >32 mL/min NormalCLASSIFICATION CHOLESTEROL FOR ADULTS CHILDREN/ADOLESCENTS* DESIRABLE: <200 MG/DL <170 MG/DL BORDER-LINE HIGH RISK: 200-239 MG/DL 170-199 MG/DL HIGH RISK: >240 MG/DL >200 MG/DL CLASS. FOR PRIMARY LDL CHOL PREVENTION: LDL CHOL-CHILD/ADOLESCENTS* DESIRABLE: <130 MG/DL <110 MG/DL BORDERLINE-HIGH RISK: 130-159 MG/DL 110-129 MG/DL HIGH RISK: >160 MG/DL >130 MG/DL *CHILDREN AND ADOLESCENTS REPRESENTS INDIVIDUALA AGED 2-19 YEARS EXCLUSIVE. TP 7.0 g/dL 6.6-8.7 [facility] ([facility] NORMAL RANGES Age WBC RBC HGB HCT [...] HCT IS 5% LESS SOURCE FOR DATA: [employer] 1800 OPERATION MANUAL( AUTOMATED BLOOD COUNTS AND [...] mL/min Normal 80 and above >32 mL/min NormalCLASSIFICATION CHOLESTEROL FOR ADULTS CHILDREN/ADOLESCENTS* DESIRABLE: <200 MG/DL <170 MG/DL BORDER-LINE HIGH RISK: 200-239 MG/DL 170-199 MG/DL HIGH RISK: >240 MG/DL >200 MG/DL CLASS. FOR PRIMARY LDL CHOL PREVENTION: LDL CHOL-CHILD/ADOLESCENTS* DESIRABLE: <130 MG/DL <110 MG/DL BORDERLINE-HIGH RISK: 130-159 MG/DL 110-129 MG/DL HIGH RISK: >160 MG/DL >130 MG/DL *CHILDREN AND ADOLESCENTS REPRESENTS INDIVIDUALA AGED 2-19 YEARS EXCLUSIVE. Alb 4.0 g/dL 3.5-5.2 [facility] ([facility] NORMAL RANGES Age WBC RBC HGB HCT [...] HCT IS 5% LESS SOURCE FOR DATA: [employer] 1800 OPERATION MANUAL( AUTOMATED BLOOD COUNTS AND [...] mL/min Normal 80 and above >32 mL/min NormalCLASSIFICATION CHOLESTEROL FOR ADULTS CHILDREN/ADOLESCENTS* DESIRABLE: <200 MG/DL <170 MG/DL BORDER-LINE HIGH RISK: 200-239 MG/DL 170-199 MG/DL HIGH RISK: >240 MG/DL >200 MG/DL CLASS. FOR PRIMARY LDL CHOL PREVENTION: LDL CHOL-CHILD/ADOLESCENTS* DESIRABLE: <130 MG/DL <110 MG/DL BORDERLINE-HIGH RISK: 130-159 MG/DL 110-129 MG/DL HIGH RISK: >160 MG/DL >130 MG/DL *CHILDREN AND ADOLESCENTS REPRESENTS INDIVIDUALA AGED 2-19 YEARS EXCLUSIVE. Alp 153.4 U/L 40-129 Above high normal [facility] ([facility] NORMAL RANGES Age WBC RBC HGB HCT [...] HCT IS 5% LESS SOURCE FOR DATA: [employer] 1800 OPERATION MANUAL( AUTOMATED BLOOD COUNTS AND [...] mL/min Normal 80 and above >32 mL/min NormalCLASSIFICATION CHOLESTEROL FOR ADULTS CHILDREN/ADOLESCENTS* DESIRABLE: <200 MG/DL <170 MG/DL BORDER-LINE HIGH RISK: 200-239 MG/DL 170-199 MG/DL HIGH RISK: >240 MG/DL >200 MG/DL CLASS. FOR PRIMARY LDL CHOL PREVENTION: LDL CHOL-CHILD/ADOLESCENTS* DESIRABLE: <130 MG/DL <110 MG/DL BORDERLINE-HIGH RISK: 130-159 MG/DL 110-129 MG/DL HIGH RISK: >160 MG/DL >130 MG/DL *CHILDREN AND ADOLESCENTS REPRESENTS INDIVIDUALA AGED 2-19 YEARS EXCLUSIVE. Globulin 2.9 CALC [facility] ([facility] NORMAL RANGES Age WBC RBC HGB HCT [...] HCT IS 5% LESS SOURCE FOR DATA: [employer] 1800 OPERATION MANUAL( AUTOMATED BLOOD COUNTS [...] mL/min Normal 80 and above >32 mL/min NormalCLASSIFICATION CHOLESTEROL FOR ADULTS CHILDREN/ADOLESCENTS* DESIRABLE: <200 MG/DL <170 MG/DL BORDER-LINE HIGH RISK: 200-239 MG/DL 170-199 MG/DL HIGH RISK: >240 MG/DL >200 MG/DL CLASS. FOR PRIMARY LDL CHOL PREVENTION: LDL CHOL-CHILD/ADOLESCENTS* DESIRABLE: <130 MG/DL <110 MG/DL BORDERLINE-HIGH RISK: 130-159 MG/DL 110-129 MG/DL HIGH RISK: >160 MG/DL >130 MG/DL *CHILDREN AND ADOLESCENTS REPRESENTS INDIVIDUALA AGED 2-19 YEARS EXCLUSIVE. Alt (SGPT) 48 U/L 0-41 Above high normal [facility] ([facility] NORMAL RANGES Age WBC RBC HGB HCT [...] HCT IS 5% LESS SOURCE FOR DATA: [employer] 1800 OPERATION MANUAL( AUTOMATED BLOOD COUNTS AND [...] mL/min Normal 80 and above >32 mL/min NormalCLASSIFICATION CHOLESTEROL FOR ADULTS CHILDREN/ADOLESCENTS* DESIRABLE: <200 MG/DL <170 MG/DL BORDER-LINE HIGH RISK: 200-239 MG/DL 170-199 MG/DL HIGH RISK: >240 MG/DL >200 MG/DL CLASS. FOR PRIMARY LDL CHOL PREVENTION: LDL CHOL-CHILD/ADOLESCENTS* DESIRABLE: <130 MG/DL <110 MG/DL BORDERLINE-HIGH RISK: 130-159 MG/DL 110-129 MG/DL HIGH RISK: >160 MG/DL >130 MG/DL *CHILDREN AND ADOLESCENTS REPRESENTS INDIVIDUALA AGED 2-19 YEARS EXCLUSIVE. Ast (Sgot) 84 U/L 0-40 Above high normal [facility] ([facility] NORMAL RANGES Age WBC RBC HGB HCT [...] HCT IS 5% LESS SOURCE FOR DATA: [employer] 1800 OPERATION MANUAL( AUTOMATED BLOOD COUNTS AND [...] mL/min Normal 80 and above >32 mL/min NormalCLASSIFICATION CHOLESTEROL FOR ADULTS CHILDREN/ADOLESCENTS* DESIRABLE: <200 MG/DL <170 MG/DL BORDER-LINE HIGH RISK: 200-239 MG/DL 170-199 MG/DL HIGH RISK: >240 MG/DL >200 MG/DL CLASS. FOR PRIMARY LDL CHOL PREVENTION: LDL CHOL-CHILD/ADOLESCENTS* DESIRABLE: <130 MG/DL <110 MG/DL BORDERLINE-HIGH RISK: 130-159 MG/DL 110-129 MG/DL HIGH RISK: >160 MG/DL >130 MG/DL *CHILDREN AND ADOLESCENTS REPRESENTS INDIVIDUALA AGED 2-19 YEARS EXCLUSIVE. Osmolality-Calculated 276.8 [facility] ([facility] NORMAL RANGES Age WBC RBC HGB HCT [...] HCT IS 5% LESS SOURCE FOR DATA: [employer] DYN 1800 OPERATION MANUAL( AUTOMATED BLOOD COUNTS [...] mL/min Normal 80 and above >32 mL/min NormalCLASSIFICATION CHOLESTEROL FOR ADULTS CHILDREN/ADOLESCENTS* DESIRABLE: <200 MG/DL <170 MG/DL BORDER-LINE HIGH RISK: 200-239 MG/DL 170-199 MG/DL HIGH RISK: >240 MG/DL >200 MG/DL CLASS. FOR PRIMARY LDL CHOL PREVENTION: LDL CHOL-CHILD/ADOLESCENTS* DESIRABLE: <130 MG/DL <110 MG/DL BORDERLINE-HIGH RISK: 130-159 MG/DL 110-129 MG/DL HIGH RISK: >160 MG/DL >130 MG/DL *CHILDREN AND ADOLESCENTS REPRESENTS INDIVIDUALA AGED 2-19 YEARS EXCLUSIVE. Tbili 0.42 mg/dL 0.0-1.2 [facility] NORMAL RANGES Age WBC RBC HGB HCT [...] HCT IS 5% LESS SOURCE FOR DATA: [employer] 1800 OPERATION MANUAL( AUTOMATED BLOOD COUNTS AND [...] mL/min Normal 80 and above >32 mL/min NormalCLASSIFICATION CHOLESTEROL FOR ADULTS CHILDREN/ADOLESCENTS* DESIRABLE: <200 MG/DL <170 MG/DL BORDER-LINE HIGH RISK: 200-239 MG/DL 170-199 MG/DL HIGH RISK: >240 MG/DL >200 MG/DL CLASS. FOR PRIMARY LDL CHOL PREVENTION: LDL CHOL-CHILD/ADOLESCENTS* DESIRABLE: <130 MG/DL <110 MG/DL BORDERLINE-HIGH RISK: 130-159 MG/DL 110-129 MG/DL HIGH RISK: >160 MG/DL >130 MG/DL *CHILDREN AND ADOLESCENTS REPRESENTS INDIVIDUALA AGED 2-19 YEARS EXCLUSIVE. eGFR Non-Afr. [place] 45 # MEDENT ([facility] CKD-EPI Anion Gap 17 mmol/L CHUYITA ([facility] NORMAL RANGES Age WBC RBC HGB HCT [...] HCT IS 5% LESS SOURCE FOR DATA: [employer] 1800 OPERATION MANUAL( AUTOMATED BLOOD COUNTS AND [...] mL/min Normal 80 and above >32 mL/min NormalCLASSIFICATION CHOLESTEROL FOR ADULTS CHILDREN/ADOLESCENTS* DESIRABLE: <200 MG/DL <170 MG/DL BORDER-LINE HIGH RISK: 200-239 MG/DL 170-199 MG/DL HIGH RISK: >240 MG/DL >200 MG/DL CLASS. FOR PRIMARY LDL CHOL PREVENTION: LDL CHOL-CHILD/ADOLESCENTS* DESIRABLE: <130 MG/DL <110 MG/DL BORDERLINE-HIGH RISK: 130-159 MG/DL 110-129 MG/DL HIGH RISK: >160 MG/DL >130 MG/DL *CHILDREN AND ADOLESCENTS REPRESENTS INDIVIDUALA AGED 2-19 YEARS EXCLUSIVE. eGFR 52 # CHUYITA ( [facility] CKD-EPI ID Date Data Source [id number] 09/02/2020 02:10:00 PM EST CHUYITA ([facility] Name Value Range Interpretation Code Description Data Tatiana rce(s) Supporting Document(s) WBC 8.0 10E3/uL 4.1-10.9 MEDJAY JAY ([facility] NORMAL RANGES Age WBC RBC HGB HCT [...] HCT IS 5% LESS SOURCE FOR DATA: [employer] 1800 OPERATION MANUAL( AUTOMATED BLOOD COUNTS AND [...] mL/min Normal 80 and above >32 mL/min NormalCLASSIFICATION CHOLESTEROL FOR ADULTS CHILDREN/ADOLESCENTS* DESIRABLE: <200 MG/DL <170 MG/DL BORDER-LINE HIGH RISK: 200-239 MG/DL 170-199 MG/DL HIGH RISK: >240 MG/DL >200 MG/DL CLASS. FOR PRIMARY LDL CHOL PREVENTION: LDL CHOL-CHILD/ADOLESCENTS* DESIRABLE: <130 MG/DL <110 MG/DL BORDERLINE-HIGH RISK: 130-159 MG/DL 110-129 MG/DL HIGH RISK: >160 MG/DL >130 MG/DL *CHILDREN AND ADOLESCENTS REPRESENTS INDIVIDUALA AGED 2-19 YEARS EXCLUSIVE. RBC 3.95 10E6/uL 4.20-6.30 Below low normal MEDENT ([facility] NORMAL RANGES Age WBC RBC HGB HCT [...] HCT IS 5% LESS SOURCE FOR DATA: [employer] 1800 OPERATION MANUAL( AUTOMATED BLOOD COUNTS AND [...] mL/min Normal 80 and above >32 mL/min NormalCLASSIFICATION CHOLESTEROL FOR ADULTS CHILDREN/ADOLESCENTS* DESIRABLE: <200 MG/DL <170 MG/DL BORDER-LINE HIGH RISK: 200-239 MG/DL 170-199 MG/DL HIGH RISK: >240 MG/DL >200 MG/DL CLASS. FOR PRIMARY LDL CHOL PREVENTION: LDL CHOL-CHILD/ADOLESCENTS* DESIRABLE: <130 MG/DL <110 MG/DL BORDERLINE-HIGH RISK: 130-159 MG/DL 110-129 MG/DL HIGH RISK: >160 MG/DL >130 MG/DL *CHILDREN AND ADOLESCENTS REPRESENTS INDIVIDUALA AGED 2-19 YEARS EXCLUSIVE. HGB 12.3 g/dL 12.0-18.0 [facility] ([facility] NORMAL RANGES Age WBC RBC HGB HCT [...] HCT IS 5% LESS SOURCE FOR DATA: [employer] 1800 OPERATION MANUAL( AUTOMATED BLOOD COUNTS [...] mL/min Normal 80 and above >32 mL/min NormalCLASSIFICATION CHOLESTEROL FOR ADULTS CHILDREN/ADOLESCENTS* DESIRABLE: <200 MG/DL <170 MG/DL BORDER-LINE HIGH RISK: 200-239 MG/DL 170-199 MG/DL HIGH RISK: >240 MG/DL >200 MG/DL CLASS. FOR PRIMARY LDL CHOL PREVENTION: LDL CHOL-CHILD/ADOLESCENTS* DESIRABLE: <130 MG/DL <110 MG/DL BORDERLINE-HIGH RISK: 130-159 MG/DL 110-129 MG/DL HIGH RISK: >160 MG/DL >130 MG/DL *CHILDREN AND ADOLESCENTS REPRESENTS INDIVIDUALA AGED 2-19 YEARS EXCLUSIVE. MCV 92.7 fL 80.0-97.0 [facility] ([facility] NORMAL RANGES Age WBC RBC HGB HCT [...] HCT IS 5% LESS SOURCE FOR DATA: [employer] 1800 OPERATION MANUAL( AUTOMATED BLOOD COUNTS AND [...] mL/min Normal 80 and above >32 mL/min NormalCLASSIFICATION CHOLESTEROL FOR ADULTS CHILDREN/ADOLESCENTS* DESIRABLE: <200 MG/DL <170 MG/DL BORDER-LINE HIGH RISK: 200-239 MG/DL 170-199 MG/DL HIGH RISK: >240 MG/DL >200 MG/DL CLASS. FOR PRIMARY LDL CHOL PREVENTION: LDL CHOL-CHILD/ADOLESCENTS* DESIRABLE: <130 MG/DL <110 MG/DL BORDERLINE-HIGH RISK: 130-159 MG/DL 110-129 MG/DL HIGH RISK: >160 MG/DL >130 MG/DL *CHILDREN AND ADOLESCENTS REPRESENTS INDIVIDUALA AGED 2-19 YEARS EXCLUSIVE. MCH 31.1 pg 26.0-32.0 MEDENT ([facility] NORMAL RANGES Age WBC RBC HGB HCT [...] HCT IS 5% LESS SOURCE FOR DATA: [employer] 1800 OPERATION MANUAL( AUTOMATED BLOOD COUNTS AND [...] mL/min Normal 80 and above >32 mL/min NormalCLASSIFICATION CHOLESTEROL FOR ADULTS CHILDREN/ADOLESCENTS* DESIRABLE: <200 MG/DL <170 MG/DL BORDER-LINE HIGH RISK: 200-239 MG/DL 170-199 MG/DL HIGH RISK: >240 MG/DL >200 MG/DL CLASS. FOR PRIMARY LDL CHOL PREVENTION: LDL CHOL-CHILD/ADOLESCENTS* DESIRABLE: <130 MG/DL <110 MG/DL BORDERLINE-HIGH RISK: 130-159 MG/DL 110-129 MG/DL HIGH RISK: >160 MG/DL >130 MG/DL *CHILDREN AND ADOLESCENTS REPRESENTS INDIVIDUALA AGED 2-19 YEARS EXCLUSIVE. HCT 36.6 % 37.0-51.0 Below low normal MEDENT ( [facility] NORMAL RANGES Age WBC RBC HGB HCT [...] HCT IS 5% LESS SOURCE FOR DATA: [employer] 1800 OPERATION MANUAL( AUTOMATED BLOOD COUNTS AND [...] mL/min Normal 80 and above >32 mL/min NormalCLASSIFICATION CHOLESTEROL FOR ADULTS CHILDREN/ADOLESCENTS* DESIRABLE: <200 MG/DL <170 MG/DL BORDER-LINE HIGH RISK: 200-239 MG/DL 170-199 MG/DL HIGH RISK: >240 MG/DL >200 MG/DL CLASS. FOR PRIMARY LDL CHOL PREVENTION: LDL CHOL-CHILD/ADOLESCENTS* DESIRABLE: <130 MG/DL <110 MG/DL BORDERLINE-HIGH RISK: 130-159 MG/DL 110-129 MG/DL HIGH RISK: >160 MG/DL >130 MG/DL *CHILDREN AND ADOLESCENTS REPRESENTS INDIVIDUALA AGED 2-19 YEARS EXCLUSIVE. MCHC 33.6 g/dL 31.0-36.0 [facility] ([facility] NORMAL RANGES Age WBC RBC HGB HCT [...] HCT IS 5% LESS SOURCE FOR DATA: [employer] 1800 OPERATION MANUAL( AUTOMATED BLOOD COUNTS AND [...] mL/min Normal 80 and above >32 mL/min NormalCLASSIFICATION CHOLESTEROL FOR ADULTS CHILDREN/ADOLESCENTS* DESIRABLE: <200 MG/DL <170 MG/DL BORDER-LINE HIGH RISK: 200-239 MG/DL 170-199 MG/DL HIGH RISK: >240 MG/DL >200 MG/DL CLASS. FOR PRIMARY LDL CHOL PREVENTION: LDL CHOL-CHILD/ADOLESCENTS* DESIRABLE: <130 MG/DL <110 MG/DL BORDERLINE-HIGH RISK: 130-159 MG/DL 110-129 MG/DL HIGH RISK: >160 MG/DL >130 MG/DL *CHILDREN AND ADOLESCENTS REPRESENTS INDIVIDUALA AGED 2-19 YEARS EXCLUSIVE. PLT 181 10E3/uL 140-440 [facility] ([facility] NORMAL RANGES Age WBC RBC HGB HCT [...] HCT IS 5% LESS SOURCE FOR DATA: [employer] 1800 OPERATION MANUAL( AUTOMATED BLOOD COUNTS AND [...] mL/min Normal 80 and above >32 mL/min NormalCLASSIFICATION CHOLESTEROL FOR ADULTS CHILDREN/ADOLESCENTS* DESIRABLE: <200 MG/DL <170 MG/DL BORDER-LINE HIGH RISK: 200-239 MG/DL 170-199 MG/DL HIGH RISK: >240 MG/DL >200 MG/DL CLASS. FOR PRIMARY LDL CHOL PREVENTION: LDL CHOL-CHILD/ADOLESCENTS* DESIRABLE: <130 MG/DL <110 MG/DL BORDERLINE-HIGH RISK: 130-159 MG/DL 110-129 MG/DL HIGH RISK: >160 MG/DL >130 MG/DL *CHILDREN AND ADOLESCENTS REPRESENTS INDIVIDUALA AGED 2-19 YEARS EXCLUSIVE. Lym% 28.2 % 10.0-58.5 [facility] ([facility] NORMAL RANGES Age WBC RBC HGB HCT [...] HCT IS 5% LESS SOURCE FOR DATA: [employer] 1800 OPERATION MANUAL( AUTOMATED BLOOD COUNTS AND [...] mL/min Normal 80 and above >32 mL/min NormalCLASSIFICATION CHOLESTEROL FOR ADULTS CHILDREN/ADOLESCENTS* DESIRABLE: <200 MG/DL <170 MG/DL BORDER-LINE HIGH RISK: 200-239 MG/DL 170-199 MG/DL HIGH RISK: >240 MG/DL >200 MG/DL CLASS. FOR PRIMARY LDL CHOL PREVENTION: LDL CHOL-CHILD/ADOLESCENTS* DESIRABLE: <130 MG/DL <110 MG/DL BORDERLINE-HIGH RISK: 130-159 MG/DL 110-129 MG/DL HIGH RISK: >160 MG/DL >130 MG/DL *CHILDREN AND ADOLESCENTS REPRESENTS INDIVIDUALA AGED 2-19 YEARS EXCLUSIVE. RDW-CV 13.7 % 11.5-14.5 [facility] ([facility] NORMAL RANGES Age WBC RBC HGB HCT [...] HCT IS 5% LESS SOURCE FOR DATA: [employer] 1800 OPERATION MANUAL( AUTOMATED BLOOD COUNTS AND [...] mL/min Normal 80 and above >32 mL/min NormalCLASSIFICATION CHOLESTEROL FOR ADULTS CHILDREN/ADOLESCENTS* DESIRABLE: <200 MG/DL <170 MG/DL BORDER-LINE HIGH RISK: 200-239 MG/DL 170-199 MG/DL HIGH RISK: >240 MG/DL >200 MG/DL CLASS. FOR PRIMARY LDL CHOL PREVENTION: LDL CHOL-CHILD/ADOLESCENTS* DESIRABLE: <130 MG/DL <110 MG/DL BORDERLINE-HIGH RISK: 130-159 MG/DL 110-129 MG/DL HIGH RISK: >160 MG/DL >130 MG/DL *CHILDREN AND ADOLESCENTS REPRESENTS INDIVIDUALA AGED 2-19 YEARS EXCLUSIVE. MXD% 13.5 % 0.1-24.0 MEDENT [facility] Reliability is Low Neut% 58.3 % 37.0-92.0 MEDENT ([facility] Reliability is Low Lym# 2.3 10E3/uL 0.6-4.1 MEDENT ([facility] NORMAL RANGES Age WBC RBC HGB HCT [...] HCT IS 5% LESS SOURCE FOR DATA: [employer] 1800 OPERATION MANUAL( AUTOMATED BLOOD COUNTS AND [...] mL/min Normal 80 and above >32 mL/min NormalCLASSIFICATION CHOLESTEROL FOR ADULTS CHILDREN/ADOLESCENTS* DESIRABLE: <200 MG/DL <170 MG/DL BORDER-LINE HIGH RISK: 200-239 MG/DL 170-199 MG/DL HIGH RISK: >240 MG/DL >200 MG/DL CLASS. FOR PRIMARY LDL CHOL PREVENTION: LDL CHOL-CHILD/ADOLESCENTS* DESIRABLE: <130 MG/DL <110 MG/DL BORDERLINE-HIGH RISK: 130-159 MG/DL 110-129 MG/DL HIGH RISK: >160 MG/DL >130 MG/DL *CHILDREN AND ADOLESCENTS REPRESENTS INDIVIDUALA AGED 2-19 YEARS EXCLUSIVE. Neut# 4.6 % 2.0-7.8 MEDENT ([facility] Reliability is Low MXD# 1.1 10E3/uL 0.0-1.8 MEDENT ([facility] Reliability is Low MPV 11.2 fL 9.0-13.0 MEDENT ([facility] NORMAL RANGES Age WBC RBC HGB HCT [...] HCT IS 5% LESS SOURCE FOR DATA: [employer] 1800 OPERATION MANUAL( AUTOMATED BLOOD COUNTS AND [...] mL/min Normal 80 and above >32 mL/min NormalCLASSIFICATION CHOLESTEROL FOR ADULTS CHILDREN/ADOLESCENTS* DESIRABLE: <200 MG/DL <170 MG/DL BORDER-LINE HIGH RISK: 200-239 MG/DL 170-199 MG/DL HIGH RISK: >240 MG/DL >200 MG/DL CLASS. FOR PRIMARY LDL CHOL PREVENTION: LDL CHOL-CHILD/ADOLESCENTS* DESIRABLE: <130 MG/DL <110 MG/DL BORDERLINE-HIGH RISK: 130-159 MG/DL 110-129 MG/DL HIGH RISK: >160 MG/DL >130 MG/DL *CHILDREN AND ADOLESCENTS REPRESENTS INDIVIDUALA AGED 2-19 YEARS EXCLUSIVE. Procedure Social History Code Duration Value Status Description Data Source(s ) Smoking 07/30/2020 12:00:00 AM EDT Current Smoker completed Curre nt Smoker eCW1 ([facility]) Vital Signs ID Date Data Source UNK Name Value Range Interpretation Code Description Data Source(s) Body weight 211.00 [lb_av] 211.00 [lb_av] MEDEN T ([facility]) Body height 67 [in_i] 67 [in_i] [facility] 5'7" Systolic blood pressure--sitting 132 mm[Hg] 132 mm[Hg] MEDENT ([facility] Ra, large cuff Body mass index (BMI) [Ratio] 33.0 kg/m2 33.0 k g/m2 MEDENT ([facility]) Diastolic blood pressure--sitting 70 mm[Hg] 70 mm[Hg] MEDENT ([facility]) Ra, large cuff Respiratory rate 16 /min 16 /min MEDENT ( [facility] Heart rate 72 /min 72 /min MEDENT ([facility] regular Diastolic blood pressure--sitting 80 mm[Hg] 80 mm[Hg] MEDENT ([facility]) Medium cuff, Ra; 150/76 [place] Systolic blood pressure--supine 148 mm[Hg] 148 mm[Hg] MEDENT ([facility]) Ra Diastolic blood pressure--supine 78 mm[Hg] 78 mm[Hg] MEDENT ([facility]) Ra Oxygen saturation in Arterial blood by Pulse oximetry 90 % 90 % MEDENT ([facility]) Oxygen saturation in Arterial blood by Pulse oximetry --post exerci se 95 % 95 % MEDENT ([facility]) Body weight 205.00 [lb_av] 205.00 [lb_av] MEDEN T ([facility]) Body height 67 [in_i] 67 [in_i] [facility] 5'7" Body mass index (BMI) [Ratio] 32.1 kg/m2 32.1 k g/m2 MEDENT ([facility]) Systolic blood pressure--sitting 150 mm[Hg] 150 mm[Hg] MEDENT ([facility]) Medium cuff, Ra; 150/76 [place] Body mass index (BMI) [Ratio] 31.9 kg/m2 31.9 k g/m2 MEDENT ([facility] Oxygen saturation in Arterial blood by Pulse oximetry 94 % 94 % MEDENT ([facility] Body weight 204.00 [lb_av] 204.00 [lb_av] MEDEN T ([facility] [place] body weight 148 [lb_av] 148 [lb_av] MEDEN T ([facility] Systolic blood pressure 140 mm[Hg] 140 mm[Hg] M EDENT ([facility] Diastolic blood pressure 64 mm[Hg] 64 mm[Hg] MEDENT ([facility] Body temperature 97.0 [degF] 97.0 [degF] MEDENT ([facility] Heart rate 76 /min 76 /min MEDENT ([facility] Respiratory rate 16 /min 16 /min MEDENT ( [facility] Body height 67 [in_i] 67 [in_i] MED[facility] ([facility] 5'7" Respiratory rate 16 /min 16 /min MEDENT ( [facility] Systolic blood pressure 164 mm[Hg] 164 mm[Hg] M EDENT ([facility] Body weight 211.00 [lb_av] 211.00 [lb_av] MEDEN T ([facility] Diastolic blood pressure 72 mm[Hg] 72 mm[Hg] MEDENT ([facility] Body temperature 97.2 [degF] 97.2 [degF] MEDENT ([facility] Heart rate 90 /min 90 /min MEDENT ([facility] (Irregular) Body height 67 [in_i] 67 [in_i] MEDENT ([facility] 5'7" Body mass index (BMI) [Ratio] 33.0 kg/m2 33.0 k g/m2 MEDENT ([facility] Oxygen saturation in Arterial blood by Pulse oximetry 97 % 97 % MEDENT ([facility] [place] body weight 148 [lb_av] 148 [lb_av] MEDEN T ([facility] Diastolic blood pressure 64 mm[Hg] 64 mm[Hg] MEDENT ([facility] Body weight 208.00 [lb_av] 208.00 [lb_av] MEDEN T ([facility] [place] body weight 148 [lb_av] 148 [lb_av] MEDEN T ([facility] Body mass index (BMI) [Ratio] 32.6 kg/m2 32.6 k g/m2 MEDENT ([facility] Oxygen saturation in Arterial blood by Pulse oximetry 94 % 94 % MEDENT ([facility] Heart rate 76 /min 76 /min MEDENT ([facility] Respiratory rate 18 /min 18 /min MEDENT ( [facility] Systolic blood pressure 120 mm[Hg] 120 mm[Hg] M EDENT ([facility] Body temperature 97.2 [degF] 97.2 [degF] MEDENT ([facility] Body height 67 [in_i] 67 [in_i] MEDENT ([facility] 5'7" Oxygen saturation in Arterial blood by Pulse oximetry 95 % 95 % MEDENT ([facility] Body weight 219.00 [lb_av] 219.00 [lb_av] MEDEN T ([facility] Respiratory rate 18 /min 18 /min MEDENT ( [facility] Body height 67 [in_i] 67 [in_i] MEDENT ([facility] 5'7" [place] body weight 148 [lb_av] 148 [lb_av] MEDEN T ([facility] Body mass index (BMI) [Ratio] 34.3 kg/m2 34.3 k g/m2 MEDENT ([facility] Systolic blood pressure 136 mm[Hg] 136 mm[Hg] M EDENT ([facility] Diastolic blood pressure 86 mm[Hg] 86 mm[Hg] MEDENT ([facility] Body temperature 98.1 [degF] 98.1 [degF] MEDENT ([facility] Heart rate 90 /min 90 /min MEDENT ([facility] Diastolic blood pressure 64 mm[Hg] 64 mm[Hg] MEDENT ([facility] Body temperature 97.6 [degF] 97.6 [degF] MEDENT ([facility] Heart rate 78 /min 78 /min MEDENT ([facility] Respiratory rate 16 /min 16 /min MEDENT ( [facility] Body height 67 [in_i] 67 [in_i] MEDENT ([facility] 5'7" Body weight 230.00 [lb_av] 230.00 [lb_av] MEDEN T ([facility] [place] body weight 148 [lb_av] 148 [lb_av] MEDEN T ([facility] Body mass index (BMI) [Ratio] 36.0 kg/m2 36.0 k g/m2 MEDENT ([facility] Oxygen saturation in Arterial blood by Pulse oximetry 95 % 95 % MEDENT ([facility] Systolic blood pressure 132 mm[Hg] 132 mm[Hg] M EDENT ([facility] Body weight 225.0 [lb_av] 225.0 [lb_av] eCW1 ([facility]) Body height 60 [in_i] 60 [in_i] eCW1 ([facility]) Body mass index (BMI) [Ratio] 43.94 kg/m2 43.94 kg/m2 eCW1 ([facility]) Heart rate 96 /min 96 /min eCW1 ([facility]) Respiratory rate 18 /min 18 /min eCW1 ([facility]) Body temperature 97.1 [degF] 97.1 [degF] eCW1 ( [facility]) Systolic blood pressure 166 mm[Hg] 166 mm[Hg] e CW1 ([facility]) Diastolic blood pressure 72 mm[Hg] 72 mm[Hg] eCW1 ([facility])
[2021-09-21] MEDS ORDERED: D5W/0.9% SODIUM CHLORIDE 1,000 ML IV SCH (12:15)
[2021-09-21] MEDS ORDERED: DEXTROSE 50% 50 ML SYRINGE IV PRN (12:15)
[2021-09-21] MEDS ORDERED: GLUCOSE 4GM CHEW TABLET PO PRN (12:15)
[2021-09-21] MEDS ORDERED: GLUCAGON INJ 1MG VIAL SC PRN (12:15)
[2021-09-21] MEDS ORDERED: VANCOMYCIN HCL 1,000 MG, VIAL MATE ADAPTER 1 EACH in NS 250 ML IV SCH (12:15)
[2021-09-21 12:20] VITALS: BP 144/65
[2021-09-21] MEDS ORDERED: HOME MED LIST COMPLETE! XX SCH (12:45)
[2021-09-21] MEDS ORDERED: LISI10TA22 PO (12:45)
[2021-09-21] MEDS ORDERED: CHLO125TA PO (12:45)
[2021-09-21] MEDS ORDERED: ATOR40TA75 PO (12:45)
[2021-09-21] MEDS ORDERED: LIDOCAINE 2% MDV 20ML VIAL As Ordered ONE (12:57)
[2021-09-21] MEDS ORDERED: BUPIVACAINE HCL 0.5% 30 ML VIAL As Ordered ONE (12:57)
[2021-09-21 13:14] LABS: HEMATOCRIT 37.3 % (42.0-52.0); HEMOGLOBIN 12.5 g/dl (13.5-17.5); MEAN CORPUSCULAR HEMOGLOBIN 31.1 pg (27.0-33.0); MEAN CORPUSCULAR HGB CONC 33.5 g/dl (32.0-36.5); MEAN CORPUSCULAR VOLUME 92.8 fl (80.0-96.0); PLATELET COUNT, AUTOMATED 222 10^3/uL (150-450); RED BLOOD COUNT 4.02 10^6/uL (4.30-6.10); WHITE BLOOD COUNT 16.3 10^3/uL (4.0-10.0)
[2021-09-21] MEDS ORDERED: MIDAZOLAM INJ 2MG/2ML VIAL (J2250 PER 1MG) As Ordered ONE (13:17)
[2021-09-21] MEDS ORDERED: fentaNYL 100 MCG/2 ML INJECTION (J3010) As Ordered ONE (13:17)
[2021-09-21] MEDS ORDERED: LIDOCAINE 2% 100MG/5ML SDV (FOR ANES.) As Ordered ONE (13:17)
[2021-09-21] MEDS ORDERED: ONDANSETRON 4MG/2ML VIAL As Ordered ONE (13:17)
[2021-09-21] MEDS ORDERED: propofoL 200 MG/20 ML VIAL As Ordered ONE ×2 (13:17→15:31)
[2021-09-21 13:33] LABS: ALBUMIN 2.4 GM/DL (3.2-5.2); BILIRUBIN,TOTAL 1.8 MG/DL (0.2-1.0); CALCIUM LEVEL 8.9 MG/DL (8.8-10.2); CREATININE FOR GFR 1.79 MG/DL (0.70-1.30); GLOMERULAR FILTRATION RATE 40.6 (>49); POTASSIUM SERUM 4.4 MEQ/L (3.5-5.1)
--- NOTE | 2021-09-21 13:41 | HPEPDOC ---
[facility] Medical History & Physical Date of Admission Sep 21, 2021 Date of Service: Sep 21, 2021 Primary Care Physician: Wisam Veloz MD Attending Physician: SAAD SANFORD MD History and Physical CHIEF COMPLAINT: Right toe swelling HISTORY OF PRESENT ILLNESS: Patient is a 66-year-old male with a history of left partial foot amputation who presents as a direct admission from Dr. Dhaliwal's office after being evaluated today. He states he was last seen by Dr. Dhaliwal 3 weeks ago and the ulcers on his feet were improving. This past Monday 09/17, he states something happened and he may have bumped his toe. The following morning he woke up with a large red blood filled blister on his right toe that seemed to get progressively worse. He waited until his already scheduled appointment on Sunday to be evaluated. Dr. Dhaliwal contacted the hospitalist service for admission for suspicion of necrotizing fasciitis and to take the patient to the operating room. The patient denies any fever, chills, lightheadedness, dizziness, chest pain, difficulty breathing, abdominal pain, dysuria, difficulty urinating, constipation, diarrhea. He does admit some i ncreased redness in his right foot and some mild nausea couple days ago that is since resolved. PAST MEDICAL HISTORY: Hx of L-foot osteomyelitis Type 2 diabetes Hypertension Depression/anxiety Chronic back pain with sciatica Diabetic peripheral neuropathy Seasonal allergies PAST SURGICAL HISTORY: Left partial foot amputation Bunionectomy Cholecystectomy SOCIAL HISTORY: 1 pack/day smoker since 9 years old Denies alcohol use. Denies heroin, cocaine, PCP, or other illicit drug use. Admits to occasional marijuana use Lives at home with his No history of recent travel. 1 Cat FAMILY HISTORY: Reviewed, noncontributory ALLERGIES: Please see below. REVIEW OF SYSTEMS: Constitutional: Denies fevers, chills, night sweats, or recent unexpected weight change HEENT: Denies headaches, head trauma, no visual changes or eye pain, denies nosebleeds or difficulty swallowing. Cardiovascular: Denies chest pain, palpitations, or orthopnea. Respiratory: Denies cough, wheezing, or shortness of breath GI: Denies nausea, vomiting, abdominal pain, diarrhea, or constipation : Denies pain with urination or frequency Musculoskeletal: As above Neuro/psych: Denies muscle weakness or sensory loss Skin: Denies skin rashes HOME MEDICATIONS: Please see below. PHYSICAL EXAMINATION: VITAL SIGNS: See below GENERAL APPEARANCE: Well-appearing male who appears stated age sitting comfortably in bed in no acute distress HEENT: NC, AT, EOMI, no scleral icterus, moist mucous membranes, no pharyngeal erythema. CARDIOVASCULAR: RRR, normal S1-S2. No murmurs, gallops, rubs. LUNGS: CTAB with full breath sounds, no wheezes, crackles, or rhonchi. ABDOMEN: Soft, nontender, nondistended, bowel sounds present. No hepatosplenomegaly. No masses or ecchymosis. No CVA tenderness. EXTREMITIES: L-foot with partial amputation wrapped in bandages, R-foot wrapped in bandages but with R-1st toe red-purple, warm, ROM present. 2+ pitting edema in RLE up to the mid fournier. Vascular: +2/4 DP/PT pulses in bilateral LE. NEUROLOGICAL: No focal or sensory deficits. CN II-XII grossly intact. PSYCHIATRIC: Normal mood and affect LABORATORY DATA: See below. IMAGING: none MICROBIOLOGY: Please see below. Assessment/Plan: Patient is a 66-year-old male with past medical history of type 2 diabetes and left partial foot amputation who presents with a 5-day history of worsening right foot swelling concerning for necrotizing fasciitis. Dr. Dhaliwal took the patient to the OR on 09/21 for debridement and possible ampu tation. #. Right foot infectionpossible necrotizing fasciitis Dr. Dhaliwal taking patient to the OR today urgently for debridement/possible amputation, will follow wound cultures when available. Empiric coverage with vancomycin and cefepime, pharmacy to renally dose BCX2 ordered, wound cultures to follow -MRSA swab negative, will continue with MRSA coverage, given hx of osteomyelitis in the past Trend CRP, WBC count #. Sepsis 2/2 R-foot infection -lactic acidosis, transaminitis, acute renal failure all demonstrating signs of end organ dysfunction, patient clinically does not match this picture (ie not sick appearing) -Empiric antibiotic coverage, patient to the OR to remove source of infection -In light of hx of possible CHF and liver cirrhosis will not be giving 30 cc/kg bolus, will give 1 liter NS bolus #. Acute on chronic CKD Likely prerenal in the setting of infection -D5/NS while NPO at 60ml/hr #. Hyponatremia -Likely 2/2 volume depletion, will recheck tonight after he returns from the OR. -May consider obtaining UA, with urine lytes if this fails to improve. #. Elevated alk phos -Elevated since 1999, now markedly elevated at 508, could still be in the setting of infection/sepsis #. Poorly controlled type 2 diabetes 2019 A1c of 8.1% Sliding scale insulin, home Levemir cut in half to 40U BID from 80U BID #. Normocytic anemia - Iron studies, B12 normal #. Compensated Liver Cirrhosis-likely 2/2 LAIRD vs Alcoholic liver disease? -Hx of elevated AST, work-up for secondary causes unrevealing -Will exercise caution with fluid repletion #. Transaminitis -Likely elevated in the setting of infection, will continue to trend. #. HTN -Hold HTN medications in light of infection #. ?Hx of CHF -When questioned, patient states he was previously on fluid pills, but that his CHF has "resolved", he no longer follows with cardiology -2012 echo w/ LVEF 65%, moderate pulm HTN, borderline LA enlargement #. Depression/anxiety Continue Prozac, Abilify #. Seasonal allergies Continue Flonase #. DDD/sciatica -Continue home tramadol DVT prophylaxis:heparin GI prophylaxis:pantoprazole Disposition: Inpatient, pending clinical improvement Laboratory Data Labs 24H Laboratory Tests 2 09/21/21 12:27: Coronavirus (COVID-19)(PCR) NEGATIVE 09/21/21 12:51: Nucleated Red Blood Cells % (auto) 0.0, Anion Gap 9, Glomerular Filtration Rate 40.6L, Calcium Level 8.9, Total Bilirubin 1.8H, Aspartate Amino Transf (AST/SGOT) 109H, Alanine Aminotransferase (ALT/SGPT) 106H, Alkaline Phosphatase 508H, Total Protein 7.0, Albumin 2.4L, Albumin/Globulin Ratio 0.5 CBC/BMP Laboratory Tests 09/21/21 12:51 Microbiology Microbiology 09/21/21 Blood Culture, Received Pending 09/21/21 Blood Culture, Received Pending Home Medications Scheduled Aripiprazole (Abilify) 5 Mg Tab, 5 MG PO DAILY Atorvastatin Calcium (Atorvastatin Calcium) 40 Mg Tablet, 40 MG PO 2XW SUNDAY AND SUNDAY MORNINGS Chlorthalidone (Chlorthalidone) 25 Mg Tablet, 12.5 MG PO DAILY Fluoxetine HCl (Prozac) 20 Mg Cap, 60 MG PO DAILY Fluticasone Propionate (Flonase Allergy Relief) 50 Mcg/Act Spr, 2 SPRAY NARES DAILY Gabapentin (Gabapentin) 300 Mg Cap, 900 MG PO TID Insulin Glargine,Hum.rec.anlog (Lantus Solostar) 100 Unit/1 Ml Insuln.pen, 80 UNITS SC BID Lisinopril (Lisinopril) 10 Mg Tablet, 5 MG PO DAILY Scheduled PRN Ibuprofen (Ibuprofen) 200 Mg Tab, 400 MG PO Q6H PRN for PAIN Tramadol HCl (Tramadol HCl) 50 Mg Tab, 50 MG PO TID PRN for PAIN LEVEL 1-4 Allergies Coded Allergies: Penicillins (Verified Allergy, Intermediate, rash, 01/08/20) meperidine (Verified Adverse Reaction, Mild, trouble waking up, 01/08/20) GME ATTESTATION GME ATTESTATION My faculty preceptor for this patient encounter was physically present during the encounter and was fully available. All aspects of the patient interview, examination, medical decision making process, and medical care plan development were reviewed and approved by the faculty preceptor. The faculty preceptor is aware and concurs with the plan as stated in the body of this note and will attest to such by his/her cosignature. ATTENDING NOTE I personally examined Mr. Fay and discussed his presentation and findings as detailed by the resident physician above and I agree with the above noted assessment and plan. Briefly, Mr. Jarvis has a history of type 2 diabetes with neuropathy and lower extremity ulcers and is s/p a left partial foot amputation and follows with Dr. Dhaliwal who saw him 3 weeks prior and his wounds were looking clinically improved but had some trauma to his right foot 5-day prior to presentation with onset of worsening right foot swelling and on evaluation by Dr. Dhaliwal he was very concerned about potential necrotizing fasciitis and requested direct admission to medicine with plan for amputation and debridement as well as IV antibiotics and complete infectious workup. MARSHALL MAGUIRE DO Sep 21, 2021 13:41 SAAD SANFORD MD Sep 22, 2021 07:40
[2021-09-21] MEDS ORDERED: CEFEPIME HCL 2 GM in D5W MINI-BAG PLUS 50 ML IV SCH (14:00)
[2021-09-21] MEDS ORDERED: NS 1,000 ML IV ONE (14:10)
[2021-09-21] MEDS ORDERED: HumaLOG INSULIN (NovoLOG) PER UNIT As Ordered ONE (14:36)
[2021-09-21] MEDS ORDERED: GENTAMICIN SULF 80MG/2ML VIAL As Ordered ONE (15:03)
[2021-09-21] MEDS ORDERED: ACETAMINOPHEN 1000MG 100ML IV BTL (OFIRMEV) (J0131 PER 10MG) As Ordered ONE (15:25)
--- NOTE | 2021-09-21 16:29 | REP ---
INDICATION: 3 VIEW FOOT, S/P TOE AMPUTATION. COMPARISON: None. TECHNIQUE: Three portable views FINDINGS: The patient is status post empty a fournier of the 1st digit. The surgical margin appears smooth. There is packing material in the post surgical bed. This limited exam shows chronic degenerative changes. An old healed fracture of the distal aspect of the 2nd metatarsal. IMPRESSION: As above <Electronically signed by Catarino Mina > 09/21/21 [id number]
[2021-09-21] MEDS ORDERED: LR 1,000 ML IV SCH (16:40)
[2021-09-21] MEDS ORDERED: oxyCODONE 5MG TAB PO PRN (16:40)
[2021-09-21] MEDS ORDERED: VANCOMYCIN HCL 1,000 MG, VIAL MATE ADAPTER 1 EACH in NS 250 ML IV ONE ×2 (17:00→18:00)
--- NOTE | 2021-09-21 17:05 | RO ---
OPERATIVE NOTE DATE OF OPERATION: 09/21/2021 PREOPERATIVE DIAGNOSIS: Necrotizing fasciitis, right foot. POSTOPERATIVE DIAGNOSIS: Necrotizing fasciitis, right foot. PROCEDURES PERFORMED: First ray amputation, right foot. SURGEON: Sumeet Dhaliwal DPM APPLICATIONS MANAGER: None ANESTHESIA: Local MAC. IRRIGATION: Dilute gentamicin solution, low pressure pulse lavage system, three liters. DRAINS UTILIZED: 1/2 inch iodoform gauze. ESTIMATED BLOOD LOSS: 100 mL HEMOSTASIS: None. DESCRIPTION OF PROCEDURE: On 11/21/20, this 66-year-old male was taken from his hospital room to the operating room and placed on the operating table in supine position. Following the induction of IV sedation and local and regional anesthesia, the right lower extremity was prepped and draped in the usual aseptic manner. Attention was then directed to the patient's right foot. There was noted to be a necrotic right hallux. At this time, an incision was placed around the entire area of necrosis which measured 6 cm from the distal tip of the hallux proximally onto the foot and adjacent to the second toe. This entire area was sharply dissected of all necrotic tissue. Aerobic and anaerobic soft tissue culture was taken with gram stain. The hallux was then disarticulated. The head of the fifth metatarsal was noted to be necrotic. Necrotic tissue was then debrided in a proximal direction to the distal 1/3 of the shaft of the first metatarsal. Utilizing a power saw, an osteotomy was performed through this area with the cut taking more from the plantar and medial surface. The head of the bone was sent for aerobic and anaerobic culture as well. Bleeders as encountered were electrocoagulated. Three liters of dilute gentamicin solution was then irrigated through the wound with a low pressure pulse lavage system. Any remaining bleeders were then electrocoagulated. The wound was packed with 1/2 inch iodoform gauze followed by a sterile dressing consisting of 4x4s, ABDs, Kerlix and Ismael wrap under low compression. The patient apparently tolerated the surgical procedure well and was taken from the OR to the recovery room for further monitoring by the anesthesia department.
[2021-09-21] MEDS ORDERED: HumaLOG INSULIN (NovoLOG) PER UNIT SC SCH (17:10)
[2021-09-21] MEDS: HumaLOG INSULIN (NovoLOG) PER UNIT SC SCH ×2 (17:30→20:56)
[2021-09-21 17:50] VITALS: BP 119/58
[2021-09-21] MEDS: CEFEPIME HCL 2 GM in D5W MINI-BAG PLUS 50 ML IV SCH (17:58)
[2021-09-21] MEDS: PANTOPRAZOLE 40MG TAB (PROTONIX) PO SCH (17:58)
[2021-09-21 18:20] VITALS: BP 118/56
[2021-09-21 19:16] LABS: ALBUMIN 1.9 GM/DL (3.2-5.2); BILIRUBIN,TOTAL 1.5 MG/DL (0.2-1.0); CALCIUM LEVEL 7.5 MG/DL (8.8-10.2); CREATININE FOR GFR 1.61 MG/DL (0.70-1.30); GLOMERULAR FILTRATION RATE 45.9 (>49); POTASSIUM SERUM 4.5 MEQ/L (3.5-5.1)
[2021-09-21 20:30] VITALS: BP 120/55
[2021-09-21] MEDS ORDERED: LEVEMIR (INSULIN DETEMIR) 1 UNITS/0.01ML SC SCH (21:00)
[2021-09-21] MEDS: HEPARIN SOD (PORCINE) 5000UNITS/ML 1ML VIAL/SYRINGE SQ SCH (21:04)
[2021-09-21 21:30] VITALS: BP 134/54
[2021-09-22] MEDS: CEFEPIME HCL 2 GM in D5W MINI-BAG PLUS 50 ML IV SCH ×2 (03:30→15:45)
[2021-09-22] MEDS: HEPARIN SOD (PORCINE) 5000UNITS/ML 1ML VIAL/SYRINGE SQ SCH ×3 (05:18→21:55)
[2021-09-22 06:00] VITALS: BP 129/57
[2021-09-22 06:40] LABS: HEMATOCRIT 33.2 % (42.0-52.0); HEMOGLOBIN 10.7 g/dl (13.5-17.5); MEAN CORPUSCULAR HEMOGLOBIN 30.7 pg (27.0-33.0); MEAN CORPUSCULAR HGB CONC 32.2 g/dl (32.0-36.5); MEAN CORPUSCULAR VOLUME 95.1 fl (80.0-96.0); PLATELET COUNT, AUTOMATED 206 10^3/uL (150-450); RED BLOOD COUNT 3.49 10^6/uL (4.30-6.10); WHITE BLOOD COUNT 18.3 10^3/uL (4.0-10.0)
[2021-09-22 07:24] LABS: CALCIUM LEVEL 8.3 MG/DL (8.8-10.2); CREATININE FOR GFR 1.45 MG/DL (0.70-1.30); GLOMERULAR FILTRATION RATE 51.8 (>49); POTASSIUM SERUM 3.4 MEQ/L (3.5-5.1)
[2021-09-22] MEDS ORDERED: POTASSIUM CHLORIDE 10MEQ SR TABLET PO ONE (07:30)
[2021-09-22] MEDS: HumaLOG INSULIN (NovoLOG) PER UNIT SC SCH ×4 (07:30→21:00)
[2021-09-22] MEDS: traMADol 50 MG TAB PO PRN ×2 (08:46→17:32)
[2021-09-22] MEDS: FLUTICASONE PROP 0.05% NASAL SPRAY 16 GM (FLONASE) NARES SCH (09:00)
[2021-09-22] MEDS ORDERED: ENOXAPARIN 40MG/0.4ML SYRINGE (J1650 PER 10MG) SC SCH (09:00)
[2021-09-22] MEDS: LEVEMIR (INSULIN DETEMIR) 1 UNITS/0.01ML SC SCH ×2 (09:00→21:54)
--- NOTE | 2021-09-22 09:51 | REP ---
INDICATION: XR RIGHT FOOT (3-VIEW) IN AM 09/22/21 COMPARISON: 09/21/2021 TECHNIQUE: AP, lateral, oblique views of the right foot FINDINGS: Stable postsurgical changes with amputation through the 1st metatarsal bone. Remainder of the osseous structures demonstrate degenerative changes and evidence for old healed injuries. IMPRESSION: Stable postsurgical changes. <Electronically signed by Lc Simmons > 09/22/21 0916
[2021-09-22] MEDS: ATORVASTATIN 20 MG TAB PO SCH (09:55)
[2021-09-22] MEDS: FLUoxetine 20 MG CAP PO SCH (09:55)
[2021-09-22] MEDS: PANTOPRAZOLE 40MG TAB (PROTONIX) PO SCH (09:56)
--- NOTE | 2021-09-22 09:59 | IPNPDOC ---
Text Note Date of Service The patient was seen on 09/22/21. NOTE Subjective:Patient is a 66 yo male directly admitted by podiatry for R-toe n ecrotizing fasciitis who underwent debridement on 09/[address] Dhaliwal. Patient is seen this morning at bedside. No acute events overnight, patient did have low blood sugar this morning, but reports it was asymptomatic. He is tolerating a diet well, pain is well controlled, and denies any additional new symptoms including fever, chills, chest pain, difficulty breathing, abdominal pain, nausea, vomiting, constipation, diarrhea. Objective: GENERAL APPEARANCE: Well-appearing male who appears stated age sitting comfortably in bed in no acute distress HEENT: NC, AT, EOMI, no scleral icterus, moist mucous membranes, no pharyngeal erythema. CARDIOVASCULAR: RRR, normal S1-S2. No murmurs, gallops, rubs. LUNGS: CTAB with full breath sounds, no wheezes, crackles, or rhonchi. ABDOMEN: Soft, nontender, nondistended, bowel sounds present. No hepatosplenomegaly. No masses or ecchymosis. No CVA tenderness. EXTREMITIES: L-foot with partial amputation wrapped in bandages, R-foot with partial medial foot amputation. 2+ pitting edema in RLE up to the mid fournier. Vascular: +2/4 DP/PT pulses in bilateral LE. NEUROLOGICAL: No focal or sensory deficits. CN II-XII grossly intact. PSYCHIATRIC: Normal mood and somewhat flat affect Imagin09/21/2021 R-foot x-ray: "FINDINGS: The patient is status post empty a fournier of the 1st digit. The surgical margin appears smooth. There is packing material in the post surgical bed. This limited exam shows chronic degenerative changes. An old healed fracture of the distal aspect of the 2nd metatarsal. IMPRESSION: As above" 09/22/2021 R-foot x-ray: "FINDINGS: Stable postsurgical changes with amputation through the 1st metatarsal bone. Remainder of the osseous structures demonstrate degenerative changes and evidence for old healed injuries. IMPRESSION: Stable postsurgical changes." Assessment/Plan: Patient is a 66-year-old male with past medical history of type 2 diabetes and left partial foot amputation who presents with a 5-day history of worsening right foot swelling concerning for necrotizing fasciitis. Dr. Dhaliwal took the patient to the OR for debridement and R-foot amputation on 09/21 with collection of cultures. #. Necrotizing fasciitis of R-toe/foot S/p first ray amputation on 09/22 w/ Dr. Dhaliwal Empiric coverage with vancomycin and cefepime, pharmacy to renally dose BCX2 pending, wound cultures pending, gram stain showing G+ cocci in clusters, G- rods -MRSA swab negative, will continue with MRSA coverage, given hx of osteomyelitis in the past Trend CRP, WBC count #. Sepsis 2/2 R-foot infection -Resolving, lactic acidosis resolved, transaminases down trending, renal function improving. -Empiric antibiotic coverage, patient to the OR to remove source of infection -In light of hx of possible CHF and liver cirrhosis will not be giving 30 cc/kg bolus, will give 1 liter NS bolus #. Acute on chronic CKD Likely prerenal in the setting of infection, now down trending -Baseline 1.30 #. Hyponatremia -Likely 2/2 volume depletion -May consider obtaining UA, with urine lytes if this persists or worsens #. Elevated alk phos -Elevated since 1999, down trending #. Type 2 diabetes 2019 A1c of 8.1% SSI Home Levemir decreased from 80U BID to 40 BID and now to 10U BID in light of hypoglycemia #. Normocytic anemia - Iron studies, B12 normal #. Compensated Liver Cirrhosis-likely 2/2 LAIRD vs Alcoholic liver disease? -Hx of elevated AST, work-up for secondary causes unrevealing -Will exercise caution with fluid repletion #. Transaminitis -Downtrending, likely elevated in the setting of infection, will continue to trend. #. HTN -Hold HTN medications in light of infection #. ?Hx of CHF -When questioned, patient states he was previously on fluid pills, but that his CHF has "resolved", he no longer follows with cardiology -2012 echo w/ LVEF 65%, moderate pulm HTN, borderline LA enlargement #. Depression/anxiety Continue Prozac, Abilify #. Seasonal allergies Continue Flonase #. DDD/sciatica -Continue home tramadol DVT prophylaxis: heparin GI prophylaxis:pantoprazole Disposition: Inpatient, pending clinical improvement VS,Fishbone, I+O VS, Fishbone, I+O Laboratory Tests 09/21/21 12:51 09/21/21 18:12 09/22/21 06:24 Vital Signs Date Time Temp Pulse Resp B/P (MAP) Pulse Ox O2 Delivery O2 Flow Rate FiO2 09/22/21 08:46 20 Room Air 09/22/21 06:00 99.1 85 129/57 (81) 93 09/21/21 21:30 2.0 I&O- Last 24 Hours up to 6 AM 09/22/21 06:00 Intake Total 1680 ml Output Total 1150 ml Balance 530 ml GME ATTESTATION GME ATTESTATION My faculty preceptor for this patient encounter was physically present during the encounter and was fully available. All aspects of the patient interview, examination, medical decision making process, and medical care plan development were reviewed and approved by the faculty preceptor. The faculty preceptor is aware and concurs with the plan as stated in the body of this note and will attest to such by his/her cosignature. ATTENDING NOTE I personally examined Mr. Fay and discussed his findings as detailed by the resident physician above and I agree with the above noted assessment and plan. MARSHALL MAGUIRE DO Sep 22, 2021 09:59 SAAD SNAFORD MD Sep 23, 2021 08:44
[2021-09-22 10:00] VITALS: BP 139/55
[2021-09-22 14:00] VITALS: BP 138/53
[2021-09-22] MEDS ORDERED: VANCOMYCIN HCL 750 MG, VIAL MATE ADAPTER 1 EACH in NS 250 ML IV SCH (17:00)
[2021-09-22] MEDS ORDERED: VANCOMYCIN HCL 500 MG in D5W MINI-BAG PLUS 100 ML IV SCH (18:00)
[2021-09-22 20:00] VITALS: BP 137/56
[2021-09-23] MEDS: SANTYL OINT 30GM TOP SCH ×2 (01:03→08:37)
[2021-09-23] MEDS: CEFEPIME HCL 2 GM in D5W MINI-BAG PLUS 50 ML IV SCH ×2 (04:16→17:17)
[2021-09-23] MEDS: HEPARIN SOD (PORCINE) 5000UNITS/ML 1ML VIAL/SYRINGE SQ SCH ×3 (05:29→20:47)
[2021-09-23 06:00] VITALS: BP 125/43
[2021-09-23 06:15] LABS: HEMATOCRIT 29.3 % (42.0-52.0); HEMOGLOBIN 9.8 g/dl (13.5-17.5); MEAN CORPUSCULAR HEMOGLOBIN 31.3 pg (27.0-33.0); MEAN CORPUSCULAR HGB CONC 33.4 g/dl (32.0-36.5); MEAN CORPUSCULAR VOLUME 93.6 fl (80.0-96.0); PLATELET COUNT, AUTOMATED 178 10^3/uL (150-450); RED BLOOD COUNT 3.13 10^6/uL (4.30-6.10); WHITE BLOOD COUNT 14.4 10^3/uL (4.0-10.0)
[2021-09-23 07:14] LABS: C REACTIVE PROTEIN QUANTITATIV 24.8 MG/DL (0.00-0.30); CALCIUM LEVEL 7.9 MG/DL (8.8-10.2); CREATININE FOR GFR 1.31 MG/DL (0.70-1.30); GLOMERULAR FILTRATION RATE 58.3 (>49); POTASSIUM SERUM 3.9 MEQ/L (3.5-5.1)
[2021-09-23] MEDS: LEVEMIR (INSULIN DETEMIR) 1 UNITS/0.01ML SC SCH ×2 (08:35→20:46)
[2021-09-23] MEDS: PANTOPRAZOLE 40MG TAB (PROTONIX) PO SCH (08:36)
[2021-09-23] MEDS: HumaLOG INSULIN (NovoLOG) PER UNIT SC SCH ×4 (08:36→20:57)
[2021-09-23] MEDS: FLUoxetine 20 MG CAP PO SCH (08:37)
[2021-09-23] MEDS: FLUTICASONE PROP 0.05% NASAL SPRAY 16 GM (FLONASE) NARES SCH (08:37)
--- NOTE | 2021-09-23 09:24 | IPNPDOC ---
Text Note Date of Service The patient was seen on 09/23/21. NOTE Subjective:Patient is a 66 yo male directly admitted by podiatry for R-toe n ecrotizing fasciitis who underwent debridement on 09/[address] Dhaliwal. Patient is seen this morning at bedside. No acute events overnight. He is tolerating a diet well, pain is well controlled, and denies any additional new symptoms including fever, chills, chest pain, difficulty breathing, abdominal pain, nausea, vomiting, constipation, diarrhea. Objective: GENERAL APPEARANCE: Well-appearing male who appears stated age sitting comfortably in bed in no acute distress HEENT: NC, AT, EOMI, no scleral icterus, moist mucous membranes, no pharyngeal erythema. CARDIOVASCULAR: RRR, normal S1-S2. No murmurs, gallops, rubs. LUNGS: CTAB with full breath sounds, no wheezes, crackles, or rhonchi. ABDOMEN: Soft, nontender, nondistended, bowel sounds present. No hepatosplenomegaly. No masses or ecchymosis. No CVA tenderness. EXTREMITIES: L-foot with partial amputation wrapped in bandages, R-foot with partial medial foot amputation. 2+ pitting edema in RLE up to the mid fournier. Vascular: +2/4 DP/PT pulses in bilateral LE. NEUROLOGICAL: No focal or sensory deficits. CN II-XII grossly intact. PSYCHIATRIC: Normal mood and somewhat flat affect Imagin09/21/2021 R-foot x-ray: "FINDINGS: The patient is status post empty a fournier of the 1st digit. The surgical margin appears smooth. There is packing material in the post surgical bed. This limited exam shows chronic degenerative changes. An old healed fracture of the distal aspect of the 2nd metatarsal. IMPRESSION: As above" 09/22/2021 R-foot x-ray: "FINDINGS: Stable postsurgical changes with amputation through the 1st metatarsal bone. Re mainder of the osseous structures demonstrate degenerative changes and evidence for old healed injuries. IMPRESSION: Stable postsurgical changes." Assessment/Plan: Patient is a 66-year-old male with past medical history of type 2 diabetes and left partial foot amputation who presents with a 5-day history of worsening right foot swelling concerning for necrotizing fasciitis. Dr. Dhaliwal took the patient to the OR for debridement and R-foot amputation on 09/21 with collection of cultures. #. Necrotizing fasciitis of R-toe/foot S/p first ray amputation on 09/22 w/ Dr. Dhaliwal Continue with vancomycin and cefepime (day 3), will likely need 2 weeks of abx therapy. Consult ID Sunday, no ID coverage currently. BCX2 pending, 1 BC growing G+ cocci in clusters, wound culture+gram stain growing heavy strep mutans, Vanc susceptible, with few S. aureus, E. Coli (burciaga- sensitive) -MRSA swab negative, will continue with MRSA coverage, given hx of osteomyelitis in the past WBC, CRP down trending #. Sepsis 2/2 R-foot infection -Resolving, lactic acidosis resolved, transaminases down trending, renal function improving. -Empiric antibiotic coverage w/ Vanc and cefepime -In light of hx of possible CHF and liver cirrhosis will not be giving 30 cc/kg bolus #. Acute on chronic CKD -Resolved -Baseline 1.30 #. Hyponatremia -Stable #. Elevated alk phos -Elevated since 1999, down trending #. Type 2 diabetes 2019 A1c of 8.1% SSI Continue levemir at 10U BID #. Normocytic anemia - Iron studies, B12 normal -F/u outpatient #. Compensated Liver Cirrhosis-likely 2/2 LAIRD vs Alcoholic liver disease? -Hx of elevated AST, work-up for secondary causes unrevealing -Will exercise caution with fluid repletion #. Transaminitis -Downtrending, likely elevated in the setting of infection, will continue to trend. #. HTN -Hold HTN medications in light of infection #. ?Hx of CHF -When questioned, patient states he was previously on fluid pills, but that his CHF has "resolved", he no longer follows with cardiology -2012 echo w/ LVEF 65%, moderate pulm HTN, borderline LA enlargement #. Depression/anxiety Continue Prozac, Abilify #. Seasonal allergies Continue Flonase #. DDD/sciatica -Continue home tramadol DVT prophylaxis: heparin GI prophylaxis:pantoprazole Disposition: Pending clinical improvement VS,Fishbone, I+O VS, Fishbone, I+O Laboratory Tests 09/23/21 05:48 Vital Signs Date Time Temp Pulse Resp B/P (MAP) Pulse Ox O2 Delivery O2 Flow Rate FiO2 09/23/21 06:00 98.9 125/43 (70) 09/22/21 20:00 90 18 94 Room Air 09/21/21 21:30 2.0 I&O- Last 24 Hours up to 6 AM 09/23/21 06:00 Intake Total 1755 ml Output Total 1950 ml Balance -195 ml GME ATTESTATION GME ATTESTATION My faculty preceptor for this patient encounter was physically present during the encounter and was fully available. All aspects of the patient interview, examination, medical decision making process, and medical care plan development were reviewed and approved by the faculty preceptor. The faculty preceptor is aware and concurs with the plan as stated in the body of this note and will attest to such by his/her cosignature. ATTENDING NOTE I personally examined the patient and discussed his findings and clinical course with Dr. Higgins, and I agree with the above noted findings, assessment and plan. MARSHALL HIGGINS DO Sep 23, 2021 09:24 SAAD SANFORD MD Sep 23, 2021 11:43
--- NOTE | 2021-09-23 10:20 | REP ---
INDICATION: RLE swelling in setting of infection COMPARISON: None. TECHNIQUE: Valle scale and color Doppler evaluation using linear high frequency transducer. FINDINGS: Ultrasound examination of the right lower extremity deep venous structures from the common femoral vein through the popliteal vein demonstrates normal compressibility, flow and wave patterns in response to respiration and augmentation. Evaluation of the calf veins is limited but demonstrates no obvious thrombus in the visualized posterior tibial or peroneal veins. There is no evidence for deep venous thrombosis. Contralateral CFV is patent and normal. IMPRESSION: No evidence for deep venous thrombosis. <Electronically signed by Lc Simmons > 09/23/21 1017
[2021-09-23] MEDS: SILVER SULFADIAZINE 1% CR 50 GM JAR TOP SCH ×2 (11:00→20:47)
--- NOTE | 2021-09-23 11:35 | IPN ---
PROGRESS NOTE DATE: 09/23/2021 TIME: 10:28 a.m. CHIEF COMPLAINT: The patient seen at bedside for evaluation of bilateral foot ulcers. SUBJECTIVE: The patient states he is having occasional right foot pain localized to the surgical site. He denies shortness of breath or chest pain. He does have some back pain from lying in bed. OBJECTIVE: Evaluation of his foot reveals good granulation tissue along the surgical site. The majority of the wound is red granulation tissue although there is some yellow fibrinous tissue noted distally. There is no necrotic tissue noted along the margins. Considerable reduction in erythema is noted of the forefoot and ankle region. Cultures revealed growth of E. coli, Strep Mutans and Staphylococcus aureus, the sensitivity for the Staph aureus is not presently available. However, should be sensitive to Vancomycin. The Strep mutans is sensitivity to vancomycin and the E. coli is sensitive to Cefepime. ASSESSMENT: Improving right foot infection. PLAN: Orders written for apply Vashe, let stand for 15 minutes, then Silvadene and dressing twice a day. This will be changed in the next few days to a wound VAC. This will require white foam over the osseous 1st metatarsal with a black foam overlying dressing. The patient's questions were answered.
[2021-09-23 14:20] VITALS: BP 161/72
[2021-09-23] MEDS: VANCOMYCIN HCL 1,000 MG, VIAL MATE ADAPTER 1 EACH in NS 250 ML IV SCH (18:04)
[2021-09-23 20:01] VITALS: BP 121/45
[2021-09-24] MEDS: CEFEPIME HCL 2 GM in D5W MINI-BAG PLUS 50 ML IV SCH ×2 (04:33→16:29)
[2021-09-24] MEDS: HEPARIN SOD (PORCINE) 5000UNITS/ML 1ML VIAL/SYRINGE SQ SCH ×3 (05:10→22:53)
[2021-09-24] MEDS: VANCOMYCIN HCL 1,000 MG, VIAL MATE ADAPTER 1 EACH in NS 250 ML IV SCH ×2 (05:10→17:17)
[2021-09-24 05:29] VITALS: BP 145/55
[2021-09-24 06:44] LABS: HEMATOCRIT 32.7 % (42.0-52.0); HEMOGLOBIN 10.7 g/dl (13.5-17.5); MEAN CORPUSCULAR HEMOGLOBIN 30.7 pg (27.0-33.0); MEAN CORPUSCULAR HGB CONC 32.7 g/dl (32.0-36.5); MEAN CORPUSCULAR VOLUME 93.7 fl (80.0-96.0); PLATELET COUNT, AUTOMATED 202 10^3/uL (150-450); RED BLOOD COUNT 3.49 10^6/uL (4.30-6.10); WHITE BLOOD COUNT 15.9 10^3/uL (4.0-10.0)
[2021-09-24 07:13] LABS: C REACTIVE PROTEIN QUANTITATIV 25.1 MG/DL (0.00-0.30); CALCIUM LEVEL 7.9 MG/DL (8.8-10.2); CREATININE FOR GFR 1.28 MG/DL (0.70-1.30); GLOMERULAR FILTRATION RATE 59.9 (>49); POTASSIUM SERUM 4.2 MEQ/L (3.5-5.1)
[2021-09-24] MEDS: LEVEMIR (INSULIN DETEMIR) 1 UNITS/0.01ML SC SCH ×2 (08:47→22:53)
[2021-09-24] MEDS: FLUoxetine 20 MG CAP PO SCH (08:48)
[2021-09-24] MEDS: FLUTICASONE PROP 0.05% NASAL SPRAY 16 GM (FLONASE) NARES SCH (08:48)
[2021-09-24] MEDS: PANTOPRAZOLE 40MG TAB (PROTONIX) PO SCH (08:48)
[2021-09-24] MEDS: HumaLOG INSULIN (NovoLOG) PER UNIT SC SCH ×4 (08:48→21:00)
[2021-09-24] MEDS: SILVER SULFADIAZINE 1% CR 50 GM JAR TOP SCH ×2 (08:49→22:53)
[2021-09-24] MEDS: traMADol 50 MG TAB PO PRN (08:52)
--- NOTE | 2021-09-24 10:53 | IPNPDOC ---
Text Note Date of Service The patient was seen on 09/24/21. NOTE Subjective: -Foot pain is well controlled with current meds -Afebrile, no chest pain, SOB, or abdominal pain -No acute events overnight Objective: GENERAL APPEARANCE: NAD HEENT: NC, AT, EOMI, no scleral icterus, moist mucous membranes, no pharyngeal erythema. CARDIOVASCULAR: RRR, normal S1-S2. No murmurs, gallops, rubs. LUNGS: CTAB with full breath sounds, no wheezes, crackles, or rhonchi. ABDOMEN: Soft, nontender, nondistended, bowel sounds present. EXTREMITIES: L-foot with partial amputation wrapped in bandages, R-foot with partial medial foot amputation. 1+ edema in RLE up to the mid fournier. Vascular: +2/4 DP/PT pulses in bilateral LE. NEUROLOGICAL: No focal or sensory deficits. CN II-XII grossly intact. PSYCHIATRIC: Normal mood and somewhat flat affect Labs: Reviewed Imagin09/21/2021 R-foot x-ray: "FINDINGS: The patient is status post empty a fournier of the 1st digit. The surgical margin appears smooth. There is packing material in the post surgical bed. This limited exam shows chronic degenerative changes. An old healed fracture of the distal aspect of the 2nd metatarsal. IMPRESSION: As above" 09/22/2021 R-foot x-ray: "FINDINGS: Stable postsurgical changes with amputation through the 1st metatarsal bone. Remainder of the osseous structures demonstrate degenerative changes and evidence for old healed injuries. IMPRESSION: Stable postsurgical changes." 09/23/2021 RLE doppler venous US: Ultrasound examination of the right lower extremity deep venous structures from the common femoral vein through the popliteal vein demonstrates normal compre ssibility, flow and wave patterns in response to respiration and augmentation. Evaluation of the calf veins is limited but demonstrates no obvious thrombus in the visualized posterior tibial or peroneal veins. There is no evidence for deep venous thrombosis. Contralateral CFV is patent and normal. IMPRESSION: No evidence for deep venous thrombosis. Assessment/Plan: 66-year-old M with a history of type 2 diabetes and left partial foot amputation who presented with a 5-day history of worsening right foot swelling concerning for necrotizing fasciitis s/p debridement and R-foot amputation on 09/21 with collection of cultures. #. Necrotizing fasciitis of R-toe/foot S/p first ray amputation on 09/22 w/ Dr. Dhaliwal Continue with vancomycin and cefepime (day 4), will likely need 2 weeks of abx therapy. Consult ID Sunday, no ID coverage over the iday weekend. BCX2 pending, 1 BC growing G+ cocci in clusters, wound culture+gram stain growing heavy strep mutans, Vanc susceptible, with few S. aureus, E. Coli (burciaga- sensitive) -MRSA swab negative WBC, CRP #. Sepsis 2/2 R-foot infection: resolved -Resolving, lactic acidosis resolved, transaminases down trending, renal function improving. -Continue antibiotic coverage w/ Vanc and cefepime #. Acute on chronic CKD -Resolved -Baseline 1.30 #. Hyponatremia -Stable #. Elevated alk phos -Elevated since 1999, down trending #. Type 2 diabetes 2020 A1c of 8.1% FSBG AC/HS Continue levemir at 10U BID and SSI AC/HS #. Normocytic anemia -Iron studies, B12 normal -F/u outpatient #. Compensated Liver Cirrhosis-likely 2/2 LAIRD vs Alcoholic liver disease? -Hx of elevated AST, work-up for secondary causes unrevealing #. Transaminitis -Downtrending, likely elevated in the setting of infection #. HTN -Meds had been held in light of infection, will restart if hypertensive #. ?Hx of CHF -When questioned, patient states he was previously on fluid pills, but that his CHF has "resolved", he no longer follows with cardiology -2012 echo w/ LVEF 65%, moderate pulm HTN, borderline LA enlargement #. Depression/anxiety Continue Prozac, Abilify #. Seasonal allergies Continue Flonase #. DDD/sciatica -Continue home tramadol DVT prophylaxis: heparin GI prophylaxis:pantoprazole Disposition: inpatient VS,Fishbone, I+O VS, Fishbone, I+O Laboratory Tests 09/24/21 05:22 Vital Signs Date Time Temp Pulse Resp B/P (MAP) Pulse Ox O2 Delivery O2 Flow Rate FiO2 09/24/21 05:29 97.6 86 18 145/55 (85) 97 Room Air 09/21/21 21:30 2.0 I&O- Last 24 Hours up to 6 AM 09/24/21 06:00 Intake Total 1820 ml Output Total 1250 ml Balance 570 ml SAAD SANFORD MD Sep 24, 2021 08:40
[2021-09-24 14:00] VITALS: BP 151/57
[2021-09-24 20:00] VITALS: BP 151/59
[2021-09-25 04:31] LABS: HEMATOCRIT 31.6 % (42.0-52.0); HEMOGLOBIN 10.7 g/dl (13.5-17.5); MEAN CORPUSCULAR HEMOGLOBIN 31.2 pg (27.0-33.0); MEAN CORPUSCULAR HGB CONC 33.9 g/dl (32.0-36.5); MEAN CORPUSCULAR VOLUME 92.1 fl (80.0-96.0); PLATELET COUNT, AUTOMATED 208 10^3/uL (150-450); RED BLOOD COUNT 3.43 10^6/uL (4.30-6.10); WHITE BLOOD COUNT 19.2 10^3/uL (4.0-10.0)
[2021-09-25] MEDS: CEFEPIME HCL 2 GM in D5W MINI-BAG PLUS 50 ML IV SCH ×2 (04:31→15:39)
[2021-09-25 04:57] LABS: BLOOD UREA NITROGEN 27 MG/DL (7-18); CALCIUM LEVEL 8.4 MG/DL (8.8-10.2); CARBON DIOXIDE LEVEL 25 MEQ/L (21-32); CHLORIDE LEVEL 103 MEQ/L (98-107); CREATININE FOR GFR 1.17 MG/DL (0.70-1.30); GLOMERULAR FILTRATION RATE > 60.0 (>49); GLUCOSE, FASTING 64 MG/DL (70-100); POTASSIUM SERUM 3.3 MEQ/L (3.5-5.1); SODIUM LEVEL 135 MEQ/L (136-145); VANCOMYCIN LEVEL TROUGH 20.7 UG/ML (10.0-20.0)
[2021-09-25 06:00] VITALS: BP 156/69
[2021-09-25] MEDS: HEPARIN SOD (PORCINE) 5000UNITS/ML 1ML VIAL/SYRINGE SQ SCH ×3 (06:41→20:59)
[2021-09-25] MEDS: HumaLOG INSULIN (NovoLOG) PER UNIT SC SCH ×4 (07:30→21:00)
[2021-09-25] MEDS: PANTOPRAZOLE 40MG TAB (PROTONIX) PO SCH (08:55)
[2021-09-25] MEDS: LEVEMIR (INSULIN DETEMIR) 1 UNITS/0.01ML SC SCH ×2 (08:56→20:58)
[2021-09-25] MEDS: FLUoxetine 20 MG CAP PO SCH (08:56)
[2021-09-25] MEDS: SILVER SULFADIAZINE 1% CR 50 GM JAR TOP SCH ×3 (09:06→21:00)
[2021-09-25] MEDS: FLUTICASONE PROP 0.05% NASAL SPRAY 16 GM (FLONASE) NARES SCH (09:07)
[2021-09-25] MEDS: VANCOMYCIN HCL 1,000 MG, VIAL MATE ADAPTER 1 EACH in NS 250 ML IV SCH (11:28)
--- NOTE | 2021-09-25 13:44 | IPNPDOC ---
Text Note Date of Service The patient was seen on 09/25/21. NOTE Subjective: -Foot pain is well controlled with current meds -Afebrile, no chest pain, SOB, or abdominal pain. Has poor PO with poor appetite at present. -No acute events overnight Objective: GENERAL APPEARANCE: NAD HEENT: NC, AT, EOMI, no scleral icterus, moist mucous membranes, no pharyngeal erythema. CARDIOVASCULAR: RRR, normal S1-S2. No murmurs, gallops, rubs. LUNGS: CTAB with full breath sounds, no wheezes, crackles, or rhonchi. ABDOMEN: Soft, nontender, nondistended, bowel sounds present. EXTREMITIES: L-foot with partial amputation wrapped in bandages, R-foot with partial medial foot amputation. 2+ edema in RLE up to the knee with mild erythema. NEUROLOGICAL: No focal or sensory deficits. CN II-XII grossly intact. PSYCHIATRIC: Normal mood and somewhat flat affect Labs: Reviewed WBC 19.2 Hgb 10.7 Platelets 208 na 135 K 3.3 Cr 1.17 CRP 23.6 Imagin09/21/2021 R-foot x-ray: "FINDINGS: The patient is status post empty a fournier of the 1st digit. The surgical margin appears smooth. There is packing material in the post surgical bed. This limited exam shows chronic degenerative changes. An old healed fracture of the distal aspect of the 2nd metatarsal. IMPRESSION: As above" 09/22/2021 R-foot x-ray: "FINDINGS: Stable postsurgical changes with amputation through the 1st metatarsal bone. Remainder of the osseous structures demonstrate degenerative changes and evidence for old healed injuries. IMPRESSION: Stable postsurgical changes." 09/23/2021 RLE doppler venous US: Ultrasound examination of the right lower extremity deep venous structures from the common femoral vein through the popliteal vein demonstrates normal compressibility, flow and wave patterns in response to respiration and augmentation. Evaluation of the calf veins is limited but demonstrates no obvious thrombus in the visualized posterior tibial or peroneal veins. There is no evidence for deep venous thrombosis. Contralateral CFV is patent and normal. IMPRESSION: No evidence for deep venous thrombosis. Assessment/Plan: 66-year-old M with a history of type 2 diabetes and left partial foot amputation who presented with a 5-day history of worsening right foot swelling concerning for necrotizing fasciitis s/p debridement and R-foot amputation on 09/21 with collection of cultures. #. Necrotizing fasciitis of R-toe/foot S/p first ray amputation on 09/22 w/ Dr. Dhaliwal Continue with vancomycin and cefepime (day 5), will likely need at least 2 weeks of abx therapy. Consult ID Sunday, no ID coverage over the holiday weekend. BCX2 pending, 1 BC growing G+ cocci in clusters, wound culture+gram stain growing heavy strep mutans, Vanc susceptible, with few S. aureus, E. Coli (burciaga- sensitive) -MRSA swab negative Daily WBC, CRP #. Sepsis 2/2 R-foot infection: resolved -Resolving, lactic acidosis resolved, transaminases down trending, renal function improving. -Continue antibiotic coverage w/ Vanc and cefepime #. Acute on chronic CKD -Resolved -Baseline 1.30 #. Hyponatremia -Stable #. Elevated alk phos -Elevated since 1999, down trending #. Type 2 diabetes 2020 A1c of 8.1% FSBG AC/HS Continue levemir at 10U BID and SSI AC/HS #. Normocytic anemia -Iron studies, B12 normal -F/u outpatient #. Compensated Liver Cirrhosis-likely 2/2 LAIRD vs Alcoholic liver disease? -Hx of elevated AST, work-up for secondary causes unrevealing #. Transaminitis -Downtrending, likely elevated in the setting of infection -check LFTs today #. HTN -Meds had been held in light of infection, will restart if hypertensive #. ?Hx of CHF -When questioned, patient states he was previously on fluid pills, but that his CHF has "resolved", he no longer follows with cardiology -2012 echo w/ LVEF 65%, moderate pulm HTN, borderline LA enlargement #. Depression/anxiety Continue Prozac, Abilify #. Seasonal allergies Continue Flonase #. DDD/sciatica -Continue home tramadol DVT prophylaxis: heparin GI prophylaxis:pantoprazole Disposition: inpatient VS,Joana, I+O VS, Fishbone, I+O Laboratory Tests 09/25/21 04:17 Vital Signs Date Time Temp Pulse Resp B/P (MAP) Pulse Ox O2 Delivery O2 Flow Rate FiO2 09/25/21 06:00 98.3 62 18 156/69 (98) 100 Room Air 09/21/21 21:30 2.0 I&O- Last 24 Hours up to 6 AM 09/25/21 06:00 Intake Total 1360 ml Output Total 1445 ml Balance -85 ml SAAD SANFORD MD Sep 25, 2021 13:44
[2021-09-25 14:00] VITALS: BP 152/53
[2021-09-25] MEDS ORDERED: POTASSIUM CHLORIDE 10MEQ SR TABLET PO ONE (14:00)
[2021-09-25 14:58] LABS: ALBUMIN 1.5 GM/DL (3.2-5.2); BILIRUBIN,DIRECT 1.3 MG/DL (0.0-0.2); BILIRUBIN,TOTAL 1.7 MG/DL (0.2-1.0); TOTAL PROTEIN 6.5 GM/DL (6.4-8.2)
[2021-09-25 22:00] VITALS: BP 133/62
[2021-09-26] MEDS: CEFEPIME HCL 2 GM in D5W MINI-BAG PLUS 50 ML IV SCH (04:11)
[2021-09-26] MEDS: VANCOMYCIN HCL 1,000 MG, VIAL MATE ADAPTER 1 EACH in NS 250 ML IV SCH (05:27)
[2021-09-26] MEDS: HEPARIN SOD (PORCINE) 5000UNITS/ML 1ML VIAL/SYRINGE SQ SCH ×3 (05:27→21:29)
[2021-09-26 06:00] VITALS: BP 142/60
[2021-09-26] MEDS: HumaLOG INSULIN (NovoLOG) PER UNIT SC SCH ×4 (07:30→21:29)
[2021-09-26] MEDS: ATORVASTATIN 20 MG TAB PO SCH (08:14)
[2021-09-26] MEDS: FLUoxetine 20 MG CAP PO SCH (08:14)
[2021-09-26] MEDS: traMADol 50 MG TAB PO PRN (08:15)
[2021-09-26] MEDS: PANTOPRAZOLE 40MG TAB (PROTONIX) PO SCH (08:15)
[2021-09-26] MEDS: SILVER SULFADIAZINE 1% CR 50 GM JAR TOP SCH ×2 (08:16→21:00)
[2021-09-26] MEDS: FLUTICASONE PROP 0.05% NASAL SPRAY 16 GM (FLONASE) NARES SCH (08:16)
[2021-09-26 08:49] LABS: HEMATOCRIT 31.8 % (42.0-52.0); HEMOGLOBIN 10.4 g/dl (13.5-17.5); MEAN CORPUSCULAR HGB CONC 32.7 g/dl (32.0-36.5); MEAN CORPUSCULAR VOLUME 94.6 fl (80.0-96.0); PLATELET COUNT, AUTOMATED 205 10^3/uL (150-450); RED BLOOD COUNT 3.36 10^6/uL (4.30-6.10); WHITE BLOOD COUNT 25.2 10^3/uL (4.0-10.0)
[2021-09-26 11:07] LABS: BLOOD UREA NITROGEN 29 MG/DL (7-18); CALCIUM LEVEL 7.9 MG/DL (8.8-10.2); CARBON DIOXIDE LEVEL 18 MEQ/L (21-32); CHLORIDE LEVEL 104 MEQ/L (98-107); CREATININE FOR GFR 1.17 MG/DL (0.70-1.30); GLOMERULAR FILTRATION RATE > 60.0 (>49); GLUCOSE, FASTING 147 MG/DL (70-100); POTASSIUM SERUM 3.9 MEQ/L (3.5-5.1); SODIUM LEVEL 136 MEQ/L (136-145)
[2021-09-26] MEDS: MEROPENEM INJ 1 GM in IV 1 EA IV SCH ×2 (13:23→21:29)
--- NOTE | 2021-09-26 13:35 | IPN ---
PROGRESS NOTE DATE: 09/26/2021 TIME: Approximately 8 a.m. CHIEF COMPLAINT: The patient seen at bedside for evaluation of his right foot. OBJECTIVE: Dressing was removed. There was some purulent discharge along the wound bed. There is a collection of purulent fluid on the lateral surface of his foot over the peroneal tendons. Betadine prep over this area and aspiration revealed some purulent material. There is no calf tenderness. The patient's laboratory studies were reviewed revealing increase in his white blood cell count to 25.2. C-reactive protein has trended downward at 24. ASSESSMENT: Additional abscess formation lateral right foot. PLAN: Discussed with the patient incision and drainage at this new abscessed area. This may be tunneling from the peroneal longus tendon. This area will be explored and the wound over the 1st metatarsal will be debrided as well. The patient is NPO after breakfast. Informed consent was obtained and signed by the patient. His questions were answered.
[2021-09-26 14:00] VITALS: BP 140/57
[2021-09-26] MEDS ORDERED: GENTAMICIN SULF 80MG/2ML VIAL As Ordered ONE (16:15)
[2021-09-26] MEDS ORDERED: BUPIVACAINE HCL 0.5% 30 ML VIAL As Ordered ONE (16:18)
[2021-09-26] MEDS ORDERED: LIDOCAINE 1% SDV 30ML VIAL As Ordered ONE (16:18)
--- NOTE | 2021-09-26 16:41 | IPNPDOC ---
Text Note Date of Service The patient was seen on 09/26/21. NOTE Subjective: -He denies any significant pain but appears uncomfortable and ill. His R leg is swollen and per nursing report, Dr. 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 -He is otherwise afebrile, denies chest pain, SOB Objective: VITALS: see below GENERAL APPEARANCE: NAD HEENT: NC, AT, EOMI, no scleral icterus, moist mucous membranes, no pharyngeal erythema. CARDIOVASCULAR: RRR, normal S1-S2. No murmurs, gallops, rubs. LUNGS: CTAB with full breath sounds, no wheezes, crackles, or rhonchi. ABDOMEN: Soft, nontender, nondistended, bowel sounds present. EXTREMITIES: L-foot with partial amputation wrapped in bandages, R-foot with partial medial foot amputation. 3+ edema in RLE up to the knee with surrounding erythema. NEUROLOGICAL: No focal or sensory deficits. CN II-XII grossly intact. PSYCHIATRIC: Normal mood and somewhat flat affect Labs: Reviewed WBC 25.2 Hgb 10.4 Platelets 205 na 136 K 3.9 Cr 1.17 CRP 20.4 Imagin09/21/2021 R-foot x-ray: "FINDINGS: The patient is status post empty a fournier of the 1st digit. The surgical margin appears smooth. There is packing material in the post surgical bed. This limited exam shows chronic degenerative changes. An old healed fracture of the distal aspect of the 2nd metatarsal. IMPRESSION: As above" 09/22/2021 R-foot x-ray: "FINDINGS: Stable postsurgical changes with amputation through the 1st metatarsal bone. Remainder of the osseous structures demonstrate degenerative changes and evidence for old healed injuries. IMPRESSION: Stable postsurgical changes." 09/23/2021 RLE doppler venous US: Ultrasound examination of the right lower extremity deep venous structures from the common femoral vein through the popliteal vein demonstrates normal compressi bility, flow and wave patterns in response to respiration and augmentation. Evaluation of the calf veins is limited but demonstrates no obvious thrombus in the visualized posterior tibial or peroneal veins. There is no evidence for deep venous thrombosis. Contralateral CFV is patent and normal. IMPRESSION: No evidence for deep venous thrombosis. Assessment/Plan: 66-year-old M with a history of type 2 diabetes and left partial foot amputation who presented with a 5-day history of worsening right foot swelling concerning for necrotizing fasciitis s/p debridement and R-foot amputation on 09/21 with polymicrobial infection, and now noted to have further abscess formation pending return to the OR this afternoon with worsening leukocytosis and now adding on anerobic coverage and removing vanc given no MRSA. #. Necrotizing fasciitis of R-toe/foot S/p first ray amputation on 09/22 w/ Dr. Dhaliwal, returning to OR today. Discontinue vancomycin and change cefepime to meropenem to also add anaerobic coverage given polymicrobial growth including MSSA with growth of anaerobes as well. will likely need at least 2 weeks of abx therapy. -Consulted ID today. BCX2 pending, 1 BC growing G+ cocci in clusters, wound culture+gram stain growing heavy strep mutans, Vanc susceptible, with few MSSA, E. Coli (burciaga- sensitive) -MRSA swab negative Daily WBC, CRP #. Sepsis 2/2 R-foot infection: resolved sepsis -Resolved lactic acidosis, transaminases down trending, renal function improved Discontinue vancomycin and change cefepime to meropenem to also add anaerobic coverage given polymicrobial growth including MSSA with growth of anaerobes as well. will likely need at least 2 weeks of abx therapy. #. Acute on chronic CKD -Resolved -Baseline 1.30 #. Hyponatremia -Stable #. Elevated alk phos -Elevated since 1999, down trending #. Type 2 diabetes 2020 A1c of 8.1% FSBG AC/HS SSI AC/HS -hypoglycemia protocol #. Normocytic anemia -Iron studies, B12 normal -F/u outpatient #. Compensated Liver Cirrhosis-likely 2/2 LAIRD vs Alcoholic liver disease? -Hx of elevated AST, work-up for secondary causes unrevealing #. Transaminitis -Downtrending #. HTN -Meds had been held in light of infection #. ?Hx of CHF -When questioned, patient states he was previously on fluid pills, but that his CHF has "resolved", he no longer follows with cardiology -2012 echo w/ LVEF 65%, moderate pulm HTN, borderline LA enlargement #. Depression/anxiety Continue Prozac, Abilify #. Seasonal allergies Continue Flonase #. DDD/sciatica -Continue home tramadol DVT prophylaxis: heparin GI prophylaxis:pantoprazole Disposition: inpatient VS,Fishbone, I+O VS, Fishbone, I+O Laboratory Tests 09/26/21 08:24 Vital Signs Date Time Temp Pulse Resp B/P (MAP) Pulse Ox O2 Delivery O2 Flow Rate FiO2 09/26/21 14:00 99.8 116 16 140/57 (84) 95 Room Air 09/21/21 21:30 2.0 I&O- Last 24 Hours up to 6 AM 09/26/21 06:00 Intake Total 1090 ml Output Total 400 ml Balance 690 ml SAAD SANFORD MD Sep 26, 2021 16:41
[2021-09-26] MEDS ORDERED: CEFEPIME 1GM VIAL (MAXIPIME) (J0692 PER 500MG) As Ordered ONE (16:49)
[2021-09-26] MEDS ORDERED: ETOMIDATE INJ 20MG/10ML VIAL As Ordered ONE (17:05)
[2021-09-26] MEDS ORDERED: fentaNYL 100 MCG/2 ML INJECTION (J3010) As Ordered ONE (17:05)
[2021-09-26] MEDS ORDERED: MIDAZOLAM INJ 2MG/2ML VIAL (J2250 PER 1MG) As Ordered ONE (17:05)
[2021-09-26] MEDS ORDERED: propofoL 200 MG/20 ML VIAL As Ordered ONE (17:05)
[2021-09-26] MEDS ORDERED: ONDANSETRON 4MG/2ML VIAL IV PRN (18:20)
[2021-09-26] MEDS ORDERED: oxyCODONE 5MG TAB PO PRN (18:20)
[2021-09-26] MEDS ORDERED: LR 1,000 ML IV SCH (18:20)
[2021-09-26] MEDS ORDERED: HYDROMORPHONE HCL 0.5 MG/ 0.5 ML SYRINGE (J1170 PER 1) IV PRN (18:20)
[2021-09-26] MEDS ORDERED: fentaNYL 100 MCG/2 ML INJECTION (J3010) IV PRN (18:20)
[2021-09-26 19:47] VITALS: BP 186/72
--- NOTE | 2021-09-26 19:48 | RO ---
OPERATIVE NOTE DATE OF OPERATION: 09/26/2021 PREOPERATIVE DIAGNOSIS: Lateral, medial, dorsal and plantar space abscess, right foot. POSTOPERATIVE DIAGNOSIS: Lateral, medial, dorsal and plantar space abscess, right foot. PROCEDURE: Incision and drainage of dorsal, lateral, plantar, medial compartments, right foot. SURGEON: Sumeet Dhaliwal DPM CHIEF COMPLIANCE OFFICER: None ANESTHESIA: Local MAC. IRRIGATION: Dilute gentamicin solutions, three liters, low pressure pulse lavage system. DRAINS UTILIZED: 1/2 inch iodoform gauze. ESTIMATED BLOOD LOSS: 150 mL l DESCRIPTION OF PROCEDURE: On 08/2921, this 66-year-old male was taken from the hospital room to the operating room and placed on the operating table in supine position. Following the induction of IV sedation and local and regional anesthesia, the following procedure was performed. Excision and drainage of medial, dorsal, lateral and plantar compartments, right foot: Attention was directed to the patient's right foot where there was noted to be a wound measuring approximately 7 cm x 5 cm. The wound was explored, the abscess traced into the peroneal longus tendon sheath. The peroneal longus was noted to be detached from its insertion point. It was explored and purulent discharge was expressed. The wound extended in a medial direction. An incision was placed over the medial tendon sheaths of the foot. This incision measured 7 cm and purulent material was drained in this location. It did go up the medial compartment and a stab incision was placed approximately 5 cm proximal to this and there was a stab incision placed on the medial margin of the Achilles tendon. All purulent material was debrided and utilizing a low pressure pulse lavage system, this was copiously lavaged. Incision was placed on the lateral surface of the foot and a 6 cm incision was placed on the lateral margin and purulent material was expressed and cultured from this area. Approximately 2 mL of purulent material was collected for culture. The dorsal aspect of the foot, the wound tunneled approximately 5 cm and a 2.5 cm incision was placed on the dorsal aspect of the foot. All these areas were then irrigated with dilute gentamicin solution and 1/2 inch iodoform gauze was placed in all compartments to allow drainage and a dressing was applied consisting of ABDs, 4x4s, Kerlix and a Coban wrap was placed over the bandage just to hold the bandage in place under no compression. The patient apparently tolerated the surgical procedure well and was taken from the OR to the recovery room for further monitoring by the anesthesia department. Antibiotics will be covered by infectious disease, Dr. Davis.
[2021-09-26 20:17] VITALS: BP_SYST 157; BP_SYST 159; BP_DIAS 61; BP_DIAS 84
[2021-09-26 21:17] VITALS: BP 157/61
[2021-09-26 22:17] VITALS: BP 118/53
[2021-09-27 01:51] VITALS: BP 149/47
[2021-09-27 03:41] VITALS: BP 128/48
[2021-09-27] MEDS: MEROPENEM INJ 1 GM in IV 1 EA IV SCH ×3 (05:26→21:49)
[2021-09-27] MEDS: HEPARIN SOD (PORCINE) 5000UNITS/ML 1ML VIAL/SYRINGE SQ SCH ×3 (05:26→21:49)
[2021-09-27 06:05] LABS: HEMOGLOBIN 8.5 g/dl (13.5-17.5); MEAN CORPUSCULAR HEMOGLOBIN 30.6 pg (27.0-33.0); MEAN CORPUSCULAR HGB CONC 32.7 g/dl (32.0-36.5); MEAN CORPUSCULAR VOLUME 93.5 fl (80.0-96.0); PLATELET COUNT, AUTOMATED 217 10^3/uL (150-450); RED BLOOD COUNT 2.78 10^6/uL (4.30-6.10); WHITE BLOOD COUNT 18.9 10^3/uL (4.0-10.0)
[2021-09-27 06:38] LABS: C REACTIVE PROTEIN QUANTITATIV 20.8 MG/DL (0.00-0.30); CALCIUM LEVEL 7.7 MG/DL (8.8-10.2); CREATININE FOR GFR 1.3 MG/DL (0.70-1.30); GLOMERULAR FILTRATION RATE 58.8 (>49)
[2021-09-27] MEDS: HumaLOG INSULIN (NovoLOG) PER UNIT SC SCH ×4 (08:15→21:00)
[2021-09-27] MEDS: FLUoxetine 20 MG CAP PO SCH (08:15)
[2021-09-27] MEDS: PANTOPRAZOLE 40MG TAB (PROTONIX) PO SCH (08:15)
[2021-09-27] MEDS: FLUTICASONE PROP 0.05% NASAL SPRAY 16 GM (FLONASE) NARES SCH (08:17)
[2021-09-27] MEDS: SILVER SULFADIAZINE 1% CR 50 GM JAR TOP SCH ×2 (09:31→21:50)
[2021-09-27 10:15] LABS: ALBUMIN 1.3 GM/DL (3.2-5.2); BILIRUBIN,TOTAL 1.4 MG/DL (0.2-1.0); TOTAL PROTEIN 6.4 GM/DL (6.4-8.2)
[2021-09-27] MEDS ORDERED: ONDANSETRON 4MG/2ML VIAL IV PRN (12:25)
[2021-09-27] MEDS: LEVEMIR (INSULIN DETEMIR) 1 UNITS/0.01ML SC SCH ×2 (12:59→21:49)
[2021-09-27 14:00] VITALS: BP 183/82
--- NOTE | 2021-09-27 15:29 | IPNPDOC ---
Subjective Date Seen The patient was seen on 09/27/21. Subjective Chief Complaint/HPI Patient seen at bedside this a.m. he did not offer any complaints. Pain in the right foot is controlled. Denies any shortness of breath fever chills abdominal pain nausea vomiting or diarrhea. Objective Physical Examination General Exam: Positive: Alert, Cooperative, No Acute Distress Eye Exam: Positive: PERRLA, Conjunctiva & lids normal, EOMI; Negative: Sclera icteric ENT Exam: Positive: Atraumatic, Mucous membr. moist/pink, Pharynx Normal Neck Exam: Positive: Supple; Negative: JVD, thyromegaly Chest Exam: Positive: Clear to auscultation, Normal air movement Heart Exam: Positive: Rate Normal, Regular Rhythm, Normal S1, Normal S2; Negative: Murmurs, Rubs Abdomen Exam: Positive: Normal bowel sounds, Soft; Negative: Tenderness Extremity Exam: Positive: Other (Right foot in surgical dressing, left transmetatarsal amputation); Negative: Clubbing, Cyanosis, Edema Psych Exam: Positive: Memory Intact, Oriented x 3 Assessment /Plan Assessment 66-year-old M with a history of type 2 diabetes with neuropathy, cirrhosis of liver as per radiological study, CKD, hypertension, hyperlipidemia, depression and anxiety, degenerative disc disease and sciatica and left transmetatarsal amputation who presented with a 5-day history of worsening right foot swelling and necrosis of the right hallux with necrotizing fasciitis of the right foot s/p debridement of the right foot and R hallux amputation on 09/21 with polymicrobial infection, noted to have further abscess formation and return to the OR on 09/26/2021 for incision and drainage of right foot multiple abscesses. Necrosis of right hallux with necrotizing fasciitis of Right foot complicated by further abscesses of the right foot. S/p first ray amputation on 09/22 w/ Dr. Dhaliwal s/p incision and drainage of the abscesses of the right foot on 09/26/2021 Wound culture positive for polymicrobial stefan as well as anaerobic cultures are positive Started on meropenem BCX2 pending, 1 BC growing G+ cocci in clusters Gemella sanguinous , wound culture+gram stain growing heavy strep mutans, Vanc susceptible, with few MSSA, E. Coli (burciaga-sensitive) MRSA swab negative ID consulted Sepsis 2/2 R-foot infection: resolved sepsis Resolved lactic acidosis, transaminases down trending, renal function improved Transaminitis With elevated alk phos, Chronic from 1999 Improving ANH on chronic CKD Baseline 1.30 Compensated Liver Cirrhosis As per radiology in July 2021 likely 2/2 LAIRD vs Alcoholic liver disease? History of abnormal LFTs chronically work-up has been negative Type 2 diabetes Levemir and lispro Fingerstick before meals and at bedtime Normocytic anemia Iron studies, B12 normal F/u outpatient HTN We will resume lisinopril Depression/anxiety Continue Prozac, Abilify Seasonal allergies Continue Flonase DDD/sciatica Continue home tramadol Plan/VTE VTE Prophylaxis Ordered?: Yes VS, I&O, 24H, Fishbone Vital Signs/I&O Vital Signs Date Time Temp Pulse Resp B/P (MAP) Pulse Ox O2 Delivery O2 Flow Rate FiO2 09/27/21 03:41 98.5 108 18 128/48 (74) 97 Room Air 09/21/21 21:30 2.0 I&O- Last 24 Hours up to 6 AM 09/27/21 06:00 Intake Total 1460 ml Output Total 550 ml Balance 910 ml Laboratory Data 24H LABS Laboratory Tests 2 09/26/21 21:01: Bedside Glucose (Misc Panel) 371H 09/27/21 05:17: Nucleated Red Blood Cells % (auto) 0.0, Anion Gap 9, Glomerular Filtration Rate 58.8, Calcium Level 7.7L, Total Bilirubin 1.4H, Direct Bilirubin 1.0H, Aspartate Amino Transf (AST/SGOT) 90H, Alanine Aminotransferase (ALT/SGPT) 92H, Alkaline Phosphatase 247H, C-Reactive Protein, Quantitative 20.80H, Total Protein 6.4, Albumin 1.3L, Albumin/Globulin Ratio 0.3 09/27/21 12:03: Bedside Glucose (Misc Panel) 375H CBC/BMP Laboratory Tests 09/27/21 05:17 Microbiology Microbiology 09/26/21 Anaerobic Culture, Received Pending 09/26/21 Gram Stain - Final, Resulted 09/26/21 Abscess Culture, Resulted Pending 09/22/21 Blood Culture - Final, Complete NO GROWTH AFTER 5 DAYS 09/22/21 Blood Culture - Final, Complete NO GROWTH AFTER 5 DAYS 09/21/21 Wound Culture - Final, Complete Escherichia Coli Streptococcus Mutans Staphylococcus Aureus 09/21/21 Gram Stain - Final, Complete 09/21/21 Wound Culture - Final, Complete Escherichia Coli Streptococcus Mutans Staphylococcus Aureus 09/21/21 Anaerobic Culture - Final, Complete Anaerobic Cocci Prevotella Bivia 09/21/21 Anaerobic Culture - Final, Complete Prevotella Bivia Anaerobic Cocci 09/21/21 Blood Culture - Final, Complete Gemella Sanguinis 09/21/21 Blood Culture - Final, Complete NO GROWTH AFTER 5 DAYS Precious Grimm MD Sep 27, 2021 15:29
[2021-09-27] MEDS ORDERED: PROMETHAZINE INJ 25 MG/ML VIAL (J2550) IV PRN (16:30)
[2021-09-27] MEDS: lisinopriL 5 MG TAB PO SCH (17:09)
[2021-09-27 20:13] VITALS: BP 124/51
[2021-09-28] MEDS: traMADol 50 MG TAB PO PRN ×4 (04:42→22:07)
[2021-09-28] MEDS: HEPARIN SOD (PORCINE) 5000UNITS/ML 1ML VIAL/SYRINGE SQ SCH ×3 (05:38→22:11)
[2021-09-28] MEDS: MEROPENEM INJ 1 GM in IV 1 EA IV SCH ×3 (05:38→22:12)
[2021-09-28 06:00] VITALS: BP 119/46
[2021-09-28 06:14] LABS: HEMATOCRIT 29.5 % (42.0-52.0); HEMOGLOBIN 9.7 g/dl (13.5-17.5); MEAN CORPUSCULAR HEMOGLOBIN 30.7 pg (27.0-33.0); MEAN CORPUSCULAR HGB CONC 32.9 g/dl (32.0-36.5); MEAN CORPUSCULAR VOLUME 93.4 fl (80.0-96.0); RED BLOOD COUNT 3.16 10^6/uL (4.30-6.10); WHITE BLOOD COUNT 19.9 10^3/uL (4.0-10.0)
[2021-09-28 06:22] LABS: PLATELET COUNT, AUTOMATED 359 10^3/uL (150-450)
[2021-09-28 06:43] LABS: BLOOD UREA NITROGEN 32 MG/DL (7-18); CHLORIDE LEVEL 105 MEQ/L (98-107); CREATININE FOR GFR 1.14 MG/DL (0.70-1.30); GLOMERULAR FILTRATION RATE > 60.0 (>49); GLUCOSE, FASTING 57 MG/DL (70-100); POTASSIUM SERUM 3.4 MEQ/L (3.5-5.1); SODIUM LEVEL 140 MEQ/L (136-145)
[2021-09-28 06:44] LABS: ALBUMIN 1.6 GM/DL (3.2-5.2); ALT/SGPT 103 U/L (12-78); BILIRUBIN,TOTAL 1.2 MG/DL (0.2-1.0); CALCIUM LEVEL 8.2 MG/DL (8.8-10.2); CARBON DIOXIDE LEVEL 27 MEQ/L (21-32); TOTAL PROTEIN 6.9 GM/DL (6.4-8.2)
--- NOTE | 2021-09-28 06:48 | IPN ---
PROGRESS NOTE DATE: 09/27/2021 at 4:14 p.m. CHIEF COMPLAINT: Patient seen for evaluation of right foot status post incision and drainage, four compartments, right foot. Patient states he has improved but does have nausea. He has no foot pain. His bandage was removed today and the packing was removed from the dorsal plantar medial and lateral compartments. The foot was expressed. There was no pus in the lateral compartment or the plantar compartment. There was less than 1 mL of purulent drainage from the medial compartment. There has been a reduction in redness on the lower leg. His culture is pending. Wound culture reveals many growth of gram-negative rods. First wound culture revealed Escherichia coli, Streptococcus mutans and Staphylococcus aureus, and the anaerobic culture grew anaerobic cocci and Prevotella. The patient is on meropenem. The wound was repacked with half-inch iodoform gauze in the dorsal, plantar, medial and lateral compartments and a dry, sterile dressing was applied. The patient had the bandage changed with Dr. Davis at bedside. She will be covering his antibiotic coverage. The patient will be seen tomorrow for additional wound change with repacking of his wound. His questions were answered.
[2021-09-28] MEDS ORDERED: POTASSIUM CHLORIDE 10MEQ SR TABLET PO ONE (06:50)
[2021-09-28] MEDS: HumaLOG INSULIN (NovoLOG) PER UNIT SC SCH ×4 (07:29→22:10)
[2021-09-28] MEDS: LEVEMIR (INSULIN DETEMIR) 1 UNITS/0.01ML SC SCH ×2 (07:30→22:08)
[2021-09-28] MEDS: FLUoxetine 20 MG CAP PO SCH (07:42)
[2021-09-28] MEDS: lisinopriL 5 MG TAB PO SCH (07:42)
[2021-09-28] MEDS: ACETAMINOPHEN TAB 650MG DOSE (2X325MG) PO PRN ×2 (07:42→16:31)
[2021-09-28] MEDS: PANTOPRAZOLE 40MG TAB (PROTONIX) PO SCH (07:43)
[2021-09-28] MEDS: FLUTICASONE PROP 0.05% NASAL SPRAY 16 GM (FLONASE) NARES SCH (07:44)
[2021-09-28] MEDS: SILVER SULFADIAZINE 1% CR 50 GM JAR TOP SCH ×2 (07:47→22:13)
--- NOTE | 2021-09-28 10:00 | CR ---
CONSULTATION DATE: 09/27/2021 REASON FOR CONSULTATION: I was asked to consult by Dr. Dhaliwal and Dr Nuno for evaluation of right foot necrotizing fasciitis, rapidly progressing. HISTORY OF PRESENT ILLNESS: Mr. Fay is a 66-year-old gentleman with insulin dependent diabetes with diabetic neuropathy, previous history of left foot osteomyelitis, status post transmetatarsal amputation of the left foot, who was admitted by Dr. Dhaliwal for rapidly progressing necrotizing infection of the right foot. The patient had noticed three days prior to admission a blister that developed. He is not sure if he had bumped his foot. It rapidly progressed and involved the whole foot. The patient on admission had ray amputation of the first toe for gangrene. He was started on broad-spectrum antibiotic including IV cefepime and vancomycin. He denied any fever, chills, lightheadedness, chest pain, shortness of breath, fever or chills. He had no abdominal pain or other complaints. He did have some nausea. The infection continued to worsen and the patient was taken back to the operating room on 09/26 for further debridement and had lateral, medial, dorsal plantar space abscesses of the right foot where he had an I&D for drainage and Gentamicin solution was diluted and pulse lavaged through the wound. The patient was seen with Dr. Dhaliwal at the bedside on September 27 in consultation while he was doing the dressing. The patient was complaining of nausea and minimal pain. He has neuropathy. He was switched from IV vancomycin and cefepime to meropenem on 09/26. PAST MEDICAL HISTORY: 1. Hypertension. 2. Diabetes type 2, insulin dependent with neuropathy. 3. Depression. 4. Anxiety. 5. Chronic back pain with sciatica. 6. Seasonal allergies. 7. Hyperlipidemia. 8. Reflux. PAST SURGICAL HISTORY: 1. Left transmetatarsal amputation. 2. Bunionectomy. 3. Cholecystectomy. SOCIAL HISTORY: One pack a day smoker since the age of 9, denies alcohol use, denies any other drug use. Lives at home with his and a cat. FAMILY HISTORY: Nonrevealing. ALLERGIES: PENICILLIN AND MEPERIDINE. MEDICATIONS: 1. Meropenem 1 gm IV q.8 hours. 2. Lisinopril 5 mg p.o. daily. 3. Zofran 4 mg IV q.6 hours. 4. Levemir 30 units subcu b.i.d. 5. Sulfadine topical b.i.d. 6. Fluticasone two sprays inhaled daily. 7. Fluoxetine 60 mg p.o. daily. 8. Lipitor 40 mg Sunday and . 9. Abilify 5 mg p.o. daily. 10. Tramadol 50 mg p.o. t.i.d. p.r.n. 11. Pantoprazole 40 mg p.o. daily. LABORATORY DATA: On 09/27, white count was 18.9, hemoglobin 8.5, hematocrit 26, sodium 134, potassium 4, chloride 102, bicarb 23, BUN 39, creatinine 1.3, glucose 346, calcium 7.7, bilirubin 1.4, AST 90, ALT 92, alk phos 247, CRP 20.8, down from 26. Total protein 6.4, albumin 1.3. Wound culture was polymicrobial stefan including E. coli, MSSA, Streptococcus mutans, anaerobic cocci, Prevotella bivia and Gemella sanguinis on blood culture, one out of two from 09/21.l Vascular ultrasound on 09/23 of the right lower extremity showed no evidence of DVT. Foot x-ray on 09/21 shows packing with old healed fracture of the distal aspect of the second metatarsal and surgical margins appearing smooth. PHYSICAL EXAMINATION: General: He is a pleasant gentleman in mild discomfort from his nausea and dressing change. Heart: Normal S1, S2, no murmurs, rubs or gallops appreciated. Lungs: Clear. No wheezes, rales or rhonchi. Abdomen: Soft, nontender, no hepatosplenomegaly. Extremities: Left leg with a transmetatarsal amputation. There is an ulcer measuring about 3 x 2 cm at the incision site right in the middle of the foot with mild serous drainage, no surrounding cellulitis or erythema or tenderness. Right foot: Extensive debridement. There is a ray amputation site which is open, exposed first metatarsal shaft. There was no pus in the lateral compartment of the foot. There was about 1 cc in the medial compartment. The incision at the lateral malleolus seemed necrotic at the edges. There are four incisions of the foot that were done to decompress last night, two laterally and two medially. There is still erythema extending the whole foot to above the ankle with minimal tenderness. Pulse is felt, +1, posterior tibialis. IMPRESSION: Necrotizing polymicrobial necrotizing infection of the right foot, status post ray amputation and multiple debridement with involvement of the fascia with necrotizing fasciitis and rapidly progressive infection. This is a limb threatening infection. The patient at risk of below-knee amputation. He is currently on appropriate antibiotic coverage with meropenem 1 gm every 8 hours. He has undergone multiple debridements. PLAN: Continue with the management, meropenem 1 gm IV q.8 hours. Agree with discontinuing vancomycin. We will continue to monitor clinically. Patient will need long-term IV antibiotics at home. Thank you for consultation. BLANCA
--- NOTE | 2021-09-28 12:31 | IPNPDOC ---
Subjective Date Seen The patient was seen on 09/28/21. Subjective Chief Complaint/HPI Patient has an episode of hypoglycemia this morning asymptomatic his blood sugar is 57. His insulin dosage has been adjusted he reports that his appetite is coming back and he is eating better. A lot of drainage from the wound with soakage of bandages. Dr. Dhaliwal changed bandages yesterday evening he is going to follow-up again this afternoon. No fever or chills. Objective Physical Examination General Exam: Positive: Alert, Cooperative, No Acute Distress Eye Exam: Positive: PERRLA, Conjunctiva & lids normal, EOMI; Negative: Sclera icteric ENT Exam: Positive: Atraumatic, Mucous membr. moist/pink, Pharynx Normal Neck Exam: Positive: Supple; Negative: JVD, thyromegaly Chest Exam: Positive: Clear to auscultation, Normal air movement Heart Exam: Positive: Rate Normal, Regular Rhythm, Normal S1, Normal S2; Negative: Murmurs, Rubs Abdomen Exam: Positive: Normal bowel sounds, Soft; Negative: Tenderness Extremity Exam: Positive: Other (Right foot in surgical dressing, left transmetatarsal amputation); Negative: Clubbing, Cyanosis, Edema Psych Exam: Positive: Memory Intact, Oriented x 3 Assessment /Plan Assessment 66-year-old M with a history of type 2 diabetes with neuropathy, cirrhosis of liver as per radiological study, CKD, hypertension, hyperlipidemia, depression and anxiety, degenerative disc disease and sciatica and left transmetatarsal amputation who presented with a 5-day history of worsening right foot swelling and necrosis of the right hallux with necrotizing fasciitis of the right foot s/p debridement of the right foot and R hallux amputation on 09/21 with polymicrobial infection, noted to have further abscess formation and return to the OR on 09/26/2021 for incision and drainage of right foot multiple abscesses. Necrosis of right hallux with necrotizing fasciitis of Right foot complicated by further abscesses of the right foot. S/p first ray amputation on 09/22 w/ Dr. Dhaliwal s/p incision and drainage of the multiple abscesses of the right foot on 09/26/2021 Wound culture positive for polymicrobial stefan as well as anaerobic cultures are positive for prevotella and aerobic cocci Started on meropenem BCX2 pending, 1 BC growing G+ cocci in clusters Gemella sanguinous , wound culture+gram stain growing heavy strep mutans, Vanc susceptible, with few MSSA, E. Coli (burciaga-sensitive) Seen by ID to continue meropenem, will need long-term IV antibiotics for home. Dr. Dhaliwal following. Sepsis 2/2 R-foot infection: resolved sepsis Resolved lactic acidosis, transaminases down trending, renal function improved Transaminitis With elevated alk phos, Chronic from 1999 Improving ANH on chronic CKD Baseline 1.30 Compensated Liver Cirrhosis As per radiology in July 2021 likely 2/2 LAIRD vs Alcoholic liver disease? History of abnormal LFTs chronically work-up has been negative Type 2 diabetes Levemir and lispro Fingerstick before meals and at bedtime Normocytic anemia Iron studies, B12 normal F/u outpatient HTN We will resume lisinopril Depression/anxiety Continue Prozac, Abilify Seasonal allergies Continue Flonase DDD/sciatica Continue home tramadol Plan/VTE VTE Prophylaxis Ordered?: Yes VS, I&O, 24H, Fishbone Vital Signs/I&O Vital Signs Date Time Temp Pulse Resp B/P (MAP) Pulse Ox O2 Delivery O2 Flow Rate FiO2 09/28/21 12:09 16 09/28/21 07:42 119/46 09/28/21 06:00 98.4 91 99 Room Air l I&O- Last 24 Hours up to 6 AM 09/28/21 06:00 Intake Total 940 ml Output Total 1155 ml Balance -215 ml Laboratory Data 24H LABS Laboratory Tests 2 09/27/21 17:35: Bedside Glucose (Misc Panel) 264H 09/27/21 20:18: Bedside Glucose (Misc Panel) 186H 09/28/21 05:07: Nucleated Red Blood Cells % (auto) 0.0, Anion Gap 8, Glomerular Filtration Rate > 60.0, Calcium Level 8.2L, Total Bilirubin 1.2H, Direct Bilirubin 1.0H, Aspartate Amino Transf (AST/SGOT) 91H, Alanine Aminotransferase (ALT/SGPT) 103H, Alkaline Phosphatase 269H, C-Reactive Protein, Quantitative 16.90H, Total Protein 6.9, Albumin 1.6#L, Albumin/Globulin Ratio 0.3 09/28/21 11:19: Bedside Glucose (Misc Panel) 106 CBC/BMP Laboratory Tests 09/28/21 05:07 Microbiology Microbiology 09/26/21 Anaerobic Culture, Received Pending 09/26/21 Gram Stain - Final, Resulted 09/26/21 Abscess Culture, Resulted Pending 09/22/21 Blood Culture - Final, Complete NO GROWTH AFTER 5 DAYS 09/22/21 Blood Culture - Final, Complete NO GROWTH AFTER 5 DAYS 09/21/21 Wound Culture - Final, Complete Escherichia Coli Streptococcus Mutans Staphylococcus Aureus 09/21/21 Gram Stain - Final, Complete 09/21/21 Wound Culture - Final, Complete Escherichia Coli Streptococcus Mutans Staphylococcus Aureus 09/21/21 Anaerobic Culture - Final, Complete Anaerobic Cocci Prevotella Bivia 09/21/21 Anaerobic Culture - Final, Complete Prevotella Bivia Anaerobic Cocci 09/21/21 Blood Culture - Final, Complete Gemella Sanguinis 09/21/21 Blood Culture - Final, Complete NO GROWTH AFTER 5 DAYS Precious Grimm MD Sep 28, 2021 12:31
[2021-09-28] MEDS ORDERED: traMADol 50 MG TAB PO ONE (17:40)
--- NOTE | 2021-09-28 18:30 | IPN ---
PROGRESS NOTE DATE: 09/28/2021 TIME: 5:45 p.m. SUBJECTIVE: Patient seen at bedside for evaluation of necrotizing fasciitis right foot and lower leg. Patient states today he feels better. He is having less pain in his foot and leg. States he has more feeling in his foot and leg. PHYSICAL EXAMINATION: Bandage shows some breakthrough bleeding, which was changed today. His foot and leg were compressed. Approximately 1-2 mL of purulent material was expressed. The rest was serosanguineous. The area that expressed discharge was the medial tendon sheath. No discharge from the plantar surface of his foot or the lateral compartment. Considerable reduction in swelling is noted today with return of the skin line, which was not previously present. There was no tenderness to calf compression. LABORATORY STUDIES: The patient's laboratory studies were reviewed revealing a slight increase in white count to 19.9. Significant reduction in C-reactive protein 16.9, from the patient's high of 23.6. ASSESSMENT: Improving and reduction of infection right foot and leg. PLAN: Patient's wound was repacked today. Patient will continue to have antibiotics coordinated by infectious disease. We discussed with the patient seeing him tomorrow to change and repack his extremity. We discussed with the patient that this may take several days and we will continue to do this until he is having minimal discharge. His questions are answered.
[2021-09-28 20:00] VITALS: BP 128/59
[2021-09-29] MEDS: HEPARIN SOD (PORCINE) 5000UNITS/ML 1ML VIAL/SYRINGE SQ SCH ×3 (05:28→20:15)
[2021-09-29] MEDS: MEROPENEM INJ 1 GM in IV 1 EA IV SCH ×3 (05:28→20:13)
[2021-09-29 06:37] VITALS: BP 142/75
[2021-09-29] MEDS: HumaLOG INSULIN (NovoLOG) PER UNIT SC SCH ×4 (07:30→20:14)
[2021-09-29 08:33] VITALS: BP 119/46
[2021-09-29 09:06] LABS: BASO % 0.4 % (0.0-1.0); EOS # 0.1 10^3/uL (0.0-0.5); EOS % 1.1 % (0.0-3.0); HEMATOCRIT 26.9 % (42.0-52.0); HEMOGLOBIN 8.7 g/dl (13.5-17.5); LYMPH # 1.7 10^3/uL (1.5-5.0); LYMPH % 15.9 % (24.0-44.0); MEAN CORPUSCULAR HEMOGLOBIN 30.7 pg (27.0-33.0); MEAN CORPUSCULAR HGB CONC 32.3 g/dl (32.0-36.5); MEAN CORPUSCULAR VOLUME 95.1 fl (80.0-96.0); MONO # 0.9 10^3/uL (0.0-0.8); NEUTROPHILS # 7.7 10^3/uL (1.5-8.5); NEUTROPHILS % 71.3 % (36.0-66.0); PLATELET COUNT, AUTOMATED 288 10^3/uL (150-450); RED BLOOD COUNT 2.83 10^6/uL (4.30-6.10); WHITE BLOOD COUNT 10.8 10^3/uL (4.0-10.0)
[2021-09-29] MEDS: FLUoxetine 20 MG CAP PO SCH (09:33)
[2021-09-29] MEDS: PANTOPRAZOLE 40MG TAB (PROTONIX) PO SCH (09:33)
[2021-09-29 09:34] LABS: BLOOD UREA NITROGEN 32 MG/DL (7-18); CALCIUM LEVEL 7.6 MG/DL (8.8-10.2); CARBON DIOXIDE LEVEL 26 MEQ/L (21-32); CHLORIDE LEVEL 104 MEQ/L (98-107); CREATININE FOR GFR 1.12 MG/DL (0.70-1.30); GLOMERULAR FILTRATION RATE > 60.0 (>49); GLUCOSE, FASTING 173 MG/DL (70-100); SODIUM LEVEL 136 MEQ/L (136-145)
[2021-09-29] MEDS: ATORVASTATIN 20 MG TAB PO SCH (09:34)
[2021-09-29] MEDS: FLUTICASONE PROP 0.05% NASAL SPRAY 16 GM (FLONASE) NARES SCH (09:34)
[2021-09-29] MEDS: lisinopriL 5 MG TAB PO SCH (12:33)
[2021-09-29] MEDS: SILVER SULFADIAZINE 1% CR 50 GM JAR TOP SCH ×2 (12:34→20:15)
[2021-09-29 14:00] VITALS: BP 112/49
--- NOTE | 2021-09-29 15:06 | IPNPDOC ---
Text Note Date of Service The patient was seen on 09/29/21. NOTE Subjective Patient was seen and examined at bedside. Patient was having his dressing done when I went to see him. His wounds look much better than what they were yesterday he still has the wound on the right lateral malleolus has dark necrotic skin tissue surrounding. The redness on his leg has also decreased compared to the prior. Patient reports to be feeling better. He reports his nausea has improved and is not taking any medication as they are as needed medication denies having any fever, chills, nausea, vomiting, diarrhea, fatigue, myalgias objective: General: Patient is alert awake x3, was sitting in bed. No apparent distress. Cardiac: S1 and S2 normal, no murmurs appreciated. Lungs: Bilateral clear breath sounds appreciated throughout. No wheezes, rho nchi. Abdomen: Soft to touch, no tenderness, positive bowel sounds appreciated Extremity: Patient had trans-metatarsals amputation. Patient has been weak wound on the side to the size of the large toe the bone was visible onto the surface. The wound was measuring 10 cm x 5 cm and has some good granulation tissue and yellow staff he does have it only on medial and lateral malleolus as well the wound on the lateral malleolus has necrotic skin surrounding it. Patient has erythema extending up to and above the ankle which as per patient things have reduced a lot. Assessment and plan: 66-year-old male who was sent directly by wound clinic for necrotizing polymicrobial of the right foot s/p amputation and multiple debridement. Patient initially had rapidly progressing life-threatening infection. - Based on the look of the wound compared to yesterday it looks much better. We will continue meropenem 1 g IV every 8 hours, patient will be needing a longer course of IV antibiotics given his osteomyelitis in his foot. The symptoms Gram stain was back from the wound which was growing strep Anginosus. And still anaerobic cultures from the right leg are pending. VS,Fishbone, I+O VS, Fishbone, I+O Laboratory Tests 09/29/21 08:48 Vital Signs Date Time Temp Pulse Resp B/P (MAP) Pulse Ox O2 Delivery O2 Flow Rate FiO2 09/29/21 12:33 124/56 09/29/21 08:33 97.9 100 22 97 Room Air I&O- Last 24 Hours up to 6 AM 09/29/21 05:59 Intake Total 1500 ml Output Total 0 ml Balance 1500 ml GME ATTESTATION GME ATTESTATION My faculty preceptor for this patient encounter was physically present during the encounter and was fully available. All aspects of the patient interview, examination, medical decision making process, and medical care plan development were reviewed and approved by the faculty preceptor. The faculty preceptor is aware and concurs with the plan as stated in the body of this note and will attest to such by his/her cosignature. Natalie Mcgill MD Sep 29, 2021 15:06
[2021-09-29] MEDS: traMADol 50 MG TAB PO PRN (15:35)
--- NOTE | 2021-09-29 17:32 | IPNPDOC ---
Subjective Date Seen The patient was seen on 09/29/21. Subjective Chief Complaint/HPI No issues overnight. No complaints this morning. Denies any pain. Continues to have significant drainage with soakage of bandages. Again with low FS this morning with 66. Stopped am dose of levemir will only give pm dose. Reports appetite improving . Objective Physical Examination General Exam: Positive: Alert, Cooperative, No Acute Distress Eye Exam: Positive: PERRLA, Conjunctiva & lids normal, EOMI; Negative: Sclera icteric ENT Exam: Positive: Atraumatic, Mucous membr. moist/pink, Pharynx Normal Neck Exam: Positive: Supple; Negative: JVD, thyromegaly Chest Exam: Positive: Clear to auscultation, Normal air movement Heart Exam: Positive: Rate Normal, Regular Rhythm, Normal S1, Normal S2; Negative: Murmurs, Rubs Abdomen Exam: Positive: Normal bowel sounds, Soft; Negative: Tenderness Extremity Exam: Positive: Other (Right foot in surgical dressing, left transmetatarsal amputation); Negative: Clubbing, Cyanosis, Edema Psych Exam: Positive: Memory Intact, Oriented x 3 Assessment /Plan Assessment 66-year-old M with a history of type 2 diabetes with neuropathy, cirrhosis of liver as per radiological study, CKD, hypertension, hyperlipidemia, depression and anxiety, degenerative disc disease and sciatica and left transmetatarsal amputation who presented with a 5-day history of worsening right foot swelling and necrosis of the right hallux with necrotizing fasciitis of the right foot s/p debridement of the right foot and R hallux amputation on 09/21 with polymicrobial infection, noted to have further abscess formation and return to the OR on 09/26/2021 for incision and drainage of right foot multiple abscesses. Necrosis of right hallux with necrotizing fasciitis of Right foot complicated by further abscesses of the right foot. S/p first ray amputation on 09/22 w/ Dr. Dhaliwal s/p incision and drainage of the multiple abscesses of the right foot on 2020 Wound culture positive for polymicrobial stefan as well as anaerobic cultures are positive for prevotella and aerobic cocci Started on meropenem BCX2 pending, 1 BC growing G+ cocci in clusters Gemella sanguinous , wound culture+gram stain growing heavy strep mutans, Vanc susceptible, with few MSSA, E. Coli (burciaga-sensitive) Seen by ID to continue meropenem, will need long-term IV antibiotics for home. Dr. Dhaliwal following with daily wound packing and dressing changes till the discharge from the wound reduces which will take several days. Sepsis 2/2 R-foot infection: resolved sepsis Resolved lactic acidosis, transaminases down trending, renal function improved Transaminitis With elevated alk phos, Chronic from 1999 Improving ANH on chronic CKD Baseline 1.30 Compensated Liver Cirrhosis As per radiology in July 2021 likely 2/2 LAIRD vs Alcoholic liver disease? History of abnormal LFTs chronically work-up has been negative Type 2 diabetes Levemir and lispro Fingerstick before meals and at bedtime Normocytic anemia Iron studies, B12 normal F/u outpatient HTN We will resume lisinopril Depression/anxiety Continue Prozac, Abilify Seasonal allergies Continue Flonase DDD/sciatica Continue home tramadol Plan/VTE VTE Prophylaxis Ordered?: Yes VS, I&O, 24H, Fishbone Vital Signs/I&O Vital Signs Date Time Temp Pulse Resp B/P (MAP) Pulse Ox O2 Delivery O2 Flow Rate FiO2 09/29/21 06:37 99.3 97 18 142/75 (97) 97 Room Air I&O- Last 24 Hours up to 6 AM 09/29/21 06:00 Intake Total 1500 ml Output Total 0 ml Balance 1500 ml Laboratory Data 24H LABS Laboratory Tests 2 09/28/21 11:19: Bedside Glucose (Misc Panel) 106 09/28/21 17:21: Bedside Glucose (Misc Panel) 152H 09/28/21 21:24: Bedside Glucose (Misc Panel) 266H 09/29/21 06:58: Bedside Glucose (Misc Panel) 66L Microbiology Microbiology 09/26/21 Anaerobic Culture, Received Pending 09/26/21 Gram Stain - Final, Resulted 09/26/21 Abscess Culture, Resulted Pending 09/22/21 Blood Culture - Final, Complete NO GROWTH AFTER 5 DAYS 09/22/21 Blood Culture - Final, Complete NO GROWTH AFTER 5 DAYS 09/21/21 Wound Culture - Final, Complete Escherichia Coli Streptococcus Mutans Staphylococcus Aureus 09/21/21 Gram Stain - Final, Complete 09/21/21 Wound Culture - Final, Complete Escherichia Coli Streptococcus Mutans Staphylococcus Aureus 09/21/21 Anaerobic Culture - Final, Complete Anaerobic Cocci Prevotella Bivia 09/21/21 Anaerobic Culture - Final, Complete Prevotella Bivia Anaerobic Cocci 09/21/21 Blood Culture - Final, Complete Gemella Sanguinis 09/21/21 Blood Culture - Final, Complete NO GROWTH AFTER 5 DAYS Precious Grimm MD Sep 29, 2021 08:12
--- NOTE | 2021-09-29 18:33 | IPN ---
PROGRESS NOTE DATE: 09/27/2021 TIME: Approximately 6:00 p.m. SUBJECTIVE: Patient seen at bedside for evaluation of necrotizing fasciitis of his right foot. Patient states he is feeling considerably better today than yesterday. He has noticed considerable reduction in swelling in his right lower extremity. He denies shortness of breath or chest pain. PHYSICAL EXAMINATION: VITAL SIGNS: Patient's respiration is 18, oxygen saturation is 98, pulse 73, temperature 98.3. EXTREMITIES: Bandage was removed. There is minimal discharge from the medical wound, less than 0.1 mL. No other discharge is noted from the surgical sites. Considerable reduction in swelling and return of the skin lines are now noted of the patient's foot and leg. LABORATORY STUDIES: Revealed a white count reduced from 19.9 yesterday to 10.8 today. C-reactive protein is pending. GFR is greater than 60. ASSESSMENT: Improved necrotizing fasciitis right foot. PLAN: Continue with packing the wound daily. Patient will continue on meropenem every [address] Davis is coordinating antibiotic coverage. The patient's questions were answered.
[2021-09-29] MEDS ORDERED: LEVEMIR (INSULIN DETEMIR) 1 UNITS/0.01ML SC SCH (21:00)
[2021-09-29 22:00] VITALS: BP 106/38
[2021-09-30] MEDS: HEPARIN SOD (PORCINE) 5000UNITS/ML 1ML VIAL/SYRINGE SQ SCH ×3 (05:13→20:21)
[2021-09-30] MEDS: MEROPENEM INJ 1 GM in IV 1 EA IV SCH ×3 (05:13→20:21)
[2021-09-30 05:35] LABS: BASO # 0.1 10^3/uL (0.0-0.2); BASO % 0.4 % (0.0-1.0); EOS # 0.2 10^3/uL (0.0-0.5); EOS % 1.4 % (0.0-3.0); HEMOGLOBIN 9.1 g/dl (13.5-17.5); LYMPH # 1.9 10^3/uL (1.5-5.0); LYMPH % 15.3 % (24.0-44.0); MEAN CORPUSCULAR HEMOGLOBIN 30.7 pg (27.0-33.0); MEAN CORPUSCULAR HGB CONC 32.5 g/dl (32.0-36.5); MEAN CORPUSCULAR VOLUME 94.6 fl (80.0-96.0); MONO # 0.9 10^3/uL (0.0-0.8); MONO % 7.6 % (2.0-8.0); NEUTROPHILS # 8.7 10^3/uL (1.5-8.5); NEUTROPHILS % 71.8 % (36.0-66.0); PLATELET COUNT, AUTOMATED 325 10^3/uL (150-450); RED BLOOD COUNT 2.96 10^6/uL (4.30-6.10); WHITE BLOOD COUNT 12.2 10^3/uL (4.0-10.0)
[2021-09-30 06:00] VITALS: BP 123/65
[2021-09-30 06:08] LABS: BLOOD UREA NITROGEN 29 MG/DL (7-18); C REACTIVE PROTEIN QUANTITATIV 8.79 MG/DL (0.00-0.30); CALCIUM LEVEL 7.7 MG/DL (8.8-10.2); CARBON DIOXIDE LEVEL 27 MEQ/L (21-32); CHLORIDE LEVEL 107 MEQ/L (98-107); CREATININE FOR GFR 1.04 MG/DL (0.70-1.30); GLOMERULAR FILTRATION RATE > 60.0 (>49); GLUCOSE, FASTING 59 MG/DL (70-100); POTASSIUM SERUM 4.2 MEQ/L (3.5-5.1); SODIUM LEVEL 139 MEQ/L (136-145)
[2021-09-30] MEDS: HumaLOG INSULIN (NovoLOG) PER UNIT SC SCH ×3 (07:30→17:32)
[2021-09-30] MEDS: lisinopriL 5 MG TAB PO SCH (09:11)
[2021-09-30] MEDS: FLUoxetine 20 MG CAP PO SCH (09:11)
[2021-09-30] MEDS: PANTOPRAZOLE 40MG TAB (PROTONIX) PO SCH (09:11)
[2021-09-30] MEDS: FLUTICASONE PROP 0.05% NASAL SPRAY 16 GM (FLONASE) NARES SCH (09:12)
[2021-09-30] MEDS: SILVER SULFADIAZINE 1% CR 50 GM JAR TOP SCH ×2 (09:12→20:22)
[2021-09-30] MEDS: traMADol 50 MG TAB PO PRN ×2 (09:19→18:27)
[2021-09-30] MEDS: GABAPENTIN 300 MG CAP PO SCH ×3 (09:53→20:22)
--- NOTE | 2021-09-30 11:07 | IPNPDOC ---
Subjective Date Seen The patient was seen on 09/30/21. Subjective Chief Complaint/HPI Sugars again low this morning at 67 we will stop the bedtime dose of lispro. We will also reduce bedtime dose of Levemir. Right leg swelling is improving and now I can see skin creases. As per Dr. Dhaliwal there is minimal discharge from the wound and most of the discharges from the surgical incisions and it looks much better than before. Patient is having daily dressing change with packing. Objective Physical Examination General Exam: Positive: Alert, Cooperative, No Acute Distress Eye Exam: Positive: PERRLA, Conjunctiva & lids normal, EOMI; Negative: Sclera icteric ENT Exam: Positive: Atraumatic, Mucous membr. moist/pink, Pharynx Normal Neck Exam: Positive: Supple; Negative: JVD, thyromegaly Chest Exam: Positive: Clear to auscultation, Normal air movement Heart Exam: Positive: Rate Normal, Regular Rhythm, Normal S1, Normal S2; Negative: Murmurs, Rubs Abdomen Exam: Positive: Normal bowel sounds, Soft; Negative: Tenderness Extremity Exam: Positive: Other (Right foot in surgical dressing, left transmetatarsal amputation); Negative: Clubbing, Cyanosis, Edema Psych Exam: Positive: Memory Intact, Oriented x 3 Assessment /Plan Assessment 66-year-old M with a history of type 2 diabetes with neuropathy, cirrhosis of liver as per radiological study, CKD, hypertension, hyperlipidemia, depression and anxiety, degenerative disc disease and sciatica and left transmetatarsal amputation who presented with a 5-day history of worsening right foot swelling and necrosis of the right hallux with necrotizing fasciitis of the right foot s/p debridement of the right foot and R hallux amputation on 09/21 with polymicrobial infection, noted to have further abscess formation and return to the OR on 09/26/2021 for incision and drainage of right foot multiple abscesses. Necrosis of right hallux with necrotizing fasciitis of Right foot complicated by further abscesses of the right foot. S/p first ray amputation on 09/22 w/ Dr. Dhaliwal s/p incision and drainage of the multiple abscesses of the right foot on 09/26/2021 Wound culture positive for polymicrobial stefan as well as anaerobic cultures are positive for prevotella and aerobic cocci BCX2 are negative on 09/22/2021 1 BC from 09/21/2020 grew G+ cocci in clusters Gemella sanguinous which is contaminant 09/21/2021 wound culture+gram stain growing heavy strep mutans, Vanc susceptible, with few MSSA, E. Coli (burciaga-sensitive) Wound culture from 09/26/2021 is growing Streptococcus sanguinis, the anaerobic culture is still pending Seen by ID to continue meropenem, will need long-term IV antibiotics for home. Dr. Dhaliwal following with daily wound packing and dressing changes till the discharge from the wound reduces which will take several days. CRP and WBC count are improving Sepsis 2/2 R-foot infection: resolved sepsis Resolved lactic acidosis, transaminases down trending, renal function improved Transaminitis With elevated alk phos, Chronic from 1999 Improving ANH on chronic CKD Baseline 1.30 Compensated Liver Cirrhosis As per radiology in July 2021 likely 2/2 LAIRD vs Alcoholic liver disease? History of abnormal LFTs chronically work-up has been negative Type 2 diabetes Levemir and lispro Fingerstick before meals and at bedtime Normocytic anemia Iron studies, B12 normal F/u outpatient HTN We will resume lisinopril Depression/anxiety Continue Prozac, Abilify Seasonal allergies Continue Flonase DDD/sciatica Continue home tramadol Plan/VTE VTE Prophylaxis Ordered?: Yes VS, I&O, 24H, Fishbone Vital Signs/I&O Vital Signs Date Time Temp Pulse Resp B/P (MAP) Pulse Ox O2 Delivery O2 Flow Rate FiO2 09/30/21 09:49 18 Room Air 09/30/21 09:11 123/65 09/30/21 06:00 98.3 81 97 I&O- Last 24 Hours up to 6 AM 09/30/21 06:00 Intake Total 1250 ml Output Total 900 ml Balance 350 ml Laboratory Data 24H LABS Laboratory Tests 2 09/29/21 11:40: Bedside Glucose (Misc Panel) 244H 09/29/21 19:46: Bedside Glucose (Misc Panel) 296H 09/30/21 05:03: Bedside Glucose (Misc Panel) 67L 09/30/21 05:24: Immature Granulocyte % (Auto) 3.5H, Neutrophils (%) (Auto) 71.8H, Lymphocytes (%) (Auto) 15.3L, Monocytes (%) (Auto) 7.6, Eosinophils (%) (Auto) 1.4, Basophils (%) (Auto) 0.4, Neutrophils # (Auto) 8.7H, Lymphocytes # (Auto) 1.9, Monocytes # (Auto) 0.9H, Eosinophils # (Auto) 0.2, Basophils # (Auto) 0.1, Nucleated Red Blood Cells % (auto) 0.0, Anion Gap 5L, Glomerular Filtration Rate > 60.0, Calcium Level 7.7L, C-Reactive Protein, Quantitative 8.79H 09/30/21 05:52: Bedside Glucose (Misc Panel) 86 CBC/BMP Laboratory Tests 09/30/21 05:24 Microbiology Microbiology 09/26/21 Anaerobic Culture, Received Pending 09/26/21 Gram Stain - Final, Complete 09/26/21 Abscess Culture - Final, Complete Strep Anginosus Grp 09/22/21 Blood Culture - Final, Complete NO GROWTH AFTER 5 DAYS 09/22/21 Blood Culture - Final, Complete NO GROWTH AFTER 5 DAYS 09/21/21 Wound Culture - Final, Complete Escherichia Coli Streptococcus Mutans Staphylococcus Aureus 09/21/21 Gram Stain - Final, Complete 09/21/21 Wound Culture - Final, Complete Escherichia Coli Streptococcus Mutans Staphylococcus Aureus 09/21/21 Anaerobic Culture - Final, Complete Anaerobic Cocci Prevotella Bivia 09/21/21 Anaerobic Culture - Final, Complete Prevotella Bivia Anaerobic Cocci 09/21/21 Blood Culture - Final, Complete Gemella Sanguinis 09/21/21 Blood Culture - Final, Complete NO GROWTH AFTER 5 DAYS Precious Grimm MD Sep 30, 2021 11:07
[2021-09-30] MEDS ORDERED: LIDOCAINE 1% MDV 20ML VIAL As Ordered ONE (11:53)
[2021-09-30] MEDS ORDERED: SODIUM CHLORIDE 0.9% INJ 10 ML SYR IV PRN (13:50)
[2021-09-30 14:00] VITALS: BP 111/48
[2021-09-30] MEDS: SODIUM CHLORIDE 0.9% INJ 10 ML SYR IV SCH (17:31)
--- NOTE | 2021-09-30 17:36 | REP ---
INDICATION: usp antibiotics. COMPARISON: None. TECHNIQUE: The procedure was performed under the direct supervision of Dr. Valle. The risks and benefits of the procedure were explained to the patient and informed consent was obtained. The right basilic vein was localized using ultrasound guidance. The skin was prepped and draped in a sterile fashion. 1 mL of 1% lidocaine was used as a local anesthetic. Using ultrasound guidance the basilic vein was cannulated and a 0.018 guidewire was inserted and advanced to the SVC using fluoroscopic guidance, and last image hold technology. The needle was removed and a 5.5 Japanese dilator and peel-away sheath was inserted over the guide wire. A 5.5 Japanese dual lumen catheter was cut to length of 40 cm. The dilator was removed and the catheter was inserted over the guide wire with the tip ending in the SVC. The peel-away sheath was removed and the catheter was flushed with heparinized saline as per Hospital protocol. The catheter was affixed to the skin and a sterile dressing was applied. Estimated blood loss: Less than 1 mL The patient tolerated the procedure well and there were no immediate complications. 0.2 minute of fluoro time was utilized for this procedure. FINDINGS: None IMPRESSION: PICC line insertion right basilic vein with the tip ending in the SVC. <Electronically signed by Corky Hermosillo > 09/30/21 1713 <Electronically signed by Hector Valle > 09/30/21 [id number]
--- NOTE | 2021-09-30 19:32 | IPN ---
PROGRESS NOTE DATE: 09/27/2021 APPROXIMATE TIME: 5:00 p.m. CHIEF COMPLAINT: Patient is seen for evaluation of necrotizing fasciitis of the right foot. OBJECTIVE: Bandage was removed today. Considerable reduction is noted in swelling. Skin lines are now present over the entire foot and lower leg with considerable mosque of his normal appearance. Granulation tissue is now noted in the first ray site. The patient denies shortness of breath or chest pain. He states his foot feels considerably improved. Ulceration on the first ray area measures 11.0 x 4.7 cm which is approximately 0.5 cm in depth. There is some tunneling into the medial compartment approximately 1 cm. Ulceration on the medial aspect of the ankle measures 4.8 x 1.2 cm. It tunnels in a proximal direction approximately 3 cm. Lateral ankle area measures 4.8 x 2.2 cm, approximately 0.5 cm in depth. The dorsal aspect of the foot has an ulceration measuring 1.7 x 0.5 cm. Minimal purulence was expressed from the dorsal ulcer and medial ulcer area. No other purulence was expressed. Laboratory results reveal a white count of 12.2, slight increase from yesterday's visit. C-reactive protein has significantly improved reducing to 8.79. ASSESSMENT: Improved necrotizing fasciitis right foot. PLAN: We discussed with the patient packing his wound and then switching to a wound V.A.C. on Sunday for hopeful discharge. IV coverage will be provided by Dr. Davis, Infectious Disease.
[2021-09-30] MEDS: LEVEMIR (INSULIN DETEMIR) 1 UNITS/0.01ML SC SCH (20:22)
[2021-09-30 22:00] VITALS: BP 133/63
[2021-10-01] MEDS: SODIUM CHLORIDE 0.9% INJ 10 ML SYR IV SCH ×2 (05:21→16:51)
[2021-10-01] MEDS: HEPARIN SOD (PORCINE) 5000UNITS/ML 1ML VIAL/SYRINGE SQ SCH ×3 (05:21→21:02)
[2021-10-01] MEDS: MEROPENEM INJ 1 GM in IV 1 EA IV SCH (05:21)
[2021-10-01 06:00] VITALS: BP 126/65
[2021-10-01 07:26] LABS: BASO # 0.1 10^3/uL (0.0-0.2); BASO % 0.6 % (0.0-1.0); EOS # 0.2 10^3/uL (0.0-0.5); EOS % 1.4 % (0.0-3.0); HEMATOCRIT 28.7 % (42.0-52.0); HEMOGLOBIN 9.2 g/dl (13.5-17.5); LYMPH # 1.9 10^3/uL (1.5-5.0); LYMPH % 17.5 % (24.0-44.0); MEAN CORPUSCULAR HEMOGLOBIN 30.7 pg (27.0-33.0); MEAN CORPUSCULAR HGB CONC 32.1 g/dl (32.0-36.5); MEAN CORPUSCULAR VOLUME 95.7 fl (80.0-96.0); MONO # 0.9 10^3/uL (0.0-0.8); MONO % 8.5 % (2.0-8.0); NEUTROPHILS # 7.4 10^3/uL (1.5-8.5); NEUTROPHILS % 67.9 % (36.0-66.0); PLATELET COUNT, AUTOMATED 348 10^3/uL (150-450); WHITE BLOOD COUNT 10.8 10^3/uL (4.0-10.0)
[2021-10-01 07:51] LABS: BLOOD UREA NITROGEN 26 MG/DL (7-18); C REACTIVE PROTEIN QUANTITATIV 8.32 MG/DL (0.00-0.30); CALCIUM LEVEL 7.8 MG/DL (8.8-10.2); CARBON DIOXIDE LEVEL 27 MEQ/L (21-32); CHLORIDE LEVEL 105 MEQ/L (98-107); CREATININE FOR GFR 1.07 MG/DL (0.70-1.30); GLOMERULAR FILTRATION RATE > 60.0 (>49); GLUCOSE, FASTING 117 MG/DL (70-100); POTASSIUM SERUM 4.6 MEQ/L (3.5-5.1); SODIUM LEVEL 137 MEQ/L (136-145)
[2021-10-01] MEDS: traMADol 50 MG TAB PO PRN ×2 (08:30→16:50)
[2021-10-01] MEDS: GABAPENTIN 300 MG CAP PO SCH ×3 (08:31→21:02)
[2021-10-01] MEDS: PANTOPRAZOLE 40MG TAB (PROTONIX) PO SCH (08:31)
[2021-10-01] MEDS: FLUoxetine 20 MG CAP PO SCH (08:31)
[2021-10-01] MEDS: lisinopriL 5 MG TAB PO SCH (08:33)
[2021-10-01] MEDS: SILVER SULFADIAZINE 1% CR 50 GM JAR TOP SCH ×2 (08:34→21:10)
[2021-10-01] MEDS: HumaLOG INSULIN (NovoLOG) PER UNIT SC SCH ×3 (08:34→16:50)
[2021-10-01] MEDS: FLUTICASONE PROP 0.05% NASAL SPRAY 16 GM (FLONASE) NARES SCH (08:34)
[2021-10-01] MEDS: ERTAPENEM SODIUM 1 GM in NS MINI-BAG PLUS 50 ML IV SCH (12:50)
[2021-10-01 14:00] VITALS: BP 113/45
--- NOTE | 2021-10-01 14:02 | IPNPDOC ---
Subjective Date Seen The patient was seen on 10/01/21. Subjective Chief Complaint/HPI No complaints this morning. Fingersticks has been good this morning there was no hypoglycemia. Patient has a PICC line in place now. We can use the PICC line for lab draws. Continues to have large amounts of drainage and soakage through the bandages in the right foot. Wound is care is being followed by Dr. Dhaliwal. Objective Physical Examination General Exam: Positive: Alert, Cooperative, No Acute Distress Eye Exam: Positive: PERRLA, Conjunctiva & lids normal, EOMI; Negative: Sclera icteric ENT Exam: Positive: Atraumatic, Mucous membr. moist/pink, Pharynx Normal Neck Exam: Positive: Supple; Negative: JVD, thyromegaly Chest Exam: Positive: Clear to auscultation, Normal air movement Heart Exam: Positive: Rate Normal, Regular Rhythm, Normal S1, Normal S2; Negative: Murmurs, Rubs Abdomen Exam: Positive: Normal bowel sounds, Soft; Negative: Tenderness Extremity Exam: Positive: Other (Right foot in surgical dressing, left transmetatarsal amputation); Negative: Clubbing, Cyanosis, Edema Psych Exam: Positive: Memory Intact, Oriented x 3 Assessment /Plan Assessment 66-year-old M with a history of type 2 diabetes with neuropathy, cirrhosis of liver as per radiological study, CKD, hypertension, hyperlipidemia, depression and anxiety, degenerative disc disease and sciatica and left transmetatarsal amputation who presented with a 5-day history of worsening right foot swelling and necrosis of the right hallux with necrotizing fasciitis of the right foot s/p debridement of the right foot and R hallux amputation on 09/21 with polymicrobial infection, noted to have further abscess formation and return to the OR on 09/26/2021 for incision and drainage of right foot multiple abscesses. Necrosis of right hallux with necrotizing fasciitis of Right foot complicated by further abscesses of the right foot. S/p first ray amputation on 09/22 w/ Dr. Dhaliwal s/p incision and drainage of the multiple abscesses of the right foot on 09/26/2021 Wound culture positive for polymicrobial stefan as well as anaerobic cultures are positive for prevotella and aerobic cocci BCX2 are negative on 09/22/2021 1 BC from 09/21/2020 grew G+ cocci in clusters Gemella sanguinous which is contaminant 09/21/2021 wound culture+gram stain growing heavy strep mutans, Vanc suscept ible, with few MSSA, E. Coli (burciaga-sensitive) Wound culture from 09/26/2021 is growing Streptococcus sanguinis, the anaerobic culture is still pending Dr. Dhaliwal following with daily wound packing and dressing changes As per podiatry wound looks better. Currently wound looks as follows" Ulceratio n on the first ray area measures 11.0 x 4.7 cm which is approximately 0.5 cm in depth. There is some tunneling into the medial compartment approximately 1 cm. Ulceration on the medial aspect of the ankle measures 4.8 x 1.2 cm. It tunnels in a proximal direction approximately 3 cm. Lateral ankle area measures 4.8 x 2.2 cm, approximately 0.5 cm in depth. The dorsal aspect of the foot has an ulceration measuring 1.7 x 0.5 cm. Minimal purulence was expressed from the dorsal ulcer and medial ulcer area". Will need wound VAC on discharge. Antibiotic changed to Ertapenum. will need 3 weeks of home antibiotics. Sepsis 2/2 R-foot infection: resolved sepsis Resolved lactic acidosis, transaminases down trending, renal function improved Transaminitis With elevated alk phos, Chronic from 1999 Improving ANH on chronic CKD Baseline 1.30 Compensated Liver Cirrhosis As per radiology in July 2021 likely 2/2 LAIRD vs Alcoholic liver disease? History of abnormal LFTs chronically work-up has been negative Type 2 diabetes Levemir and lispro Fingerstick before meals and at bedtime Normocytic anemia Iron studies, B12 normal F/u outpatient HTN We will resume lisinopril Depression/anxiety Continue Prozac, Abilify Seasonal allergies Continue Flonase DDD/sciatica Continue home tramadol Plan/VTE VTE Prophylaxis Ordered?: Yes VS, I&O, 24H, Fishbone Vital Signs/I&O Vital Signs Date Time Temp Pulse Resp B/P (MAP) Pulse Ox O2 Delivery O2 Flow Rate FiO2 10/01/21 09:00 18 10/01/21 08:33 111/45 10/01/21 06:00 98.4 84 96 Room Air I&O- Last 24 Hours up to 6 AM0 10/01/21 05:59 Intake Total 1400 ml Output Total 550 ml Balance 850 ml Laboratory Data 24H LABS Laboratory Tests 2 09/30/21 16:58: Bedside Glucose (Misc Panel) 301H 09/30/21 20:21: Bedside Glucose (Misc Panel) 261H 10/01/21 06:55: Immature Granulocyte % (Auto) 4.1H, Neutrophils (%) (Auto) 67.9H, Lymphocytes (%) (Auto) 17.5L, Monocytes (%) (Auto) 8.5H, Eosinophils (%) (Auto) 1.4, Basophils (%) (Auto) 0.6, Neutrophils # (Auto) 7.4, Lymphocytes # (Auto) 1.9, Monocytes # (Auto) 0.9H, Eosinophils # (Auto) 0.2, Basophils # (Auto) 0.1, Nucleated Red Blood Cells % (auto) 0.0, Anion Gap 5L, Glomerular Filtration Rate > 60.0, Calcium Level 7.8L, C-Reactive Protein, Quantitative 8.32H 10/01/21 11:41: Bedside Glucose (Misc Panel) 150H 10/01/21 12:49: Bedside Glucose (Misc Panel) 191H CBC/BMP Laboratory Tests 10/01/21 06:55 Microbiology Microbiology 09/26/21 Anaerobic Culture, Received Pending 09/26/21 Gram Stain - Final, Complete 09/26/21 Abscess Culture - Final, Complete Strep Anginosus Grp 09/22/21 Blood Culture - Final, Complete NO GROWTH AFTER 5 DAYS 09/22/21 Blood Culture - Final, Complete NO GROWTH AFTER 5 DAYS 09/21/21 Wound Culture - Final, Complete Escherichia Coli Streptococcus Mutans Staphylococcus Aureus 09/21/21 Gram Stain - Final, Complete 09/21/21 Wound Culture - Final, Complete Escherichia Coli Streptococcus Mutans Staphylococcus Aureus 09/21/21 Anaerobic Culture - Final, Complete Anaerobic Cocci Prevotella Bivia 09/21/21 Anaerobic Culture - Final, Complete Prevotella Bivia Anaerobic Cocci 09/21/21 Blood Culture - Final, Complete Gemella Sanguinis 09/21/21 Blood Culture - Final, Complete NO GROWTH AFTER 5 DAYS Precious Grimm MD Oct 01, 2021 14:02
--- NOTE | 2021-10-01 15:49 | IPN ---
PROGRESS NOTE DATE: 09/30/2021 SUBJECTIVE: Patient was seen by Dr. Dhaliwal. He was feeling well. He is anxious to go home. The anticipated plan would be discharge home on Sunday. He has no fever or chills. No nausea, vomiting or diarrhea. He is eating well. He has minimal pain in his right foot. LABORATORY DATA: White count 12.2, hemoglobin 9.1, hematocrit 28, platelets 325, 72% neutrophils, 15% lymphocytes, 7% monocytes. Sodium 139, potassium 4.2, chloride 107, bicarbonate 27, BUN 29, creatinine 1.04, glucose 59, calcium 7.7. C-reactive protein (CRP) 8.79. MEDICATIONS: - meropenem 1 gram intravenous (IV) every 8 hours PHYSICAL EXAMINATION: VITAL SIGNS: Temperature 98.3, pulse 85, respiratory rate 18, blood pressure 133/63, oxygen saturation 97% on room air. HEART: Normal. S1, S2. No murmurs. LUNGS: Clear. ABDOMEN: Soft, nontender. LOWER EXTREMITIES: Right amputation of the big toe. He has an open ulcer measuring about 11 x 5 cm with 0.5 cm depth at the site of the first toe amputation with no purulence. There are some tendons exposed. Shaft of the metatarsal is exposed. There are multiple other incision sites medially and laterally around the ankle. Erythema has markedly decreased. There is no purulence that was expressed. IMPRESSION: 1. Necrotizing fasciitis of the right foot status post amputation and multiple dbridements with polymicrobial stefan, including Escherichia (E) coli, Streptococcus mutans, methicillin sensitive Streptococcus aureus (MSSA), and anaerobes Prevotella as well as Gemella sanguinis bacteremia. Patient is doing markedly better. 2. Insulin dependent diabetes. Glucose has been ranging between 142 and 301. PLAN: Anticipated discharge on Sunday with a wound vacuum assisted closure (VAC). Per Dr. Dhaliwal, the patient will have a peripherally inserted central catheter (PICC) line and be discharged home with IV antibiotics for another three weeks. He will be switched from meropenem 1 gram IV every 8 hours to ertepenem 1 gram IV every 24 hours. [employer] will be the infusion company to help with his home infusion. The prescriptions have been written. He will have weekly blood work to include complete blood count (CBC), comprehensive metabolic panel (CMP), erythrocyte sedimentation rate (ESR) and C-reactive protein (CRP).
[2021-10-01] MEDS: ACETAMINOPHEN TAB 650MG DOSE (2X325MG) PO PRN (19:38)
[2021-10-01] MEDS: LEVEMIR (INSULIN DETEMIR) 1 UNITS/0.01ML SC SCH (21:02)
[2021-10-01 22:00] VITALS: BP 120/50
[2021-10-02] MEDS: HEPARIN SOD (PORCINE) 5000UNITS/ML 1ML VIAL/SYRINGE SQ SCH ×3 (05:31→21:05)
[2021-10-02] MEDS: SODIUM CHLORIDE 0.9% INJ 10 ML SYR IV SCH ×2 (05:31→17:19)
[2021-10-02 06:00] VITALS: BP 123/50
[2021-10-02 06:04] LABS: BASO % 0.4 % (0.0-1.0); EOS # 0.1 10^3/uL (0.0-0.5); EOS % 1.4 % (0.0-3.0); HEMATOCRIT 25.1 % (42.0-52.0); HEMOGLOBIN 8.2 g/dl (13.5-17.5); LYMPH # 1.8 10^3/uL (1.5-5.0); LYMPH % 18.6 % (24.0-44.0); MEAN CORPUSCULAR HEMOGLOBIN 30.8 pg (27.0-33.0); MEAN CORPUSCULAR HGB CONC 32.7 g/dl (32.0-36.5); MEAN CORPUSCULAR VOLUME 94.4 fl (80.0-96.0); MONO % 10.9 % (2.0-8.0); NEUTROPHILS # 6.1 10^3/uL (1.5-8.5); NEUTROPHILS % 64.6 % (36.0-66.0); PLATELET COUNT, AUTOMATED 296 10^3/uL (150-450); RED BLOOD COUNT 2.66 10^6/uL (4.30-6.10); WHITE BLOOD COUNT 9.5 10^3/uL (4.0-10.0)
[2021-10-02 06:30] LABS: BLOOD UREA NITROGEN 27 MG/DL (7-18); C REACTIVE PROTEIN QUANTITATIV 7.51 MG/DL (0.00-0.30); CALCIUM LEVEL 8.2 MG/DL (8.8-10.2); CARBON DIOXIDE LEVEL 26 MEQ/L (21-32); CHLORIDE LEVEL 103 MEQ/L (98-107); CREATININE FOR GFR 1.13 MG/DL (0.70-1.30); GLOMERULAR FILTRATION RATE > 60.0 (>49); GLUCOSE, FASTING 144 MG/DL (70-100); POTASSIUM SERUM 4.3 MEQ/L (3.5-5.1); SODIUM LEVEL 136 MEQ/L (136-145)
[2021-10-02] MEDS: lisinopriL 5 MG TAB PO SCH (08:44)
[2021-10-02] MEDS: PANTOPRAZOLE 40MG TAB (PROTONIX) PO SCH (08:44)
[2021-10-02] MEDS: FLUoxetine 20 MG CAP PO SCH (08:45)
[2021-10-02] MEDS: GABAPENTIN 300 MG CAP PO SCH ×3 (08:45→21:05)
[2021-10-02] MEDS: traMADol 50 MG TAB PO PRN ×2 (08:45→18:59)
[2021-10-02] MEDS: HumaLOG INSULIN (NovoLOG) PER UNIT SC SCH ×3 (08:46→17:20)
[2021-10-02] MEDS: LEVEMIR (INSULIN DETEMIR) 1 UNITS/0.01ML SC SCH ×2 (08:46→21:05)
[2021-10-02] MEDS: FLUTICASONE PROP 0.05% NASAL SPRAY 16 GM (FLONASE) NARES SCH (08:48)
[2021-10-02] MEDS: SILVER SULFADIAZINE 1% CR 50 GM JAR TOP SCH ×2 (08:48→21:06)
[2021-10-02 11:39] LABS: ALBUMIN 1.5 GM/DL (3.2-5.2); ALT/SGPT 66 U/L (12-78); BILIRUBIN,DIRECT 0.5 MG/DL (0.0-0.2); BILIRUBIN,TOTAL 0.6 MG/DL (0.2-1.0)
--- NOTE | 2021-10-02 13:27 | IPNPDOC ---
Subjective Date Seen The patient was seen on 10/02/21. Subjective Chief Complaint/HPI Sugars are better controlled at present. No hypoglycemic episodes. Though some numbers are still over 250. No fevers or chills. No complaints this morning. Objective Physical Examination General Exam: Positive: Alert, Cooperative, No Acute Distress Eye Exam: Positive: PERRLA, Conjunctiva & lids normal, EOMI; Negative: Sclera icteric ENT Exam: Positive: Atraumatic, Mucous membr. moist/pink, Pharynx Normal Neck Exam: Positive: Supple; Negative: JVD, thyromegaly Chest Exam: Positive: Clear to auscultation, Normal air movement Heart Exam: Positive: Rate Normal, Regular Rhythm, Normal S1, Normal S2; Negative: Murmurs, Rubs Abdomen Exam: Positive: Normal bowel sounds, Soft; Negative: Tenderness Extremity Exam: Positive: Other (Right foot in surgical dressing, left transmetatarsal amputation); Negative: Clubbing, Cyanosis, Edema Psych Exam: Positive: Memory Intact, Oriented x 3 Assessment /Plan Assessment 66-year-old M with a history of type 2 diabetes with neuropathy, cirrhosis of liver as per radiological study, CKD, hypertension, hyperlipidemia, depression and anxiety, degenerative disc disease and sciatica and left transmetatarsal amputation who presented with a 5-day history of worsening right foot swelling and necrosis of the right hallux with necrotizing fasciitis of the right foot s/p debridement of the right foot and R hallux amputation on 09/21 with polymicrobial infection, noted to have further abscess formation and return to the OR on 09/26/2021 for incision and drainage of right foot multiple abscesses. Necrosis of right hallux with necrotizing fasciitis of Right foot complicated by further abscesses of the right foot. S/p first ray amputation on 09/22 w/ Dr. Dhaliwal s/p incision and drainage of the multiple abscesses of the right foot on 09/26/2021 Wound culture positive for polymicrobial stefan as well as anaerobic cultures are positive for prevotella and aerobic cocci BCX2 are negative on 09/22/2021 1 BC from 09/21/2020 grew G+ cocci in clusters Gemella sanguinous which is contaminant 09/21/2021 wound culture+gram stain growing heavy strep mutans, Vanc susceptible, with few MSSA, E. Coli (burciaga-sensitive) Wound culture from 09/26/2021 is growing Streptococcus sanguinis, the anaerobic culture still shows Prevotella and anaerobic cocci. Dr. Dhaliwal following with daily wound packing and dressing changes As per podiatry wound looks better. Currently wound looks as follows" Ulceration on the first ray area measures 11.0 x 4.7 cm which is approximately 0.5 cm in depth. There is some tunneling into the medial compartment approximately 1 cm. Ulceration on the medial aspect of the ankle measures 4.8 x 1.2 cm. It tunnels in a proximal direction approximately 3 cm. Lateral ankle area measures 4.8 x 2.2 cm, approximately 0.5 cm in depth. The dorsal aspect of the foot has an ulceration measuring 1.7 x 0.5 cm. Minimal purulence was expressed from the dorsal ulcer and medial ulcer area". Wound VAC on discharge Patient's antibiotic was changed to ertapenem every 24 hours which is going to be his discharge medication. Sepsis 2/2 R-foot infection: resolved sepsis Resolved lactic acidosis, transaminases down trending, renal function improved Transaminitis With elevated alk phos, Chronic from 1999 ANH on chronic CKD Baseline 1.30 Compensated Liver Cirrhosis As per radiology in July 2021 likely 2/2 LAIRD vs Alcoholic liver disease? History of abnormal LFTs chronically work-up has been negative Type 2 diabetes Levemir and lispro Fingerstick before meals and at bedtime Normocytic anemia Iron studies, B12 normal F/u outpatient HTN We will resume lisinopril Depression/anxiety Continue Prozac, Abilify Seasonal allergies Continue Flonase DDD/sciatica Continue home tramadol Plan/VTE VTE Prophylaxis Ordered?: Yes VS, I&O, 24H, Fishbone Vital Signs/I&O Vital Signs Date Time Temp Pulse Resp B/P (MAP) Pulse Ox O2 Delivery O2 Flow Rate FiO2 10/02/21 06:00 98.4 83 18 123/50 (74) 99 Room Air I&O- Last 24 Hours up to 6 AM 10/02/21 06:00 Intake Total 3020 ml Output Total 200 ml Balance 2820 ml Laboratory Data 24H LABS Laboratory Tests 2 10/01/21 11:41: Bedside Glucose (Misc Panel) 150H 10/01/21 12:49: Bedside Glucose (Misc Panel) 191H 10/01/21 16:43: Bedside Glucose (Misc Panel) 270H 10/01/21 19:54: Bedside Glucose (Misc Panel) 270H 10/02/21 05:35: Immature Granulocyte % (Auto) 4.1H, Neutrophils (%) (Auto) 64.6, Lymphocytes (%) (Auto) 18.6L, Monocytes (%) (Auto) 10.9H, Eosinophils (%) (Auto) 1.4, Basophils (%) (Auto) 0.4, Neutrophils # (Auto) 6.1, Lymphocytes # (Auto) 1.8, Monocytes # (Auto) 1.0H, Eosinophils # (Auto) 0.1, Basophils # (Auto) 0.0, Nucleated Red Blood Cells % (auto) 0.0, Anion Gap 7L, Glomerular Filtration Rate > 60.0, Calcium Level 8.2L, C-Reactive Protein, Quantitative 7.51H CBC/BMP Laboratory Tests 10/02/21 05:35 Microbiology Microbiology 09/26/21 Anaerobic Culture, Received Pending 09/26/21 Gram Stain - Final, Complete 09/26/21 Abscess Culture - Final, Complete Strep Anginosus Grp 09/22/21 Blood Culture - Final, Complete NO GROWTH AFTER 5 DAYS 09/22/21 Blood Culture - Final, Complete NO GROWTH AFTER 5 DAYS Precious Grimm MD Oct 02, 2021 07:56
[2021-10-02] MEDS: ERTAPENEM SODIUM 1 GM in NS MINI-BAG PLUS 50 ML IV SCH (13:48)
[2021-10-02 14:00] VITALS: BP 122/51
[2021-10-02 22:00] VITALS: BP 106/46
[2021-10-02] MEDS: ACETAMINOPHEN TAB 650MG DOSE (2X325MG) PO PRN (22:48)
[2021-10-03] MEDS: SODIUM CHLORIDE 0.9% INJ 10 ML SYR IV SCH (04:58)
[2021-10-03] MEDS: HEPARIN SOD (PORCINE) 5000UNITS/ML 1ML VIAL/SYRINGE SQ SCH ×2 (04:59→14:00)
[2021-10-03 05:19] LABS: BASO % 0.4 % (0.0-1.0); EOS # 0.1 10^3/uL (0.0-0.5); EOS % 1.5 % (0.0-3.0); HEMATOCRIT 25.3 % (42.0-52.0); HEMOGLOBIN 8.2 g/dl (13.5-17.5); LYMPH # 1.5 10^3/uL (1.5-5.0); LYMPH % 18.3 % (24.0-44.0); MEAN CORPUSCULAR HEMOGLOBIN 30.8 pg (27.0-33.0); MEAN CORPUSCULAR HGB CONC 32.4 g/dl (32.0-36.5); MEAN CORPUSCULAR VOLUME 95.1 fl (80.0-96.0); MONO % 11.9 % (2.0-8.0); NEUTROPHILS # 5.2 10^3/uL (1.5-8.5); NEUTROPHILS % 63.6 % (36.0-66.0); PLATELET COUNT, AUTOMATED 265 10^3/uL (150-450); RED BLOOD COUNT 2.66 10^6/uL (4.30-6.10); WHITE BLOOD COUNT 8.1 10^3/uL (4.0-10.0)
[2021-10-03 05:44] LABS: BLOOD UREA NITROGEN 26 MG/DL (7-18); C REACTIVE PROTEIN QUANTITATIV 8.52 MG/DL (0.00-0.30); CALCIUM LEVEL 8.3 MG/DL (8.8-10.2); CARBON DIOXIDE LEVEL 27 MEQ/L (21-32); CHLORIDE LEVEL 103 MEQ/L (98-107); CREATININE FOR GFR 1.12 MG/DL (0.70-1.30); GLOMERULAR FILTRATION RATE > 60.0 (>49); GLUCOSE, FASTING 141 MG/DL (70-100); POTASSIUM SERUM 4.2 MEQ/L (3.5-5.1); SODIUM LEVEL 136 MEQ/L (136-145)
[2021-10-03 06:00] VITALS: BP 123/45
[2021-10-03] MEDS: LEVEMIR (INSULIN DETEMIR) 1 UNITS/0.01ML SC SCH (08:30)
[2021-10-03] MEDS: HumaLOG INSULIN (NovoLOG) PER UNIT SC SCH ×2 (08:30→12:08)
[2021-10-03] MEDS: PANTOPRAZOLE 40MG TAB (PROTONIX) PO SCH (08:32)
[2021-10-03] MEDS: traMADol 50 MG TAB PO PRN (08:32)
[2021-10-03] MEDS: ACETAMINOPHEN TAB 650MG DOSE (2X325MG) PO PRN (08:32)
[2021-10-03] MEDS: ATORVASTATIN 20 MG TAB PO SCH (08:33)
[2021-10-03] MEDS: GABAPENTIN 300 MG CAP PO SCH (08:33)
[2021-10-03] MEDS: FLUoxetine 20 MG CAP PO SCH (08:33)
[2021-10-03 08:34] VITALS: BP 119/45
[2021-10-03] MEDS: lisinopriL 5 MG TAB PO SCH (08:34)
[2021-10-03] MEDS: SILVER SULFADIAZINE 1% CR 50 GM JAR TOP SCH (08:34)
[2021-10-03] MEDS: FLUTICASONE PROP 0.05% NASAL SPRAY 16 GM (FLONASE) NARES SCH (08:34)
[2021-10-03 09:14] LABS: ERYTHROCYTE SEDIMENTATION RATE 127 mm/hr (0-20)
[2021-10-03] MEDS: ERTAPENEM SODIUM 1 GM in NS MINI-BAG PLUS 50 ML IV SCH (12:08)
[2021-10-03] MEDS ORDERED: LANTINJ4 SC (13:07)
--- NOTE | 2021-10-03 13:38 | DS.PDOC ---
Discharge Summary General Date of Admission Sep 21, 2021 at 11:09 Date of Discharge 10/03/21 Discharge Summary PROCEDURES PERFORMED DURING STAY: S/p first ray amputation on 09/22 w/ Dr. Dhaliwal s/p incision and drainage of the multiple abscesses of the right foot on 09/26/2021 DISCHARGE DIAGNOSES: Necrotizing fasciitis of right foot Sepsis Transaminitis Lactic acidosis SECONDARY DIAGNOSIS: Type 2 diabetes with neuropathy, Cirrhosis of liver as per radiological study, CKD, hypertension, hyperlipidemia, depression and anxiety, degenerative disc disease and sciatica left transmetatarsal amputation COMPLICATIONS/CHIEF COMPLAINT: Necrotic Toe. HOSPITAL COURSE: 66-year-old M with a history of type 2 diabetes with neuropathy, cirrhosis of liver as per radiological study, CKD, hypertension, hyperlipidemia, depression and anxiety, degenerative disc disease and sciatica and left transmetatarsal amputation who presented with a 5-day history of worsening right foot swelling and necrosis of the right hallux with necrotizing fasciitis of the right foot s/p debridement of the right foot and R hallux amputation on 09/21 with polymicrobial infection, noted to have further abscess formation and return to the OR on 09/26/2021 for incision and drainage of right foot multiple abscesses. Necrosis of right hallux with necrotizing fasciitis of Right foot complicated by further abscesses of the right foot. S/p first ray amputation on 09/22 w/ Dr. Dhaliwal s/p incision and drainage of the multiple abscesses of the right foot on 09/26/2021 BCX2 are negative on 09/22/2021 1 BC from 09/21/2020 grew G+ cocci in clusters Gemella sanguinous which is contaminant 09/21/2021 wound culture+gram stain growing heavy strep mutans, Vanc susceptible, with few MSSA, E. Coli (burciaga-sensitive) prevotell and anareobic cocci. Wound culture from 09/26/2021 is growing Streptococcus sanguinis, the anaerobic culture still shows Prevotella and anaerobic cocci. Patient to continue 1 g of ertapenem for 3 weeks. Anticipated end of treatment October 21, 2021 Wound VAC on discharge Sepsis 2/2 R-foot infection: resolved sepsis Resolved lactic acidosis, transaminases down trending, renal function improved Transaminitis With elevated alk phos, Chronic from 1999 ANH on chronic CKD Baseline 1.30 Compensated Liver Cirrhosis As per radiology in July 2021 likely 2/2 LAIRD vs Alcoholic liver disease? History of abnormal LFTs chronically work-up has been negative Patient has persistently elevated alkaline phosphatase at this time. Type 2 diabetes Levemir and lispro Fingerstick before meals and at bedtime Normocytic anemia Iron studies, B12 normal F/u outpatient HTN We will resume lisinopril Depression/anxiety Continue Prozac, Abilify Seasonal allergies Continue Flonase DDD/sciatica Continue home tramadol DISCHARGE MEDICATIONS: Please see below. ALLERGIES: Please see below. PHYSICAL EXAMINATION ON DISCHARGE: VITAL SIGNS: Please see below. General Exam: Positive: Alert, Cooperative, No Acute Distress Eye Exam: Positive: PERRLA, Conjunctiva & lids normal, EOMI; Negative: Sclera icteric ENT Exam: Positive: Atraumatic, Mucous membr. moist/pink, Pharynx Normal Neck Exam: Positive: Supple; Negative: JVD, thyromegaly Chest Exam: Positive: Clear to auscultation, Normal air movement Heart Exam: Positive: Rate Normal, Regular Rhythm, Normal S1, Normal S2; Negative: Murmurs, Rubs Abdomen Exam: Positive: Normal bowel sounds, Soft; Negative: Tenderness Extremity Exam: Positive: Other (Right foot in surgical dressing, left transmetatarsal amputation); Negative: Clubbing, Cyanosis, Edema Psych Exam: Positive: Memory Intact, Oriented x 3 LABORATORY DATA: Please see below. ACTIVITY: [As tolerated]. DIET: Carb consistent DISCHARGE PLAN: Home with services DISCHARGE INSTRUCTIONS: Home with IV ertapenem CBC CMP ESR and CRP every week while on antibiotic Follow-up with Dr. Marcos in [address] Davis in 2 to 3 weeks Wound VAC to be changed 3 times a week DISCHARGE CONDITION: [Stable]. TIME SPENT ON DISCHARGE: 35 minutes. Vital Signs/I&Os Vital Signs Date Time Temp Pulse Resp B/P (MAP) Pulse Ox O2 Delivery O2 Flow Rate FiO2 10/03/21 09:02 18 10/03/21 08:34 119/45 10/03/21 06:00 97.9 79 97 Room Air I&O- Last 24 Hours up to 6 AM 10/03/21 06:00 Intake Total 1910 ml Output Total 325 ml Balance 1585 ml Laboratory Data Labs 24H Laboratory Tests 2 10/02/21 16:37: Bedside Glucose (Misc Panel) 132H 10/02/21 20:52: Bedside Glucose (Misc Panel) 186H 10/03/21 05:03: Immature Granulocyte % (Auto) 4.3H, Neutrophils (%) (Auto) 63.6, Lymphocytes (%) (Auto) 18.3L, Monocytes (%) (Auto) 11.9H, Eosinophils (%) (Auto) 1.5, Basophils (%) (Auto) 0.4, Neutrophils # (Auto) 5.2, Lymphocytes # (Auto) 1.5, Monocytes # (Auto) 1.0H, Eosinophils # (Auto) 0.1, Basophils # (Auto) 0.0, Nucleated Red Blood Cells % (auto) 0.0, Erythrocyte Sedimentation Rate 127H, Anion Gap 6L, Glomerular Filtration Rate > 60.0, Calcium Level 8.3L, C-Reactive Protein, Quantitative 8.52H 10/03/21 11:53: Bedside Glucose (Misc Panel) 153H CBC/BMP Laboratory Tests 10/03/21 05:03 FSBS Laboratory Tests Test 10/02/21 16:37 10/02/21 20:52 10/03/21 11:53 Range/Units Bedside Glucose (Misc Panel) 132 186 153 80-115 MG/DL Microbiology Microbiology 09/26/21 Anaerobic Culture - Final, Complete Prevotella Bivia Anaerobic Cocci 09/26/21 Gram Stain - Final, Complete 09/26/21 Abscess Culture - Final, Complete Strep Anginosus Grp Discharge Medications Scheduled Aripiprazole (Abilify) 5 Mg Tab, 5 MG PO DAILY, (Reported) Atorvastatin Calcium (Atorvastatin Calcium) 40 Mg Tablet, 40 MG PO 2XW, (Reported) SUNDAY AND SUNDAY MORNINGS Chlorthalidone (Chlorthalidone) 25 Mg Tablet, 12.5 MG PO DAILY, (Reported) Fluoxetine HCl (Prozac) 20 Mg Cap, 60 MG PO DAILY, (Reported) Fluticasone Propionate (Flonase Allergy Relief) 50 Mcg/Act Spr, 2 SPRAY NARES DAILY, (Reported) Gabapentin (Gabapentin) 300 Mg Cap, 900 MG PO TID, (Reported) Insulin Glargine,Hum.rec.anlog (Lantus Solostar) 100 Unit/1 Ml Insuln.pen, 20 UNITS SC BID Lisinopril (Lisinopril) 10 Mg Tablet, 5 MG PO DAILY, (Reported) Scheduled PRN Ibuprofen (Ibuprofen) 200 Mg Tab, 400 MG PO Q6H PRN for PAIN, (Reported) Tramadol HCl (Tramadol HCl) 50 Mg Tab, 50 MG PO TID PRN for PAIN LEVEL 1-4, (Reported) Allergies Coded Allergies: Penicillins (Verified Allergy, Intermediate, rash, 01/08/20) meperidine (Verified Adverse Reaction, Mild, trouble waking up, 01/08/20) Precious Grimm MD Oct 03, 2021 13:38
[2021-10-03 14:00] VITALS: BP 119/45
--- NOTE | 2021-10-03 18:01 | IPN ---
PROGRESS NOTE DATE: 10/03/2021 TIME: Approximately 6:30 p.m. CHIEF COMPLAINT: Patient visited at bedside for evaluation of necrotizing fasciitis, subsequent first ray amputation and incision and drainage of multiple abscesses, right foot. The patient states he is feeling well, noticed a considerable reduction in swelling of his foot. The patient states he is feeling well, noticed a considerable reduction in swelling of his foot. There is no calf tenderness or shortness of breath. White count today is 8.1. ESR is 127. C-reactive protein is 8.5, low yesterday of 7.5. The wounds were evaluated. There was no purulent discharge today. Wound packing was pulled. Wound VAC was applied with white foam in the tunneled areas on the medial, dorsal and first ray area of the right foot followed by black foam with a dorsal bridge, pressure set for 175 mmHg continuous, high intensity. Wound VAC band was applied today. Unfortunately the wound VAC itself was not available. However, after 30 minutes, wound VAC machine was applied to the patient's foot and the nursing staff advised me that the wound VAC was functioning satisfactorily with no leaks detected. The patient will be discharged with a wound VAC. He will be seen in my office on Sunday for changing of the wound VAC. He will have public health coming in to change the dressing on Sunday and Sunday. His questions were answered.
== END 2021-10-03 16:40 | disposition home health service (06) | DRG 853 ==
LOC: M MS5PR 11:09
PROVIDERS: ADMIT Internal Medicine; ATTEND Internal Medicine Nephrology
PROC: 0Y6P0Z0 Detachment at Right 1st Toe, Complete, Open Approach (ICD-10-PCS; principal; 2021-09-21 11:29)
PROC: 0Y9M0ZZ Drainage of Right Foot, Open Approach (ICD-10-PCS; 2021-09-26)
PROC: 02HV33Z Insertion of Infusion Device into Superior Vena Cava, Percutaneous Approach (ICD-10-PCS; 2021-09-30)
DX: A41.9 Sepsis, unspecified organism (principal); M72.6 Necrotizing fasciitis; L02.611 Cutaneous abscess of right foot; E87.1 Hypo-osmolality and hyponatremia; N17.9 Acute kidney failure, unspecified; E11.621 Type 2 diabetes mellitus with foot ulcer; E11.42 Type 2 diabetes mellitus with diabetic polyneuropathy; I12.9 Hypertensive chronic kidney disease with stage 1 through stage 4 chronic kidney disease, or unspecified chronic kidney disease; F41.9 Anxiety disorder, unspecified; F32.A Depression, unspecified; M54.9 Dorsalgia, unspecified; Z90.49 Acquired absence of other specified parts of digestive tract; Z89.422 Acquired absence of other left toe(s); F17.210 Nicotine dependence, cigarettes, uncomplicated; N18.9 Chronic kidney disease, unspecified; E11.22 Type 2 diabetes mellitus with diabetic chronic kidney disease; D64.9 Anemia, unspecified; K74.60 Unspecified cirrhosis of liver; R74.01 Elevation of levels of liver transaminase levels; Z20.822 Contact with and (suspected) exposure to COVID-19; Z79.4 Long term (current) use of insulin; Z79.899 Other long term (current) drug therapy; Z88.0 Allergy status to penicillin; Z88.8 Allergy status to other drugs, medicaments and biological substances

== ENCOUNTER → 2021-10-05 | Outpatient (REF) | payer MEDICARE, BC, OTHER ==
[~2021-10-05] MED LIST changes: +ATOR40TA75 PO; +CHLO125TA PO; +LISI10TA22 PO
[2021-10-05 18:10] LABS: HEMATOCRIT 27.9 % (42.0-52.0); MEAN CORPUSCULAR HEMOGLOBIN 30.5 pg (27.0-33.0); MEAN CORPUSCULAR HGB CONC 32.3 g/dl (32.0-36.5); MEAN CORPUSCULAR VOLUME 94.6 fl (80.0-96.0); PLATELET COUNT, AUTOMATED 337 10^3/uL (150-450); RED BLOOD COUNT 2.95 10^6/uL (4.30-6.10); WHITE BLOOD COUNT 10.3 10^3/uL (4.0-10.0)
[2021-10-05 18:27] LABS: ALBUMIN 1.7 GM/DL (3.2-5.2); ALT/SGPT 75 U/L (12-78); BILIRUBIN,TOTAL 0.6 MG/DL (0.2-1.0); BLOOD UREA NITROGEN 30 MG/DL (7-18); C REACTIVE PROTEIN QUANTITATIV 8.41 MG/DL (0.00-0.30); CALCIUM LEVEL 8.4 MG/DL (8.8-10.2); CARBON DIOXIDE LEVEL 29 MEQ/L (21-32); CHLORIDE LEVEL 104 MEQ/L (98-107); CREATININE FOR GFR 1.03 MG/DL (0.70-1.30); GLOMERULAR FILTRATION RATE > 60.0 (>49); GLUCOSE, FASTING 59 MG/DL (70-100); POTASSIUM SERUM 5.3 MEQ/L (3.5-5.1); SODIUM LEVEL 136 MEQ/L (136-145); TOTAL PROTEIN 6.8 GM/DL (6.4-8.2)
[2021-10-05 19:58] LABS: ERYTHROCYTE SEDIMENTATION RATE 129 mm/hr (0-20)
== END ==
LOC: M SHH 17:41
PROVIDERS: ATTEND Internal Medicine Infectious Disease
DX: M86.171 Other acute osteomyelitis, right ankle and foot (principal); M72.6 Necrotizing fasciitis

== ENCOUNTER → 2021-10-12 | Outpatient (REF) | payer MEDICARE, BC, OTHER ==
[2021-10-12 16:37] LABS: HEMATOCRIT 31.1 % (42.0-52.0); MEAN CORPUSCULAR HEMOGLOBIN 30.7 pg (27.0-33.0); MEAN CORPUSCULAR HGB CONC 32.2 g/dl (32.0-36.5); MEAN CORPUSCULAR VOLUME 95.4 fl (80.0-96.0); PLATELET COUNT, AUTOMATED 250 10^3/uL (150-450); RED BLOOD COUNT 3.26 10^6/uL (4.30-6.10); WHITE BLOOD COUNT 7.7 10^3/uL (4.0-10.0)
[2021-10-12 17:16] LABS: ERYTHROCYTE SEDIMENTATION RATE 126 mm/hr (0-20)
[2021-10-12 17:21] LABS: ALBUMIN 2.1 GM/DL (3.2-5.2); ALT/SGPT 41 U/L (12-78); BILIRUBIN,TOTAL 0.5 MG/DL (0.2-1.0); BLOOD UREA NITROGEN 22 MG/DL (7-18); C REACTIVE PROTEIN QUANTITATIV 3.27 MG/DL (0.00-0.30); CALCIUM LEVEL 8.5 MG/DL (8.8-10.2); CARBON DIOXIDE LEVEL 26 MEQ/L (21-32); CHLORIDE LEVEL 105 MEQ/L (98-107); CREATININE FOR GFR 1.08 MG/DL (0.70-1.30); GLOMERULAR FILTRATION RATE > 60.0 (>49); GLUCOSE, FASTING 195 MG/DL (70-100); SODIUM LEVEL 138 MEQ/L (136-145); TOTAL PROTEIN 6.7 GM/DL (6.4-8.2)
== END ==
LOC: M SHH 15:44
PROVIDERS: ATTEND Internal Medicine Infectious Disease
DX: M86.171 Other acute osteomyelitis, right ankle and foot (principal); M72.6 Necrotizing fasciitis

== ENCOUNTER 2021-10-20 16:45 | Inpatient (IN) | payer MEDICARE, BC, OTHER ==
[~2021-10-20] VITALS: Ht 170.2 cm; Wt 86.6 kg
[~2021-10-20 16:45] MED LIST changes: -AMLO1TAB24 PO; -ATEN25TA PO; -CHLO1.4S2 MT; +CHLO1.4S7 MT; -ERTA1INJ3; -INSUDET SC; -INSULADS INJ; -INVA1SOL IV; -KCL.075I3 IV; -MERO1VIA3 IV; -MORP2SYR IV; -OMEP-218 PO; -VANC1PLA6 IV
[2021-10-20] MEDS ORDERED: ERTA1INJ3 (16:55)
[2021-10-20 19:11] LABS: CK-MB VALUE MASS 7.6 NG/ML (<3.6); MB/CK RELATIVE INDEX 1.51 (< OR =4)
[2021-10-20 19:20] LABS: HEMATOCRIT 26.5 % (42.0-52.0); HEMOGLOBIN 8.8 g/dl (13.5-17.5); MEAN CORPUSCULAR HEMOGLOBIN 30.1 pg (27.0-33.0); MEAN CORPUSCULAR HGB CONC 33.2 g/dl (32.0-36.5); MEAN CORPUSCULAR VOLUME 90.8 fl (80.0-96.0); PLATELET COUNT, AUTOMATED 114 10^3/uL (150-450); RED BLOOD COUNT 2.92 10^6/uL (4.30-6.10); WHITE BLOOD COUNT 6.3 10^3/uL (4.0-10.0)
[2021-10-20] MEDS ORDERED: NS 1,000 ML IV ONE (19:45)
[2021-10-20 19:48] LABS: BILIRUBIN,DIRECT 1.1 MG/DL (0.0-0.2); BILIRUBIN,TOTAL 1.5 MG/DL (0.2-1.0); C REACTIVE PROTEIN QUANTITATIV 22.3 MG/DL (0.00-0.30); CALCIUM LEVEL 7.7 MG/DL (8.8-10.2); CREATININE FOR GFR 1.37 MG/DL (0.70-1.30); GLOMERULAR FILTRATION RATE 55.3 (>49); POTASSIUM SERUM 3.5 MEQ/L (3.5-5.1); THYROID STIMULATING HORMONE 2.35 uIU/ML (0.358-3.740)
[2021-10-20] MEDS ORDERED: ISOVUE-370 76% 100ML VIAL As Ordered ONE (20:01)
[2021-10-20 20:02] LABS: ATYPICAL LYMPH 1 % (0-5); LYMPHOCYTES 2 % (16-44); MONOCYTES 2 % (0-5); NEUTROPHILS 70 % (28-66)
[2021-10-20 20:03] LABS: PLATELET ESTIMATE NORMAL (NORMAL)
[2021-10-21] VITALS (12 sets, daily range): BP systolic 127–189; BP diastolic 49–91
[2021-10-21] MEDS ORDERED: traMADol 50 MG TAB PO ONE (00:05)
[2021-10-21] MEDS ORDERED: VANCOMYCIN HCL 1,000 MG, VIAL MATE ADAPTER 1 EACH in NS 250 ML IV ONE ×2 (01:10→06:00)
[2021-10-21] MEDS ORDERED: INSULADS INJ (02:00)
[2021-10-21] MEDS ORDERED: OMEP-173 PO (02:00)
[2021-10-21] MEDS ORDERED: HOME MED LIST COMPLETE! XX SCH (02:00)
[2021-10-21] MEDS ORDERED: INVA1SOL IV (02:00)
[2021-10-21] MEDS ORDERED: ACETAMINOPHEN TAB 650MG DOSE (2X325MG) PO PRN (02:30)
[2021-10-21] MEDS ORDERED: VANCOMYCIN HCL 750 MG, VIAL MATE ADAPTER 1 EACH in NS 250 ML IV SCH (02:35)
[2021-10-21] MEDS ORDERED: **hydrALAZINE** 10 MG TAB PO ONE (02:55)
[2021-10-21] MEDS ORDERED: NS 1,000 ML IV SCH ×2 (03:00→14:40)
[2021-10-21] MEDS ORDERED: DEXTROSE 50% 50 ML SYRINGE IV PRN (03:20)
[2021-10-21] MEDS ORDERED: FLUTICASONE PROP 0.05% NASAL SPRAY 16 GM (FLONASE) PRN (03:20)
[2021-10-21] MEDS ORDERED: GLUCAGON INJ 1MG VIAL SC PRN (03:20)
[2021-10-21] MEDS ORDERED: GLUCOSE 4GM CHEW TABLET PO PRN (03:20)
[2021-10-21] MEDS ORDERED: hydrALAZINE 20MG/ML 1ML VIAL (J0360 PER 20MG) IV PRN (04:20)
[2021-10-21] MEDS: MEROPENEM INJ 1 GM in IV 1 EA IV SCH ×3 (05:51→20:59)
[2021-10-21] MEDS ORDERED: HEPARIN SOD (PORCINE) 5000UNITS/ML 1ML VIAL/SYRINGE SC SCH (06:00)
[2021-10-21] MEDS ORDERED: **hydrALAZINE** 10 MG TAB PO PRN (06:15)
[2021-10-21] MEDS ORDERED: VANCOMYCIN HCL 750 MG, VIAL MATE ADAPTER 1 EACH in NS 250 ML IV ONE (07:00)
[2021-10-21 07:12] LABS: HEMOGLOBIN A1c 6.8 %
[2021-10-21 08:23] LABS: HEMATOCRIT 27.9 % (42.0-52.0); HEMOGLOBIN 9.3 g/dl (13.5-17.5); MEAN CORPUSCULAR HGB CONC 33.3 g/dl (32.0-36.5); PLATELET COUNT, AUTOMATED 115 10^3/uL (150-450); WHITE BLOOD COUNT 7.5 10^3/uL (4.0-10.0)
[2021-10-21] MEDS ORDERED: lisinopriL 5 MG TAB PO SCH (09:00)
[2021-10-21] MEDS ORDERED: LEVEMIR (INSULIN DETEMIR) 1 UNITS/0.01ML SC SCH ×2 (09:00→21:00)
[2021-10-21 09:04] LABS: BLOOD UREA NITROGEN 26 MG/DL (7-18); CALCIUM LEVEL 7.8 MG/DL (8.8-10.2); CARBON DIOXIDE LEVEL 22 MEQ/L (21-32); CHLORIDE LEVEL 99 MEQ/L (98-107); CREATININE FOR GFR 1.01 MG/DL (0.70-1.30); GLOMERULAR FILTRATION RATE > 60.0 (>49); GLUCOSE, FASTING 234 MG/DL (70-100); MAGNESIUM LEVEL 1.7 MG/DL (1.8-2.4); POTASSIUM SERUM 3.4 MEQ/L (3.5-5.1); SODIUM LEVEL 132 MEQ/L (136-145)
[2021-10-21] MEDS: HumaLOG INSULIN (NovoLOG) PER UNIT SC SCH ×4 (09:35→21:00)
[2021-10-21 09:49] LABS: LYMPHOCYTES 4 % (16-44); MONOCYTES 7 % (0-5); NEUTROPHILS 87 % (28-66); PLATELET ESTIMATE DECREASED (NORMAL)
[2021-10-21] MEDS: OMEPRAZOLE 20MG CAP PO SCH (10:03)
[2021-10-21] MEDS: amLODIPine 5 MG TAB PO SCH (10:04)
[2021-10-21] MEDS: FLUoxetine 20 MG CAP PO SCH (10:04)
[2021-10-21] MEDS: GABAPENTIN 300 MG CAP PO SCH ×3 (10:04→20:59)
[2021-10-21 10:32] LABS: ERYTHROCYTE SEDIMENTATION RATE 125 mm/hr (0-20)
[2021-10-21] MEDS ORDERED: atenoloL 25 MG TAB PO ONE (11:30)
[2021-10-21] MEDS ORDERED: LIDOCAINE 1% MDV 20ML VIAL As Ordered ONE (12:09)
[2021-10-21] MEDS ORDERED: GENTAMICIN SULF 80MG/2ML VIAL As Ordered ONE (12:10)
[2021-10-21] MEDS ORDERED: BUPIVACAINE HCL 0.5% 30 ML VIAL As Ordered ONE (12:10)
[2021-10-21] MEDS ORDERED: dexameTHASONE 4 MG/ML 1ML VIAL (J1100 PER 1MG) As Ordered ONE ×2 (12:10→13:02)
[2021-10-21] MEDS ORDERED: ONDANSETRON 4MG/2ML VIAL As Ordered ONE (13:02)
[2021-10-21] MEDS ORDERED: propofoL 200 MG/20 ML VIAL As Ordered ONE (13:02)
[2021-10-21] MEDS ORDERED: MIDAZOLAM INJ 2MG/2ML VIAL (J2250 PER 1MG) As Ordered ONE (13:02)
[2021-10-21] MEDS ORDERED: LIDOCAINE 2% 100MG/5ML SDV (FOR ANES.) As Ordered ONE (13:02)
[2021-10-21] MEDS ORDERED: METOCLOPRAMIDE INJ 10MG/2ML VIAL (J2765 PER 1) As Ordered ONE (13:02)
[2021-10-21] MEDS ORDERED: fentaNYL 100 MCG/2 ML INJECTION As Ordered ONE (13:02)
[2021-10-21] MEDS ORDERED: oxyCODONE 5MG TAB PO PRN (14:40)
[2021-10-21] MEDS ORDERED: ONDANSETRON 4MG/2ML VIAL IV PRN (14:40)
[2021-10-21] MEDS ORDERED: fentaNYL 100 MCG/2 ML INJECTION IV PRN (14:40)
[2021-10-21] MEDS ORDERED: METOCLOPRAMIDE INJ 10MG/2ML VIAL (J2765 PER 1) IV PRN (14:40)
[2021-10-21] MEDS: NICOTINE 14 MG/24 HR TRANSDERMAL TD SCH (16:03)
[2021-10-21] MEDS: VANCOMYCIN HCL 1,000 MG, VIAL MATE ADAPTER 1 EACH in NS 250 ML IV SCH (23:39)
[2021-10-22] VITALS (14 sets, daily range): BP systolic 108–148; BP diastolic 46–70
[2021-10-22] MEDS: traMADol 50 MG TAB PO PRN (00:22)
[2021-10-22] MEDS: MEROPENEM INJ 1 GM in IV 1 EA IV SCH ×3 (04:06→20:39)
[2021-10-22 06:25] LABS: HEMATOCRIT 22.9 % (42.0-52.0); HEMOGLOBIN 7.6 g/dl (13.5-17.5); MEAN CORPUSCULAR HEMOGLOBIN 29.8 pg (27.0-33.0); MEAN CORPUSCULAR HGB CONC 33.2 g/dl (32.0-36.5); MEAN CORPUSCULAR VOLUME 89.8 fl (80.0-96.0); PLATELET COUNT, AUTOMATED 119 10^3/uL (150-450); RED BLOOD COUNT 2.55 10^6/uL (4.30-6.10); WHITE BLOOD COUNT 8.8 10^3/uL (4.0-10.0)
[2021-10-22 06:42] LABS: BLOOD UREA NITROGEN 28 MG/DL (7-18); CALCIUM LEVEL 7.5 MG/DL (8.8-10.2); CARBON DIOXIDE LEVEL 24 MEQ/L (21-32); CHLORIDE LEVEL 102 MEQ/L (98-107); CREATININE FOR GFR 0.92 MG/DL (0.70-1.30); GLOMERULAR FILTRATION RATE > 60.0 (>49); GLUCOSE, FASTING 225 MG/DL (70-100); POTASSIUM SERUM 3.6 MEQ/L (3.5-5.1); SODIUM LEVEL 136 MEQ/L (136-145)
[2021-10-22] MEDS ORDERED: ISOVUE-370 76% 100ML VIAL As Ordered ONE (07:21)
[2021-10-22 08:17] LABS: HEMATOCRIT 22.8 % (42.0-52.0); HEMOGLOBIN 7.7 g/dl (13.5-17.5)
[2021-10-22] MEDS: NICOTINE 14 MG/24 HR TRANSDERMAL TD SCH ×2 (09:00→09:19)
[2021-10-22] MEDS: HumaLOG INSULIN (NovoLOG) PER UNIT SC SCH ×4 (09:18→20:40)
[2021-10-22] MEDS: LEVEMIR (INSULIN DETEMIR) 1 UNITS/0.01ML SC SCH ×2 (09:18→20:40)
[2021-10-22] MEDS: GABAPENTIN 300 MG CAP PO SCH ×3 (09:19→20:39)
[2021-10-22] MEDS: FLUoxetine 20 MG CAP PO SCH (09:19)
[2021-10-22] MEDS: OMEPRAZOLE 20MG CAP PO SCH (09:19)
[2021-10-22] MEDS: amLODIPine 5 MG TAB PO SCH (09:22)
[2021-10-22] MEDS: atenoloL 25 MG TAB PO SCH (09:22)
[2021-10-22] MEDS ORDERED: diphenhydrAMINE 50MG/ML VIAL (J1200) IV ONE (10:00)
[2021-10-22] MEDS ORDERED: ACETAMINOPHEN TAB 650MG DOSE (2X325MG) PO ONE (10:00)
[2021-10-22] MEDS: VANCOMYCIN HCL 1,000 MG, VIAL MATE ADAPTER 1 EACH in NS 250 ML IV SCH (17:27)
[2021-10-23] MEDS: MEROPENEM INJ 1 GM in IV 1 EA IV SCH ×2 (04:25→12:45)
[2021-10-23] MEDS ORDERED: VANCOMYCIN HCL 1,000 MG, VIAL MATE ADAPTER 1 EACH in NS 250 ML IV SCH (05:00)
[2021-10-23] MEDS: traMADol 50 MG TAB PO PRN (05:52)
[2021-10-23 06:00] VITALS: BP 140/65
[2021-10-23 06:29] LABS: HEMATOCRIT 32.8 % (42.0-52.0); MEAN CORPUSCULAR HEMOGLOBIN 30.2 pg (27.0-33.0); MEAN CORPUSCULAR HGB CONC 33.8 g/dl (32.0-36.5); MEAN CORPUSCULAR VOLUME 89.1 fl (80.0-96.0); PLATELET COUNT, AUTOMATED 137 10^3/uL (150-450); RED BLOOD COUNT 3.68 10^6/uL (4.30-6.10); WHITE BLOOD COUNT 12.9 10^3/uL (4.0-10.0)
[2021-10-23 06:30] LABS: HEMOGLOBIN 11.1 g/dl (13.5-17.5)
[2021-10-23 06:52] LABS: BLOOD UREA NITROGEN 26 MG/DL (7-18); CALCIUM LEVEL 8.1 MG/DL (8.8-10.2); CARBON DIOXIDE LEVEL 20 MEQ/L (21-32); CHLORIDE LEVEL 101 MEQ/L (98-107); CREATININE FOR GFR 0.81 MG/DL (0.70-1.30); GLOMERULAR FILTRATION RATE > 60.0 (>49); GLUCOSE, FASTING 124 MG/DL (70-100); POTASSIUM SERUM 3.8 MEQ/L (3.5-5.1); SODIUM LEVEL 130 MEQ/L (136-145)
[2021-10-23] MEDS: HumaLOG INSULIN (NovoLOG) PER UNIT SC SCH ×2 (07:30→12:00)
[2021-10-23] MEDS: NICOTINE 14 MG/24 HR TRANSDERMAL TD SCH (09:00)
[2021-10-23] MEDS: LEVEMIR (INSULIN DETEMIR) 1 UNITS/0.01ML SC SCH (09:00)
[2021-10-23] MEDS ORDERED: ASPIRIN 81MG ENTERIC TABLET PO SCH (09:00)
[2021-10-23] MEDS ORDERED: SILVER SULFADIAZINE 1% CR 50 GM JAR TOP SCH (09:00)
[2021-10-23] MEDS: atenoloL 25 MG TAB PO SCH (10:01)
[2021-10-23 10:02] VITALS: BP 148/76
[2021-10-23] MEDS: amLODIPine 5 MG TAB PO SCH (10:02)
[2021-10-23] MEDS: FLUoxetine 20 MG CAP PO SCH (10:03)
[2021-10-23] MEDS: OMEPRAZOLE 20MG CAP PO SCH (10:03)
[2021-10-23] MEDS: GABAPENTIN 300 MG CAP PO SCH (10:03)
[2021-10-23] MEDS ORDERED: PROHANCE 279.3MG/ML 5ML VIAL As Ordered ONE (11:45)
[2021-10-23] MEDS ORDERED: PROHANCE 279.3MG/ML 15ML VIAL As Ordered ONE (11:46)
[2021-10-23] MEDS ORDERED: ATEN25TA PO (13:42)
[2021-10-23] MEDS ORDERED: INSUDET SC (13:42)
[2021-10-23] MEDS ORDERED: MERO1VIA3 IV (13:42)
[2021-10-23] MEDS ORDERED: AMLO1TAB24 PO (13:42)
[2021-10-23] MEDS ORDERED: VANC1PLA6 IV (13:42)
[2021-10-23] MEDS ORDERED: KCL.075I3 IV (13:45)
[2021-10-23] MEDS ORDERED: MORP2SYR IV (13:48)
[2021-10-23 14:00] VITALS: BP 150/78
[2021-10-23] MEDS ORDERED: KCL 10MEQ IN D5/0.45NS 1000ML 1,000 ML IV SCH (14:00)
[2021-10-24] MEDS ORDERED: ATORVASTATIN 20 MG TAB PO SCH (09:00)
== END 2021-10-23 16:18 | disposition short-term general hospital (02) | DRG 623 ==
LOC: M ED 16:45 → EEVIPCON 10-21 03:39 → M ED INP 10-21 03:39 → ENRESERV 10-21 04:34 → M MSPAV 10-21 05:33
PROVIDERS: ADMIT Internal Medicine; ATTEND General Practice
PROC: 0QTN0ZZ Resection of Right Metatarsal, Open Approach (ICD-10-PCS; 2021-10-21)
PROC: 0JBQ0ZZ Excision of Right Foot Subcutaneous Tissue and Fascia, Open Approach (ICD-10-PCS; principal; 2021-10-21 12:30)
PROC: 30233N1 Transfusion of Nonautologous Red Blood Cells into Peripheral Vein, Percutaneous Approach (ICD-10-PCS; 2021-10-22)
DX: E11.69 Type 2 diabetes mellitus with other specified complication (principal); E87.1 Hypo-osmolality and hyponatremia; M86.171 Other acute osteomyelitis, right ankle and foot; L97.518 Non-pressure chronic ulcer of other part of right foot with other specified severity; G95.20 Unspecified cord compression; N17.9 Acute kidney failure, unspecified; I10 Essential (primary) hypertension; E11.42 Type 2 diabetes mellitus with diabetic polyneuropathy; E11.51 Type 2 diabetes mellitus with diabetic peripheral angiopathy without gangrene; K44.9 Diaphragmatic hernia without obstruction or gangrene; F32.A Depression, unspecified; F41.9 Anxiety disorder, unspecified; K21.00 Gastro-esophageal reflux disease with esophagitis, without bleeding; E66.9 Obesity, unspecified; F17.210 Nicotine dependence, cigarettes, uncomplicated; G06.1 Intraspinal abscess and granuloma; E83.42 Hypomagnesemia; E83.51 Hypocalcemia; R91.8 Other nonspecific abnormal finding of lung field; E11.621 Type 2 diabetes mellitus with foot ulcer; E11.65 Type 2 diabetes mellitus with hyperglycemia; I65.02 Occlusion and stenosis of left vertebral artery; E87.6 Hypokalemia; K74.60 Unspecified cirrhosis of liver; D64.9 Anemia, unspecified; D69.6 Thrombocytopenia, unspecified; M46.42 Discitis, unspecified, cervical region; Z79.4 Long term (current) use of insulin; Z79.899 Other long term (current) drug therapy; Z88.0 Allergy status to penicillin; Z88.8 Allergy status to other drugs, medicaments and biological substances; Z20.822 Contact with and (suspected) exposure to COVID-19; Z89.421 Acquired absence of other right toe(s); Z90.49 Acquired absence of other specified parts of digestive tract; Z68.29 Body mass index [BMI] 29.0-29.9, adult

== ENCOUNTER → 2021-10-20 | Outpatient (REF) | payer MEDICARE, BC, OTHER ==
[~2021-10-20] MED LIST changes: +AMLO1TAB24 PO; +ATEN25TA PO; +ERTA1INJ3; +FLON1SPR; -FLON1SPR NARES; +INSUDET SC; +INSULADS INJ; +INVA1SOL IV; +KCL.075I3 IV; +MERO1VIA3 IV; +MORP2SYR IV; +OMEP-218 PO; +VANC1PLA6 IV
[2021-10-20 15:39] LABS: HEMATOCRIT 25.5 % (42.0-52.0); HEMOGLOBIN 8.6 g/dl (13.5-17.5); MEAN CORPUSCULAR HEMOGLOBIN 30.4 pg (27.0-33.0); MEAN CORPUSCULAR HGB CONC 33.7 g/dl (32.0-36.5); MEAN CORPUSCULAR VOLUME 90.1 fl (80.0-96.0); PLATELET COUNT, AUTOMATED 133 10^3/uL (150-450); RED BLOOD COUNT 2.83 10^6/uL (4.30-6.10)
[2021-10-20 16:08] LABS: ERYTHROCYTE SEDIMENTATION RATE 106 mm/hr (0-20)
[2021-10-20 16:49] LABS: BILIRUBIN,TOTAL 1.4 MG/DL (0.2-1.0); CALCIUM LEVEL 7.8 MG/DL (8.8-10.2); CREATININE FOR GFR 1.48 MG/DL (0.70-1.30); GLOMERULAR FILTRATION RATE 50.6 (>49); POTASSIUM SERUM 3.8 MEQ/L (3.5-5.1); TOTAL PROTEIN 6.1 GM/DL (6.4-8.2)
== END ==
LOC: M SHH 15:22
PROVIDERS: ATTEND Internal Medicine Infectious Disease
DX: M86.171 Other acute osteomyelitis, right ankle and foot (principal); M72.6 Necrotizing fasciitis

== ENCOUNTER 2021-12-26 17:04 | Inpatient (IN) | payer MEDICARE, BC, OTHER ==
[~2021-12-26] VITALS: Ht 170.2 cm; Wt 79.2 kg
[~2021-12-26 17:04] MED LIST changes: -CYCL-707 PO; -DAPT500V8 IV; -ERTA1INJ3 IV; -GABA-282; -HEPA1INJ8 IV; -INSULANT SC; -METO1TAB87 PO; -NOVOINJ3; -RIFA300C3; -RIFA300C3 PO
[2021-12-26] MEDS ORDERED: SODIUM CHLORIDE 0.9% INJ 10 ML SYR IV PRN (18:35)
[2021-12-26 18:49] LABS: HEMATOCRIT 21.7 % (42.0-52.0); HEMOGLOBIN 7.3 g/dl (13.5-17.5)
[2021-12-26] MEDS ORDERED: GABA-282 (19:43)
[2021-12-26] MEDS ORDERED: CYCL-707 PO (19:43)
[2021-12-26] MEDS ORDERED: METO1TAB87 PO (19:43)
[2021-12-26] MEDS ORDERED: NOVOINJ3 (19:43)
[2021-12-26] MEDS ORDERED: RIFA300C3 (19:43)
[2021-12-26 20:38] VITALS: BP 155/67
[2021-12-26 20:55] VITALS: BP 178/88
[2021-12-26] MEDS: HumaLOG INSULIN (NovoLOG) PER UNIT SC SCH (21:00)
[2021-12-26] MEDS ORDERED: HumuLIN R (REGULAR) INSULIN (NovoLIN R) **100U/ML** PER UNIT IV STA (22:32)
[2021-12-26] MEDS ORDERED: ACETAMINOPHEN TAB 650MG DOSE (2X325MG) PO PRN (22:35)
[2021-12-26] MEDS ORDERED: DEXTROSE 50% 50 ML SYRINGE IV PRN (22:35)
[2021-12-26] MEDS ORDERED: GLUCAGON INJ 1MG VIAL SC PRN (22:35)
[2021-12-26] MEDS ORDERED: GLUCOSE 4GM CHEW TABLET PO PRN (22:35)
[2021-12-27] MEDS: LevoFLOXacin IV 750 MG in IV 1 EA IV SCH (01:04)
[2021-12-27] MEDS: APIXABAN 5 MG TAB (ELIQUIS) PO SCH ×2 (01:06→08:03)
[2021-12-27] MEDS ORDERED: diltiaZEM 125 MG in NS 100 ML IV SCH ×2 (01:15→02:30)
[2021-12-27 01:56] VITALS: BP 142/65
[2021-12-27] MEDS ORDERED: INSUH10VL SC (01:56)
[2021-12-27] MEDS ORDERED: RIFA300C3 PO (01:56)
[2021-12-27] MEDS ORDERED: ERTA1INJ3 IV (01:56)
[2021-12-27] MEDS ORDERED: GABA-282 PO (01:56)
[2021-12-27] MEDS ORDERED: INSULANT SC (01:56)
[2021-12-27] MEDS ORDERED: HOME MED LIST COMPLETE! XX SCH (02:00)
[2021-12-27 02:34] LABS: HEMATOCRIT 24.2 % (42.0-52.0); HEMOGLOBIN 8.1 g/dl (13.5-17.5)
[2021-12-27 02:56] LABS: APPEARANCE, URINE MANUAL CLEAR (CLEAR); BILIRUBIN, URINE MANUAL NEGATIVE (NEGATIVE); BLOOD URINE MANUAL POSITIVE (NEGATIVE); COLOR, URINE MANUAL DK YELLOW (YELLOW); GLUCOSE, URINE (UA) MANUAL 4+(1000 MG/DL) mg/dL (NEGATIVE); KETONE, URINE MANUAL NEGATIVE (NEGATIVE); LEUKOCYTE ESTERASE, URINE MAN NEGATIVE (NEGATIVE); NITRITE, URINE MANUAL NEGATIVE (NEGATIVE); PROTEIN, URINE MANUAL NEGATIVE (NEGATIVE); UROBILINOGEN, URINE MANUAL NORMAL (NORMAL)
[2021-12-27 02:57] LABS: RBC, URINE 15-20 /hpf (0-3); SQUAMOUS EPITHELIAL CELL URINE SMALL AMOUNT /hpf (SMALL AMT); YEAST, URINE MOD AMOUNT
[2021-12-27 04:30] VITALS: BP 128/56
[2021-12-27 05:38] LABS: HEMATOCRIT 23.5 % (42.0-52.0); HEMOGLOBIN 7.9 g/dl (13.5-17.5); MEAN CORPUSCULAR HEMOGLOBIN 30.6 pg (27.0-33.0); MEAN CORPUSCULAR HGB CONC 33.6 g/dl (32.0-36.5); MEAN CORPUSCULAR VOLUME 91.1 fl (80.0-96.0); PLATELET COUNT, AUTOMATED 178 10^3/uL (150-450); RED BLOOD COUNT 2.58 10^6/uL (4.30-6.10); WHITE BLOOD COUNT 7.9 10^3/uL (4.0-10.0)
[2021-12-27 06:11] LABS: CALCIUM LEVEL 7.9 MG/DL (8.8-10.2); CREATININE FOR GFR 1.33 MG/DL (0.70-1.30); GLOMERULAR FILTRATION RATE 57.3 (>49); POTASSIUM SERUM 4.4 MEQ/L (3.5-5.1)
[2021-12-27] MEDS: HEPARIN SOD (PORCINE) 5000UNITS/ML 1ML VIAL/SYRINGE SC SCH ×2 (06:27→13:03)
[2021-12-27 08:04] VITALS: BP 128/59
[2021-12-27] MEDS: HumaLOG INSULIN (NovoLOG) PER UNIT SC SCH ×4 (08:04→21:00)
[2021-12-27] MEDS: DOCUSATE SODIUM 100MG CAPSULE PO SCH ×2 (08:05→21:00)
[2021-12-27] MEDS ORDERED: LEVEMIR (INSULIN DETEMIR) 1 UNITS/0.01ML SC SCH (09:00)
[2021-12-27] MEDS: METOPROLOL TART 25 MG TABLET PO SCH ×4 (09:15→23:32)
[2021-12-27 12:00] VITALS: BP 119/58
[2021-12-27] MEDS ORDERED: FLUTICASONE PROP 0.05% NASAL SPRAY 16 GM (FLONASE) PRN (12:05)
[2021-12-27] MEDS ORDERED: CYCLOBENZAPRINE 10MG TABLET PO PRN (12:05)
[2021-12-27] MEDS ORDERED: ERTAPENEM 1GM VIAL(INVanz) (J1335 PER 500MG) IV SCH (12:05)
[2021-12-27] MEDS: GABAPENTIN 300 MG CAP PO SCH ×3 (12:50→21:19)
[2021-12-27] MEDS: OMEPRAZOLE 20MG CAP PO SCH (12:50)
[2021-12-27] MEDS: FLUoxetine 20 MG CAP PO SCH (12:50)
[2021-12-27] MEDS ORDERED: DAPT500V8 IV (14:02)
[2021-12-27] MEDS ORDERED: HEPA1INJ8 IV (14:02)
[2021-12-27 16:00] VITALS: BP 149/62
[2021-12-27] MEDS: PERCOCET 5MG/325MG TAB PO PRN ×2 (16:07→23:33)
[2021-12-27] MEDS ORDERED: PROHANCE 279.3MG/ML 15ML VIAL As Ordered ONE (19:25)
[2021-12-27 20:00] VITALS: BP 139/65
[2021-12-27] MEDS: DAPTOmycin 750 MG in NS 50 ML IV SCH (21:00)
[2021-12-27] MEDS: rifAMPin 150MG CAPSULE PO SCH (21:19)
[2021-12-27] MEDS: ENOXAPARIN 80MG/0.8ML SYRINGE (J1650 PER 10MG) SC SCH (21:19)
[2021-12-27] MEDS: LEVEMIR (INSULIN DETEMIR) 1 UNITS/0.01ML SC SCH (21:19)
[2021-12-27] MEDS ORDERED: WARFARIN SOD 5MG TAB PO ONE (22:00)
[2021-12-28] VITALS: BP 150/81
[2021-12-28 04:00] VITALS: BP 129/59
[2021-12-28] MEDS: METOPROLOL TART 25 MG TABLET PO SCH ×3 (05:04→17:52)
[2021-12-28 06:56] LABS: BASO % 0.4 % (0.0-1.0); EOS # 0.2 10^3/uL (0.0-0.5); HEMATOCRIT 26.2 % (42.0-52.0); HEMOGLOBIN 8.6 g/dl (13.5-17.5); LYMPH # 0.9 10^3/uL (1.5-5.0); LYMPH % 15.9 % (24.0-44.0); MEAN CORPUSCULAR HEMOGLOBIN 30.1 pg (27.0-33.0); MEAN CORPUSCULAR HGB CONC 32.8 g/dl (32.0-36.5); MEAN CORPUSCULAR VOLUME 91.6 fl (80.0-96.0); MONO # 0.3 10^3/uL (0.0-0.8); MONO % 5.7 % (2.0-8.0); NEUTROPHILS % 73.1 % (36.0-66.0); PLATELET COUNT, AUTOMATED 227 10^3/uL (150-450); RED BLOOD COUNT 2.86 10^6/uL (4.30-6.10); WHITE BLOOD COUNT 5.5 10^3/uL (4.0-10.0)
[2021-12-28 07:27] LABS: INR 1.53; PROTHROMBIN TIME 18.8 SECONDS (12.7-14.5)
[2021-12-28 07:28] LABS: C REACTIVE PROTEIN QUANTITATIV 27.4 MG/DL (0.00-0.30); CALCIUM LEVEL 8.4 MG/DL (8.8-10.2); CREATININE FOR GFR 1.33 MG/DL (0.70-1.30); GLOMERULAR FILTRATION RATE 57.3 (>49); MAGNESIUM LEVEL 1.5 MG/DL (1.8-2.4)
[2021-12-28] MEDS: HumaLOG INSULIN (NovoLOG) PER UNIT SC SCH ×4 (07:30→21:00)
[2021-12-28 07:44] VITALS: BP 135/63
[2021-12-28 08:22] LABS: ERYTHROCYTE SEDIMENTATION RATE 127 mm/hr (0-20)
[2021-12-28] MEDS: DOCUSATE SODIUM 100MG CAPSULE PO SCH ×3 (08:51→21:07)
[2021-12-28] MEDS: ENOXAPARIN 80MG/0.8ML SYRINGE (J1650 PER 10MG) SC SCH ×2 (08:52→21:08)
[2021-12-28] MEDS: OMEPRAZOLE 20MG CAP PO SCH (08:53)
[2021-12-28] MEDS: GABAPENTIN 300 MG CAP PO SCH ×3 (08:53→21:08)
[2021-12-28] MEDS: rifAMPin 150MG CAPSULE PO SCH ×2 (08:53→21:08)
[2021-12-28] MEDS: FLUoxetine 20 MG CAP PO SCH (08:53)
[2021-12-28] MEDS ORDERED: PREVNAR 13 VACCINE SYRINGE IM ONE (09:00)
[2021-12-28] MEDS: LEVEMIR (INSULIN DETEMIR) 1 UNITS/0.01ML SC SCH ×2 (09:00→21:08)
[2021-12-28] MEDS: MAG SULF 1GM/100ML (MAG RUN) 1 GM in IV 1 EA IV SCH ×2 (10:59→11:00)
[2021-12-28] MEDS: PERCOCET 5MG/325MG TAB PO PRN (11:06)
[2021-12-28 15:59] VITALS: BP 120/59
[2021-12-28] MEDS ORDERED: WARFARIN SOD 5MG TAB PO SCH (17:00)
[2021-12-28] MEDS ORDERED: METO1TAB87 PO (19:00)
[2021-12-28] MEDS ORDERED: LOVE0.6I2 SC (19:00)
[2021-12-28] MEDS ORDERED: JANT5TAB PO (19:00)
[2021-12-28 20:00] VITALS: BP 116/56
[2021-12-28] MEDS: DAPTOmycin 750 MG in NS 50 ML IV SCH (20:00)
[2021-12-29] VITALS: BP 128/61
[2021-12-29] MEDS: METOPROLOL TART 25 MG TABLET PO SCH ×2 (00:21→06:37)
[2021-12-29] MEDS: LevoFLOXacin IV 750 MG in IV 1 EA IV SCH (00:21)
[2021-12-29 04:00] VITALS: BP 123/59
[2021-12-29 06:07] LABS: BASO % 0.3 % (0.0-1.0); EOS # 0.1 10^3/uL (0.0-0.5); EOS % 1.9 % (0.0-3.0); HEMATOCRIT 25.3 % (42.0-52.0); HEMOGLOBIN 8.2 g/dl (13.5-17.5); LYMPH # 0.6 10^3/uL (1.5-5.0); LYMPH % 10.1 % (24.0-44.0); MEAN CORPUSCULAR HEMOGLOBIN 29.8 pg (27.0-33.0); MEAN CORPUSCULAR HGB CONC 32.4 g/dl (32.0-36.5); MONO # 0.3 10^3/uL (0.0-0.8); MONO % 5.1 % (2.0-8.0); NEUTROPHILS # 4.7 10^3/uL (1.5-8.5); NEUTROPHILS % 81.6 % (36.0-66.0); PLATELET COUNT, AUTOMATED 206 10^3/uL (150-450); RED BLOOD COUNT 2.75 10^6/uL (4.30-6.10); WHITE BLOOD COUNT 5.7 10^3/uL (4.0-10.0)
[2021-12-29 06:23] LABS: INR 1.48; PROTHROMBIN TIME 18.3 SECONDS (12.7-14.5)
[2021-12-29 06:30] LABS: CALCIUM LEVEL 7.8 MG/DL (8.8-10.2); CREATININE FOR GFR 1.29 MG/DL (0.70-1.30); GLOMERULAR FILTRATION RATE 59.3 (>49); MAGNESIUM LEVEL 1.8 MG/DL (1.8-2.4); POTASSIUM SERUM 4.6 MEQ/L (3.5-5.1)
[2021-12-29 06:37] VITALS: BP 119/59
[2021-12-29] MEDS: HumaLOG INSULIN (NovoLOG) PER UNIT SC SCH (07:30)
[2021-12-29] MEDS: rifAMPin 150MG CAPSULE PO SCH (08:14)
[2021-12-29] MEDS: DOCUSATE SODIUM 100MG CAPSULE PO SCH (08:14)
[2021-12-29] MEDS: OMEPRAZOLE 20MG CAP PO SCH (08:15)
[2021-12-29] MEDS: FLUoxetine 20 MG CAP PO SCH (08:15)
[2021-12-29] MEDS: GABAPENTIN 300 MG CAP PO SCH (08:15)
[2021-12-29] MEDS: ENOXAPARIN 80MG/0.8ML SYRINGE (J1650 PER 10MG) SC SCH (08:16)
[2021-12-29 08:17] VITALS: BP 122/58
[2021-12-29] MEDS: LEVEMIR (INSULIN DETEMIR) 1 UNITS/0.01ML SC SCH (08:19)
[2021-12-29] MEDS ORDERED: ATORVASTATIN 20 MG TAB PO SCH (09:00)
== END 2021-12-29 09:07 | disposition other institution (70) | DRG 94 ==
LOC: M ED 17:04 → M ED INP 17:05 → OBSVTOIN 12-27 01:12 → M PCU 12-27 01:40
PROVIDERS: ADMIT Internal Medicine; ATTEND Internal Medicine
PROC: 30233N1 Transfusion of Nonautologous Red Blood Cells into Peripheral Vein, Percutaneous Approach (ICD-10-PCS; principal; 2021-12-27)
DX: G06.2 Extradural and subdural abscess, unspecified (principal); J18.9 Pneumonia, unspecified organism; I48.92 Unspecified atrial flutter; N17.9 Acute kidney failure, unspecified; E87.1 Hypo-osmolality and hyponatremia; I48.91 Unspecified atrial fibrillation; R91.1 Solitary pulmonary nodule; D69.6 Thrombocytopenia, unspecified; E11.42 Type 2 diabetes mellitus with diabetic polyneuropathy; N18.9 Chronic kidney disease, unspecified; E11.22 Type 2 diabetes mellitus with diabetic chronic kidney disease; D64.9 Anemia, unspecified; F29 Unspecified psychosis not due to a substance or known physiological condition; E78.5 Hyperlipidemia, unspecified; F32.A Depression, unspecified; Z98.1 Arthrodesis status; Z90.49 Acquired absence of other specified parts of digestive tract; Z20.822 Contact with and (suspected) exposure to COVID-19; Z87.891 Personal history of nicotine dependence; Z79.4 Long term (current) use of insulin; Z79.899 Other long term (current) drug therapy; L89.151 Pressure ulcer of sacral region, stage 1; R26.81 Unsteadiness on feet

== ENCOUNTER → 2021-12-26 | Outpatient (REF) | payer MEDICARE, BC, OTHER ==
[~2021-12-26] MED LIST changes: +AMLO1TAB24 PO; +ATEN25TA PO; +CYCL-707 PO; +DAPT500V8 IV; +ERTA1INJ3; +ERTA1INJ3 IV; +GABA-282; +HEPA1INJ8 IV; +INSUDET SC; +INSULADS INJ; +INSULANT SC; +INVA1SOL IV; +KCL.075I3 IV; +MERO1VIA3 IV; +METO1TAB87 PO; +MORP2SYR IV; +NOVOINJ3; +OMEP-173 PO; +RIFA300C3; +RIFA300C3 PO; +VANC1PLA6 IV
[2021-12-26 13:32] LABS: HEMATOCRIT 21.4 % (42.0-52.0); MEAN CORPUSCULAR HEMOGLOBIN 30.1 pg (27.0-33.0); MEAN CORPUSCULAR HGB CONC 31.8 g/dl (32.0-36.5); MEAN CORPUSCULAR VOLUME 94.7 fl (80.0-96.0); PLATELET COUNT, AUTOMATED 155 10^3/uL (150-450); RED BLOOD COUNT 2.26 10^6/uL (4.30-6.10); WHITE BLOOD COUNT 8.6 10^3/uL (4.0-10.0)
[2021-12-26 13:38] LABS: HEMOGLOBIN 6.8 g/dl (13.5-17.5)
[2021-12-26 15:29] LABS: C REACTIVE PROTEIN QUANTITATIV 29.6 MG/DL (0.00-0.30); CALCIUM LEVEL 8.1 MG/DL (8.8-10.2); CREATININE FOR GFR 1.45 MG/DL (0.70-1.30); GLOMERULAR FILTRATION RATE 51.8 (>49); POTASSIUM SERUM 4.4 MEQ/L (3.5-5.1)
== END ==
LOC: M SHH 12:58
DX: M86.171 Other acute osteomyelitis, right ankle and foot (principal); M72.6 Necrotizing fasciitis

== ENCOUNTER 2022-04-18 13:27 | Inpatient (IN) | payer MEDICARE, BC, OTHER ==
[~2022-04-18] VITALS: Ht 170.2 cm; Wt 63.5 kg
[~2022-04-18 13:27] MED LIST changes: +CYCL-707 PO; +DAPT500V8 IV; +ERTA1INJ3 IV; +GABA-282; +HEPA1INJ8 IV; +INSULANT SC; +JANT5TAB PO; +LOVE0.6I2 SC; +METO1TAB87 PO; +NOVOINJ3; +RIFA300C8; +RIFA300C8 PO
[2022-04-18 15:46] LABS: HEMATOCRIT 31.3 % (42.0-52.0); HEMOGLOBIN 10.7 g/dl (13.5-17.5); MEAN CORPUSCULAR HEMOGLOBIN 31.8 pg (27.0-33.0); MEAN CORPUSCULAR HGB CONC 34.2 g/dl (32.0-36.5); MEAN CORPUSCULAR VOLUME 92.9 fl (80.0-96.0); PLATELET COUNT, AUTOMATED 190 10^3/uL (150-450); RED BLOOD COUNT 3.37 10^6/uL (4.30-6.10); WHITE BLOOD COUNT 7.8 10^3/uL (4.0-10.0)
[2022-04-18 16:09] LABS: CALCIUM LEVEL 9.5 MG/DL (8.8-10.2); CREATININE FOR GFR 1.42 MG/DL (0.70-1.30); GLOMERULAR FILTRATION RATE 53.1 (>49)
[2022-04-18] MEDS ORDERED: HumuLIN R (REGULAR) INSULIN (NovoLIN R) **100U/ML** PER UNIT IV STA (16:12)
[2022-04-18] MEDS: NS 1,000 ML IV SCH ×3 (16:37→20:15)
[2022-04-18 20:25] LABS: RSV AMPLIFICATION NEGATIVE (NEGATIVE)
[2022-04-18] MEDS ORDERED: ACET-910 PO (21:26)
[2022-04-18] MEDS ORDERED: HOME MED LIST COMPLETE! XX SCH (21:30)
[2022-04-18] MEDS ORDERED: MOM 30ML SUSPENSION UDC PO PRN (22:30)
[2022-04-18] MEDS ORDERED: MAALOX 30 ML SUSP *UDC PO PRN (22:30)
[2022-04-18] MEDS ORDERED: DEXTROSE 50% 50 ML SYRINGE IV PRN (22:30)
[2022-04-18] MEDS ORDERED: amLODIPine 5 MG TAB PO ONE (22:30)
[2022-04-18] MEDS ORDERED: GLUCOSE 4GM CHEW TABLET PO PRN (22:30)
[2022-04-18] MEDS ORDERED: GLUCAGON INJ 1MG VIAL SC PRN (22:30)
[2022-04-18 22:56] LABS: VENOUS BASE EXCESS -1.1 (-2.0-2.0); VENOUS HCO3 22.8 MEQ/L (23.0-27.0); VENOUS O2 SATURATION 96.6 % (60.0-80.0); VENOUS PARTIAL PRESSURE CO2 35.2 mmHg (38.0-50.0); VENOUS PARTIAL PRESSURE O2 85.7 mmHg (30.0-50.0); VENOUS PH 7.429 UNITS (7.330-7.430); VENOUS STANDARD HCO3 23.6 MEQ/L; VENOUS TOTAL CO2 23.9 MEQ/L (24.0-28.0)
[2022-04-18 23:12] LABS: INR 1.19; PROTHROMBIN TIME 15.5 SECONDS (12.7-14.5)
[2022-04-18 23:13] LABS: PARTIAL THROMBOPLASTIN TIME 25.6 SECONDS (25.9-37.0)
[2022-04-18 23:26] LABS: HEMOGLOBIN A1c 7.7 %
[2022-04-19 00:05] VITALS: BP 139/84
[2022-04-19 06:00] VITALS: BP 142/78
[2022-04-19 06:25] LABS: HEMATOCRIT 30.4 % (42.0-52.0); HEMOGLOBIN 10.2 g/dl (13.5-17.5); MEAN CORPUSCULAR HEMOGLOBIN 30.8 pg (27.0-33.0); MEAN CORPUSCULAR HGB CONC 33.6 g/dl (32.0-36.5); MEAN CORPUSCULAR VOLUME 91.8 fl (80.0-96.0); PLATELET COUNT, AUTOMATED 178 10^3/uL (150-450); RED BLOOD COUNT 3.31 10^6/uL (4.30-6.10); WHITE BLOOD COUNT 8.2 10^3/uL (4.0-10.0)
[2022-04-19 06:50] LABS: BLOOD UREA NITROGEN 20 MG/DL (7-18); CALCIUM LEVEL 9.4 MG/DL (8.8-10.2); CARBON DIOXIDE LEVEL 21 MEQ/L (21-32); CHLORIDE LEVEL 108 MEQ/L (98-107); GLOMERULAR FILTRATION RATE > 60.0 (>49); GLUCOSE, FASTING 269 MG/DL (70-100); MAGNESIUM LEVEL 1.5 MG/DL (1.8-2.4); POTASSIUM SERUM 3.5 MEQ/L (3.5-5.1); SODIUM LEVEL 139 MEQ/L (136-145)
[2022-04-19] MEDS ORDERED: MAG SULF 1GM/100ML (MAG RUN) 1 GM in IV 1 EA IV ONE ×2 (08:00→15:00)
[2022-04-19] MEDS: FLUoxetine 20MG CAP PO SCH (08:55)
[2022-04-19] MEDS: OMEPRAZOLE 20MG CAP PO SCH (08:56)
[2022-04-19] MEDS: GABAPENTIN 300 MG CAP PO SCH ×3 (08:56→20:41)
[2022-04-19] MEDS: DOCUSATE SODIUM 100MG CAPSULE PO SCH ×3 (08:56→21:00)
[2022-04-19] MEDS: LEVEMIR (INSULIN DETEMIR) 1 UNITS/0.01ML SC SCH ×2 (08:57→20:42)
[2022-04-19] MEDS: METOPROLOL TART 25 MG TABLET PO SCH (08:57)
[2022-04-19] MEDS: INSULIN LISPRO (NovoLOG) PER UNIT SC SCH ×4 (08:57→20:36)
[2022-04-19] MEDS ORDERED: ENOXAPARIN 30MG/0.3ML SYRINGE (J1650 PER 10MG) SC SCH (09:00)
[2022-04-19 14:00] VITALS: BP 115/46
[2022-04-19 18:24] LABS: BLOOD UREA NITROGEN 21 MG/DL (7-18); CALCIUM LEVEL 9.3 MG/DL (8.8-10.2); CARBON DIOXIDE LEVEL 22 MEQ/L (21-32); CHLORIDE LEVEL 102 MEQ/L (98-107); CREATININE FOR GFR 1.06 MG/DL (0.70-1.30); GLOMERULAR FILTRATION RATE > 60.0 (>49); GLUCOSE, FASTING 143 MG/DL (70-100); POTASSIUM SERUM 3.5 MEQ/L (3.5-5.1); SODIUM LEVEL 135 MEQ/L (136-145)
[2022-04-19] MEDS: NYSTATIN 100,000 UNITS/GM TOPICAL PWD 15 GM TOP SCH (20:42)
[2022-04-19 22:00] VITALS: BP 119/46
[2022-04-20 05:55] LABS: BASO # 0.1 10^3/uL (0.0-0.2); BASO % 0.8 % (0.0-1.0); EOS # 0.3 10^3/uL (0.0-0.5); EOS % 2.9 % (0.0-3.0); HEMATOCRIT 28.9 % (42.0-52.0); HEMOGLOBIN 9.7 g/dl (13.5-17.5); LYMPH # 2.1 10^3/uL (1.5-5.0); LYMPH % 24.5 % (24.0-44.0); MEAN CORPUSCULAR HEMOGLOBIN 31.2 pg (27.0-33.0); MEAN CORPUSCULAR HGB CONC 33.6 g/dl (32.0-36.5); MEAN CORPUSCULAR VOLUME 92.9 fl (80.0-96.0); MONO # 0.7 10^3/uL (0.0-0.8); MONO % 7.7 % (2.0-8.0); NEUTROPHILS # 5.5 10^3/uL (1.5-8.5); NEUTROPHILS % 62.6 % (36.0-66.0); PLATELET COUNT, AUTOMATED 182 10^3/uL (150-450); RED BLOOD COUNT 3.11 10^6/uL (4.30-6.10); WHITE BLOOD COUNT 8.7 10^3/uL (4.0-10.0)
[2022-04-20 06:00] VITALS: BP 126/48
[2022-04-20 06:24] LABS: BLOOD UREA NITROGEN 26 MG/DL (7-18); CALCIUM LEVEL 9.1 MG/DL (8.8-10.2); CARBON DIOXIDE LEVEL 21 MEQ/L (21-32); CHLORIDE LEVEL 103 MEQ/L (98-107); CREATININE FOR GFR 1.12 MG/DL (0.70-1.30); GLOMERULAR FILTRATION RATE > 60.0 (>49); GLUCOSE, FASTING 152 MG/DL (70-100); MAGNESIUM LEVEL 1.8 MG/DL (1.8-2.4); POTASSIUM SERUM 3.9 MEQ/L (3.5-5.1); SODIUM LEVEL 134 MEQ/L (136-145)
[2022-04-20] MEDS: NYSTATIN 100,000 UNITS/GM TOPICAL PWD 15 GM TOP SCH ×2 (08:01→21:28)
[2022-04-20] MEDS: LEVEMIR (INSULIN DETEMIR) 1 UNITS/0.01ML SC SCH ×2 (08:02→21:27)
[2022-04-20] MEDS: INSULIN LISPRO (NovoLOG) PER UNIT SC SCH ×4 (08:02→21:00)
[2022-04-20] MEDS: FLUoxetine 20MG CAP PO SCH (08:03)
[2022-04-20] MEDS: METOPROLOL TART 25 MG TABLET PO SCH (08:05)
[2022-04-20] MEDS: DOCUSATE SODIUM 100MG CAPSULE PO SCH ×3 (08:06→21:00)
[2022-04-20] MEDS: OMEPRAZOLE 20MG CAP PO SCH (08:06)
[2022-04-20] MEDS: GABAPENTIN 300 MG CAP PO SCH ×3 (08:06→21:27)
[2022-04-20 14:00] VITALS: BP 118/55
[2022-04-20] MEDS: ACETAMINOPHEN TAB 650MG DOSE (2X325MG) PO PRN ×2 (16:51→21:27)
[2022-04-21 06:00] VITALS: BP 131/62
[2022-04-21 06:47] LABS: BASO # 0.1 10^3/uL (0.0-0.2); BASO % 0.7 % (0.0-1.0); EOS # 0.2 10^3/uL (0.0-0.5); EOS % 2.6 % (0.0-3.0); HEMATOCRIT 30.1 % (42.0-52.0); HEMOGLOBIN 10.2 g/dl (13.5-17.5); LYMPH # 1.4 10^3/uL (1.5-5.0); LYMPH % 19.5 % (24.0-44.0); MEAN CORPUSCULAR HEMOGLOBIN 32.2 pg (27.0-33.0); MEAN CORPUSCULAR HGB CONC 33.9 g/dl (32.0-36.5); MONO # 0.6 10^3/uL (0.0-0.8); MONO % 8.6 % (2.0-8.0); NEUTROPHILS # 4.9 10^3/uL (1.5-8.5); NEUTROPHILS % 67.2 % (36.0-66.0); PLATELET COUNT, AUTOMATED 167 10^3/uL (150-450); RED BLOOD COUNT 3.17 10^6/uL (4.30-6.10); WHITE BLOOD COUNT 7.3 10^3/uL (4.0-10.0)
[2022-04-21 07:13] LABS: CALCIUM LEVEL 8.4 MG/DL (8.8-10.2); CREATININE FOR GFR 1.43 MG/DL (0.70-1.30); GLOMERULAR FILTRATION RATE 52.7 (>49); MAGNESIUM LEVEL 1.6 MG/DL (1.8-2.4)
[2022-04-21] MEDS: INSULIN LISPRO (NovoLOG) PER UNIT SC SCH ×4 (08:22→20:54)
[2022-04-21] MEDS: OMEPRAZOLE 20MG CAP PO SCH (08:23)
[2022-04-21] MEDS: METOPROLOL TART 25 MG TABLET PO SCH (08:23)
[2022-04-21] MEDS: FLUoxetine 20MG CAP PO SCH (08:23)
[2022-04-21] MEDS: GABAPENTIN 300 MG CAP PO SCH ×3 (08:23→20:51)
[2022-04-21] MEDS: LEVEMIR (INSULIN DETEMIR) 1 UNITS/0.01ML SC SCH ×2 (08:24→20:53)
[2022-04-21] MEDS: NYSTATIN 100,000 UNITS/GM TOPICAL PWD 15 GM TOP SCH ×2 (08:24→20:54)
[2022-04-21] MEDS: DOCUSATE SODIUM 100MG CAPSULE PO SCH ×2 (09:00→20:52)
[2022-04-21] MEDS: FLUTICASONE PROP 0.05% NASAL SPRAY 16 GM (FLONASE) PRN (11:16)
[2022-04-21 14:23] VITALS: BP 141/59
[2022-04-21 21:41] VITALS: BP 132/59
[2022-04-22 06:00] VITALS: BP 111/50
[2022-04-22 07:28] LABS: BASO % 0.6 % (0.0-1.0); EOS # 0.2 10^3/uL (0.0-0.5); EOS % 2.4 % (0.0-3.0); HEMATOCRIT 30.5 % (42.0-52.0); HEMOGLOBIN 10.1 g/dl (13.5-17.5); LYMPH # 0.9 10^3/uL (1.5-5.0); MEAN CORPUSCULAR HEMOGLOBIN 31.5 pg (27.0-33.0); MEAN CORPUSCULAR HGB CONC 33.1 g/dl (32.0-36.5); MONO # 0.5 10^3/uL (0.0-0.8); MONO % 8.4 % (2.0-8.0); NEUTROPHILS # 4.5 10^3/uL (1.5-8.5); PLATELET COUNT, AUTOMATED 155 10^3/uL (150-450); RED BLOOD COUNT 3.21 10^6/uL (4.30-6.10); WHITE BLOOD COUNT 6.2 10^3/uL (4.0-10.0)
[2022-04-22 07:59] LABS: BLOOD UREA NITROGEN 33 MG/DL (7-18); CALCIUM LEVEL 9.4 MG/DL (8.8-10.2); CARBON DIOXIDE LEVEL 21 MEQ/L (21-32); CHLORIDE LEVEL 108 MEQ/L (98-107); CREATININE FOR GFR 1.18 MG/DL (0.70-1.30); GLOMERULAR FILTRATION RATE > 60.0 (>49); GLUCOSE, FASTING 374 MG/DL (70-100); MAGNESIUM LEVEL 1.7 MG/DL (1.8-2.4); POTASSIUM SERUM 4.5 MEQ/L (3.5-5.1); SODIUM LEVEL 138 MEQ/L (136-145)
[2022-04-22] MEDS: LEVEMIR (INSULIN DETEMIR) 1 UNITS/0.01ML SC SCH ×2 (08:54→22:14)
[2022-04-22] MEDS: INSULIN LISPRO (NovoLOG) PER UNIT SC SCH ×4 (08:54→20:35)
[2022-04-22] MEDS: OMEPRAZOLE 20MG CAP PO SCH (08:57)
[2022-04-22] MEDS: GABAPENTIN 300 MG CAP PO SCH ×3 (08:57→22:13)
[2022-04-22] MEDS: METOPROLOL TART 25 MG TABLET PO SCH (08:57)
[2022-04-22] MEDS: NYSTATIN 100,000 UNITS/GM TOPICAL PWD 15 GM TOP SCH ×2 (08:58→21:00)
[2022-04-22] MEDS: FLUoxetine 20MG CAP PO SCH (08:58)
[2022-04-22] MEDS: DOCUSATE SODIUM 100MG CAPSULE PO SCH ×2 (09:00→22:13)
[2022-04-22] MEDS: traMADol 50 MG TAB PO PRN ×2 (09:02→22:14)
[2022-04-22 09:11] VITALS: BP 154/61
[2022-04-22 14:00] VITALS: BP 128/59
[2022-04-22 18:37] VITALS: BP 140/78
[2022-04-23 06:00] VITALS: BP 127/59
[2022-04-23 07:24] LABS: BASO % 0.7 % (0.0-1.0); EOS # 0.2 10^3/uL (0.0-0.5); EOS % 2.5 % (0.0-3.0); HEMATOCRIT 30.1 % (42.0-52.0); HEMOGLOBIN 9.8 g/dl (13.5-17.5); LYMPH # 1.1 10^3/uL (1.5-5.0); LYMPH % 18.1 % (24.0-44.0); MEAN CORPUSCULAR HEMOGLOBIN 30.5 pg (27.0-33.0); MEAN CORPUSCULAR HGB CONC 32.6 g/dl (32.0-36.5); MEAN CORPUSCULAR VOLUME 93.8 fl (80.0-96.0); MONO # 0.6 10^3/uL (0.0-0.8); MONO % 10.5 % (2.0-8.0); NEUTROPHILS # 4.1 10^3/uL (1.5-8.5); NEUTROPHILS % 66.7 % (36.0-66.0); PLATELET COUNT, AUTOMATED 159 10^3/uL (150-450); RED BLOOD COUNT 3.21 10^6/uL (4.30-6.10); WHITE BLOOD COUNT 6.1 10^3/uL (4.0-10.0)
[2022-04-23 07:51] LABS: BLOOD UREA NITROGEN 33 MG/DL (7-18); CALCIUM LEVEL 8.9 MG/DL (8.8-10.2); CARBON DIOXIDE LEVEL 25 MEQ/L (21-32); CHLORIDE LEVEL 104 MEQ/L (98-107); CREATININE FOR GFR 1.03 MG/DL (0.70-1.30); GLOMERULAR FILTRATION RATE > 60.0 (>49); GLUCOSE, FASTING 216 MG/DL (70-100); MAGNESIUM LEVEL 1.5 MG/DL (1.8-2.4); POTASSIUM SERUM 4.4 MEQ/L (3.5-5.1); SODIUM LEVEL 135 MEQ/L (136-145)
[2022-04-23] MEDS: INSULIN LISPRO (NovoLOG) PER UNIT SC SCH ×4 (08:26→21:00)
[2022-04-23] MEDS: LEVEMIR (INSULIN DETEMIR) 1 UNITS/0.01ML SC SCH ×2 (08:26→22:05)
[2022-04-23] MEDS: GABAPENTIN 300 MG CAP PO SCH ×3 (08:27→22:04)
[2022-04-23] MEDS: OMEPRAZOLE 20MG CAP PO SCH (08:27)
[2022-04-23] MEDS: FLUoxetine 20MG CAP PO SCH (08:27)
[2022-04-23] MEDS: METOPROLOL TART 25 MG TABLET PO SCH (08:28)
[2022-04-23] MEDS: DOCUSATE SODIUM 100MG CAPSULE PO SCH ×2 (08:28→21:00)
[2022-04-23] MEDS: FLUTICASONE PROP 0.05% NASAL SPRAY 16 GM (FLONASE) PRN (08:29)
[2022-04-23] MEDS: NYSTATIN 100,000 UNITS/GM TOPICAL PWD 15 GM TOP SCH ×2 (08:29→22:05)
[2022-04-23] MEDS: traMADol 50 MG TAB PO PRN (12:05)
[2022-04-23] MEDS: MAGNESIUM OXIDE 400MG TAB (MAG-OX) PO SCH ×2 (13:00→22:04)
[2022-04-24] MEDS: ACETAMINOPHEN TAB 650MG DOSE (2X325MG) PO PRN (00:01)
[2022-04-24 06:00] VITALS: BP 129/58
[2022-04-24] MEDS: LEVEMIR (INSULIN DETEMIR) 1 UNITS/0.01ML SC SCH ×2 (08:25→20:33)
[2022-04-24] MEDS: DOCUSATE SODIUM 100MG CAPSULE PO SCH ×3 (08:25→20:33)
[2022-04-24] MEDS: INSULIN LISPRO (NovoLOG) PER UNIT SC SCH ×4 (08:25→20:33)
[2022-04-24] MEDS: FLUoxetine 20MG CAP PO SCH (08:25)
[2022-04-24] MEDS: METOPROLOL TART 25 MG TABLET PO SCH (08:26)
[2022-04-24] MEDS: MAGNESIUM OXIDE 400MG TAB (MAG-OX) PO SCH ×2 (08:26→20:32)
[2022-04-24] MEDS: GABAPENTIN 300 MG CAP PO SCH ×3 (08:26→20:32)
[2022-04-24] MEDS: OMEPRAZOLE 20MG CAP PO SCH (08:26)
[2022-04-24] MEDS: NYSTATIN 100,000 UNITS/GM TOPICAL PWD 15 GM TOP SCH ×2 (08:26→20:35)
[2022-04-24] MEDS: traMADol 50 MG TAB PO PRN ×2 (12:35→21:51)
[2022-04-25] MEDS: ACETAMINOPHEN TAB 650MG DOSE (2X325MG) PO PRN ×2 (00:36→22:50)
[2022-04-25 06:00] VITALS: BP 125/49
[2022-04-25 06:08] LABS: HEMATOCRIT 28.4 % (42.0-52.0); HEMOGLOBIN 9.4 g/dl (13.5-17.5); MEAN CORPUSCULAR HGB CONC 33.1 g/dl (32.0-36.5); MEAN CORPUSCULAR VOLUME 96.6 fl (80.0-96.0); PLATELET COUNT, AUTOMATED 170 10^3/uL (150-450); RED BLOOD COUNT 2.94 10^6/uL (4.30-6.10); WHITE BLOOD COUNT 5.5 10^3/uL (4.0-10.0)
[2022-04-25 06:34] LABS: BLOOD UREA NITROGEN 38 MG/DL (7-18); CALCIUM LEVEL 9.4 MG/DL (8.8-10.2); CARBON DIOXIDE LEVEL 26 MEQ/L (21-32); CHLORIDE LEVEL 105 MEQ/L (98-107); CREATININE FOR GFR 1.04 MG/DL (0.70-1.30); GLOMERULAR FILTRATION RATE > 60.0 (>49); GLUCOSE, FASTING 116 MG/DL (70-100); MAGNESIUM LEVEL 1.6 MG/DL (1.8-2.4); POTASSIUM SERUM 4.4 MEQ/L (3.5-5.1); SODIUM LEVEL 136 MEQ/L (136-145)
[2022-04-25] MEDS: DOCUSATE SODIUM 100MG CAPSULE PO SCH ×2 (09:00→20:42)
[2022-04-25] MEDS: OMEPRAZOLE 20MG CAP PO SCH (09:05)
[2022-04-25] MEDS: MAGNESIUM OXIDE 400MG TAB (MAG-OX) PO SCH ×2 (09:05→20:46)
[2022-04-25] MEDS: GABAPENTIN 300 MG CAP PO SCH ×3 (09:05→20:46)
[2022-04-25] MEDS: FLUoxetine 20MG CAP PO SCH (09:05)
[2022-04-25] MEDS: INSULIN LISPRO (NovoLOG) PER UNIT SC SCH ×4 (09:06→20:47)
[2022-04-25] MEDS: LEVEMIR (INSULIN DETEMIR) 1 UNITS/0.01ML SC SCH ×2 (09:06→20:47)
[2022-04-25] MEDS: METOPROLOL TART 25 MG TABLET PO SCH (09:07)
[2022-04-25] MEDS: NYSTATIN 100,000 UNITS/GM TOPICAL PWD 15 GM TOP SCH ×2 (09:08→20:48)
[2022-04-26 06:00] VITALS: BP 114/52
[2022-04-26] MEDS: INSULIN LISPRO (NovoLOG) PER UNIT SC SCH ×2 (07:30→12:28)
[2022-04-26] MEDS ORDERED: MAGN400T2 PO (08:56)
[2022-04-26] MEDS ORDERED: INSULANT SC (08:56)
[2022-04-26] MEDS ORDERED: NYST10006 TOP (08:56)
[2022-04-26] MEDS ORDERED: COLA100C5 PO (08:56)
[2022-04-26] MEDS: LEVEMIR (INSULIN DETEMIR) 1 UNITS/0.01ML SC SCH (10:19)
[2022-04-26 10:20] VITALS: BP 114/52
[2022-04-26] MEDS: GABAPENTIN 300 MG CAP PO SCH ×2 (10:20→14:56)
[2022-04-26] MEDS: DOCUSATE SODIUM 100MG CAPSULE PO SCH (10:20)
[2022-04-26] MEDS: FLUoxetine 20MG CAP PO SCH (10:20)
[2022-04-26] MEDS: METOPROLOL TART 25 MG TABLET PO SCH (10:20)
[2022-04-26] MEDS: OMEPRAZOLE 20MG CAP PO SCH (10:21)
[2022-04-26] MEDS: MAGNESIUM OXIDE 400MG TAB (MAG-OX) PO SCH (10:21)
[2022-04-26] MEDS: NYSTATIN 100,000 UNITS/GM TOPICAL PWD 15 GM TOP SCH (10:21)
[2022-04-26] MEDS: ACETAMINOPHEN TAB 650MG DOSE (2X325MG) PO PRN (14:56)
== END 2022-04-26 16:45 | disposition home health service (06) | DRG 641 ==
LOC: M ED 13:27 → EDBD 13:27 → M ED INP 22:29 → M MS5PR 23:42
PROVIDERS: ADMIT Family Medicine; ATTEND Internal Medicine Nephrology
DX: R62.7 Adult failure to thrive (principal); E10.65 Type 1 diabetes mellitus with hyperglycemia; I16.0 Hypertensive urgency; K21.9 Gastro-esophageal reflux disease without esophagitis; M54.9 Dorsalgia, unspecified; Z20.822 Contact with and (suspected) exposure to COVID-19; F32.A Depression, unspecified; F41.9 Anxiety disorder, unspecified; Z79.4 Long term (current) use of insulin; Z79.899 Other long term (current) drug therapy; Z88.0 Allergy status to penicillin; Z88.1 Allergy status to other antibiotic agents; I25.10 Atherosclerotic heart disease of native coronary artery without angina pectoris; I48.91 Unspecified atrial fibrillation; Z79.01 Long term (current) use of anticoagulants; K74.60 Unspecified cirrhosis of liver; J44.9 Chronic obstructive pulmonary disease, unspecified; E10.51 Type 1 diabetes mellitus with diabetic peripheral angiopathy without gangrene; I73.9 Peripheral vascular disease, unspecified; R91.1 Solitary pulmonary nodule; L89.159 Pressure ulcer of sacral region, unspecified stage; Z95.5 Presence of coronary angioplasty implant and graft; D64.9 Anemia, unspecified

== ENCOUNTER 2022-04-30 11:32 | Emergency (ER) | payer MEDICARE, BC, OTHER ==
[~2022-04-30] VITALS: Ht 170.2 cm; Wt 68.2 kg
[~2022-04-30 11:32] MED LIST changes: +ACET-910 PO; +COLA100C5 PO; +MAGN400T2 PO; +NYST10006 TOP
[2022-04-30] MEDS ORDERED: NS 500 ML IV ONE (15:20)
[2022-04-30 16:03] LABS: BASO % 0.6 % (0.0-1.0); EOS # 0.1 10^3/uL (0.0-0.5); EOS % 1.6 % (0.0-3.0); HEMATOCRIT 35.2 % (42.0-52.0); HEMOGLOBIN 11.4 g/dl (13.5-17.5); LYMPH # 0.8 10^3/uL (1.5-5.0); LYMPH % 16.7 % (24.0-44.0); MEAN CORPUSCULAR HEMOGLOBIN 31.7 pg (27.0-33.0); MEAN CORPUSCULAR HGB CONC 32.4 g/dl (32.0-36.5); MEAN CORPUSCULAR VOLUME 97.8 fl (80.0-96.0); MONO # 0.5 10^3/uL (0.0-0.8); MONO % 11.1 % (2.0-8.0); NEUTROPHILS # 3.4 10^3/uL (1.5-8.5); NEUTROPHILS % 69.4 % (36.0-66.0); PLATELET COUNT, AUTOMATED 128 10^3/uL (150-450); WHITE BLOOD COUNT 4.9 10^3/uL (4.0-10.0)
[2022-04-30 16:22] LABS: BLOOD UREA NITROGEN 20 MG/DL (7-18); CALCIUM LEVEL 9.1 MG/DL (8.8-10.2); CARBON DIOXIDE LEVEL 23 MEQ/L (21-32); CHLORIDE LEVEL 107 MEQ/L (98-107); CREATININE FOR GFR 1.08 MG/DL (0.70-1.30); GLOMERULAR FILTRATION RATE > 60.0 (>49); GLUCOSE, FASTING 192 MG/DL (70-100); POTASSIUM SERUM 4.7 MEQ/L (3.5-5.1); SODIUM LEVEL 138 MEQ/L (136-145)
[2022-04-30 16:33] VITALS: BP 153/70
== END 2022-04-30 16:39 | disposition home or self-care (01) ==
LOC: M ED 11:32
DX: R19.7 Diarrhea, unspecified (principal); I48.91 Unspecified atrial fibrillation; D64.9 Anemia, unspecified; F33.9 Major depressive disorder, recurrent, unspecified; F41.9 Anxiety disorder, unspecified; I25.10 Atherosclerotic heart disease of native coronary artery without angina pectoris; Z79.899 Other long term (current) drug therapy; Z79.4 Long term (current) use of insulin; Z88.0 Allergy status to penicillin; Z88.8 Allergy status to other drugs, medicaments and biological substances

== ENCOUNTER → 2022-05-11 | Outpatient (CLI) | payer MEDICARE, BC, OTHER | LOC: M CARPUL 08:58 | PROVIDERS: ATTEND Internal Medicine Pulmonary Disease | DX: R91.8 Other nonspecific abnormal finding of lung field (principal) ==

== ENCOUNTER → 2022-05-19 | Outpatient (CLI) | payer MEDICARE, BC, OTHER | LOC: M ONCR 08:47 | PROVIDERS: ATTEND General Practice | DX: C34.11 Malignant neoplasm of upper lobe, right bronchus or lung (principal); R59.0 Localized enlarged lymph nodes; Z87.891 Personal history of nicotine dependence; Z79.4 Long term (current) use of insulin; Z79.891 Long term (current) use of opiate analgesic; Z79.899 Other long term (current) drug therapy; Z80.0 Family history of malignant neoplasm of digestive organs; Z80.3 Family history of malignant neoplasm of breast; Z80.1 Family history of malignant neoplasm of trachea, bronchus and lung; Z86.59 Personal history of other mental and behavioral disorders; Z88.0 Allergy status to penicillin; Z88.5 Allergy status to narcotic agent ==

== ENCOUNTER 2022-05-24 13:51 | Outpatient (RCR) | payer MEDICARE, BC, OTHER | END 2022-05-28 | LOC: M ONCR 13:51 | PROVIDERS: ATTEND General Practice | DX: C34.2 Malignant neoplasm of middle lobe, bronchus or lung (principal) ==

== ENCOUNTER → 2022-06-11 | Outpatient (CLI) | payer MEDICARE, BC, OTHER | LOC: M LABSMTC 10:00 | PROVIDERS: ATTEND Anesthesiology | DX: Z01.818 Encounter for other preprocedural examination (principal); Z11.52 Encounter for screening for COVID-19 ==

== ENCOUNTER 2022-06-16 10:59 | Outpatient (RCR) | payer MEDICARE, BC, OTHER ==
[2022-06-24] MEDS ORDERED: INSULANT SC (01:13)
== END 2022-06-25 ==
LOC: M ONCR 10:59
PROVIDERS: ATTEND General Practice
DX: C34.2 Malignant neoplasm of middle lobe, bronchus or lung (principal)

== ENCOUNTER 2022-06-23 21:25 | Inpatient (IN) | payer MEDICARE, BC, OTHER ==
[~2022-06-23] VITALS: Ht 167.6 cm; Wt 75.5 kg
[2022-06-23] MEDS ORDERED: HumuLIN R (REGULAR) INSULIN (NovoLIN R) **100U/ML** PER UNIT SC STA (22:02)
[2022-06-23 22:45] LABS: HEMOGLOBIN 12.3 g/dl (13.5-17.5); MEAN CORPUSCULAR HEMOGLOBIN 32.2 pg (27.0-33.0); MEAN CORPUSCULAR HGB CONC 34.2 g/dl (32.0-36.5); MEAN CORPUSCULAR VOLUME 94.2 fl (80.0-96.0); PLATELET COUNT, AUTOMATED 170 10^3/uL (150-450); RED BLOOD COUNT 3.82 10^6/uL (4.30-6.10); WHITE BLOOD COUNT 6.4 10^3/uL (4.0-10.0)
[2022-06-23 22:59] LABS: CK-MB VALUE MASS 4.8 NG/ML (<3.6); MB/CK RELATIVE INDEX 15.48 (< OR =4)
[2022-06-23 23:17] LABS: LYMPHOCYTES 10 % (16-44); METAMYELOCYTES 2 % (0-0); MONOCYTES 3 % (0-5); NEUTROPHILS 58 % (28-66); PLATELET ESTIMATE NORMAL (NORMAL)
[2022-06-23 23:19] LABS: TOXIC VACUOLATION 1+
[2022-06-23 23:39] LABS: ALBUMIN 2.5 GM/DL (3.2-5.2); ALT/SGPT 16 U/L (12-78); BILIRUBIN,TOTAL 0.9 MG/DL (0.2-1.0); BLOOD UREA NITROGEN 97 MG/DL (7-18); CALCIUM LEVEL 9.5 MG/DL (8.8-10.2); CARBON DIOXIDE LEVEL 9 MEQ/L (21-32); CHLORIDE LEVEL 92 MEQ/L (98-107); CREATININE FOR GFR 3.18 MG/DL (0.70-1.30); GLOMERULAR FILTRATION RATE 20.9 (>49); GLUCOSE, FASTING 609 MG/DL (70-100); MAGNESIUM LEVEL 2.4 MG/DL (1.8-2.4); NT-PRO BNP 3899 PG/ML (<125); POTASSIUM SERUM 4.6 MEQ/L (3.5-5.1); SODIUM LEVEL 124 MEQ/L (136-145); TOTAL PROTEIN 6.7 GM/DL (6.4-8.2)
[2022-06-23 23:42] LABS: ACETONE/KETONE > 46.00 MG/DL (<2.81)
[2022-06-23] MEDS ORDERED: INSULIN IV RATE CHANGE DOCUMENTATION ML/HR XX SCH (23:50)
[2022-06-23] MEDS ORDERED: SODIUM BICARBONATE 8.4% INJ 50 ML SYRINGE IV ONE (23:50)
[2022-06-23] MEDS ORDERED: NS 1,000 ML IV ONE (23:50)
[2022-06-23] MEDS ORDERED: INSULIN REGULAR IN 0.9 % NACL 100 UNIT in IV 1 EA IV SCH ×2 (23:50)
[2022-06-24] VITALS (78 sets, daily range): BP systolic 63–132; BP diastolic 34–59
[2022-06-24] MEDS ORDERED: NS 1,000 ML IV ONE ×2 (00:10→08:30)
[2022-06-24] MEDS ORDERED: INSULANT SC (01:13)
[2022-06-24] MEDS ORDERED: HOME MED LIST COMPLETE! XX SCH (01:15)
[2022-06-24] MEDS ORDERED: KCL 20MEQ in NS 1000ML 1,000 ML IV SCH (01:20)
[2022-06-24] MEDS ORDERED: SODIUM BICARBONATE 8.4% INJ 50 ML SYRINGE IV SCH (01:20)
[2022-06-24] MEDS: INSULIN IV RATE CHANGE DOCUMENTATION ML/HR XX SCH ×4 (02:20→16:16)
[2022-06-24 04:21] LABS: VENOUS BASE EXCESS -10.3 (-2.0-2.0); VENOUS HCO3 15.3 MEQ/L (23.0-27.0); VENOUS O2 SATURATION 96.5 % (60.0-80.0); VENOUS PARTIAL PRESSURE CO2 33.1 mmHg (38.0-50.0); VENOUS PARTIAL PRESSURE O2 96.6 mmHg (30.0-50.0); VENOUS PH 7.284 UNITS (7.330-7.430); VENOUS STANDARD HCO3 16.3 MEQ/L; VENOUS TOTAL CO2 16.4 MEQ/L (24.0-28.0)
[2022-06-24 04:43] LABS: HEMOGLOBIN A1c 10.6 %
[2022-06-24] MEDS ORDERED: DIGOXIN INJ 0.5 MG/2 ML AMP (J1160) IV STA (05:37)
[2022-06-24 05:46] LABS: ACETONE/KETONE 23.13 MG/DL (<2.81); CALCIUM LEVEL 8.3 MG/DL (8.8-10.2); CREATININE FOR GFR 2.88 MG/DL (0.70-1.30); GLOMERULAR FILTRATION RATE 23.5 (>49); MAGNESIUM LEVEL 1.8 MG/DL (1.8-2.4); POTASSIUM SERUM 3.2 MEQ/L (3.5-5.1)
[2022-06-24] MEDS ORDERED: HEPARIN SOD (PORCINE) 5000UNITS/ML 1ML VIAL/SYRINGE SC SCH (06:00)
[2022-06-24] MEDS: METOPROLOL 5 MG/5 ML VIAL IV SCH ×3 (06:42→08:30)
[2022-06-24] MEDS ORDERED: POTASSIUM CHLORIDE 10MEQ SR TABLET PO ONE (07:00)
[2022-06-24] MEDS ORDERED: KCL 10MEQ/100ML SWI (KRUN) 10 MEQ in IV 1 EA IV ONE (07:00)
[2022-06-24] MEDS: PANTOPRAZOLE 40MG VIAL IV SCH (08:05)
[2022-06-24] MEDS: KCL 20MEQ IN D5/0.45NS 1000ML 1,000 ML IV SCH ×3 (09:47→20:25)
[2022-06-24 09:49] LABS: VENOUS BASE EXCESS -9.2 (-2.0-2.0); VENOUS HCO3 17.4 MEQ/L (23.0-27.0); VENOUS O2 SATURATION 96.2 % (60.0-80.0); VENOUS PARTIAL PRESSURE CO2 40.2 mmHg (38.0-50.0); VENOUS PH 7.254 UNITS (7.330-7.430); VENOUS STANDARD HCO3 17.1 MEQ/L; VENOUS TOTAL CO2 18.6 MEQ/L (24.0-28.0)
[2022-06-24 10:32] LABS: CALCIUM LEVEL 8.6 MG/DL (8.8-10.2); CREATININE FOR GFR 2.6 MG/DL (0.70-1.30); GLOMERULAR FILTRATION RATE 26.4 (>49)
[2022-06-24] MEDS ORDERED: PHENYLEPHRINE 10MG/ML 1ML VIAL (J2370 PER 1) As Ordered ONE (10:35)
[2022-06-24] MEDS ORDERED: PHENYLEPHRINE HCL INJ 50 MG in NS 495 ML IV SCH ×4 (11:00)
[2022-06-24] MEDS ORDERED: AMIODARONE HCL 150 MG/100 ML PREMIXED BAG (NEXTERONE) (J0282 PER 30MG) As Ordered ONE ×2 (11:06→11:22)
[2022-06-24] MEDS ORDERED: VANCOMYCIN HCL 1,000 MG, VIAL MATE ADAPTER 1 EACH in NS 250 ML IV SCH (11:20)
[2022-06-24] MEDS ORDERED: AMIODARONE HCL 150 MG in IV 1 EA IV ONE (11:30)
[2022-06-24] MEDS: PHENYLEPHRINE HCL INJ 50 MG in NS 495 ML IV SCH ×5 (11:35→19:10)
[2022-06-24] MEDS ORDERED: AMIODARONE HCL 360 MG in IV 1 EA IV SCH (11:40)
[2022-06-24 11:56] LABS: HEMATOCRIT 26.8 % (42.0-52.0); MEAN CORPUSCULAR HEMOGLOBIN 32.7 pg (27.0-33.0); MEAN CORPUSCULAR HGB CONC 35.8 g/dl (32.0-36.5); MEAN CORPUSCULAR VOLUME 91.2 fl (80.0-96.0); RED BLOOD COUNT 2.94 10^6/uL (4.30-6.10); WHITE BLOOD COUNT 3.4 10^3/uL (4.0-10.0)
[2022-06-24 11:56] LABS: ABG HCO3 16.3 MEQ/L (22.0-26.0); ABG O2 SATURATION 89.2 % (95.0-99.0); ABG PARTIAL PRESSURE CO2 29.2 mmHg (35.0-45.0); ABG PARTIAL PRESSURE O2 57.5 mmHg (75.0-100.0); ABG STANDARD HCO3 17.9 MEQ/L (22.0-26.0); ABG TOTAL CO2 17.2 MEQ/L (23.0-31.0); ABG pH (ARTERIAL) 7.364 UNITS (7.350-7.450)
[2022-06-24] MEDS ORDERED: VANCOMYCIN INTERMITTENT/PULSE DOSING BY CLINICAL PHARMACIST PER DOSING PROTOCOL XX SCH (12:00)
[2022-06-24] MEDS ORDERED: VANCOMYCIN HCL 1,000 MG, VIAL MATE ADAPTER 1 EACH in D5W 250 ML IV ONE (12:00)
[2022-06-24] MEDS ORDERED: NOREPINEPHRINE 8MG IN 500ML DEXTROSE 5% BAG As Ordered ONE (12:02)
[2022-06-24] MEDS ORDERED: MIDAZOLAM INJ 2MG/2ML VIAL (J2250 PER 1MG) IV STA ×2 (12:04→13:41)
[2022-06-24] MEDS ORDERED: fentaNYL 100 MCG/2 ML INJECTION IV ONE ×2 (12:05→12:15)
[2022-06-24] MEDS ORDERED: MIDAZOLAM 5MG/ML 1ML VIAL (J2250 PER 1MG) As Ordered ONE (12:06)
[2022-06-24] MEDS ORDERED: fentaNYL 100 MCG/2 ML INJECTION As Ordered ONE (12:07)
[2022-06-24] MEDS ORDERED: ROCURONIUM BROMIDE 50 MG/5 ML VIAL IV SCH (12:15)
[2022-06-24] MEDS ORDERED: ETOMIDATE INJ 20MG/10ML VIAL IV STA (12:15)
[2022-06-24] MEDS ORDERED: MIDAZOLAM INJ 2MG/2ML VIAL (J2250 PER 1MG) IV ONE (12:15)
[2022-06-24 12:18] LABS: AMORPHOUS SEDIMENT, URINE SMALL AMOUNT (NEGATIVE); BACTERIA, URINE SMALL AMOUNT; HYALINE CAST, URINE NONE SEEN /lpf (0-1); MUCUS, URINE SMALL AMOUNT (NEGATIVE); SQUAMOUS EPITHELIAL CELL URINE SMALL AMOUNT /hpf (SMALL AMT); TRANSITIONAL EPI CELLS, URINE SMALL AMOUNT /hpf
[2022-06-24] MEDS ORDERED: HYDROCORTISONE 100 MG/2 ML VIAL (J1720 PER 1) IV ONE (12:20)
[2022-06-24] MEDS ORDERED: FENTANYL DRIP LOCK BOX KEY 1 EACH XX PRN (12:20)
[2022-06-24] MEDS ORDERED: MIDAZOLAM DRIP LOCK BOX KEY 1 EACH EA XX PRN (12:20)
[2022-06-24] MEDS ORDERED: VASOPRESSIN INJ 20 UNITS/ML VIAL As Ordered ONE (12:22)
[2022-06-24 12:38] LABS: HEMOGLOBIN 9.6 g/dl (13.5-17.5); PLATELET COUNT, AUTOMATED 93 10^3/uL (150-450)
[2022-06-24 12:41] LABS: CALCIUM LEVEL 8.2 MG/DL (8.8-10.2); CREATININE FOR GFR 2.68 MG/DL (0.70-1.30); GLOMERULAR FILTRATION RATE 25.5 (>49); POTASSIUM SERUM 3.9 MEQ/L (3.5-5.1)
[2022-06-24 12:42] LABS: ALBUMIN 1.9 GM/DL (3.2-5.2); BILIRUBIN,TOTAL 0.7 MG/DL (0.2-1.0); PHOSPHORUS LEVEL 1.6 MG/DL (2.5-4.9); TOTAL PROTEIN 4.7 GM/DL (6.4-8.2)
[2022-06-24] MEDS: VASOPRESSIN INJ 20 UNITS in NS 499 ML IV SCH ×2 (13:00→21:20)
[2022-06-24] MEDS: AZTREONAM 1 GM in D5W MINI-BAG PLUS 50 ML IV SCH ×2 (13:13→20:25)
[2022-06-24] MEDS: NOREPINEPHRINE/DEXTROSE 8 MG in IV 1 EA IV SCH ×2 (13:14→20:02)
[2022-06-24] MEDS: fentaNYL CITRATE/NaCl 1,000 MCG in IV 1 EA IV SCH ×2 (13:16→19:29)
[2022-06-24] MEDS: MIDAZOLAM HCL 100 MG in IV 1 EA IV SCH (13:17)
[2022-06-24] MEDS ORDERED: NS 500 ML IV ONE ×3 (13:45→18:45)
[2022-06-24] MEDS ORDERED: ROCURONIUM BROMIDE 50 MG/5 ML VIAL ONE (14:03)
[2022-06-24] MEDS ORDERED: ETOMIDATE INJ 20MG/10ML VIAL ONE (14:03)
[2022-06-24 14:42] LABS: ABG BASE EXCESS -11.2 (-2.0-2.0); ABG HCO3 16.7 MEQ/L (22.0-26.0); ABG O2 SATURATION 95.6 % (95.0-99.0); ABG PARTIAL PRESSURE CO2 46.1 mmHg (35.0-45.0); ABG PARTIAL PRESSURE O2 96.3 mmHg (75.0-100.0); ABG STANDARD HCO3 15.5 MEQ/L (22.0-26.0); ABG TOTAL CO2 18.1 MEQ/L (23.0-31.0)
[2022-06-24 14:43] LABS: ABG pH (ARTERIAL) 7.177 UNITS (7.350-7.450)
[2022-06-24] MEDS ORDERED: SODIUM BICARBONATE 8.4% INJ 50 ML SYRINGE IV STA ×2 (14:50→20:48)
[2022-06-24] MEDS ORDERED: fentaNYL 100 MCG/2 ML INJECTION IV PRN (15:00)
[2022-06-24] MEDS: MIDAZOLAM INJ 2MG/2ML VIAL (J2250 PER 1MG) IV PRN (15:14)
[2022-06-24] MEDS ORDERED: CISATRACURIUM 10MG/ML 20 ML VIAL IV ONE (15:20)
[2022-06-24] MEDS ORDERED: CISATRACURIUM 10MG/ML 20 ML VIAL As Ordered ONE ×2 (15:23→15:24)
[2022-06-24 15:36] LABS: CALCIUM LEVEL 8.1 MG/DL (8.8-10.2); CREATININE FOR GFR 2.71 MG/DL (0.70-1.30); GLOMERULAR FILTRATION RATE 25.2 (>49); POTASSIUM SERUM 4.2 MEQ/L (3.5-5.1)
[2022-06-24] MEDS ORDERED: CISATRACURIUM 200 MG in NS 480 ML IV SCH (15:45)
[2022-06-24] MEDS: CISATRACURIUM 200 MG in NS 480 ML IV SCH (15:55)
[2022-06-24] MEDS ORDERED: HEPARIN SOD (PORCINE) 5000UNITS/ML 1ML VIAL/SYRINGE IV PRN (16:00)
[2022-06-24] MEDS ORDERED: HEPARIN DRIP 25,000 UNITS in IV 1 EA IV SCH (16:00)
[2022-06-24] MEDS ORDERED: HEPARIN SOD (PORCINE) 5000UNITS/ML 1ML VIAL/SYRINGE IV ONE (16:00)
[2022-06-24] MEDS: LEVALBUTEROL 1.25 MG/0.5 ML CONCENTRATE NEB INH SCH ×2 (16:41→20:14)
[2022-06-24] MEDS: AMIODARONE HCL 360 MG in IV 1 EA IV SCH (17:48)
[2022-06-24] MEDS: HYDROCORTISONE 100 MG/2 ML VIAL (J1720 PER 1) IV SCH (18:18)
[2022-06-24] MEDS ORDERED: EPINEPHrine INJ 1 MG/ML 1ML AMP As Ordered ONE (18:21)
[2022-06-24] MEDS ORDERED: EPINEPHrine HCL INJ 1 MG in D5W 240 ML IV SCH (19:00)
[2022-06-24 19:07] LABS: CALCIUM LEVEL 7.9 MG/DL (8.8-10.2); CREATININE FOR GFR 2.95 MG/DL (0.70-1.30); GLOMERULAR FILTRATION RATE 22.8 (>49); POTASSIUM SERUM 4.2 MEQ/L (3.5-5.1)
[2022-06-24] MEDS: INSULIN REGULAR IN 0.9 % NACL 100 UNIT in IV 1 EA IV SCH ×2 (19:58)
[2022-06-24 20:24] LABS: ABG BASE EXCESS -15.3 (-2.0-2.0); ABG HCO3 15.7 MEQ/L (22.0-26.0); ABG O2 SATURATION 97.2 % (95.0-99.0); ABG PARTIAL PRESSURE O2 118.6 mmHg (75.0-100.0); ABG STANDARD HCO3 12.6 MEQ/L (22.0-26.0); ABG TOTAL CO2 17.7 MEQ/L (23.0-31.0)
[2022-06-24 20:26] LABS: ABG PARTIAL PRESSURE CO2 63.7 mmHg (35.0-45.0)
[2022-06-24 22:15] LABS: ABG BASE EXCESS -14.2 (-2.0-2.0); ABG HCO3 15.8 MEQ/L (22.0-26.0); ABG O2 SATURATION 96.7 % (95.0-99.0); ABG PARTIAL PRESSURE CO2 55.5 mmHg (35.0-45.0); ABG PARTIAL PRESSURE O2 105.1 mmHg (75.0-100.0); ABG STANDARD HCO3 13.5 MEQ/L (22.0-26.0); ABG TOTAL CO2 17.5 MEQ/L (23.0-31.0)
[2022-06-24 22:17] LABS: ABG pH (ARTERIAL) 7.071 UNITS (7.350-7.450)
[2022-06-25] VITALS (54 sets, daily range): BP systolic 72–155; BP diastolic 24–72
[2022-06-25] MEDS ORDERED: POTASSIUM CHLORIDE IV SCH ×3
[2022-06-25] MEDS ORDERED: [UNRECOGNIZED DRUG - OTHER] IV SCH ×3
[2022-06-25] MEDS ORDERED: SODIUM BICARBONATE IV SCH ×3
[2022-06-25] MEDS: NOREPINEPHRINE/DEXTROSE 8 MG in IV 1 EA IV SCH ×4 (00:12→13:34)
[2022-06-25] MEDS: PHENYLEPHRINE HCL INJ 50 MG in NS 495 ML IV SCH ×3 (00:16→10:54)
[2022-06-25] MEDS: INSULIN IV RATE CHANGE DOCUMENTATION ML/HR XX SCH ×7 (00:19→16:08)
[2022-06-25] MEDS: HYDROCORTISONE 100 MG/2 ML VIAL (J1720 PER 1) IV SCH ×3 (00:23→13:09)
[2022-06-25 00:24] LABS: HEMATOCRIT 30.2 % (42.0-52.0); HEMOGLOBIN 10.1 g/dl (13.5-17.5); MEAN CORPUSCULAR HEMOGLOBIN 31.9 pg (27.0-33.0); MEAN CORPUSCULAR HGB CONC 33.4 g/dl (32.0-36.5); MEAN CORPUSCULAR VOLUME 95.3 fl (80.0-96.0); PLATELET COUNT, AUTOMATED 150 10^3/uL (150-450); RED BLOOD COUNT 3.17 10^6/uL (4.30-6.10)
[2022-06-25 01:21] LABS: BILIRUBIN,TOTAL 0.4 MG/DL (0.2-1.0); CALCIUM LEVEL 7.2 MG/DL (8.8-10.2); CREATININE FOR GFR 2.67 MG/DL (0.70-1.30); GLOMERULAR FILTRATION RATE 25.6 (>49); POTASSIUM SERUM 4.6 MEQ/L (3.5-5.1); TOTAL PROTEIN 4.7 GM/DL (6.4-8.2)
[2022-06-25] MEDS: LEVALBUTEROL 1.25 MG/0.5 ML CONCENTRATE NEB INH SCH ×3 (01:23→15:00)
[2022-06-25] MEDS: EPINEPHrine HCL INJ 1 MG in D5W 240 ML IV SCH ×4 (02:00→15:26)
[2022-06-25] MEDS: MIDAZOLAM HCL 100 MG in IV 1 EA IV SCH (02:25)
[2022-06-25] MEDS: VASOPRESSIN INJ 20 UNITS in NS 499 ML IV SCH ×2 (04:49→15:26)
[2022-06-25] MEDS: AZTREONAM 1 GM in D5W MINI-BAG PLUS 50 ML IV SCH ×2 (05:16→13:09)
[2022-06-25] MEDS: AMIODARONE HCL 360 MG in IV 1 EA IV SCH (05:19)
[2022-06-25] MEDS: fentaNYL CITRATE/NaCl 1,000 MCG in IV 1 EA IV SCH ×2 (05:27→15:43)
[2022-06-25 05:28] LABS: ACETONE/KETONE 0.57 MG/DL (<2.81); CREATININE FOR GFR 2.56 MG/DL (0.70-1.30); GLOMERULAR FILTRATION RATE 26.9 (>49); MAGNESIUM LEVEL 1.4 MG/DL (1.8-2.4); PHOSPHORUS LEVEL 3.6 MG/DL (2.5-4.9); POTASSIUM SERUM 4.7 MEQ/L (3.5-5.1); VANCOMYCIN RANDOM 7.2 UG/ML
[2022-06-25] MEDS ORDERED: VANCOMYCIN HCL 1,000 MG, VIAL MATE ADAPTER 1 EACH in D5W 250 ML IV ONE (06:00)
[2022-06-25] MEDS ORDERED: MAG SULF 1GM/100ML (MAG RUN) 1 GM in IV 1 EA IV ONE ×2 (07:00→08:00)
[2022-06-25] MEDS ORDERED: SODIUM BICARBONATE 8.4% INJ 50 ML SYRINGE IV STA ×2 (07:08→09:31)
[2022-06-25] MEDS: INSULIN REGULAR IN 0.9 % NACL 100 UNIT in IV 1 EA IV SCH ×2 (08:13)
[2022-06-25] MEDS: MIDAZOLAM INJ 2MG/2ML VIAL (J2250 PER 1MG) IV PRN (09:10)
[2022-06-25 09:15] LABS: ABG BASE EXCESS -16.5 (-2.0-2.0); ABG O2 SATURATION 85.5 % (95.0-99.0); ABG PARTIAL PRESSURE O2 53.7 mmHg (75.0-100.0); ABG STANDARD HCO3 11.7 MEQ/L (22.0-26.0); ABG TOTAL CO2 18.4 MEQ/L (23.0-31.0)
[2022-06-25 09:19] LABS: ABG pH (ARTERIAL) 6.939 UNITS (7.350-7.450)
[2022-06-25 09:20] LABS: ABG PARTIAL PRESSURE CO2 76.6 mmHg (35.0-45.0)
[2022-06-25 09:26] LABS: BASO % 0.2 % (0.0-1.0); EOS % 0.4 % (0.0-3.0); HEMATOCRIT 30.2 % (42.0-52.0); LYMPH # 0.4 10^3/uL (1.5-5.0); MEAN CORPUSCULAR HEMOGLOBIN 32.2 pg (27.0-33.0); MEAN CORPUSCULAR HGB CONC 33.1 g/dl (32.0-36.5); MEAN CORPUSCULAR VOLUME 97.1 fl (80.0-96.0); MONO # 0.2 10^3/uL (0.0-0.8); MONO % 3.7 % (2.0-8.0); NEUTROPHILS % 85.7 % (36.0-66.0); PLATELET COUNT, AUTOMATED 110 10^3/uL (150-450); RED BLOOD COUNT 3.11 10^6/uL (4.30-6.10); WHITE BLOOD COUNT 4.6 10^3/uL (4.0-10.0)
[2022-06-25 09:47] LABS: MAGNESIUM LEVEL 1.8 MG/DL (1.8-2.4); PHOSPHORUS LEVEL 3.8 MG/DL (2.5-4.9)
[2022-06-25] MEDS ORDERED: SODIUM BICARBONATE 150 MEQ in D5W 1,000 ML IV SCH (10:00)
[2022-06-25] MEDS ORDERED: SODIUM CHLORIDE 0.9% INJ 10 ML SYR IV PRN (10:35)
[2022-06-25 13:15] LABS: INR 1.71; PROTHROMBIN TIME 20.5 SECONDS (12.7-14.5)
[2022-06-25] MEDS ORDERED: NS IV SCH (13:30)
[2022-06-25] MEDS ORDERED: PHENYLEPHRINE HCL IV SCH (13:30)
[2022-06-25] MEDS: PANTOPRAZOLE 40MG VIAL IV SCH (15:30)
[2022-06-25] MEDS: CISATRACURIUM 200 MG in NS 480 ML IV SCH (15:34)
[2022-06-25] MEDS ORDERED: SCOPOLAMINE 1MG TRANSDERMAL PATCH TOP PRN (16:35)
[2022-06-25] MEDS ORDERED: LORazepam 2 MG/ML VIAL IV PRN (16:35)
[2022-06-25] MEDS ORDERED: EPINEPHrine HCL INJ 4 MG in D5W 996 ML IV SCH (17:00)
[2022-06-25] MEDS ORDERED: MORPHINE SULF IN 0.9% NACL 100 MG in IV 1 EA IV SCH ×2 (18:00)
== END 2022-06-25 16:59 | disposition expired | DRG 871 ==
LOC: M ED 21:25 → EDBD 21:25 → M ED INP 06-24 01:26 → ENRESERV 06-24 02:00 → M ICU 06-24 02:54
PROVIDERS: ADMIT Internal Medicine; ATTEND Internal Medicine
PROC: 0BH17EZ Insertion of Endotracheal Airway into Trachea, Via Natural or Artificial Opening (ICD-10-PCS; principal; 2022-06-24)
PROC: 02HV33Z Insertion of Infusion Device into Superior Vena Cava, Percutaneous Approach (ICD-10-PCS; 2022-06-24)
PROC: 5A1945Z Respiratory Ventilation, 24-96 Consecutive Hours (ICD-10-PCS; 2022-06-24)
PROC: 04HY32Z Insertion of Monitoring Device into Lower Artery, Percutaneous Approach (ICD-10-PCS; 2022-06-25)
PROC: 02HV33Z Insertion of Infusion Device into Superior Vena Cava, Percutaneous Approach (ICD-10-PCS; 2022-06-25)
DX: A41.01 Sepsis due to Methicillin susceptible Staphylococcus aureus (principal); E10.10 Type 1 diabetes mellitus with ketoacidosis without coma; J96.01 Acute respiratory failure with hypoxia; J18.9 Pneumonia, unspecified organism; R65.21 Severe sepsis with septic shock; N17.9 Acute kidney failure, unspecified; E46 Unspecified protein-calorie malnutrition; Z66 Do not resuscitate; I48.91 Unspecified atrial fibrillation; M54.12 Radiculopathy, cervical region; R68.0 Hypothermia, not associated with low environmental temperature; F32.A Depression, unspecified; F41.9 Anxiety disorder, unspecified; D64.9 Anemia, unspecified; Z90.49 Acquired absence of other specified parts of digestive tract; Z89.429 Acquired absence of other toe(s), unspecified side; E10.42 Type 1 diabetes mellitus with diabetic polyneuropathy; Z20.822 Contact with and (suspected) exposure to COVID-19; Z79.4 Long term (current) use of insulin; Z79.899 Other long term (current) drug therapy; Z88.0 Allergy status to penicillin; Z88.8 Allergy status to other drugs, medicaments and biological substances; E10.649 Type 1 diabetes mellitus with hypoglycemia without coma; I95.9 Hypotension, unspecified; D69.6 Thrombocytopenia, unspecified; R57.1 Hypovolemic shock